=== PATIENT | male | born 1950 | race Two or more races ===

== ENCOUNTER → 2024-03-10 | Outpatient (CLI) | payer MEDICAID ==
[2024-03-10 06:40] LABS: INR 3.09 (0.9-1.15); Prothrombin Time 30.1 sec (9.3-11.8)
== END | disposition home or self-care (01) ==
LOC: LAB 06:24
PROVIDERS: ATTEND Specialist
DX: R79.1 Abnormal coagulation profile (principal)
CPT/HCPCS: 36415; 85610

== ENCOUNTER → 2024-03-18 | Outpatient (CLI) | payer MEDICAID ==
[2024-03-18 09:33] LABS: Urine Bacteria None Seen /hpf (None Seen)
[2024-03-18 09:59] LABS: Urine Blood TRACE /uL (Negative); Urine Clarity Clear (Clear); Urine Color Yellow (Yellow); Urine Protein, UAD TRACE (Negative); Urine Specific Gravity 1.025 (1.001-1.035); Urine Urobilinogen 4 mg/dL (Negative); Urine WBC 6 /hpf (0 - 3); Urine pH 6.5 (5.0-9.0)
[2024-03-18 10:19] LABS: Alanine Aminotransferase 29 U/L (7-40); Albumin 3.9 g/dL (3.2-4.8); Alkaline Phosphatase 124 U/L (46-116); Anion Gap 2 (5-15); Aspartate Aminotransferase 29 U/L (13-40); BUN/Creatinine Ratio 21.3 (10.0-20.0); Blood Urea Nitrogen 17 mg/dL (9-23); Carbon Dioxide 33 mmol/L (20-30); Chloride 105 mmol/L (98-107); Cholesterol 132 mg/dL (< 200); Glucose 92 mg/dL (74-106); HDL Cholesterol 66 mg/dL (40-59); LDL Cholesterol 50 mg/dL (< 100); Potassium 4.3 mmol/L (3.5-5.1); Sodium 140 mmol/L (136-145); Triglycerides 72 mg/dL (< 150)
[2024-03-18 10:20] LABS: Basophils # (auto) 0 10 ^3/uL (0-0.2); Basophils % (auto) 0.9 % (0.0-2.0); Bilirubin, Total 0.6 mg/dL (0.2-1.0); Eosinophils # (auto) 0.1 10 ^3/uL (0-0.8); Eosinophils % (auto) 3.3 % (0.0-7.0); Hematocrit 41.2 % (41.0-53.0); Hemoglobin 13.5 g/dL (13.5-17.5); Lymphocytes # (auto) 0.5 10 ^3/uL (0.4-5.4); Lymphocytes % (auto) 13.9 % (10.0-50.0); Mean Corpuscular Hemoglobin 32.2 pg (28.0-32.0); Mean Corpuscular Hgb Conc. 32.9 g/dL (32.0-36.0); Mean Corpuscular Volume 97.9 fL (80.0-100.0); Monocytes # (auto) 0.3 10 ^3/uL (0-1.3); Monocytes % (auto) 8.9 % (0.0-12.0); Neutrophils # (auto) 2.7 10 ^3/uL (1.6-8.6); Nucleated Red Blood Cells % 0.1 %; Red Blood Cells 4.21 10^6/uL (4.5-5.90); Red Cell Distribution Width 14.8 % (11.8-14.3); Total Protein 6.2 g/dL (5.7-8.2); White Blood Cell 3.7 10^3/uL (4.4-10.8)
[2024-03-18 11:20] LABS: Folate (Folic Acid) 29.09 ng/mL (>5.38)
[2024-03-18 21:24] LABS: Uric Acid 4.3 mg/dL (3.7-9.2)
== END | disposition home or self-care (01) ==
LOC: LAB 09:17
PROVIDERS: ATTEND Internal Medicine
DX: E79.0 Hyperuricemia without signs of inflammatory arthritis and tophaceous disease (principal); R78.89 Finding of other specified substances, not normally found in blood; E78.9 Disorder of lipoprotein metabolism, unspecified; R68.89 Other general symptoms and signs; R73.09 Other abnormal glucose; E61.2 Magnesium deficiency; E85.9 Amyloidosis, unspecified; R82.90 Unspecified abnormal findings in urine; D51.9 Vitamin B12 deficiency anemia, unspecified; R76.8 Other specified abnormal immunological findings in serum; E55.9 Vitamin D deficiency, unspecified
CPT/HCPCS: 36415; 80053; 80061; 81001; 82306; 82607; 82746; 83036; 84443; 84550; 85025; 86038; 87086

== ENCOUNTER → 2024-04-03 | Outpatient (CLI) | payer MEDICAID ==
[~2024-04-03] MED LIST: ALEN35TA18 PO; BUPR200T7 PO; CHOL20007 PO; FURO1TAB31 PO; HYDR-4902 PO; LEVO150T10 PO; PRAV20TA3 PO; TAMS0.4C36 PO; WARF-111 PO; WARF4TAB69 PO; [UNRECOGNIZED DRUG - CODE] PO
[2024-04-03 14:18] LABS: Prothrombin Time 38.6 sec (9.3-11.8)
[2024-04-03 14:29] LABS: INR 4.04 (0.9-1.15)
== END | disposition home or self-care (01) ==
LOC: LAB 13:31
PROVIDERS: ATTEND Specialist
DX: R79.1 Abnormal coagulation profile (principal)
CPT/HCPCS: 36415; 85610

== ENCOUNTER 2024-04-21 07:44 | Day surgery (SDC) | payer MEDICAID ==
[2024-04-18 12:33] LABS: Basophils # (auto) 0 10 ^3/uL (0-0.2); Basophils % (auto) 1.1 % (0.0-2.0); Eosinophils # (auto) 0.1 10 ^3/uL (0-0.8); Eosinophils % (auto) 2.2 % (0.0-7.0); Hemoglobin 13.4 g/dL (13.5-17.5); Lymphocytes # (auto) 0.7 10 ^3/uL (0.4-5.4); Lymphocytes % (auto) 17.2 % (10.0-50.0); Mean Corpuscular Hemoglobin 32.4 pg (28.0-32.0); Mean Corpuscular Hgb Conc. 33.5 g/dL (32.0-36.0); Mean Corpuscular Volume 96.7 fL (80.0-100.0); Monocytes # (auto) 0.4 10 ^3/uL (0-1.3); Monocytes % (auto) 10.1 % (0.0-12.0); Neutrophils # (auto) 2.9 10 ^3/uL (1.6-8.6); Neutrophils % (auto) 69.4 % (37.0-80.0); Nucleated Red Blood Cells % 0.1 %; Red Blood Cells 4.14 10^6/uL (4.5-5.90); Red Cell Distribution Width 14.1 % (11.8-14.3); White Blood Cell 4.2 10^3/uL (4.4-10.8)
[2024-04-18 12:48] LABS: Urine Bacteria FEW /hpf (None Seen); Urine Blood TRACE /uL (Negative); Urine Clarity Clear (Clear); Urine Color Light-Yellow (Yellow); Urine Protein, UAD Negative (Negative); Urine Specific Gravity 1.009 (1.001-1.035); Urine Urobilinogen Normal (Negative); Urine WBC 6 /hpf (0 - 3); Urine pH 7.5 (5.0-9.0)
[2024-04-18 12:49] LABS: INR 1.22 (0.9-1.15); Partial Thromboplastin Time 31.8 SEC (24.5-34.5); Prothrombin Time 12.7 sec (9.3-11.8)
[2024-04-18 13:00] LABS: Chloride 109 mmol/L (98-107); Potassium 4.5 mmol/L (3.5-5.1); Sodium 140 mmol/L (136-145)
[2024-04-18 13:01] LABS: Calcium 10.1 mg/dL (8.5-10.1); Carbon Dioxide 34 mmol/L (20-30)
[2024-04-18 13:06] LABS: BUN/Creatinine Ratio 20.8 (10.0-20.0); Blood Urea Nitrogen 16 mg/dL (9-23); Glucose 84 mg/dL (74-106)
[2024-04-18 13:11] LABS: Anion Gap -3 (5-15)
[~2024-04-21] VITALS: Ht 172.7 cm; Wt 100.2 kg
[2024-04-21] MEDS ORDERED: fentaNYL CITRATE 100 MCG/2 ML VL ONE (08:54)
[2024-04-21] MEDS ORDERED: MIDAZOLAM HCL 2MG/2ML 2ml VIAL (1mg/ml) ONE ×2 (08:55→10:32)
[2024-04-21] MEDS ORDERED: LIDOCAINE VISCOUS 2% 15ML UD PO ONE (09:00)
[2024-04-21] MEDS ORDERED: ENOXAPARIN SOD 100 MG/1 ML SYRINGE SC ONE (09:00)
[2024-04-21] MEDS ORDERED: LIDOCAINE 2%HCL (LOCAL ANESTH.) INJ 20ML MDV ONE (09:15)
[2024-04-21] MEDS ORDERED: ceFAZolin 1GM/50ML 100 ML IV ONE (09:31)
[2024-04-21] MEDS ORDERED: diphenhdrAMINE HCL 50 MG/1 ML VL ONE (10:35)
[2024-04-21] MEDS: HYDROcodone-ACET 5/325MG TAB PO ONE (12:10)
== END 2024-04-21 16:05 | disposition home or self-care (01) ==
LOC: CATH 07:44
PROVIDERS: ATTEND Specialist
DX: I48.92 Unspecified atrial flutter (principal); I08.3 Combined rheumatic disorders of mitral, aortic and tricuspid valves; I48.91 Unspecified atrial fibrillation; I70.0 Atherosclerosis of aorta
CPT/HCPCS: 36415; 80048; 81001; 85025; 85610; 85730; 93312; 93325; C1730; C1731; C1893; C1894; J0690; J1200; J1644; J1650; J2250; J3010; J7030; 99152; 99153

== ENCOUNTER → 2024-05-05 | Outpatient (CLI) | payer MEDICAID ==
[2024-05-05 12:31] LABS: INR 2.02 (0.9-1.15); Prothrombin Time 20.3 sec (9.3-11.8)
== END | disposition home or self-care (01) ==
LOC: LAB 12:04
PROVIDERS: ATTEND Specialist
DX: R79.1 Abnormal coagulation profile (principal)
CPT/HCPCS: 36415; 85610

== ENCOUNTER → 2024-05-19 | Outpatient (CLI) | payer MEDICAID ==
[2024-05-19 15:06] LABS: INR 1.48 (0.9-1.15); Prothrombin Time 15.2 sec (9.3-11.8)
== END | disposition home or self-care (01) ==
LOC: LAB 14:37
PROVIDERS: ATTEND Specialist
DX: R79.1 Abnormal coagulation profile (principal)
CPT/HCPCS: 36415; 85610

== ENCOUNTER → 2024-07-08 | Outpatient (CLI) | payer MEDICAID ==
[~2024-07-08] MED LIST changes: -TAMS0.4C36 PO; +TAMS0.4C39 PO
[2024-07-08 13:28] LABS: INR 2.59 (0.9-1.15); Prothrombin Time 25.6 sec (9.3-11.8)
== END | disposition home or self-care (01) ==
LOC: LAB 12:57
PROVIDERS: ATTEND Specialist
DX: R79.1 Abnormal coagulation profile (principal)
CPT/HCPCS: 36415; 85610

== ENCOUNTER → 2024-10-20 | Outpatient (CLI) | payer MEDICAID ==
[2024-10-20 08:36] LABS: Prothrombin Time 49.5 sec (9.3-11.8)
[2024-10-20 10:37] LABS: INR 5.28 (0.9-1.15)
== END | disposition home or self-care (01) ==
LOC: LAB 07:37
PROVIDERS: ATTEND Specialist
DX: R79.1 Abnormal coagulation profile (principal)
CPT/HCPCS: 36415; 85610

== ENCOUNTER → 2024-12-02 | Outpatient (CLI) | payer MEDICAID ==
[2024-12-02 11:25] LABS: INR 1.84 (0.9-1.15); Prothrombin Time 18.4 sec (9.3-11.8)
[2024-12-02 11:35] LABS: Urine Bacteria FEW /hpf (None Seen); Urine Blood Negative /uL (Negative); Urine Clarity Ex.Turbid (Clear); Urine Color Yellow (Yellow); Urine Protein, UAD TRACE (Negative); Urine Specific Gravity 1.019 (1.001-1.035); Urine Squamous Epithelial Cell FEW /hpf (<5); Urine Urobilinogen 3 mg/dL (Negative); Urine WBC 14 /HPF (0-3)
[2024-12-02 11:43] LABS: Basophils # (auto) 0 10 ^3/uL (0-0.2); Basophils % (auto) 0.8 % (0.0-2.0); Eosinophils # (auto) 0 10 ^3/uL (0-0.8); Eosinophils % (auto) 0.8 % (0.0-7.0); Hematocrit 37.5 % (41.0-53.0); Lymphocytes # (auto) 0.4 10 ^3/uL (0.4-5.4); Lymphocytes % (auto) 7.7 % (10.0-50.0); Mean Corpuscular Hemoglobin 27.8 pg (28.0-32.0); Mean Corpuscular Hgb Conc. 32.1 g/dL (32.0-36.0); Mean Corpuscular Volume 86.6 fL (80.0-100.0); Monocytes # (auto) 0.4 10 ^3/uL (0-1.3); Monocytes % (auto) 8.4 % (0.0-12.0); Neutrophils # (auto) 4.4 10 ^3/uL (1.6-8.6); Neutrophils % (auto) 82.3 % (37.0-80.0); Nucleated Red Blood Cells % 0.1 %; Platelet Count (auto) 232 10^3/uL (140-450); Red Blood Cells 4.33 10^6/uL (4.5-5.90); White Blood Cell 5.3 10^3/uL (4.4-10.8)
[2024-12-02 11:53] LABS: Alanine Aminotransferase 21 U/L (7-40); Albumin 4.1 g/dL (3.2-4.8); Anion Gap 4 (5-15); Aspartate Aminotransferase 33 U/L (13-40); BUN/Creatinine Ratio 23.3 (10.0-20.0); Blood Urea Nitrogen 17 mg/dL (9-23); Chloride 103 mmol/L (98-107); Glucose 89 mg/dL (74-106); LDL Cholesterol 50 mg/dL (< 100); Potassium 4.2 mmol/L (3.5-5.1); Sodium 138 mmol/L (136-145); Triglycerides 63 mg/dL (< 150)
[2024-12-02 11:54] LABS: Bilirubin, Total 0.5 mg/dL (0.2-1.0); Cholesterol 138 mg/dL (< 200); Total Protein 6.7 g/dL (5.7-8.2)
[2024-12-02 11:56] LABS: Folate (Folic Acid) 18.8 ng/mL (>5.38)
[2024-12-02 12:01] LABS: Alkaline Phosphatase 187 U/L (46-116); Calcium 10.6 mg/dL (8.7-10.4); Carbon Dioxide 31 mmol/L (20-31); HDL Cholesterol 67 mg/dL (40-59)
[2024-12-02 12:24] LABS: Uric Acid 2.8 mg/dL (3.7-9.2)
== END | disposition home or self-care (01) ==
LOC: LAB 09:15
PROVIDERS: ATTEND Specialist
DX: E55.9 Vitamin D deficiency, unspecified (principal); E79.0 Hyperuricemia without signs of inflammatory arthritis and tophaceous disease; E61.2 Magnesium deficiency; E78.49 Other hyperlipidemia; D51.9 Vitamin B12 deficiency anemia, unspecified; R73.09 Other abnormal glucose; R94.4 Abnormal results of kidney function studies; R82.90 Unspecified abnormal findings in urine; R68.89 Other general symptoms and signs; R82.998 Other abnormal findings in urine
CPT/HCPCS: 36415; 80053; 80061; 81001; 82306; 82607; 82746; 83036; 84443; 84550; 85025; 85610; 87086

== ENCOUNTER → 2024-12-18 | Outpatient (CLI) | payer MEDICAID ==
[2024-12-18 13:47] LABS: Prothrombin Time 59.1 sec (9.3-11.8)
[2024-12-18 13:59] LABS: INR 6.74 (0.9-1.15)
[2024-12-18 14:23] LABS: Urine Bacteria FEW /hpf (None Seen); Urine Blood TRACE /uL (Negative); Urine Clarity Clear (Clear); Urine Color Yellow (Yellow); Urine Protein, UAD Negative (Negative); Urine Specific Gravity 1.018 (1.001-1.035); Urine Squamous Epithelial Cell FEW /hpf (<5); Urine Urobilinogen Normal (Negative); Urine WBC 15 /HPF (0-3); Urine pH 5.5 (5.0-9.0)
== END | disposition home or self-care (01) ==
LOC: LAB 13:14
PROVIDERS: ATTEND Internal Medicine
DX: R79.1 Abnormal coagulation profile (principal); R82.998 Other abnormal findings in urine
CPT/HCPCS: 36415; 81001; 85610; 87086

== ENCOUNTER 2024-12-23 00:28 | Inpatient (IN) | payer MEDICAID ==
[~2024-12-23] VITALS: Ht 172.7 cm; Wt 91.1 kg
[2024-12-23] VITALS (23 sets, daily range): BP systolic 90–119; BP diastolic 42–57; PULSE 62–98; RESP 12–18; TEMP 97.6–99.5; O2SAT 91–100
[2024-12-23] MEDS ORDERED: MORPHINE SULFATE INJ 2 MG/ml SYRG IV PRN (04:15)
[2024-12-23] MEDS ORDERED: NITROGLYCERIN 0.4 MG SL TAB SL PRN (04:15)
[2024-12-23] MEDS ORDERED: ONDANSETRON HCL 4 MG/2 ML VIAL IV PRN (04:15)
[2024-12-23 04:56] LABS: Basophils # (auto) 0 10 ^3/uL (0-0.2); Basophils % (auto) 0.4 % (0.0-2.0); Eosinophils # (auto) 0 10 ^3/uL (0-0.8); Eosinophils % (auto) 0.2 % (0.0-7.0); Hematocrit 14.4 % (41.0-53.0); Lymphocytes # (auto) 0.7 10 ^3/uL (0.4-5.4); Lymphocytes % (auto) 9.3 % (10.0-50.0); Mean Corpuscular Hgb Conc. 33.7 g/dL (32.0-36.0); Mean Corpuscular Volume 82.9 fL (80.0-100.0); Monocytes # (auto) 0.8 10 ^3/uL (0-1.3); Monocytes % (auto) 10.4 % (0.0-12.0); Neutrophils # (auto) 6.2 10 ^3/uL (1.6-8.6); Neutrophils % (auto) 79.7 % (37.0-80.0); Nucleated Red Blood Cells % 0.1 %; Platelet Count (auto) 221 10^3/uL (140-450); Red Blood Cells 1.74 10^6/uL (4.5-5.90); Red Cell Distribution Width 17.2 % (11.8-14.3); White Blood Cell 7.8 10^3/uL (4.4-10.8)
--- NOTE | 2024-12-23 04:57 | DVHHP2 ---
History of Present Illness Reason for Visit: Syncope History of Present Illness 74-year-old male transferred from outside facility for continuity of care and disposition. Patient presented to outside facility with complaints of syncope. Patient reports a three day history of dizziness and had a syncopal episode at home. When EMS picked him up he had another witnessed syncope episode. Patient was noted to have a hemoglobin of four point five in outside facility and was transfused with 3 units of packed red cells. Patient's INR was also elevated and was given one bag of FFP. On arrival patient had large bowel movement with dark colored stool. Denies head trauma. No chest pain or palpitations. No shortness a breath. Past Medical History Hypertension, CHF, lung cancer and atrial fibrillation Past Surgical History Pacemaker Family History Noncontributory Smoke: No ALCOHOL: none Drugs: None Lives: with Family Review of Systems Review of Systems Review of systems are currently negative otherwise addressed in HPI. Allergies: Coded Allergies: NO KNOWN ALLERGIES (Unverified , 04/18/24) Medications Current Medications Medications Dose Ordered Sig/Yasir Route Start Time Stop Time Status Last Admin Dose Admin Ondansetron HCl 4 mg Q4HP PRN IV 12/23/24 04:15 Acetaminophen 650 mg Q6HP PRN PO 12/23/24 04:15 Nitroglycerin 0.4 mg Q5MINP PRN SL 12/23/24 04:15 Morphine Sulfate 2 mg Q30M PRN IV 12/23/24 04:15 Furosemide 40 mg DAILY PO 12/23/24 10:00 Warfarin Sodium RX PROTOCOL PER PHARMACY PO 12/23/24 04:15 UNV Levothyroxine Sodium 75 mcg QAM@0600 PO 12/23/24 06:00 Tamsulosin HCl 0.4 mg QPM PO 12/23/24 18:00 Bupropion HCl 150 mg BID@07,19 PO 12/23/24 07:00 Amiodarone HCl 200 mg DAILY PO 12/23/24 10:00 Atorvastatin Calcium 20 mg HS PO 12/23/24 22:00 Exam Vital Signs Vital Signs Date Time Temp Pulse Resp B/P (MAP) Pulse Ox O2 Delivery O2 Flow Rate FiO2 12/23/24 03:16 98.5 63 16 92/54 (67) 95 98.5 Exam Gen: 74-year-old male in mild distress Skin: Warm, dry, normal color and texture, no rash. HEENT: Normocephalic atraumatic, mucous membranes moist and pink. Neck: Cervical and supraclavicular nodes normal without enlargement, trachea is midline, thyroid gland is normal without masses. Pulmonary: Clear to auscultation and percussion bilaterally. Cardiac: Regular rate and rhythm. No murmur Abdomen: Soft, nontender, nondistended, bowel sounds present all 4 quadrants, no guarding, no rigidity, no organomegaly. Extremities: No cyanosis, clubbing, no edema Neuro: Cranial nerves II through XII grossly intact, normal affect and speech, no focal motor deficits. Labs/Xrays Head CT and x-ray from outside facility are negative for acute pathology. Labs Test 12/23/24 04:42 Range/Units Assessment/Plan Assessment/Plan Assessment Symptomatic anemia Syncope, secondary to the above Supratherapeutic INR Status post pacemaker History of lung cancer status post radiation therapy Plan Admit the patient to telemetry to the hospitalist GI consultation Transfuse 3 units of PRBCs Transfuse 2 units of FFP Start Protonix/octreotide drip Transfuse to maintain hemoglobin level above 7.0 NPO Maintenance IV fluids Continue treatment per orders. Plan discussed with: Patient My Orders Orders - CALLIE NAVARRO AGACNRosa Procedure Category Date Status Time Complete Blood Count LAB 12/23/24 In Process 04:10 Comprehensive LAB 12/23/24 In Process Metabolic Panel 04:10 Troponin-I Hs LAB 12/23/24 In Process 04:10 B-Type Natriuretic LAB 12/23/24 In Process Peptide 04:10 * Cardiology Consult CONS 12/23/24 Transmitted 04:10 Chest Xray 1 View XY 12/23/24 Logged 04:10 Thyroid Stimulating LAB 12/23/24 In Process Hormone 04:10 Admit ADMIT 12/23/24 Transmitted 04:10 Ondansetron Hcl PHA 12/23/24 In Process (Zofran) 04:15 Cardiac DIET 12/23/24 Transmitted Diet-2gna,Lofat,Lochol Breakfast Echo 2d Mode Cardiac US 12/23/24 Logged DOP 04:10 Carotid Duplx W Color US 12/23/24 Logged DOP 04:10 Condition: Fair ALEC 12/23/24 In Process 04:10 Acetaminophen Tablet PHA 12/23/24 In Process (Tylenol Tablet) 04:15 Bedrest With Bathroom ALEC 12/23/24 In Process Privileg 04:10 Nitroglycerin PHA 12/23/24 In Process Sublingual (Ntrostat 04:15 Morphine Sulfate PHA 12/23/24 In Process Injection 04:15 Stat Ekg For Chest [facility] 12/23/24 In Process Pain 04:10 Notify Md Of Changes [facility] 12/23/24 In Process From Base 04:10 Web Portal Developer For [facility] 12/23/24 In Process 24 Hours 04:10 Emergency Dysrhythmia [facility] 12/23/24 In Process Protocol 04:10 Rhythm Strips Once [facility] 12/23/24 In Process Every Shift 04:10 Oxygen By Nasal RT 12/23/24 Transmitted Cannula 04:10 Furosemide Tablet PHA 12/23/24 In Process (Lasix Tablet) 10:00 Warfarin Per Rx PHA 12/23/24 Pending Protocol (Coumadin 04:15 Levothyroxine Tablet PHA 12/23/24 In Process (Synthroid Tablet) 06:00 PTPTT LAB 12/23/24 In Process 04:10 Tamsulosin PHA 12/23/24 In Process Hydrochloride (Flomax) 18:00 Bupropion Tablet PHA 12/23/24 In Process (Wellbutrin Tablet) 07:00 Amiodarone Tablet PHA 12/23/24 In Process (Cordarone Tablet) 10:00 Atorvastatin (Lipitor) PHA 12/23/24 In Process 22:00 Docusate Sodium [facility] 12/23/24 Transmitted Capsule (Colace 10:00 Date of Service: Dec 23, 2024 Billing Provider: CALLIE NAVARRO Common Visit Codes: [id number] INP/OBS CARE (HIGH) CALLIE NAVARRO Dec 23, 2024 04:57
[2024-12-23 05:01] LABS: Hemoglobin 4.9 g/dL (13.5-17.5)
[2024-12-23 05:14] LABS: Alanine Aminotransferase 23 U/L (7-40); Anion Gap 7 (5-15); Aspartate Aminotransferase 39 U/L (13-40); BUN/Creatinine Ratio 52.6 (10.0-20.0); Calcium 9.2 mg/dL (8.7-10.4); Carbon Dioxide 26 mmol/L (20-31); Glucose 100 mg/dL (74-106); Potassium 3.7 mmol/L (3.5-5.1); Sodium 140 mmol/L (136-145)
[2024-12-23 05:16] LABS: Albumin 2.9 g/dL (3.2-4.8); Alkaline Phosphatase 167 U/L (46-116); Bilirubin, Total 0.2 mg/dL (0.2-1.0); Blood Urea Nitrogen 40 mg/dL (9-23); Chloride 107 mmol/L (98-107); Total Protein 4.7 g/dL (5.7-8.2)
[2024-12-23 05:18] LABS: Partial Thromboplastin Time 47.4 SEC (24.5-34.5); Prothrombin Time 38.4 sec (9.3-11.8)
[2024-12-23 05:22] LABS: INR 4.17 (0.9-1.15)
[2024-12-23] MEDS: LEVOTHYROXINE SODIUM 25 MCG TAB PO SCH (06:00)
[2024-12-23] MEDS: PANTOPRAZOLE 40mg/50ML NS AE 50 ML IV SCH (06:55)
[2024-12-23] MEDS: buPROPion HCL 75 MG TAB PO SCH (06:56)
[2024-12-23] MEDS: SODIUM CHLORIDE 0.9% 1,000 ML IV SCH (06:56)
--- NOTE | 2024-12-23 06:59 | DVH ---
CHEST RADIOGRAPH Indication: sob Technique: Single frontal view of the chest was obtained Comparison: None FINDINGS: Lines and Tubes: Dual-chamber pacemaker. Lungs: Pulmonary vascular congestion. Pleura: No effusion. No pneumothorax. Cardiomediastinal contours: Cardiomegaly. Bones: No acute osseous abnormality. Bilateral shoulder prostheses. IMPRESSION: 1. Pulmonary vascular congestion. 2. Cardiomegaly.
--- NOTE | 2024-12-23 08:38 | DVHINCON2 ---
Date of service: Dec 23, 2024 History of Present Illness HPI Patient is a 74-year-old gentleman who was transferred from [facility] Emergency room for further evaluation to our hospital. Originally, the patient presented to other Hospital for presyncopal episodes. He was somehow dizzy for few days. He mentions that is he had less stamina going back for few days. He also has been experiencing abdominal pain after eating and his appetite has decreased. Denies chest pain. Denies nausea and vomiting. Denies diarrhea. Cardiology was involved for cardiac aspects of care. Patient is known to our practice from outside than before. Does have a pacemaker which was interrogated last in July 2024. In [facility] emergency room, the patient was found to have significant anemia and reportedly did receive blood tr ansfusion. In [facility], CT of the head had revealed questionable meningioma and also RCA lesion in frontal bone. It also reported severe chronic muscle sinusitis. Home Meds Reported Medications Tamsulosin Hcl (Tamsulosin Hcl) 0.4 Mg Cap, 0.4 MG PO QPM 04/18/24 Alendronate Sodium (Alendronate Sodium) 35 Mg Tab, 2 TAB PO QWEEKLY 04/18/24 Warfarin Sodium (Warfarin Sodium) 3 Mg Tab, 3 MG PO MWF for mon,wed,fri,sun 04/18/24 Warfarin Sodium (Warfarin Sodium) 2 Mg Tab, 2 MG PO TUTHSA for afib 04/18/24 Hydrocodone-Acetaminophen (Hydrocodone Bitartrate/AC 5-325 mg) 1 Tab Tab, 1 TAB PO PRN 04/18/24 Levothyroxine Sodium (Levothyroxine Sodium) 150 Mcg Tab, 75 MCG PO QAM 04/18/24 Cholecalciferol (VITAMIN D3) 2,000 Unit Tab, 125 MCG PO DAILY 04/18/24 Pravastatin Sodium (PRAVACHOL TABLET) 20 Mg Tb, 1 TAB PO DAILY 04/18/24 Furosemide (Lasix) 40 Mg Tab, 40 MG PO BID 04/18/24 Bupropion HCl (Bupropion HCl ER) 200 Mg Tab, 300 MG PO DAILY, TAB 04/18/24 Discontinued Reported Medications Diphenhydramine-Acetaminophen (Acetaminophen Pm 500-25 mg) 1 Tab Tab, 1 TAB PO QHSP PRN for FOR INSOMNIA 04/18/24 Past Medical History Others Past medical history includes hypertension, hyperlipidemia, diastolic heart failure, valvular heart disease, history of mitral valve prolapse, pulmonary hypertension, atrial fibrillation/atrial flutter (on Coumadin as outpatient), status post atrial flutter ablation, status post pacemaker (Medtronic pacer, Derrick wires), DJD and hypothyroidism. As per patient, the patient was diagnosed with lung cancer less than a year ago for which has received radiation therapy. Patient Family History: Patient reports no known family medical history. Smoker: No Hx (Negative) Alocohol: None Drugs: None Lives with: Alone Review of Systems Constitutional: Weakness Ears, Nose, & Throat: No symptom reported Eyes: No symptom reported All Other Systems He mentions that he did have some blood in the stool few days back. Fourteen point review of system was performed. Relevant findings as per above and as per HPI. Otherwise negative. H&P Exam Vital Signs Vital Signs Date Time Temp Pulse Resp B/P (MAP) Pulse Ox O2 Delivery O2 Flow Rate FiO2 12/23/24 05:00 98.8 63 16 92/54 (67) 95 98.8 12/23/24 04:13 Room Air* 0 21 General Appeara: Cachetic Eye Exam: bilateral eye PERRL Mouth: Normal Inspection Pulmonary/Respiratory: Rhonci Cardiovascular/Chest: Regular rate, Systolic murmur Peripheral Pulses: 2+ carotid (R), 2+ carotid (L), 2+ femoral (R), 2+ femoral (L), 2+ dorsalis pedis (R), 2+ dorsalis pedis (L), 2+ Radial (R), 2+ Radial (L) Abdominal Exam: Normal bowel sounds, Soft Neuro/Mental St: Alert, Oriented Appearance: Appropriate appearance Eye contact/ Speech: Cooperative Labs/Xrays Labs Test 12/23/24 04:42 Range/Units White Blood Count 7.8 4.4-10.8 10^3/uL Red Blood Count 1.74 L 4.5-5.90 10^6/uL Hemoglobin 4.9 *L 13.5-17.5 g/dL Hematocrit 14.4 L 41.0-53.0 % Mean Corpuscular Volume 82.9 80.0-100.0 fL Mean Corpuscular Hemoglobin 28.0 28.0-32.0 pg Mean Corpuscular Hemoglobin Concent 33.7 32.0-36.0 g/dL Red Cell Distribution Width 17.2 H 11.8-14.3 % Platelet Count 221 140-450 10^3/uL Mean Platelet Volume 8.5 6.9-10.8 fL Neutrophils (%) (Auto) 79.7 37.0-80.0 % Lymphocytes (%) (Auto) 9.3 L 10.0-50.0 % Monocytes (%) (Auto) 10.4 0.0-12.0 % Eosinophils (%) (Auto) 0.2 0.0-7.0 % Basophils (%) (Auto) 0.4 0.0-2.0 % Neutrophils # (Auto) 6.2 1.6-8.6 10 ^3/uL Lymphocytes # (Auto) 0.7 0.4-5.4 10 ^3/uL Monocytes # (Auto) 0.8 0-1.3 10 ^3/uL Eosinophils # (Auto) 0 0-0.8 10 ^3/uL Basophils # (Auto) 0 0-0.2 10 ^3/uL Nucleated Red Blood Cells 0.1 % Prothrombin Time 38.4 H 9.3-11.8 sec Prothrombin Time INR 4.17 *H 0.9-1.15 Activated Partial Thromboplast Time 47.4 H 24.5-34.5 SEC Sodium Level 140 136-145 mmol/L Potassium Level 3.7 3.5-5.1 mmol/L Chloride Level 107 98-107 mmol/L Carbon Dioxide Level 26 20-31 mmol/L Anion Gap 7 5-15 Blood Urea Nitrogen 40 H 9-23 mg/dL Creatinine 0.76 0.700-1.30 mg/dL Glomerular Filtration Rate Calc 96 >90 mL/min BUN/Creatinine Ratio 52.6 H 10.0-20.0 Serum Glucose 100 74-106 mg/dL Calcium Level 9.2 8.7-10.4 mg/dL Total Bilirubin 0.2 0.2-1.0 mg/dL Aspartate Amino Transferase (AST) 39 13-40 U/L Alanine Aminotransferase (ALT) 23 7-40 U/L Alkaline Phosphatase 167 H 46-116 U/L Troponin I High Sensitivity 28 </=54 ng/L B-Type Natriuretic Peptide 118.69 0-100 pg/mL Total Protein 4.7 L 5.7-8.2 g/dL Albumin 2.9 L 3.2-4.8 g/dL Thyroid Stimulating Hormone (TSH) 16.64 H 0.55-4.78 uIU/mL Assessment/Plan Plan Patient is a 74-year-old gentleman who was transferred from [facility] Emergency room for further evaluation to our hospital. Originally, the patient presented to other Hospital for presyncopal episodes. He was somehow dizzy for few days. He mentions that is he had less stamina going back for few days. He also has been experiencing abdominal pain after eating and his appetite has decreased. Denies chest pain. Denies nausea and vomiting. Denies diarrhea. Cardiology was involved for cardiac aspects of care. Patient is known to our practice from outside than before. Does have a pacemaker which was interrogated last in July 2024. In [facility] emergency room, the patient was found to have significant anemia and reportedly did receive blood transfusion. In [facility], CT of the head had revealed questionable meningioma and also RCA lesion in frontal bone. It also reported severe chronic muscle sinusitis. Frail gentleman. Not in acute distress. Lying flat in bed. No JVD. Mucosa is wet. Not using accessory muscles of breathing. Lungs are clear to auscultation. Cardiac: Regular, no thrill. Systolic murmur 2/6 in the apex is heard. Abdomen is soft. Mild periumbilical tenderness is elicited. Bowel sounds positive. Extremities reveal 2+ edema bilaterally. Dorsalis pedis is 1+ bilateral Past medical history includes hypertension, hyperlipidemia, diastolic heart failure, valvular heart disease, history of mitral valve prolapse, pulmonary hypertension, atrial fibrillation/atrial flutter (on Coumadin as outpatient), status post atrial flutter ablation, status post pacemaker (Medtronic pacer, Derrick wires), DJD and hypothyroidism. As per patient, the patient was diagnosed with lung cancer less than a year ago for which has received radiation therapy. Nuclear stress test of November 2019 (performed in the office) revealed scar but no ischemia. Ejection fraction was 58% at that point. Hemoglobin: 4.9 INR: 4.17 Creatinine: 0.76 Potassium: 3.7 Troponin (high sensitive): 28 BNP: 118.68 TSH: 16.64 Tele reveals paced rhythm Patient is a 74-year-old gentleman presented with presyncopal episode. Did have some dizziness. Does complain of abdominal pain after eating. Does have history of pacemaker which was last interrogated in July 2024. Does have history of lung cancer for around a year (as per patient and with unknown detail ). He usually is on Coumadin for atrial fibrillation/flutter. He is found to have significant anemia with supratherapeutic INR. CT of the head in [facility] has a reported meningioma with osseous lesions and felt a bone Presyncope Anemia, severe Supratherapeutic INR Atrial fibrillation, atrial flutter history of Status post pacemaker implantation (Medtronic pacer with sodium wires) Valvular heart disease CHF, diastolic Hypertension Hyperlipidemia Hypothyroidism Lung cancer, history all Abdominal pain Poor appetite Cardiac suggestions for management: Manage on telemetry Follow up electrolytes and kidney function test and Correct abnormalities. Keep potassium above four and magnesium above two Requested echocardiogram Request for interrogation of pacemaker (Medtronic) Request for chest x-ray Request for EKG Transfuse PRBC Request for repeat TSH, request for T3/T4/free T3/free T4 GI consultation is advised Neurology evaluation is advised for the findings of CT of the head in [facility] Consider MRI of the brain. Ask Medtronic rep to adjust the pacemaker for possible MRI of the brain Further evaluation and management depends on the above and clinical course Thank you for consultation A total of 75 minutes was spent reviewing the patient record, examining the patient, making a diagnostic and therapeutic plan, discussing this plan with medical personnel, following up on diagnostic studies and following the patient for clinical stability excluding any and all procedures. At least 50% of this time was spent in direct, [id number] contact. Thank you for allowing me to participate in this patient's care. Further recommendations will depend on patient's clinical course. Please do not hesitate to contact me if you have any questions or concerns. This medical document was created using electronic medical record system with [employer] computerized dictation system. Although this document has been carefully reviewed, there may still be some phonetic and typographical errors. These areas are purely typographical due to the imperfection of the software programs, and do not reflect any compromise in the patient's medical care. Plan discussed with: Patient, Other (nurse) JADEN HERNÁNDEZ MD Dec 23, 2024 08:38
[2024-12-23] MEDS: DOCUSATE SOD 100 MG CAP PO SCH (09:39)
[2024-12-23] MEDS: FUROSEMIDE 40 MG TAB PO SCH (09:40)
[2024-12-23] MEDS: AMIODARONE HCL 200 MG TAB PO SCH (09:40)
--- NOTE | 2024-12-23 13:02 | DVHPN2 ---
Subjective 74-year-old male with a history of atrial fibrillation who takes Coumadin at home, history of lung cancer, hypertension, CHF, hypothyroidism came with chief complaint of syncope and fainting He has been having black stools for a while He takes Coumadin 2 and 3 mg every other day He went to [facility] and was found to be anemic so he was given packed RBCs and fresh frozen plasma and then was transferred here Hemoglobin this morning was 4.9 and INR 4.1 Changes from previous H/P or p: Changes Objective Vitals Vital Signs Date Time Temp Pulse Resp B/P (MAP) Pulse Ox O2 Delivery O2 Flow Rate FiO2 12/23/24 12:48 98.8 62 14 107/55 (72) 100 98.8 12/23/24 08:00 Room Air* 0 21 Intake/Output Intake and Output 12/23/24 07:00 Intake Total 0 ml Output Total 0 ml Balance 0 ml Intake Oral 0 ml Output Urine Total 0 ml General Appearance: Alert, Oriented X3 Lungs: Clear to auscultation, Normal air movement Cardiovascular: Regular rate, Normal S1, Normal S2 Abdomen: Normal bowel sounds, Soft, No tenderness Extremities: No edema Medications Current Medications Medications Dose Ordered Sig/Yasir Route Start Time Stop Time Status Last Admin Dose Admin Ondansetron HCl 4 mg Q4HP PRN IV 12/23/24 04:15 Acetaminophen 650 mg Q6HP PRN PO 12/23/24 04:15 Nitroglycerin 0.4 mg Q5MINP PRN SL 12/23/24 04:15 Morphine Sulfate 2 mg Q30M PRN IV 12/23/24 04:15 Furosemide 40 mg DAILY PO 12/23/24 10:00 Levothyroxine Sodium 75 mcg QAM@0600 PO 12/23/24 06:00 Tamsulosin HCl 0.4 mg QPM PO 12/23/24 18:00 Bupropion HCl 150 mg BID@07,19 PO 12/23/24 07:00 Amiodarone HCl 200 mg DAILY PO 12/23/24 10:00 Atorvastatin Calcium 20 mg HS PO 12/23/24 22:00 Docusate Sodium 100 mg BID PO 12/23/24 10:00 Pantoprazole Sodium 50 ml @ 10 mls/hr Q5H IV 12/23/24 05:30 12/23/24 11:51 10 MLS/HR Sodium Chloride 1,000 ml @ 75 mls/hr [id number] IV 12/23/24 05:30 12/23/24 06:56 75 MLS/HR Laboratory Results Laboratory Tests 12/23/24 04:42 Chemistry Test 12/23/24 04:42 Albumin 2.9 g/dL (3.2-4.8) L Calcium Level 9.2 mg/dL (8.7-10.4) Total Protein 4.7 g/dL (5.7-8.2) L Coagulation Test 12/23/24 04:42 Prothrombin Time 38.4 sec (9.3-11.8) H Prothrombin Time INR 4.17 (0.9-1.15) *H Activated Partial Thromboplast Time 47.4 SEC (24.5-34.5) H Cardiac Markers Test 12/23/24 04:42 B-Type Natriuretic Peptide 118.69 pg/mL (0-100) LFT Test 12/23/24 04:42 Alanine Aminotransferase (ALT) 23 U/L (7-40) Alkaline Phosphatase 167 U/L (46-116) H Aspartate Amino Transferase (AST) 39 U/L (13-40) Total Bilirubin 0.2 mg/dL (0.2-1.0) HgA1c, TSH Test 12/23/24 04:42 Thyroid Stimulating Hormone (TSH) 16.64 uIU/mL (0.55-4.78) H Assessment/Plan Assessment/Plan Acute anemia due to blood loss Coagulopathy due to warfarin Atrial fibrillation Presyncope due to severe anemia Severe anemia due to blood loss Most likely GI bleed History of pacemaker placement Diastolic heart failure Hypertension Dyslipidemia Hypothyroidism , uncontrolled History of lung cancer Moderate protein malnutrition Plan The patient received a total of 3 units of packed RBCs so far Check the hemoglobin and assess for further need for more blood transfusion He received 1 unit of FFP and therefore he will be given 1 more unit Give vitamin K 10 mg subcutaneously IV fluids GI consult Protonix IV drip NPO Cardiology consult Full code Monitor closely Advance directives discussed for 15 minutes Plan discussed with: Patient Date of Service: Dec 23, 2024 Billing Provider: CHARO PAULSON MD Common Visit Codes: [id number] INP/OBS CARE(HIGH) Secondary Visit Codes: [id number] CARE PLAN 30 MINUTES CHARO PAULSON MD Dec 23, 2024 13:02
[2024-12-23 14:00] LABS: Free T3 0.75 pg/mL (2.3-4.2); Free T4 (Free Thyroxine) 0.77 ng/dL (0.89-1.76); T3 Total 0.4 ng/mL (0.60-1.81)
--- NOTE | 2024-12-23 14:03 | DVH ---
EXAM: XY CHEST PORTABLE Indication: pacemaker Technique: Single frontal view of the chest was obtained Comparison: None FINDINGS: Lines and Tubes: Cardiac pacemaker projects over the left chest wall. Lungs: Stable right lower lobe opacity. Pleura: No effusion. No pneumothorax. Cardiomediastinal contours: Cardiomegaly. Bones: No acute osseous abnormality. Bilateral shoulder arthroplasty. IMPRESSION: Cardiomegaly with stable right lower lung opacity. Pulmonary vascular congestion.
[2024-12-23 16:12] LABS: Basophils # (auto) 0 10 ^3/uL (0-0.2); Basophils % (auto) 0.2 % (0.0-2.0); Eosinophils # (auto) 0 10 ^3/uL (0-0.8); Eosinophils % (auto) 0.3 % (0.0-7.0); Hematocrit 18.6 % (41.0-53.0); Lymphocytes # (auto) 0.6 10 ^3/uL (0.4-5.4); Monocytes # (auto) 0.8 10 ^3/uL (0-1.3); Monocytes % (auto) 10.1 % (0.0-12.0); Neutrophils # (auto) 6.4 10 ^3/uL (1.6-8.6); Nucleated Red Blood Cells % 0.1 %; White Blood Cell 7.8 10^3/uL (4.4-10.8)
[2024-12-23 16:13] LABS: Lymphocytes % (auto) 7.5 % (10.0-50.0); Mean Corpuscular Hemoglobin 26.9 pg (28.0-32.0); Mean Corpuscular Hgb Conc. 31.7 g/dL (32.0-36.0); Mean Corpuscular Volume 84.8 fL (80.0-100.0); Neutrophils % (auto) 81.9 % (37.0-80.0); Platelet Count (auto) 218 10^3/uL (140-450); Red Cell Distribution Width 16.2 % (11.8-14.3)
[2024-12-23 16:17] LABS: Hemoglobin 5.9 g/dL (13.5-17.5)
[2024-12-23 16:20] LABS: Alanine Aminotransferase 23 U/L (7-40); Anion Gap 4 (5-15); BUN/Creatinine Ratio 59.5 (10.0-20.0); Calcium 9.1 mg/dL (8.7-10.4); Carbon Dioxide 29 mmol/L (20-31); Sodium 142 mmol/L (136-145)
[2024-12-23 16:21] LABS: Alkaline Phosphatase 158 U/L (46-116); Aspartate Aminotransferase 42 U/L (13-40); Bilirubin, Total 0.4 mg/dL (0.2-1.0); Blood Urea Nitrogen 44 mg/dL (9-23); Chloride 109 mmol/L (98-107); Glucose 107 mg/dL (74-106); Potassium 3.4 mmol/L (3.5-5.1); Total Protein 4.7 g/dL (5.7-8.2)
[2024-12-23 16:33] LABS: Large Platelets FEW; Platelet Estimate Adequa; Stomatocytes Few
[2024-12-23] MEDS: PHYTONADIONE (VIT K)10 MG/ML 1ML VIAL SUBCUT ONE (16:36)
--- NOTE | 2024-12-23 17:59 | ECG ---
[facility] Test Date: 2024-12-23 Test Time: 17:58:03 Pat Name: NANCIE ROLDAN Department: Respiratoy Room: 0291T Gender: M Facilities Painter: : 1950 Requested By: JADEN HERNÁNDEZ Order Number: [id number] Reading MD: Pacheco Calvo Measurements Intervals [place] Rate: 64 P: 0 ND: 0 QRS: 37 QRSD: 136 T: -84 QT: 518 QTc: 535 Interpretive Statements Junctional rhythm Nonspecific intraventricular conduction delay Borderline repolarization abnormality Electronically Signed On 12-25-2024 9:34:31 PST by Pacheco Calvo Please click the below link to view image of tracing.
--- NOTE | 2024-12-23 18:12 | DVHSR ---
APPROVED REPORT EXAM: Two-dimensional and M-mode echocardiogram with Doppler and color Doppler. Blood Pressure: 107/55 mmHg INDICATION afib RISK FACTORS Height: 5'8, Weight: 194 DIMENSIONS LVDd5.2 (3.8-5.7cm)LA (2D)5.4 (1.9-4.0cm)Aortic Root4.4 (2.0-3.7cm) LVDs3.4 (2.5-4.0cm)LA (MM) (1.9-4.0cm)Aortic Cusp Exc2.3 (1.5-2.0cm) EF (%) 64.0 (55-70%)Rt. Atrium5.8 (1.9-4.0cm)Asc. Aorta4.3 cm IVSd1.5 (0.7-1.1cm)RV (D)4.9 (1.8-2.4cm) PWd1.3 (0.7-1.1cm) Mitral Valve MitralMitral Stenosis E wave1.03m/sMV Mean GR.3mmHg A wavem/sMV Peak GR.46mmHg E/A ratio0.02D MVAcm2 DECEL [id number] 1/2 Timems Aortic Valve Aortic ValveAortic Stenosis V10.95m/Joaquin Mean GR.6mmHg V21.48m/Joaquin Peak GR.9mmHg LVOT Diameter2.2 (1.8-2.4cm)Doppler AVA2.44cm2 Pulmonic Valve V20.96m/s Tricuspid Valve TR Velocity2.44m/s [id number] Conclusion Left ventricle: Moderate concentric left ventricular hypertrophy was seen LVEF was 65%. There was n o gross wall motion abnormality. Right ventricle was normal sized with normal systolic function. There was moderate biatrial enlargem ent. Pacing wire was seen in right-sided chambers. Aortic valve: Aortic valve was not well visualized. There was no aortic insufficiency/stenosis. Mild mitral valve prolapse was observed. There was mild mitral/ /tricuspid regurgitation. Pulmonary valv e was not well visualized. Right ventricular systolic pressure was assessed at 36 mm Hg. IVC was normal sized with normal respi ratory variation. 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 Ascending aorta was dilated at 4.3 cm. Moderat e pericardial effusion was seen. There was no echocardiographic evidence for cardiac tamponade.
--- NOTE | 2024-12-23 18:36 | DVHNC2 ---
Procedure - Medtronic pacemaker interrogation: Battery: Remaining Battery Longevity: 6.4 years DDIR: 60/130 Ventricle pacin.8% Atrial pacin.1% Lead impedance: Atrial 380/RV 608 Ohms Capture threshold: 1.125 volts at 0.4 milliseconds Programmed sensitivity: 0.3 atrial/0.9 RV mV Leads are Derrick Pacemaker itself is Medtronic Pacemaker itself is MRI SureScan Other devices (leads) are not MRI compatible Normal function pacemaker JADEN HERNÁNDEZ MD Dec 23, 2024 18:36
[2024-12-23] MEDS: TAMSULOSIN HYDROCHLORIDE 0.4 MG CAP PO SCH (18:55)
[2024-12-23] MEDS: ATORVASTATIN 20 MG TAB PO SCH (21:47)
[2024-12-23 22:01] LABS: Hematocrit 17.4 % (41.0-53.0)
--- NOTE | 2024-12-23 22:04 | DVHINCON2 ---
Date of service: Dec 23, [address] Colby Reason for Consultation Syncope History of Present Illness Mr. Tapia is a 74 years old right-handed gentleman with a history of hypertension, atrial fibrillation on Coumadin, congestive heart failure, lung cancer, lymphatic edema, the patient was transferred from [facility] for a chief company of syncope, at that time, he was alert, oriented x4, but is a very poor historian, On 12/22/2024, after he gets off bed, care home walking towards his living room, without any warning, he collapsed and was not able to get up, but he denies loss of consciousness, he denies associated dizziness, lightheadedness, vision changes, nausea, chest pain etc. ([facility] [place] mentioned the patient had dizziness and syncopal episode). 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 He does not remember how he was treated [facility] 12/22/24: He called the EMS due to experiencing dizziness at home, on arrival EMS the witnessed patient was have a syncopal episode. Patient was denies chest pain and SOB. No other symptoms or modifying factors at this time PT/INR/APTT, 12/22/2024: 147/13.33/58.5 CT head, 12/22/2024: No acute intracranial abnormality. A 1.5 cm benign appearing left frontal extra-axial mass most likely meningioma, this can be further evaluated with MR brain without and with IV contrast on a non emergency basis. A subcentimeter ground-glass osseous lesion with with endosteal scalloping in the right side of the frontal bone. Recommend additional brain MRI with and without IV contrast WBC/HB/PLT/MCV, 12/23/2024: 7.8/4.9/221/82.9, 12/23/2024: 7.8/5.9/218/84.8 BUN/CR, 12/23/2024: 40/0.76, 44/0.74 Liver function tests, 12/23/2024: Unremarkable TSH, 12/23/2024: 16.64 FT4, 12/23/2024: 0.77 Chest x-ray, 12/23/2024: Cardiomegaly with stable right lower lung opacity. Pulmonary vascular congestion Past Medical History Hypertension, atrial fibrillation, congestive heart failure, lung cancer, lymphatic edema Past Surgical History Left ankle fracture repair x2, bilateral knee replacement, bilateral shoulder surgery, right-handed trauma repair, Pacemaker insertion Family History: Patient reports no known family medical history. Family History Noncontributory Social History He was tobacco smoker, he was a drug and alcohol abuser Allergies: Coded Allergies: NO KNOWN ALLERGIES (Unverified , 04/18/24) Home Meds Reported Medications Tamsulosin Hcl (Tamsulosin Hcl) 0.4 Mg Cap, 0.4 MG PO QPM 04/18/24 Alendronate Sodium (Alendronate Sodium) 35 Mg Tab, 2 TAB PO QWEEKLY 04/18/24 Warfarin Sodium (Warfarin Sodium) 3 Mg Tab, 3 MG PO MWF for mon,wed,fri,sun 04/18/24 Warfarin Sodium (Warfarin Sodium) 2 Mg Tab, 2 MG PO TUTHSA for afib 04/18/24 Hydrocodone-Acetaminophen (Hydrocodone Bitartrate/AC 5-325 mg) 1 Tab Tab, 1 TAB PO PRN 04/18/24 Levothyroxine Sodium (Levothyroxine Sodium) 150 Mcg Tab, 75 MCG PO QAM 04/18/24 Cholecalciferol (VITAMIN D3) 2,000 Unit Tab, 125 MCG PO DAILY 04/18/24 Pravastatin Sodium (PRAVACHOL TABLET) 20 Mg Tb, 1 TAB PO DAILY 04/18/24 Furosemide (Lasix) 40 Mg Tab, 40 MG PO BID 04/18/24 Bupropion HCl (Bupropion HCl ER) 200 Mg Tab, 300 MG PO DAILY, TAB 04/18/24 Discontinued Reported Medications Diphenhydramine-Acetaminophen (Acetaminophen Pm 500-25 mg) 1 Tab Tab, 1 TAB PO QHSP PRN for FOR INSOMNIA 04/18/24 Current Medications Current Medications Medications (Trade) Dose Ordered Sig/Yasir Route PRN Reason Start Time Stop Time Status Last Admin Ondansetron HCl (Zofran) 4 mg Q4HP PRN IV NAUSEA / VOMITING 12/23/24 04:15 Acetaminophen (Tylenol Tablet) 650 mg Q6HP PRN PO PAIN SCALE 1-3 OR TEMP>100.4 12/23/24 04:15 Nitroglycerin (Ntrostat Sublingual) 0.4 mg Q5MINP PRN SL FOR CHEST PAIN 12/23/24 04:15 Morphine Sulfate 2 mg Q30M PRN IV FOR CHEST PAIN 12/23/24 04:15 Furosemide (Lasix Tablet) 40 mg DAILY PO 12/23/24 10:00 Warfarin Sodium (Coumadin Per Rx Protocol) RX PROTOCOL PER PHARMACY PO 12/23/24 04:15 12/23/24 05:54 DC Levothyroxine Sodium (Synthroid Tablet) 75 mcg QAM@0600 PO 12/23/24 06:00 Tamsulosin HCl (Flomax) 0.4 mg QPM PO 12/23/24 18:00 Bupropion HCl (Wellbutrin Tablet) 150 mg BID@07,19 PO 12/23/24 07:00 Amiodarone HCl (Cordarone Tablet) 200 mg DAILY PO 12/23/24 10:00 Atorvastatin Calcium (Lipitor) 20 mg HS PO 12/23/24 22:00 Docusate Sodium (Colace Capsule) 100 mg BID PO 12/23/24 10:00 12/23/24 12:59 DC Pantoprazole Sodium 50 ml @ 10 mls/hr Q5H IV 12/23/24 05:30 12/23/24 21:45 Sodium Chloride 1,000 ml @ 75 mls/hr [id number] IV 12/23/24 05:30 12/23/24 16:25 DC 12/23/24 06:56 Review of Systems As above, the other systems are negative Vital Signs Vital Signs Date Time Temp Pulse Resp B/P (MAP) Pulse Ox O2 Delivery O2 Flow Rate FiO2 12/23/24 21:00 98.1 64 17 106/55 (72) 93 98.1 12/23/24 08:00 Room Air* 0 21 Physical Exam GENERAL EXAM: General: the patient is well developed and nourished. No acute distress. HEENT: Normocephalic, neck is supple, no carotid bruits. No mass. RESPIRATORY: Normal respiratory effort with symmetrical lung expansion. Lungs clear to auscultation. CARDIOVASCULAR: Regular rate and rhythm with no murmurs. S1, S2. ABDOMEN: Soft, nontender, normal bowel sound MUSCULOSKELETAL EXAM: Edema and the depigmentation in both legs, with a left- sided more affected NEUROLOGICAL: MENTAL STATUS: Awake and alert. Oriented to person, place, time. Poor historian SPEECH, LANGUAGE, HIGHER CORTICAL FUNCTION: no aphasia or dysathria. CRANIAL NERVES: #2: Intact visual ralph to confrontation. The optic discs were sharp. #3,4,6: Pupils are equal, round and reactive. EOMs full and conjugate. Mild bilateral gaze evoked nystagmus. #5: Facial sensation intact in all three divisions bilaterally. Mandibular strength intact. #7: Facial muscles symmetrical and strength intact. #8: Hearing grossly normal to voice. #9,10: Uvula and soft palate rise in the midline. Swallow and voice are normal. #11: Trapezius and sternomastoid strength intact bilaterally. #12: Tongue midline. No fasciculations or atrophy. SENSATION: Sensation to touch and pinprick is normal. MOTOR: Normal tone in the upper and lower extremity. Normal muscle bulk. No fasciculations. No abnormal movements or posturing. Muscle strength of the major groups in the upper extremities is 5/5. Muscle strength of the major groups in the lower extremities is 4/5. REFLEXES: Deep tendon reflexes normal and symmetrical. No pathological reflexes. CEREBELLAR/COORDINATION: Finger to nose is normal bilaterally. GAIT/STATION: deferred. Labs/Diagnostic Data Labs Test 12/23/24 21:09 12/23/24 13:49 12/23/24 04:42 Range/Units White Blood Count 7.8 4.4-10.8 10^3/uL Red Blood Count 2.20 L 4.5-5.90 10^6/uL Mean Corpuscular Volume 84.8 80.0-100.0 fL Mean Corpuscular Hemoglobin 26.9 L 28.0-32.0 pg Mean Corpuscular Hemoglobin Concent 31.7 L 32.0-36.0 g/dL Red Cell Distribution Width 16.2 H 11.8-14.3 % Platelet Count 218 140-450 10^3/uL Mean Platelet Volume 8.8 6.9-10.8 fL Neutrophils (%) (Auto) 81.9 H 37.0-80.0 % Lymphocytes (%) (Auto) 7.5 L 10.0-50.0 % Monocytes (%) (Auto) 10.1 0.0-12.0 % Eosinophils (%) (Auto) 0.3 0.0-7.0 % Basophils (%) (Auto) 0.2 0.0-2.0 % Neutrophils # (Auto) 6.4 1.6-8.6 10 ^3/uL Lymphocytes # (Auto) 0.6 0.4-5.4 10 ^3/uL Monocytes # (Auto) 0.8 0-1.3 10 ^3/uL Eosinophils # (Auto) 0 0-0.8 10 ^3/uL Basophils # (Auto) 0 0-0.2 10 ^3/uL Nucleated Red Blood Cells 0.1 % Platelet Estimate Adequa Large Platelets Few Stomatocytes Few Sodium Level 142 136-145 mmol/L Potassium Level 3.4 L 3.5-5.1 mmol/L Chloride Level 109 H 98-107 mmol/L Carbon Dioxide Level 29 20-31 mmol/L Anion Gap 4 L 5-15 Blood Urea Nitrogen 44 H 9-23 mg/dL Creatinine 0.74 0.700-1.30 mg/dL Glomerular Filtration Rate Calc 96 >90 mL/min BUN/Creatinine Ratio 59.5 H 10.0-20.0 Serum Glucose 107 H 74-106 mg/dL Calcium Level 9.1 8.7-10.4 mg/dL Total Bilirubin 0.4 0.2-1.0 mg/dL Aspartate Amino Transferase (AST) 42 H 13-40 U/L Alanine Aminotransferase (ALT) 23 7-40 U/L Alkaline Phosphatase 158 H 46-116 U/L Total Protein 4.7 L 5.7-8.2 g/dL Albumin 3.0 L 3.2-4.8 g/dL Prothrombin Time 38.4 H 9.3-11.8 sec Prothrombin Time INR 4.17 *H 0.9-1.15 Activated Partial Thromboplast Time 47.4 H 24.5-34.5 SEC Troponin I High Sensitivity 28 </=54 ng/L B-Type Natriuretic Peptide 118.69 0-100 pg/mL Thyroid Stimulating Hormone (TSH) 16.64 H 0.55-4.78 uIU/mL Free Thyroxine (T4) Calculated 0.77 L 0.89-1.76 ng/dL Free Triiodothyronine (T3) pg/mL 0.75 L 2.3-4.2 pg/mL Total Triiodothyronine (TT3) 0.40 L 0.60-1.81 ng/mL Assessment Syncopal event x3, likely related to his acute severe anemia Acute severe anemia, likely secondary to coagulopathy Coagulopathy secondary to Coumadin treatment Rule out GI bleeding Hypothyroidism Abnormal brain CT scan Meningioma Skull osseous lesion Lymphatic edema Plan/Recommendation Monitoring Supportive treatment Telemetry Follow-up labs Stool occult blood EEG MR brain with and without if pacemaker is MR compatible Hold off anticoagulation treatment Blood transfusion Frozen fresh plasma transfusion Up to chair Physical therapy Cardiology on case GI on case More recommendation per clinical course This is a complicated, long and difficult consultation This medical document was created using an electronic medical record system with [employer] computerized dictation system. Although this document has been carefully reviewed, there may still be some phonetic and typographical errors. These areas are purely typographical due to imperfections of the software programs, and do not reflect any compromise in the patient's medical care. Plan discussed with: Patient, Other NEHEMIAS GUTHRIE MD Dec 23, 2024 22:04
[2024-12-23 22:11] LABS: Hemoglobin 5.7 g/dL (13.5-17.5)
[2024-12-23 23:16] LABS: Partial Thromboplastin Time 50.2 SEC (24.5-34.5)
[2024-12-23 23:17] LABS: INR 5.22 (0.9-1.15)
[2024-12-24] VITALS (25 sets, daily range): BP systolic 88–140; BP diastolic 37–77; PULSE 60–67; RESP 12–20; TEMP 97–98.7; O2SAT 87–97
[2024-12-24] MEDS: OCTREOTIDE ACETATE 500 MCG/ML VL ONE (01:06)
[2024-12-24] MEDS: OCTREOTIDE ACETATE 500 MCG in SODIUM CHL 0.9% 99 ML IV SCH (01:17)
[2024-12-24] MEDS: PHYTONADIONE (VIT K)10 MG/ML 1ML VIAL SUBCUT ONE ×2 (05:06→12:25)
--- NOTE | 2024-12-24 06:37 | DVHPN2 ---
Progress Note - Dictate Date Seen: Dec 24, 2024 Medical Necessity Reason Pt with a Central, PICC or Fol: No vital signs Vital Sign Date Time Temp Pulse Resp B/P (MAP) Pulse Ox O2 Delivery O2 Flow Rate FiO2 12/24/24 06:18 97.0 63 18 118/53 97.0 12/24/24 05:00 95 12/23/24 20:00 Room Air* 0 21 Total Intake and Output 12/23/24 12/23/24 12/24/24 15:00 23:00 07:00 Intake Total 750 ml 928 ml 800 ml Output Total 200 ml 1300 ml Balance 750 ml 728 ml -500 ml medications Current Medications Medications Dose Ordered Sig/Yasir Route Start Time Stop Time Status Last Admin Dose Admin Ondansetron HCl 4 mg Q4HP PRN IV 12/23/24 04:15 Acetaminophen 650 mg Q6HP PRN PO 12/23/24 04:15 Furosemide 40 mg DAILY PO 12/23/24 10:00 Levothyroxine Sodium 75 mcg QAM@0600 PO 12/23/24 06:00 Tamsulosin HCl 0.4 mg QPM PO 12/23/24 18:00 Bupropion HCl 150 mg BID@07,19 PO 12/23/24 07:00 Amiodarone HCl 200 mg DAILY PO 12/23/24 10:00 Atorvastatin Calcium 20 mg HS PO 12/23/24 22:00 Pantoprazole Sodium 50 ml @ 10 mls/hr Q5H IV 12/23/24 05:30 12/24/24 02:18 10 MLS/HR Octreotide Acetate 500 mcg/ Sodium Chloride 100 ml @ 10 mls/hr Q10H IV 12/24/24 00:30 12/24/24 01:17 10 MLS/HR laboratory and microbiology Test 12/24/24 05:47 Range/Units Serum Glucose Pending Assessment/Plan Patient is a 74-year-old gentleman who was [place] [facility] [place] evaluation to our hospital. Originally, the patient presented to other Hospital for presyncopal episodes. He was somehow dizzy for few days. He mentions that is he had less stamina going back for few days. He also has been experiencing abdominal pain after eating and his appetite has decreased. Denies chest pain. Denies nausea and vomiting. Denies diarrhea. Cardiology was involved for cardiac aspects of care. Patient is known to our practice from outside than before. Does have a pacemaker which was interrogated last in July 2024. In [facility] emergency room, the patient was found to have significant anemia and reportedly did receive blood transfusion. In [facility], CT of the head had revealed questionable meningioma and also RCA lesion in frontal bone. It also reported severe chronic muscle sinusitis. Frail gentleman. Not in acute distress. Lying flat in bed. No JVD. Mucosa is wet. Not using accessory muscles of breathing. Lungs are clear to auscultation. Cardiac: Regular, no thrill. Systolic murmur 2/6 in the apex is heard. Abdomen is soft. Mild periumbilical tenderness is elicited. Bowel sounds positive. Extremities reveal 2+ edema bilaterally. Dorsalis pedis is 1+ bilateral Past medical history includes hypertension, hyperlipidemia, diastolic heart failure, valvular heart disease, history of mitral valve prolapse, pulmonary hypertension, atrial fibrillation/atrial flutter (on Coumadin as outpatient), status post atrial flutter ablation, status post pacemaker (Medtronic pacer, Derrick wires), DJD and hypothyroidism. As per patient, the patient was diagnosed with lung cancer less than a year ago for which has received radiation therapy. Nuclear stress test of November 2019 (performed in the office) revealed scar but no ischemia. Ejection fraction was 58% at that point. Hemoglobin: 4.9 - 5.9 - 5.7 - 7.6 INR: 4.17 - 5.22 - 2.70 Creatinine: 0.76 - 0.74 - 0.73 Potassium: 3.7 - 3.4 - 3.6 Troponin (high sensitive): 28 BNP: 118.68 TSH: 16.64 Free T4: 0.77 Free T3: 0.75 Total T3: 0.40 Stool OB: positive Chest xry reported: IMPRESSION: 1. Pulmonary vascular congestion. 2. Cardiomegaly. Repeat chest xry reported: IMPRESSION: Cardiomegaly with stable right lower lung opacity. Pulmonary vascular congestion. EKG revealed paced ventricular rhythm Tele reveals paced rhythm Echocardiogram reported: Left ventricle: Moderate concentric left ventricular hypertrophy was seen LVEF was 65%. There was no gross wall motion abnormality. Right ventricle was normal sized with normal systolic function. There was moderate biatrial enlargement. Pacing wire was seen in right-sided chambers. Aortic valve: Aortic valve was not well visualized. There was no aortic insuf ficiency/stenosis. Mild mitral valve prolapse was observed. There was mild mitral/ /tricuspid regurgitation. Pulmonary valve was not well visualized. Right ventricular systolic pressure was assessed at 36 mm Hg. IVC was normal sized with normal respiratory variation. 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 Ascending aorta was dilated at 4.3 cm. Moderate pericardial effusion was seen. There was no echocardiographic evidence for cardiac tamponade Medtronic pacemaker interrogation: Battery: Remaining Battery Longevity: 6.4 years; DDIR: 60/130; Ventricle pacin.8%; Atrial pacin.1%; Lead impedance: Atrial 380/RV 608 Ohms; Capture threshold: 1.125 volts at 0.4 milliseconds; Programmed sensitivity: 0.3 atrial/0.9 RV mV; Leads are Derrick Pacemaker itself is Medtronic; Pacemaker itself is MRI SureScan; Other devices (leads) are not MRI compatible; Normal function pacemaker Patient is a 74-year-old gentleman presented with presyncopal episode. Did have some dizziness. Does complain of abdominal pain after eating. Does have history of pacemaker which was last interrogated in July 2024. Does have history of lung cancer for around a year (as per patient and with unknown detail). He usually is on Coumadin for atrial fibrillation/flutter. He is f ound to have significant anemia with supratherapeutic INR. CT of the head in [facility] has a reported meningioma with osseous lesions. Being followed by Neurology Presyncope Anemia, severe Supratherapeutic INR Atrial fibrillation, atrial flutter history of Status post pacemaker implantation (Medtronic pacer with sodium wires) Valvular heart disease CHF, diastolic Hypertension Hyperlipidemia Hypothyroidism Lung cancer, history all Abdominal pain Poor appetite Cardiac suggestions for management: Manage on telemetry Follow up electrolytes and kidney function test and Correct abnormalities. Keep potassium above four and magnesium above two Follow up H&H Treat hypothyroidism as per primary team GI consultation is advised Neurology follow up Further evaluation and management depends on the above and clinical course A total of 55 minutes was spent reviewing the patient record, examining the patient, making a diagnostic and therapeutic plan, discussing this plan with medical personnel, following up on diagnostic studies and following the patient for clinical stability excluding any and all procedures. At least 50% of this time was spent in direct, [id number] contact. Thank you for allowing me to participate in this patient's care. Further recommendations will depend on patient's clinical course. Please do not hesitate to contact me if you have any questions or concerns. This medical document was created using electronic medical record system with [employer] dictation system. Although this document has been carefully reviewed, there may still be some phonetic and typographical errors. These are as are purely typographical due to the imperfection of the software programs, and do not reflect any compromise in the patient's medical care. Dietary Evaluation Review Comments: As tolerated, provide ensure High Protein supplements or glucerna if Blood Glucose is not controlled. Expected Outcomes/Goals: gradual wt gain, improved serum alb and proteins, improed appetite and healed wounds. Plan discussed with: Patient, Other (nurse) JADEN HERNÁNDEZ MD Dec 24, 2024 06:37
[2024-12-24 06:40] LABS: Basophils # (auto) 0 10 ^3/uL (0-0.2); Eosinophils # (auto) 0.1 10 ^3/uL (0-0.8); Hemoglobin 7.6 g/dL (13.5-17.5); Neutrophils # (auto) 8.6 10 ^3/uL (1.6-8.6)
[2024-12-24 06:43] LABS: INR 2.7 (0.9-1.15); Partial Thromboplastin Time 45.6 SEC (24.5-34.5); Prothrombin Time 25.9 sec (9.3-11.8)
[2024-12-24 06:45] LABS: Basophils % (auto) 0.3 % (0.0-2.0); Eosinophils % (auto) 0.7 % (0.0-7.0); Hematocrit 23.4 % (41.0-53.0); Lymphocytes # (auto) 0.5 10 ^3/uL (0.4-5.4); Mean Corpuscular Hemoglobin 27.6 pg (28.0-32.0); Mean Corpuscular Hgb Conc. 32.4 g/dL (32.0-36.0); Mean Corpuscular Volume 85.3 fL (80.0-100.0); Monocytes % (auto) 9.6 % (0.0-12.0); Neutrophils % (auto) 84.4 % (37.0-80.0); Nucleated Red Blood Cells % 0.3 %; Platelet Count (auto) 217 10^3/uL (140-450); Red Blood Cells 2.75 10^6/uL (4.5-5.90); Red Cell Distribution Width 16.3 % (11.8-14.3); White Blood Cell 10.1 10^3/uL (4.4-10.8)
[2024-12-24 07:14] LABS: Alanine Aminotransferase 24 U/L (7-40); Anion Gap 7 (5-15); BUN/Creatinine Ratio 47.9 (10.0-20.0); Calcium 9.1 mg/dL (8.7-10.4); Carbon Dioxide 27 mmol/L (20-31); Magnesium 2.1 mg/dL (1.6-2.6); Potassium 3.6 mmol/L (3.5-5.1); Sodium 141 mmol/L (136-145)
[2024-12-24 07:15] LABS: Bilirubin, Total 0.7 mg/dL (0.2-1.0)
[2024-12-24 07:27] LABS: Alkaline Phosphatase 169 U/L (46-116); Aspartate Aminotransferase 46 U/L (13-40); Blood Urea Nitrogen 35 mg/dL (9-23); Chloride 107 mmol/L (98-107); Glucose 114 mg/dL (74-106); Total Protein 4.9 g/dL (5.7-8.2)
--- NOTE | 2024-12-24 12:06 | DVHINCON2 ---
GI Consult Consult Note GI consult note Date of Consultation: 12/24/2024 Chief Complaint: GI bleed Referring Physician: Bowen ORTEZ H&P: 74-year-old male transferred from outside facility, with complaints of syncope Patient had hemoglobin of 4.5 status post 3 units PRBCs, and 2 units of FFP Patient complaining of abdominal discomfort. Denies any abdominal pain. No nausea or vomiting. No hematemesis Patient last bowel movement two days ago with melena. Patient giving history of melenic stools five days for now Patient has history of AFib and treated with Coumadin SP colonoscopy two years ago, with five year follow-up colonoscopy recommended No EGD in past Past Medical History: Hypertension, CHF, lung cancer and atrial fibrillation Past Surgical History: Pacemaker Social History: NO smoking, drinking ETOH and use of illegal drugs. Family History: Noncontributory Review of Systems: Constitutional: no fever, chill, weight loss HEENT: no eye pain, no hearing loss, no oral lesion, no scleral icterus Heart: no chest pain, no chest pressure Lung: no cough, no dyspnea with exertion Abdomen: see HPI Physical exam: General: NAD, patient is awake and answering questions Chest: lung ralph clear to auscultation Heart: RRR, no murmur Abdomen: non-distended, no tenderness to palpation, +BS Labs: Labs Test 12/24/24 05:47 12/24/24 00:00 12/23/24 13:49 12/23/24 04:42 Range/Units White Blood Count 10.1 # 4.4-10.8 10^3/uL Red Blood Count 2.75 L 4.5-5.90 10^6/uL Hemoglobin 7.6 #L 13.5-17.5 g/dL Hematocrit 23.4 #L 41.0-53.0 % Mean Corpuscular Volume 85.3 80.0-100.0 fL Mean Corpuscular Hemoglobin 27.6 L 28.0-32.0 pg Mean Corpuscular Hemoglobin Concent 32.4 32.0-36.0 g/dL Red Cell Distribution Width 16.3 H 11.8-14.3 % Platelet Count 217 140-450 10^3/uL Mean Platelet Volume 8.4 6.9-10.8 fL Neutrophils (%) (Auto) 84.4 H 37.0-80.0 % Lymphocytes (%) (Auto) 5.0 L 10.0-50.0 % Monocytes (%) (Auto) 9.6 0.0-12.0 % Eosinophils (%) (Auto) 0.7 0.0-7.0 % Basophils (%) (Auto) 0.3 0.0-2.0 % Neutrophils # (Auto) 8.6 1.6-8.6 10 ^3/uL Lymphocytes # (Auto) 0.5 0.4-5.4 10 ^3/uL Monocytes # (Auto) 1.0 0-1.3 10 ^3/uL Eosinophils # (Auto) 0.1 0-0.8 10 ^3/uL Basophils # (Auto) 0 0-0.2 10 ^3/uL Nucleated Red Blood Cells 0.3 % Prothrombin Time 25.9 H 9.3-11.8 sec Prothrombin Time INR 2.70 H 0.9-1.15 Activated Partial Thromboplast Time 45.6 H 24.5-34.5 SEC Sodium Level 141 136-145 mmol/L Potassium Level 3.6 3.5-5.1 mmol/L Chloride Level 107 98-107 mmol/L Carbon Dioxide Level 27 20-31 mmol/L Anion Gap 7 5-15 Blood Urea Nitrogen 35 H 9-23 mg/dL Creatinine 0.73 0.700-1.30 mg/dL Glomerular Filtration Rate Calc 97 >90 mL/min BUN/Creatinine Ratio 47.9 H 10.0-20.0 Serum Glucose 114 H 74-106 mg/dL Calcium Level 9.1 8.7-10.4 mg/dL Magnesium Level 2.1 1.6-2.6 mg/dL Total Bilirubin 0.7 0.2-1.0 mg/dL Aspartate Amino Transferase (AST) 46 H 13-40 U/L Alanine Aminotransferase (ALT) 24 7-40 U/L Alkaline Phosphatase 169 H 46-116 U/L Total Protein 4.9 L 5.7-8.2 g/dL Albumin 3.0 L 3.2-4.8 g/dL Stool Occult Blood Positive Negative Stool Occult Blood Sample #3 Negative Platelet Estimate Adequa Large Platelets Few Stomatocytes Few Troponin I High Sensitivity 28 </=54 ng/L B-Type Natriuretic Peptide 118.69 0-100 pg/mL Thyroid Stimulating Hormone (TSH) 16.64 H 0.55-4.78 uIU/mL Free Thyroxine (T4) Calculated 0.77 L 0.89-1.76 ng/dL Free Triiodothyronine (T3) pg/mL 0.75 L 2.3-4.2 pg/mL Total Triiodothyronine (TT3) 0.40 L 0.60-1.81 ng/mL Imaging: Assessment: Acute severe anemia GI bleed Syncope Coagulopathy secondary to Coumadin treatment Plan: Discussed with Dr. Ca Monitor labs transfuse if hemoglobin less than seven Carafate and Protonix Clear liquid diet advance to full liquid if tolerating Request for cardiac clearance for possible plan for EGD in the next 24-48 hours when patient is stable Recommend correction of coagulopathy and monitor PT INR Plan discussed with patient, RN and Dr. Clay, hospitalist Thank you for the consult Date of Service: Dec 24, 2024 Billing Provider: LLUVIA ESPINAL Common Visit Codes: CONSULT ONLY Consultation Codes: [id number] CONSULT <60MIN LLUVIA ESPINAL Dec 24, 2024 12:06
[2024-12-24 12:38] LABS: Hematocrit 21.7 % (41.0-53.0)
--- NOTE | 2024-12-24 13:24 | ECG ---
[facility] Test Date: 2024-12-23 Test Time: 17:59:54 Pat Name: NANCIE ROLDAN Department: Respiratoy Room: 0291T Gender: M Fleet Assistant: : [id number] Requested By: JADEN HERNÁNDEZ Order Number: [id number] Reading MD: Pacheco Calvo Measurements Intervals Higden Rate: 64 P: 0 VT: 0 QRS: 40 QRSD: 145 T: -86 QT: 523 QTc: 540 Interpretive Statements Junctional rhythm Nonspecific intraventricular conduction delay Abnrm T, consider ischemia, anterolateral lds Electronically Signed On 12-25-2024 9:34:36 PST by Pacheco Calvo Please click the below link to view image of tracing.
--- NOTE | 2024-12-24 14:32 | DVHPN2 ---
Subjective More stable Vital signs are stable Hemoglobin is 7.0 INR 2.7 No bowel movements or bleeding today Changes from previous H/P or p: Changes Objective Vitals Vital Signs Date Time Temp Pulse Resp B/P (MAP) Pulse Ox O2 Delivery O2 Flow Rate FiO2 12/24/24 12:04 97.8 65 16 107/65 (79) 97 97.8 12/24/24 08:00 Room Air* 0 21 Intake/Output Intake and Output 12/24/24 07:00 Intake Total 2613 ml Output Total 1500 ml Balance 1113 ml Intake Oral 0 ml IV Total 135 ml Blood Product 1664 ml Other 814 ml Output Urine Total 1500 ml # Voids 1 # Bowel Movements 1 General Appearance: Alert, Oriented X3 Lungs: Clear to auscultation, Normal air movement Cardiovascular: Regular rate, Normal S1, Normal S2 Abdomen: Normal bowel sounds, Soft, No tenderness Extremities: No edema Medications Current Medications Medications Dose Ordered Sig/Yasir Route Start Time Stop Time Status Last Admin Dose Admin Ondansetron HCl 4 mg Q4HP PRN IV 12/23/24 04:15 Acetaminophen 650 mg Q6HP PRN PO 12/23/24 04:15 Furosemide 40 mg DAILY PO 12/23/24 10:00 Levothyroxine Sodium 75 mcg QAM@0600 PO 12/23/24 06:00 Tamsulosin HCl 0.4 mg QPM PO 12/23/24 18:00 Bupropion HCl 150 mg BID@07,19 PO 12/23/24 07:00 Amiodarone HCl 200 mg DAILY PO 12/23/24 10:00 Atorvastatin Calcium 20 mg HS PO 12/23/24 22:00 Pantoprazole Sodium 50 ml @ 10 mls/hr Q5H IV 12/23/24 05:30 12/24/24 08:37 10 MLS/HR Octreotide Acetate 500 mcg/ Sodium Chloride 100 ml @ 10 mls/hr Q10H IV 12/24/24 00:30 12/24/24 08:44 10 MLS/HR Sucralfate 1 gm TID@0600,1130,2200 PO 12/24/24 22:00 Laboratory Results Laboratory Tests 12/24/24 05:47 12/24/24 12:15 Chemistry Test 12/24/24 05:47 Albumin 3.0 g/dL (3.2-4.8) L Calcium Level 9.1 mg/dL (8.7-10.4) Magnesium Level 2.1 mg/dL (1.6-2.6) Total Protein 4.9 g/dL (5.7-8.2) L Coagulation Test 12/23/24 22:38 12/24/24 05:47 Prothrombin Time 47.0 sec (9.3-11.8) H 25.9 sec (9.3-11.8) H Prothrombin Time INR 5.22 (0.9-1.15) *H 2.70 (0.9-1.15) H Activated Partial Thromboplast Time 50.2 SEC (24.5-34.5) H 45.6 SEC (24.5-34.5) H LFT Test 12/24/24 05:47 Alanine Aminotransferase (ALT) 24 U/L (7-40) Alkaline Phosphatase 169 U/L (46-116) H Aspartate Amino Transferase (AST) 46 U/L (13-40) H Total Bilirubin 0.7 mg/dL (0.2-1.0) Assessment/Plan Assessment/Plan Acute anemia due to blood loss Coagulopathy due to warfarin Atrial fibrillation Presyncope due to severe anemia Severe anemia due to blood loss Most likely GI bleed History of pacemaker placement Diastolic heart failure Hypertension Dyslipidemia Hypothyroidism , uncontrolled History of lung cancer Moderate protein malnutrition Plan The patient received a total of 3 units of packed RBCs so far Check the hemoglobin and assess for further need for more blood transfusion He received 1 unit of FFP and therefore he will be given 1 more unit Give vitamin K 10 mg subcutaneously IV fluids GI consult Protonix IV drip NPO Cardiology consult Full code Monitor closely Advance directives discussed for 15 minutes 12/24/2024: Give vitamin K 10 mg subcutaneously Transfuse 1 more unit packed RBCs GI consult is on board planning endoscopy in 1-2 days Cardiology consult for clearance Continue IV Protonix drip and IV octreotide drip Monitor closely The rest of the management will depend on the hospital course Full code Plan discussed with: Patient My Orders Orders - CHARO PAULSON MD Procedure Category Date Status Time Hemoglobin & LAB 12/24/24 Logged Hematocrit 12:00 * Cardiology Consult CONS 12/24/24 Transmitted 11:24 Date of Service: Dec 24, 2024 Billing Provider: CHARO PAULSON MD Common Visit Codes: [id number] INP/OBS CARE(HIGH) CHARO PAULSON MD Dec 24, 2024 14:32
[2024-12-24 18:22] LABS: Hemoglobin 7.3 g/dL (13.5-17.5)
[2024-12-24 18:24] LABS: Hematocrit 21.9 % (41.0-53.0)
[2024-12-24] MEDS: SUCRALFATE 1 GM/10 ML ORAL SUSP PO SCH (22:04)
[2024-12-24] MEDS: ACETAMINOPHEN 325 MG TAB PO PRN (22:59)
[2024-12-25] VITALS (11 sets, daily range): BP systolic 95–142; BP diastolic 49–67; PULSE 59–84; RESP 16–18; TEMP 97.8–98.6; O2SAT 90–99
[2024-12-25 04:14] LABS: Basophils # (auto) 0 10 ^3/uL (0-0.2); Basophils % (auto) 0.5 % (0.0-2.0); Eosinophils # (auto) 0.2 10 ^3/uL (0-0.8); Eosinophils % (auto) 2.9 % (0.0-7.0); Hematocrit 21.7 % (41.0-53.0); Hemoglobin 7.1 g/dL (13.5-17.5); Lymphocytes # (auto) 0.5 10 ^3/uL (0.4-5.4); Lymphocytes % (auto) 7.9 % (10.0-50.0); Mean Corpuscular Hemoglobin 28.3 pg (28.0-32.0); Mean Corpuscular Hgb Conc. 32.9 g/dL (32.0-36.0); Monocytes # (auto) 0.8 10 ^3/uL (0-1.3); Monocytes % (auto) 11.3 % (0.0-12.0); Neutrophils # (auto) 5.2 10 ^3/uL (1.6-8.6); Neutrophils % (auto) 77.4 % (37.0-80.0); Nucleated Red Blood Cells % 0.3 %; Platelet Count (auto) 186 10^3/uL (140-450); Red Blood Cells 2.52 10^6/uL (4.5-5.90); Red Cell Distribution Width 16.3 % (11.8-14.3); White Blood Cell 6.7 10^3/uL (4.4-10.8)
[2024-12-25 04:21] LABS: Alanine Aminotransferase 21 U/L (7-40); Anion Gap 4 (5-15); Aspartate Aminotransferase 34 U/L (13-40); BUN/Creatinine Ratio 35.9 (10.0-20.0); Calcium 9.1 mg/dL (8.7-10.4); Carbon Dioxide 26 mmol/L (20-31); Chloride 107 mmol/L (98-107); Potassium 3.5 mmol/L (3.5-5.1); Sodium 137 mmol/L (136-145)
[2024-12-25 04:22] LABS: Albumin 2.8 g/dL (3.2-4.8); Alkaline Phosphatase 153 U/L (46-116); Bilirubin, Total 0.9 mg/dL (0.2-1.0); Blood Urea Nitrogen 23 mg/dL (9-23); Glucose 108 mg/dL (74-106); Total Protein 4.5 g/dL (5.7-8.2)
[2024-12-25 04:26] LABS: INR 1.34 (0.9-1.15); Partial Thromboplastin Time 34.1 SEC (24.5-34.5); Prothrombin Time 13.8 sec (9.3-11.8)
--- NOTE | 2024-12-25 08:03 | DVHPN2 ---
Progress Note - Dictate Date Seen: Dec 25, 2024 Medical Necessity Reason Pt with a Central, PICC or Fol: No vital signs Vital Sign Date Time Temp Pulse Resp B/P (MAP) Pulse Ox O2 Delivery O2 Flow Rate FiO2 12/25/24 05:00 97.8 61 18 116/65 (82) 97 97.8 12/24/24 20:00 Room Air* 0 21 Total Intake and Output 12/24/24 12/24/24 12/25/24 15:00 23:00 07:00 Intake Total 789 ml 350 ml 950 ml Output Total 2250 ml 600 ml Balance 789 ml -1900 ml 350 ml medications Current Medications Medications Dose Ordered Sig/Yasir Route Start Time Stop Time Status Last Admin Dose Admin Ondansetron HCl 4 mg Q4HP PRN IV 12/23/24 04:15 Acetaminophen 650 mg Q6HP PRN PO 12/23/24 04:15 12/24/24 22:59 650 MG Furosemide 40 mg DAILY PO 12/23/24 10:00 Levothyroxine Sodium 75 mcg QAM@0600 PO 12/23/24 06:00 12/25/24 06:19 75 MCG Tamsulosin HCl 0.4 mg QPM PO 12/23/24 18:00 12/24/24 18:07 0.4 MG Bupropion HCl 150 mg BID@07,19 PO 12/23/24 07:00 12/25/24 06:19 150 MG Amiodarone HCl 200 mg DAILY PO 12/23/24 10:00 Atorvastatin Calcium 20 mg HS PO 12/23/24 22:00 12/24/24 22:04 20 MG Pantoprazole Sodium 50 ml @ 10 mls/hr Q5H IV 12/23/24 05:30 12/25/24 02:38 10 MLS/HR Octreotide Acetate 500 mcg/ Sodium Chloride 100 ml @ 10 mls/hr Q10H IV 12/24/24 00:30 12/25/24 06:20 10 MLS/HR Sucralfate 1 gm TID@0600,1130,2200 PO 12/24/24 22:00 12/25/24 06:19 1 GM laboratory and microbiology Laboratory Tests 12/25/24 03:31 Test 12/25/24 03:31 Range/Units Serum Glucose 108 H 74-106 mg/dL Assessment/Plan Patient is a 74-year-old gentleman who was transferred from [facility] Emergency room for further evaluation to our hospital. Originally, the patient presented to other Hospital for presyncopal episodes. He was somehow dizzy for few days. He mentions that is he had less stamina going back for few days. He also has been experiencing abdominal pain after eating and his appetite has decreased. Denies chest pain. Denies nausea and vomiting. Denies diarrhea. Cardiology was involved for cardiac aspects of care. Patient is known to our practice from outside than before. Does have a pacemaker which was interrogated last in July 2024. In [facility] emergency room, the patient was found to have significant anemia and reportedly did receive blood transfusion. In [facility], CT of the head had revealed questionable meningioma and also RCA lesion in frontal bone. It also reported severe chronic muscle sinusitis. Frail gentleman. Not in acute distress. Lying flat in bed. No JVD. Mucosa is wet. Not using accessory muscles of breathing. Lungs are clear to auscultation. Cardiac: Regular, no thrill. Systolic murmur 2/6 in the apex is heard. Abdomen is soft. Mild periumbilical tenderness is elicited. Bowel sounds positive. Extremities reveal 2+ edema bilaterally. Dorsalis pedis is 1+ bilateral Past medical history includes hypertension, hyperlipidemia, diastolic heart failure, valvular heart disease, history of mitral valve prolapse, pulmonary hypertension, atrial fibrillation/atrial flutter (on Coumadin as outpatient), status post atrial flutter ablation, status post pacemaker (Medtronic pacer, Derrick wires), DJD and hypothyroidism. As per patient, the patient was diagnosed with lung cancer less than a year ago for which has received radiation therapy. Nuclear stress test of November 2019 (performed in the office) revealed scar but no ischemia. Ejection fraction was 58% at that point. Hemoglobin: 4.9 - 5.9 - 5.7 - 7.6 - 7.0 - 7.3 - 7.1 INR: 4.17 - 5.22 - 2.70 - 1.34 Creatinine: 0.76 - 0.74 - 0.73 - 0.64 Potassium: 3.7 - 3.4 - 3.6 - 3.5 Troponin (high sensitive): 28 BNP: 118.68 TSH: 16.64 Free T4: 0.77 Free T3: 0.75 Total T3: 0.40 Stool OB: positive Chest xry reported: IMPRESSION: 1. Pulmonary vascular congestion. 2. Cardiomegaly. Repeat chest xry reported: IMPRESSION: Cardiomegaly with stable right lower lung opacity. Pulmonary vascular congestion. EKG revealed paced ventricular rhythm Tele reveals paced rhythm Echocardiogram reported: Left ventricle: Moderate concentric left ventricular hypertrophy was seen LVEF was 65%. There was no gross wall motion abnormality. Right ventricle was normal sized with normal systolic function. There was moderate biatrial enlargement. Pacing wire was seen in right-sided chambers. Aortic valve: Aortic valve was not well visualized. There was no aortic insufficiency/stenosis. Mild mitral valve prolapse was observed. There was mild mitral/ /tricuspid regurgitation. Pulmonary valve was not well visualized. Right ventricular systolic pressure was assessed at 36 mm Hg. IVC was normal sized with normal respiratory variation. 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 Ascending aorta was dilated at 4.3 cm. Moderate pericardial effusion was seen. There was no echocardiographic evidence for cardiac tamponade Medtronic pacemaker interrogation: Battery: Remaining Battery Longevity: 6.4 years; DDIR: 60/130; Ventricle pacin.8%; Atrial pacin.1%; Lead impedance: Atrial 380/RV 608 Ohms; Capture threshold: 1.125 volts at 0.4 milliseconds; Programmed sensitivity: 0.3 atrial/0.9 RV mV; Leads are Derrick Pacemaker itself is Medtronic; Pacemaker itself is MRI SureScan; Other devices (leads) are not MRI compatible; Normal function pacemaker Patient is a 74-year-old gentleman presented with presyncopal episode. Did have some dizziness. Does complain of abdominal pain after eating. Does have history of pacemaker which was last interrogated in July 2024. Does have history of lung cancer for around a year (as per patient and with unknown detail). He usually is on Coumadin for atrial fibrillation/flutter. He is found to have significant anemia with supratherapeutic INR. CT of the head in [facility] has a reported meningioma with osseous lesions. Being followed by Neurology Presyncope Anemia, severe Supratherapeutic INR Atrial fibrillation, atrial flutter history of Status post pacemaker implantation (Medtronic pacer with Derrick wires) Valvular heart disease CHF, diastolic Hypertension Hyperlipidemia Hypothyroidism Lung cancer, history all Abdominal pain Poor appetite Cardiac suggestions for management: Manage on telemetry Follow up electrolytes and kidney function test and Correct abnormalities. Keep potassium above four and magnesium above two Follow up H&H Patient is cardiac lozano, moderate risk patient for low risk EGD/Colonoscopy procedure. Cardiac lozano, you can proceed with the procedures under appropriate intra and post operative hemodynamic monitoring. Avoid Hypotension. Treat hypothyroidism as per primary team GI follow up Neurology follow up Further evaluation and management depends on the above and clinical course A total of 55 minutes was spent reviewing the patient record, examining the patient, making a diagnostic and therapeutic plan, discussing this plan with medical personnel, following up on diagnostic studies and following the patient for clinical stability excluding any and all procedures. At least 50% of this time was spent in direct, [id number] contact. Thank you for allowing me to participate in this patient's care. Further recommendations will depend on patient's clinical course. Please do not hesitate to contact me if you have any questions or concerns. This medical document was created using electronic medical record system with [employer] computerized dictation system. Although this document has been carefully reviewed, there may still be some phonetic and typographical errors. These areas are purely typographical due to the imperfection of the software programs, and do not reflect any compromise in the patient's medical care. Dietary Evaluation Review Comments: As tolerated, provide ensure High Protein supplements or glucerna if Blood Glucose is not controlled. Expected Outcomes/Goals: gradual wt gain, improved serum alb and proteins, improed appetite and healed wounds. Plan discussed with: Patient, Other (nurse) JADEN HERNÁNDEZ MD Dec 25, 2024 08:03
--- NOTE | 2024-12-25 11:07 | DVHPN2 ---
Subjective No more obvious bleeding Hemoglobin is 7.1 INR is down to 1.2 Changes from previous H/P or p: Changes Objective Vitals Vital Signs Date Time Temp Pulse Resp B/P (MAP) Pulse Ox O2 Delivery O2 Flow Rate FiO2 12/25/24 09:31 100/55 12/25/24 09:00 98.4 60 18 99 98.4 12/25/24 08:00 Room Air* 0 21 Intake/Output Intake and Output 12/25/24 06:59 Intake Total 2089 ml Output Total 2850 ml Balance -761 ml Intake Oral 800 ml IV Total 350 ml Blood Product 428 ml Other 511 ml Output Urine Total 2850 ml # Bowel Movements 2 General Appearance: Alert, Oriented X3 Lungs: Clear to auscultation, Normal air movement Cardiovascular: Regular rate, Normal S1, Normal S2 Abdomen: Normal bowel sounds, Soft, No tenderness Extremities: No edema Medications Current Medications Medications Dose Ordered Sig/Yasir Route Start Time Stop Time Status Last Admin Dose Admin Ondansetron HCl 4 mg Q4HP PRN IV 12/23/24 04:15 Acetaminophen 650 mg Q6HP PRN PO 12/23/24 04:15 12/24/24 22:59 650 MG Furosemide 40 mg DAILY PO 12/23/24 10:00 Levothyroxine Sodium 75 mcg QAM@0600 PO 12/23/24 06:00 12/25/24 06:19 75 MCG Tamsulosin HCl 0.4 mg QPM PO 12/23/24 18:00 12/24/24 18:07 0.4 MG Bupropion HCl 150 mg BID@07,19 PO 12/23/24 07:00 12/25/24 06:19 150 MG Amiodarone HCl 200 mg DAILY PO 12/23/24 10:00 Atorvastatin Calcium 20 mg HS PO 12/23/24 22:00 12/24/24 22:04 20 MG Pantoprazole Sodium 50 ml @ 10 mls/hr Q5H IV 12/23/24 05:30 12/25/24 09:31 10 MLS/HR Octreotide Acetate 500 mcg/ Sodium Chloride 100 ml @ 10 mls/hr Q10H IV 12/24/24 00:30 12/25/24 06:20 10 MLS/HR Sucralfate 1 gm TID@0600,1130,2200 PO 12/24/24 22:00 12/25/24 06:19 1 GM Laboratory Results Laboratory Tests 12/25/24 03:31 Chemistry Test 12/25/24 03:31 Albumin 2.8 g/dL (3.2-4.8) L Calcium Level 9.1 mg/dL (8.7-10.4) Magnesium Level 2.0 mg/dL (1.6-2.6) Total Protein 4.5 g/dL (5.7-8.2) L Coagulation Test 12/25/24 03:31 Prothrombin Time 13.8 sec (9.3-11.8) H Prothrombin Time INR 1.34 (0.9-1.15) H Activated Partial Thromboplast Time 34.1 SEC (24.5-34.5) LFT Test 12/25/24 03:31 Alanine Aminotransferase (ALT) 21 U/L (7-40) Alkaline Phosphatase 153 U/L (46-116) H Aspartate Amino Transferase (AST) 34 U/L (13-40) Total Bilirubin 0.9 mg/dL (0.2-1.0) Microbiology Microbiology Date/Time Source Procedure Growth Status 12/23/24 07:00 Nose MRSA Screen - Final Complete Assessment/Plan Assessment/Plan Acute anemia due to blood loss Coagulopathy due to warfarin Atrial fibrillation Presyncope due to severe anemia Severe anemia due to blood loss Most likely GI bleed History of pacemaker placement Diastolic heart failure Hypertension Dyslipidemia Hypothyroidism , uncontrolled History of lung cancer Moderate protein malnutrition Plan The patient received a total of 3 units of packed RBCs so far Check the hemoglobin and assess for further need for more blood transfusion He received 1 unit of FFP and therefore he will be given 1 more unit Give vitamin K 10 mg subcutaneously IV fluids GI consult Protonix IV drip NPO Cardiology consult Full code Monitor closely Advance directives discussed for 15 minutes 12/24/2024: Give vitamin K 10 mg subcutaneously Transfuse 1 more unit packed RBCs GI consult is on board planning endoscopy in 1-2 days Cardiology consult for clearance Continue IV Protonix drip and IV octreotide drip Monitor closely The rest of the management will depend on the hospital course Full code 12/25/2024: Transfuse 1 unit packed RBCs today GI is planning to do an endoscopy tomorrow Continue octreotide and Protonix drips Continue p.o. amiodarone P.o. Lasix Monitor the hemoglobin and transfuse as needed The rest of the management will depend on the hospital course Plan discussed with: Patient My Orders Orders - CHARO PAULSON MD Procedure Category Date Status Time * Cardiology Consult CONS 12/24/24 Transmitted 11:24 Date of Service: Dec 25, 2024 Billing Provider: CHARO PAULSON MD Common Visit Codes: [id number] INP/OBS CARE(HIGH) CHARO PAULSON MD Dec 25, 2024 11:07
[2024-12-25 15:22] LABS: Hematocrit 24.8 % (41.0-53.0)
--- NOTE | 2024-12-25 19:07 | DVHPN2 ---
Progress Note Date Seen: Dec 25, 2024 Resident Creating Document: SMITA DASILVA RESIDENT Medical Necessity Reason Pt with a Central, PICC or Fol: No Subjective Review of Systems Patient seen and examined at bedside. Cardiology has cleared the patient. Received 1 unit of PRBCs. Plan for possible EGD tomorrow. Objective vital signs Vital Sign Date Time Temp Pulse Resp B/P (MAP) Pulse Ox O2 Delivery O2 Flow Rate FiO2 12/25/24 16:30 97.8 62 18 139/67 (91) 90 97.8 12/25/24 08:00 Room Air* 0 21 Total Intake and Output 12/24/24 12/24/24 12/25/24 15:00 23:00 07:00 Intake Total 789 ml 350 ml 950 ml Output Total 2250 ml 600 ml Balance 789 ml -1900 ml 350 ml medications Current Medications Medications Dose Ordered Sig/Yasir Route Start Time Stop Time Status Last Admin Dose Admin Ondansetron HCl 4 mg Q4HP PRN IV 12/23/24 04:15 Acetaminophen 650 mg Q6HP PRN PO 12/23/24 04:15 12/24/24 22:59 650 MG Furosemide 40 mg DAILY PO 12/23/24 10:00 Levothyroxine Sodium 75 mcg QAM@0600 PO 12/23/24 06:00 12/25/24 06:19 75 MCG Tamsulosin HCl 0.4 mg QPM PO 12/23/24 18:00 12/25/24 17:22 0.4 MG Bupropion HCl 150 mg BID@07,19 PO 12/23/24 07:00 12/25/24 17:26 150 MG Amiodarone HCl 200 mg DAILY PO 12/23/24 10:00 Atorvastatin Calcium 20 mg HS PO 12/23/24 22:00 12/24/24 22:04 20 MG Pantoprazole Sodium 50 ml @ 10 mls/hr Q5H IV 12/23/24 05:30 12/25/24 14:02 10 MLS/HR Octreotide Acetate 500 mcg/ Sodium Chloride 100 ml @ 10 mls/hr Q10H IV 12/24/24 00:30 12/25/24 17:22 10 MLS/HR Sucralfate 1 gm TID@0600,1130,2200 PO 12/24/24 22:00 12/25/24 14:01 1 GM Examination General Appearance: Cooperative. Well developed. Well nourished. NAD Head Exam: Normal inspection Neck Exam: Normal inspection. Non-tender. Normal alignment Pulmonary/Respiratory: Chest non-tender. Clear bilateral breath sounds Cardiovascular/Chest: Regular rate and rhythm. No murmurs. No JVD. Peripheral Pulses: 2+ Radial (R). 2+ Radial (L). 2+ Pedal (R). 2+ Pedal (L) Abdominal Exam: Normal bowel sounds. Soft. Nontender. No hepatospenomegaly. No masses Ankle Exam: Negative ankle edema Lower extremities: Negative lower extremity edema Neuro/Mental Status: A&O x4. Coherent Thoughts/Psych: Normal thought pattern. Appropriate mood and affect. Good judgement and insight Appearance: In no acute distress Skin Exam: Normal inspection. Normal color. Warm. Dry laboratory and microbiology Laboratory Tests 12/25/24 15:12 12/25/24 03:31 Test 12/25/24 03:31 Range/Units Serum Glucose 108 H 74-106 mg/dL Microbiology Date/Time Source Procedure Growth Status 12/23/24 07:00 Nose MRSA Screen - Final Complete Problem List/Assessment/Plan Problem List/Assessment/Plan GI bleed upper versus lower Acute severe anemia due to blood loss Secondary coagulopathy likely due to blood thinner warfarin Atrial fibrillation History of lung cancer Syncope ? Due to severe anemia Plan/recommendation Dr Ca -plan for EGD tomorrow a.m., cardiology clearance has been done. NPO after midnight. Obtain consent. -continue with IV drip Protonix and IV octreotide. -received 7 units PRBCs and 3 units of FFP till now. Continue to monitor H&H and coagulation panel. -given vitamin K 10 mg IV once. -we will continue to monitor patient closely. Plan discussed with: Patient, Other (RN) My Orders My Orders Orders - SMITA DASILVA Procedure Category Date Status Time Obtain Consent For: ORDERS 12/25/24 Transmitted 11:19 Npo (Nothing By DIET 12/25/24 Transmitted Mouth) Diet Lunch Obtain Consent For ALEC 12/25/24 In Process Anesthesia 11:19 Dietary Evaluation Review Comments: As tolerated, provide ensure High Protein supplements or glucerna if Blood Glucose is not controlled. Expected Outcomes/Goals: gradual wt gain, improved serum alb and proteins, improed appetite and healed wounds. SMITA DASILVA RESIDENT Dec 25, 2024 19:07
--- NOTE | 2024-12-25 23:29 | DVHPN2 ---
Progress Note - Dictate Date Seen: Dec 25, 2024 Medical Necessity Reason Pt with a Central, PICC or Fol: No Subjective Mr. Tapia is a 74 years old right-handed gentleman with a history of hypertension, atrial fibrillation on Coumadin, congestive heart failure, lung cancer, lymphatic edema, the patient was transferred from [facility] for a chief company of syncope I have seen and examined the patient, I have talked to his nurse, the patient was doing fine, alert and fully oriented, no new complaints INR is much better He is going to have EGD [facility] ER 12/22/24: He called the EMS due to experiencing dizziness at home, on arrival EMS the witnessed patient was have a syncopal episode. Patient was denies chest pain and SOB. No other symptoms or modifying factors at this time PT/INR/APTT, 12/22/2024: 147/13.33/58.5 CT head, 12/22/2024: No acute intracranial abnormality. A 1.5 cm benign appearing left frontal extra-axial mass most likely meningioma, this can be further evaluated with MR brain without and with IV contrast on a non emergency basis. A subcentimeter ground-glass osseous lesion with with endosteal scalloping in the right side of the frontal bone. Recommend additional brain MRI with and without IV contrast Stool occult blood 12/24/24: Positive WBC/HB/PLT/MCV, 12/23/2024: 7.8/4.9/221/82.9, 12/23/2024: 7.8/5.9/218/84.8 PT/INR/PTT, 12/23/2024: 30.4/4.17/47.4, 12/23/2024: 47/5.22/50.2, 12/25/2024: 13.5/1.34/34.1 BUN/CR, 12/23/2024: 40/0.76, 44/0.74 Liver function tests, 12/23/2024: Unremarkable TSH, 12/23/2024: 16.64 FT4, 12/23/2024: 0.77 Chest x-ray, 12/23/2024: Cardiomegaly with stable right lower lung opacity. Pulmonary vascular congestion vital signs Vital Sign Date Time Temp Pulse Resp B/P (MAP) Pulse Ox O2 Delivery O2 Flow Rate FiO2 12/25/24 21:00 98.6 61 18 95/49 (64) 95 98.6 12/25/24 20:00 Room Air* 0 21 Total Intake and Output 12/24/24 12/24/24 12/25/24 15:00 23:00 07:00 Intake Total 789 ml 350 ml 950 ml Output Total 2250 ml 600 ml Balance 789 ml -1900 ml 350 ml medications Current Medications Medications Dose Ordered Sig/Yasir Route Start Time Stop Time Status Last Admin Dose Admin Ondansetron HCl 4 mg Q4HP PRN IV 12/23/24 04:15 Acetaminophen 650 mg Q6HP PRN PO 12/23/24 04:15 12/24/24 22:59 650 MG Furosemide 40 mg DAILY PO 12/23/24 10:00 Levothyroxine Sodium 75 mcg QAM@0600 PO 12/23/24 06:00 12/25/24 06:19 75 MCG Tamsulosin HCl 0.4 mg QPM PO 12/23/24 18:00 12/25/24 17:22 0.4 MG Bupropion HCl 150 mg BID@07,19 PO 12/23/24 07:00 12/25/24 17:26 150 MG Amiodarone HCl 200 mg DAILY PO 12/23/24 10:00 Atorvastatin Calcium 20 mg HS PO 12/23/24 22:00 12/25/24 21:59 20 MG Pantoprazole Sodium 50 ml @ 10 mls/hr Q5H IV 12/23/24 05:30 12/25/24 20:07 10 MLS/HR Octreotide Acetate 500 mcg/ Sodium Chloride 100 ml @ 10 mls/hr Q10H IV 12/24/24 00:30 12/25/24 17:22 10 MLS/HR Sucralfate 1 gm TID@0600,1130,2200 PO 12/24/24 22:00 12/25/24 21:59 1 GM objective General: the patient is well developed and nourished. No acute distress. MUSCULOSKELETAL EXAM: Edema and the depigmentation in both legs, with a left- sided more affected MENTAL STATUS: Awake and alert. Oriented to person, place, time. Poor historian SPEECH, LANGUAGE, HIGHER CORTICAL FUNCTION: no aphasia or dysathria. CRANIAL NERVES: Pupils are equal, round and reactive. EOMs full and conjugate. Mild bilateral gaze evoked nystagmus. Facial sensation intact in all three divisions bilaterally. Mandibular strength intact. Facial muscles symmetrical and strength intact. SENSATION: Sensation to touch and pinprick is normal. MOTOR: Normal tone in the upper and lower extremity. Normal muscle bulk. No fasciculations. No abnormal movements or posturing. Muscle strength of the major groups in the extremities is 4/5. REFLEXES: Deep tendon reflexes normal and symmetrical. No pathological reflexes. CEREBELLAR/COORDINATION: Finger to nose is normal bilaterally. GAIT/STATION: deferred. laboratory and microbiology Laboratory Tests 12/25/24 15:12 12/25/24 03:31 Test 12/25/24 03:31 Range/Units Serum Glucose 108 H 74-106 mg/dL Problem List Syncopal event x3, likely related to his acute severe anemia Acute severe anemia, likely secondary to coagulopathy Coagulopathy secondary to Coumadin treatment Rule out GI bleeding Hypothyroidism Abnormal brain CT scan Meningioma Skull osseous lesion Lymphatic edema Assessment/Plan Monitoring Supportive treatment Telemetry Follow-up labs EEG MRI brain pacemaker is not MR compatible Hold off anticoagulation treatment Consider Watchman on him Blood transfusion Frozen fresh plasma transfusion Up to chair Physical therapy Cardiology on case GI on case More recommendation per clinical course This medical document was created using an electronic medical record system with [email or web address] dictation system. Although this document has been carefully reviewed, there may still be some phonetic and typographical errors. These areas are purely typographical due to imperfections of the software programs, and do not reflect any compromise in the patient's medical care. Prognosis poor Dietary Evaluation Review Comments: As tolerated, provide ensure High Protein supplements or glucerna if Blood Glucose is not controlled. Expected Outcomes/Goals: gradual wt gain, improved serum alb and proteins, improed appetite and healed wounds. Plan discussed with: Patient, Other Total Time (mins): 35 NEHEMIAS GUTHRIE MD Dec 25, 2024 23:29
[2024-12-26] VITALS (11 sets, daily range): BP systolic 93–117; BP diastolic 45–66; PULSE 51–80; RESP 11–20; TEMP 98–99.8; O2SAT 86–95
[2024-12-26 03:27] LABS: Urine Bacteria FEW /hpf (None Seen); Urine Blood Negative /uL (Negative); Urine Clarity Clear (Clear); Urine Color Light-Yellow (Yellow); Urine Mucus FEW (None Seen); Urine Protein, UAD Negative (Negative); Urine Specific Gravity 1.013 (1.001-1.035); Urine Squamous Epithelial Cell FEW /hpf (<5); Urine Urobilinogen 3 mg/dL (Negative); Urine WBC 15 /HPF (0-3)
[2024-12-26 07:03] LABS: INR 1.16 (0.9-1.15); Partial Thromboplastin Time 30.4 SEC (24.5-34.5); Prothrombin Time 12.1 sec (9.3-11.8)
[2024-12-26 07:08] LABS: Alanine Aminotransferase 20 U/L (7-40); Anion Gap 7 (5-15); Aspartate Aminotransferase 38 U/L (13-40); BUN/Creatinine Ratio 22.2 (10.0-20.0); Blood Urea Nitrogen 12 mg/dL (9-23); Calcium 8.8 mg/dL (8.7-10.4); Carbon Dioxide 24 mmol/L (20-31); Chloride 105 mmol/L (98-107); Magnesium 1.9 mg/dL (1.6-2.6); Sodium 136 mmol/L (136-145)
[2024-12-26 07:09] LABS: Bilirubin, Total 1.1 mg/dL (0.2-1.0)
[2024-12-26 07:13] LABS: Albumin 2.7 g/dL (3.2-4.8); Alkaline Phosphatase 177 U/L (46-116); Glucose 118 mg/dL (74-106); Potassium 3.4 mmol/L (3.5-5.1); Total Protein 4.5 g/dL (5.7-8.2)
--- NOTE | 2024-12-26 07:19 | DVHPN2 ---
Progress Note - Dictate Date Seen: Dec 26, 2024 Medical Necessity Reason Pt with a Central, PICC or Fol: No vital signs Vital Sign Date Time Temp Pulse Resp B/P (MAP) Pulse Ox O2 Delivery O2 Flow Rate FiO2 12/26/24 05:00 98.4 65 18 104/63 (77) 93 98.4 12/25/24 20:00 Room Air* 0 21 Total Intake and Output 12/25/24 12/25/24 12/26/24 15:00 23:00 07:00 Intake Total 600 ml 750 ml 200 ml Output Total 1000 ml 850 ml Balance 600 ml -250 ml -650 ml medications Current Medications Medications Dose Ordered Sig/Yasir Route Start Time Stop Time Status Last Admin Dose Admin Ondansetron HCl 4 mg Q4HP PRN IV 12/23/24 04:15 Acetaminophen 650 mg Q6HP PRN PO 12/23/24 04:15 12/24/24 22:59 650 MG Furosemide 40 mg DAILY PO 12/23/24 10:00 Levothyroxine Sodium 75 mcg QAM@0600 PO 12/23/24 06:00 12/25/24 06:19 75 MCG Tamsulosin HCl 0.4 mg QPM PO 12/23/24 18:00 12/25/24 17:22 0.4 MG Bupropion HCl 150 mg BID@07,19 PO 12/23/24 07:00 12/25/24 17:26 150 MG Amiodarone HCl 200 mg DAILY PO 12/23/24 10:00 Atorvastatin Calcium 20 mg HS PO 12/23/24 22:00 12/25/24 21:59 20 MG Pantoprazole Sodium 50 ml @ 10 mls/hr Q5H IV 12/23/24 05:30 12/26/24 05:57 10 MLS/HR Octreotide Acetate 500 mcg/ Sodium Chloride 100 ml @ 10 mls/hr Q10H IV 12/24/24 00:30 12/26/24 02:52 10 MLS/HR Sucralfate 1 gm TID@0600,1130,2200 PO 12/24/24 22:00 12/25/24 21:59 1 GM laboratory and microbiology Laboratory Tests 12/26/24 06:00 Test 12/26/24 06:00 Range/Units Serum Glucose 118 H 74-106 mg/dL Assessment/Plan Patient is a 74-year-old gentleman who was transferred from [facility] Emergency room for further evaluation to our hospital. Originally, the patient presented to other Hospital for presyncopal episodes. He was somehow dizzy for few days. He mentions that is he had less stamina going back for few days. He also has been experiencing abdominal pain after eating and his appetite has decreased. Denies chest pain. Denies nausea and vomiting. Denies diarrhea. Cardiology was involved for cardiac aspects of care. Patient is known to our practice from outside than before. Does have a pacemaker which was interrogated last in July 2024. In [facility] emergency room, the patient was found to have significant anemia and reportedly did receive blood transfusion. In [facility], CT of the head had revealed questionable meningioma and also RCA lesion in frontal bone. It also reported severe chronic muscle sinusitis. Frail gentleman. Not in acute distress. Lying flat in bed. No JVD. Mucosa is wet. Not using accessory muscles of breathing. Lungs are clear to auscultation. Cardiac: Regular, no thrill. Systolic murmur 2/6 in the apex is heard. Abdomen is soft. Mild periumbilical tenderness is elicited. Bowel sounds positive. Extremities reveal 2+ edema bilaterally. Dorsalis pedis is 1+ bilateral Past medical history includes hypertension, hyperlipidemia, diastolic heart failure, valvular heart disease, history of mitral valve prolapse, pulmonary hypertension, atrial fibrillation/atrial flutter (on Coumadin as outpatient), status post atrial flutter ablation, status post pacemaker (Medtronic pacer, Derrick wires), DJD and hypothyroidism. As per patient, the patient was diagnosed with lung cancer less than a year ago for which has received radiation therapy. Nuclear stress test of November 2019 (performed in the office) revealed scar but no ischemia. Ejection fraction was 58% at that point. Hemoglobin: 4.9 - 5.9 - 5.7 - 7.6 - 7.0 - 7.3 - 7.1 - 8.0 today's pending INR: 4.17 - 5.22 - 2.70 - 1.34 - 1.16 Creatinine: 0.76 - 0.74 - 0.73 - 0.64 - 0.54 Potassium: 3.7 - 3.4 - 3.6 - 3.5 - 3.4 Troponin (high sensitive): 28 BNP: 118.68 TSH: 16.64 Free T4: 0.77 Free T3: 0.75 Total T3: 0.40 Stool OB: positive Chest xry reported: IMPRESSION: 1. Pulmonary vascular congestion. 2. Cardiomegaly. Repeat chest xry reported: IMPRESSION: Cardiomegaly with stable right lower lung opacity. Pulmonary vascular congestion. EKG revealed paced ventricular rhythm Tele reveals paced rhythm Echocardiogram reported: Left ventricle: Moderate concentric left ventricular hypertrophy was seen LVEF was 65%. There was no gross wall motion abnormality. Right ventricle was normal sized with normal systolic function. There was moderate biatrial enlargement. Pacing wire was seen in right-sided chambers. Aortic valve: Aortic valve was not well visualized. There was no aortic insufficiency/stenosis. Mild mitral valve prolapse was observed. There was mild mitral/ /tricuspid regurgitation. Pulmonary valve was not well visualized. Right ventricular systolic pressure was assessed at 36 mm Hg. IVC was normal sized with normal respiratory variation. 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 Ascending aorta was dilated at 4.3 cm. Moderate pericardial effusion was seen. There was no echocardiographic evidence for cardiac tamponade Medtronic pacemaker interrogation: Battery: Remaining Battery Longevity: 6.4 years; DDIR: 60/130; Ventricle pacin.8%; Atrial pacin.1%; Lead impedance: Atrial 380/RV 608 Ohms; Capture threshold: 1.125 volts at 0.4 milliseconds; Programmed sensitivity: 0.3 atrial/0.9 RV mV; Leads are Derrick Pacemaker itself is Medtronic; Pacemaker itself is MRI SureScan; Other devices (leads) are not MRI compatible; Normal function pacemaker Patient is a 74-year-old gentleman presented with presyncopal episode. Did have some dizziness. Does complain of abdominal pain after eating. Does have history of pacemaker which was last interrogated in July 2024. Does have history of lung cancer for around a year (as per patient and with unknown detail). He usually is on Coumadin for atrial fibrillation/flutter. He is found to have significant anemia with supratherapeutic INR. CT of the head in [facility] has a reported meningioma with osseous lesions. Being followed by Neurology Presyncope Anemia, severe Supratherapeutic INR Atrial fibrillation, atrial flutter history of Status post pacemaker implantation (Medtronic pacer with Derrick wires) Valvular heart disease CHF, diastolic Hypertension Hyperlipidemia Hypothyroidism Lung cancer, history all Abdominal pain Poor appetite Cardiac suggestions for management: Manage on telemetry Follow up electrolytes and kidney function test and Correct abnormalities. Keep potassium above four and magnesium above two Follow up H&H Patient is cardiac lozano, moderate risk patient for low risk EGD/Colonoscopy procedure. Cardiac lozano, you can proceed with the procedures under appropriate intra and post operative hemodynamic monitoring. Avoid Hypotension. Treat hypothyroidism as per primary team GI follow up Neurology follow up Further evaluation and management depends on the above and clinical course A total of 55 minutes was spent reviewing the patient record, examining the patient, making a diagnostic and therapeutic plan, discussing this plan with medical personnel, following up on diagnostic studies and following the patient for clinical stability excluding any and all procedures. At least 50% of this time was spent in direct, [id number] contact. Thank you for allowing me to participate in this patient's care. Further recommendations will depend on patient's clinical course. Please do not hesitate to contact me if you have any questions or concerns. This medical document was created using electronic medical record system with [employer] computerized dictation system. Although this document has been carefully reviewed, there may still be some phonetic and typographical errors. These areas are purely typographical due to the imperfection of the software programs, and do not reflect any compromise in the patient's medical care. Dietary Evaluation Review Comments: As tolerated, provide ensure High Protein supplements or glucerna if Blood Glucose is not controlled. Expected Outcomes/Goals: gradual wt gain, improved serum alb and proteins, improed appetite and healed wounds. Plan discussed with: Other (nurse) JADEN HERNÁNDEZ MD Dec 26, 2024 07:19
[2024-12-26 07:41] LABS: Basophils # (auto) 0 10 ^3/uL (0-0.2); Basophils % (auto) 0.5 % (0.0-2.0); Eosinophils # (auto) 0.2 10 ^3/uL (0-0.8); Eosinophils % (auto) 2.3 % (0.0-7.0); Hematocrit 24.9 % (41.0-53.0); Hemoglobin 8.1 g/dL (13.5-17.5); Lymphocytes # (auto) 0.4 10 ^3/uL (0.4-5.4); Lymphocytes % (auto) 5.8 % (10.0-50.0); Mean Corpuscular Hemoglobin 28.3 pg (28.0-32.0); Mean Corpuscular Hgb Conc. 32.4 g/dL (32.0-36.0); Mean Corpuscular Volume 87.3 fL (80.0-100.0); Monocytes # (auto) 0.7 10 ^3/uL (0-1.3); Monocytes % (auto) 9.6 % (0.0-12.0); Neutrophils % (auto) 81.8 % (37.0-80.0); Nucleated Red Blood Cells % 0.2 %; Platelet Count (auto) 200 10^3/uL (140-450); Red Blood Cells 2.86 10^6/uL (4.5-5.90); Red Cell Distribution Width 16.6 % (11.8-14.3); White Blood Cell 7.3 10^3/uL (4.4-10.8)
[2024-12-26] MEDS ORDERED: SODIUM CHLORIDE LOCK 10 ML ONE (08:50)
[2024-12-26] MEDS: LIDOCAINE VISCOUS 2% 15ML UD ONE (08:52)
[2024-12-26] MEDS: MIDAZOLAM HCL 5 MG/ML-1ML VIAL ONE (08:53)
[2024-12-26] MEDS: diphenhdrAMINE HCL 50 MG/1 ML VL ONE (08:53)
[2024-12-26] MEDS: fentaNYL CITRATE 100 MCG/2 ML VL ONE (08:53)
--- NOTE | 2024-12-26 09:04 | DVHOP2 ---
Operative Report DATE OF OPERATION: 12/26/24 PROCEDURE: Upper Endoscopy with biopsy. PREOPERATIVE INDICATION: The patient is a 74 -year-old male undergoing endoscopy for severe symptomatic anemia and Hemoccult-positive stools POSTOPERATIVE DIAGNOSES: 1. Patient had a 2 cm anastomotic ulcer on the jejunal side of the gas trojejunostomy with no visible vessel or active bleeding and there was a small red dot at the edge of the ulcer 2. Mild gastritis of the small gastric remnant; mild grade a erosive esophagitis with no significant hiatal hernia 3. Otherwise normal examination up to the efferent and afferent loop of a gastric bypass surgery PROCEDURE PERFORMED BY: Jyoti Ca GI NURSE: Mary Kay SCOPE: Olympus videoendoscope. ASA CLASS: 3. PREOPERATIVE MEDICATIONS: Versed 1 mg, Fentanyl 25 mcg, Benadryl 50 mg I administered moderate sedation throughout this _7_ minutes procedure. An independent trained observer pushed medications at my direction, and monitored the patient's level of consciousness and physiological status throughout. PROCEDURE IN DETAIL: After obtaining an informed consent, the patient was placed on left lateral decubitus position. The patient was then sedated with the above medications. A bite block was placed between his teeth. The endoscope was then passed through the oropharynx, into the esophagus, and through the stomach remnant Into the efferent loop of the gastrojejunostomy. Patient has had a previous gastric bypass. There was a 2 cm anastomotic ulcer on the jejunal side of the gastrojejunostomy. There was no visible vessel or active bleeding There was a small red dot at the edge of the ulcer. The small gastric remnant had minimal gastritis. Efferent and afferent loop of the gastrojejunostomy were otherwise normal. Small bowel and gastric biopsies were obtained Patient had grade a erosive esophagitis at GE junction otherwise it was a normal examination and pylorus up to the second and third part of the duodenum. The endoscope was then withdrawn. The patient tolerated the procedure well without difficulty. COMPLICATIONS : None SPECIMENS: Small-bowel biopsies Gastric biopsies DISPOSITION: Transfer back to the floor Stable PLAN: 1. Await for biopsy result 2. Will place pt on Protonix 40 mg bid 3. Carafate 1 g p.o. 4 times a day 4. DC aspirin NSAIDs smoking alcohol 5. Outpatient follow up with me upon discharge to discuss elective colonoscopy 6. This patient will likely need to be maintained on iron and B12 because of his previous gastrojejunostomy JYOTI CA MD Dec 26, 2024 09:04
[2024-12-26] MEDS: PANTOPRAZOLE 40 MG/10 ML VIAL INJ IV SCH (09:52)
--- NOTE | 2024-12-26 12:17 | DVHPN2 ---
Subjective Doing well No bleeding Hemoglobin 8.1 INR 1.1 EGD showed gastric ulcer Changes from previous H/P or p: Changes Objective Vitals Vital Signs Date Time Temp Pulse Resp B/P (MAP) Pulse Ox O2 Delivery O2 Flow Rate FiO2 12/26/24 09:53 104/62 12/26/24 09:45 98.0 63 14 92 98.0 12/26/24 09:05 Mask 10.0 12/26/24 08:52 90 Intake/Output Intake and Output 12/26/24 07:00 Intake Total 1550 ml Output Total 1850 ml Balance -300 ml Intake Oral 600 ml IV Total 450 ml Blood Product 250 ml Other 250 ml Output Urine Total 1850 ml # Bowel Movements 1 General Appearance: Alert, Oriented X3 Lungs: Clear to auscultation, Normal air movement Cardiovascular: Regular rate, Normal S1, Normal S2 Abdomen: Normal bowel sounds, Soft, No tenderness Extremities: No edema Medications Current Medications Medications Dose Ordered Sig/Yasir Route Start Time Stop Time Status Last Admin Dose Admin Ondansetron HCl 4 mg Q4HP PRN IV 12/23/24 04:15 Acetaminophen 650 mg Q6HP PRN PO 12/23/24 04:15 12/24/24 22:59 650 MG Furosemide 40 mg DAILY PO 12/23/24 10:00 12/26/24 09:53 40 MG Levothyroxine Sodium 75 mcg QAM@0600 PO 12/23/24 06:00 12/25/24 06:19 75 MCG Tamsulosin HCl 0.4 mg QPM PO 12/23/24 18:00 12/25/24 17:22 0.4 MG Bupropion HCl 150 mg BID@07,19 PO 12/23/24 07:00 12/25/24 17:26 150 MG Amiodarone HCl 200 mg DAILY PO 12/23/24 10:00 12/26/24 09:53 200 MG Atorvastatin Calcium 20 mg HS PO 12/23/24 22:00 12/25/24 21:59 20 MG Sucralfate 1 gm TID@0600,1130,2200 PO 12/24/24 22:00 12/26/24 09:53 1 GM Pantoprazole Sodium 40 mg BID IV 12/26/24 10:00 12/26/24 09:52 40 MG Laboratory Results Laboratory Tests 12/26/24 06:00 Chemistry Test 12/26/24 06:00 Albumin 2.7 g/dL (3.2-4.8) L Calcium Level 8.8 mg/dL (8.7-10.4) Magnesium Level 1.9 mg/dL (1.6-2.6) Total Protein 4.5 g/dL (5.7-8.2) L Coagulation Test 12/26/24 06:00 Prothrombin Time 12.1 sec (9.3-11.8) H Prothrombin Time INR 1.16 (0.9-1.15) H Activated Partial Thromboplast Time 30.4 SEC (24.5-34.5) LFT Test 12/26/24 06:00 Alanine Aminotransferase (ALT) 20 U/L (7-40) Alkaline Phosphatase 177 U/L (46-116) H Aspartate Amino Transferase (AST) 38 U/L (13-40) Total Bilirubin 1.1 mg/dL (0.2-1.0) H Urinalysis Test 12/26/24 02:15 Urine Color Light-yellow (Yellow) Urine Clarity Clear (Clear) Urine pH 6.0 (5.0-9.0) Urine Specific [place] 1.013 (1.001-1.035) Urine Protein Negative (Negative) Urine Ketones Negative (Negative) Urine Blood Negative /uL (Negative) Urine Nitrite 1+ (Negative) H Urine Bilirubin Negative (Negative) Urine Urobilinogen 3 mg/dL (Negative) H Urine Leukocyte Esterase 1+ /uL (Negative) Urine RBC 1 /hpf (0 - 3) Urine Microscopic WBC 15 /HPF (0-3) H Urine Squamous Epithelial Cells Few /hpf (<5) Urine Bacteria Few /hpf (None Seen) H Urine Mucus Few (None Seen) Urine Glucose Normal mg/dL (Normal) Microbiology Microbiology Date/Time Source Procedure Growth Status 12/23/24 07:00 Nose MRSA Screen - Final Complete Assessment/Plan Assessment/Plan Acute anemia due to blood loss Coagulopathy due to warfarin Atrial fibrillation Presyncope due to severe anemia Severe anemia due to blood loss Most likely GI bleed History of pacemaker placement Diastolic heart failure Hypertension Dyslipidemia Hypothyroidism , uncontrolled History of lung cancer Moderate protein malnutrition Plan The patient received a total of 3 units of packed RBCs so far Check the hemoglobin and assess for further need for more blood transfusion He received 1 unit of FFP and therefore he will be given 1 more unit Give vitamin K 10 mg subcutaneously IV fluids GI consult Protonix IV drip NPO Cardiology consult Full code Monitor closely Advance directives discussed for 15 minutes 12/24/2024: Give vitamin K 10 mg subcutaneously Transfuse 1 more unit packed RBCs GI consult is on board planning endoscopy in 1-2 days Cardiology consult for clearance Continue IV Protonix drip and IV octreotide drip Monitor closely The rest of the management will depend on the hospital course Full code 12/25/2024: Transfuse 1 unit packed RBCs today GI is planning to do an endoscopy tomorrow Continue octreotide and Protonix drips Continue p.o. amiodarone P.o. Lasix Monitor the hemoglobin and transfuse as needed The rest of the management will depend on the hospital course 12/26/2024: Monitor closely Continue current management Monitor for anymore GI bleeding Continue IV Protonix Carafate Plan discussed with: Patient Date of Service: Dec 26, 2024 Billing Provider: CHARO PAULSON MD Common Visit Codes: [id number] INP/OBS CARE(HIGH) CHARO PAULSON MD Dec 26, 2024 12:17
--- NOTE | 2024-12-26 22:51 | DVHPN2 ---
Progress Note - Dictate Date Seen: Dec 26, 2024 Medical Necessity Reason Pt with a Central, PICC or Fol: No Subjective Mr. Tapia is a 74 years old right-handed gentleman with a history of hypertension, atrial fibrillation on Coumadin, congestive heart failure, lung cancer, lymphatic edema, the patient was transferred from [facility] for a chief company of syncope I have seen and examined the patient, I have talked to his nurse, the patient was doing fine, alert and fully oriented, no new complaints Again he reports he did not pass out at home INR keeps improving EEG showed ulcer [facility] ER 12/22/24: He called the EMS due to experiencing dizziness at home, on arrival EMS the witnessed patient was have a syncopal episode. Patient was denies chest pain and SOB. No other symptoms or modifying factors at this time PT/INR/APTT, 12/22/2024: 147/13.33/58.5, 12/26/2024: 12.1/1.16/30.4 CT head, 12/22/2024: No acute intracranial abnormality. A 1.5 cm benign appearing left frontal extra-axial mass most likely meningioma, this can be further evaluated with MR brain without and with IV contrast on a non emergency basis. A subcentimeter ground-glass osseous lesion with with endosteal scalloping in the right side of the frontal bone. Recommend additional brain MRI with and without IV contrast Stool occult blood 12/24/24: Positive WBC/HB/PLT/MCV, 12/23/2024: 7.8/4.9/221/82.9, 12/23/2024: 7.8/5.9/218/84.8 PT/INR/PTT, 12/23/2024: 30.4/4.17/47.4, 12/23/2024: 47/5.22/50.2, 12/25/2024: 13.5/1.34/34.1 BUN/CR, 12/23/2024: 40/0.76, 44/0.74 Liver function tests, 12/23/2024: Unremarkable TSH, 12/23/2024: 16.64 FT4, 12/23/2024: 0.77 Chest x-ray, 12/23/2024: Cardiomegaly with stable right lower lung opacity. Pulmonary vascular congestion vital signs Vital Sign Date Time Temp Pulse Resp B/P (MAP) Pulse Ox O2 Delivery O2 Flow Rate FiO2 12/26/24 17:00 99.8 65 18 117/57 (77) 90 99.8 12/26/24 09:05 Mask 10.0 12/26/24 08:52 90 Total Intake and Output 12/25/24 12/25/24 12/26/24 15:00 23:00 07:00 Intake Total 600 ml 750 ml 200 ml Output Total 1000 ml 850 ml Balance 600 ml -250 ml -650 ml medications Current Medications Medications Dose Ordered Sig/Yasir Route Start Time Stop Time Status Last Admin Dose Admin Ondansetron HCl 4 mg Q4HP PRN IV 12/23/24 04:15 Acetaminophen 650 mg Q6HP PRN PO 12/23/24 04:15 12/24/24 22:59 650 MG Furosemide 40 mg DAILY PO 12/23/24 10:00 12/26/24 09:53 40 MG Levothyroxine Sodium 75 mcg QAM@0600 PO 12/23/24 06:00 12/25/24 06:19 75 MCG Tamsulosin HCl 0.4 mg QPM PO 12/23/24 18:00 12/26/24 17:36 0.4 MG Bupropion HCl 150 mg BID@07,19 PO 12/23/24 07:00 12/26/24 17:36 150 MG Amiodarone HCl 200 mg DAILY PO 12/23/24 10:00 12/26/24 09:53 200 MG Atorvastatin Calcium 20 mg HS PO 12/23/24 22:00 12/26/24 21:28 20 MG Sucralfate 1 gm TID@0600,1130,2200 PO 12/24/24 22:00 12/26/24 21:28 1 GM Pantoprazole Sodium 40 mg BID IV 12/26/24 10:00 12/26/24 21:29 40 MG objective General: the patient is well developed and nourished. No acute distress. MUSCULOSKELETAL EXAM: Edema and the depigmentation in both legs, with a left- sided more affected MENTAL STATUS: Awake and alert. Oriented to person, place, time. Poor historian SPEECH, LANGUAGE, HIGHER CORTICAL FUNCTION: no aphasia or dysathria. CRANIAL NERVES: Pupils are equal, round and reactive. EOMs full and conjugate. Mild bilateral gaze evoked nystagmus. Facial sensation intact in all three divisions bilaterally. Mandibular strength intact. Facial muscles symmetrical and strength intact. SENSATION: Sensation to touch and pinprick is normal. MOTOR: Normal tone in the upper and lower extremity. Normal muscle bulk. No fasciculations. No abnormal movements or posturing. Muscle strength of the major groups in the extremities is 4/5. REFLEXES: Deep tendon reflexes normal and symmetrical. No pathological reflexes. CEREBELLAR/COORDINATION: Finger to nose is normal bilaterally. GAIT/STATION: deferred. laboratory and microbiology Laboratory Tests 12/26/24 06:00 Test 12/26/24 06:00 Range/Units Serum Glucose 118 H 74-106 mg/dL Problem List Syncopal event x3, likely related to his acute severe anemia Acute severe anemia, likely secondary to coagulopathy Coagulopathy secondary to Coumadin treatment Rule out GI bleeding Hypothyroidism Abnormal brain CT scan Meningioma Skull osseous lesion Lymphatic edema Assessment/Plan Monitoring Supportive treatment Telemetry Follow-up labs EEG MRI brain pacemaker is not MR compatible Hold off anticoagulation treatment Consider Watchman on him Blood transfusion Frozen fresh plasma transfusion Up to chair Physical therapy Cardiology on case GI on case More recommendation per clinical course This medical document was created using an electronic medical record system with [employer] computerized dictation system. Although this document has been carefully reviewed, there may still be some phonetic and typographical errors. These areas are purely typographical due to imperfections of the software programs, and do not reflect any compromise in the patient's medical care. Prognosis poor Dietary Evaluation Review Comments: As tolerated, provide ensure High Protein supplements or glucerna if Blood Glucose is not controlled. Expected Outcomes/Goals: gradual wt gain, improved serum alb and proteins, improed appetite and healed wounds. Plan discussed with: Patient, Other NEHEMIAS GUTHRIE MD Dec 26, 2024 22:51
--- NOTE | 2024-12-26 23:23 | DVHEEG2 ---
Neurology EEG Procedural Note Procedural Note EXAM DATE: 12/26/2023 REFERRING DOCTOR: Dr. Guthrie TECHNIQUE: Eighteen channels of EEG, 2 channels of EOG, and 1 channel of EKG were recorded using the International 10/20 system. CLINICAL DATA: The patient was referred for an EEG evaluation for the evidence of seizure disorder. MEDICATIONS: See chart BACKGROUND ACTIVITY: While the patient was awake, the background activity consisted of fairly regulated 6-7 Hz rhythmic waveforms, symmetrically distributed over both posterior quadrants and was reactive to external stimuli. ACTIVATION: Hyperventilation: Not done Photic Stimulation: No photic convulsive response Sleep: Noticed IMPRESSION: This is a mildly abnormal EEG, this EEG is seen in mild cerebral dysfunction due to metabolic/hypoxic encephalopathy or medication effect, please correlate clinically The EKG channel showed a regular heart rate of 60/[place] [address] NEHEMIAS GUTHRIE MD Dec 26, 2024 23:23
[2024-12-27] VITALS (8 sets, daily range): BP systolic 84–117; BP diastolic 40–61; PULSE 62–79; RESP 18–19; TEMP 97.7–99.6; O2SAT 90–97
[2024-12-27 07:27] LABS: INR 1.14 (0.9-1.15); Partial Thromboplastin Time 30.8 SEC (24.5-34.5); Prothrombin Time 11.9 sec (9.3-11.8)
[2024-12-27 07:30] LABS: Basophils # (auto) 0 10 ^3/uL (0-0.2); Basophils % (auto) 0.3 % (0.0-2.0); Eosinophils # (auto) 0.2 10 ^3/uL (0-0.8); Eosinophils % (auto) 2.1 % (0.0-7.0); Hematocrit 25.1 % (41.0-53.0); Hemoglobin 8.2 g/dL (13.5-17.5); Lymphocytes # (auto) 0.5 10 ^3/uL (0.4-5.4); Lymphocytes % (auto) 6.8 % (10.0-50.0); Mean Corpuscular Hemoglobin 28.3 pg (28.0-32.0); Mean Corpuscular Hgb Conc. 32.7 g/dL (32.0-36.0); Mean Corpuscular Volume 86.5 fL (80.0-100.0); Monocytes # (auto) 0.8 10 ^3/uL (0-1.3); Monocytes % (auto) 11.1 % (0.0-12.0); Neutrophils % (auto) 79.7 % (37.0-80.0); Nucleated Red Blood Cells % 0.1 %; Platelet Count (auto) 208 10^3/uL (140-450); Red Cell Distribution Width 16.4 % (11.8-14.3); White Blood Cell 7.5 10^3/uL (4.4-10.8)
[2024-12-27 07:37] LABS: Alanine Aminotransferase 17 U/L (7-40); Anion Gap 6 (5-15); Aspartate Aminotransferase 27 U/L (13-40); Blood Urea Nitrogen 15 mg/dL (9-23); Carbon Dioxide 28 mmol/L (20-31); Chloride 105 mmol/L (98-107); Magnesium 1.9 mg/dL (1.6-2.6); Sodium 139 mmol/L (136-145)
[2024-12-27 07:40] LABS: Bilirubin, Total 0.9 mg/dL (0.2-1.0)
[2024-12-27 07:45] LABS: Albumin 2.8 g/dL (3.2-4.8); Alkaline Phosphatase 171 U/L (46-116); Calcium 8.6 mg/dL (8.7-10.4); Glucose 107 mg/dL (74-106); Potassium 3.2 mmol/L (3.5-5.1); Total Protein 4.5 g/dL (5.7-8.2)
[2024-12-27] MEDS: POTASSIUM CHL 20 Meq TABLET PO ONE (09:49)
--- NOTE | 2024-12-27 11:26 | DVHPN2 ---
Subjective No new complaints Hemoglobin is stable at 8.2 Potassium is 3.2 Changes from previous H/P or p: Changes Objective Vitals Vital Signs Date Time Temp Pulse Resp B/P (MAP) Pulse Ox O2 Delivery O2 Flow Rate FiO2 12/27/24 09:49 101/60 12/27/24 09:00 98.1 64 18 92 98.1 12/27/24 08:00 Nasal Cannula* 2 28 Intake/Output Intake and Output 12/27/24 07:00 Intake Total 890 ml Output Total 2930 ml Balance -2040 ml Intake Oral 790 ml IV Total 100 ml Output Urine Total 2930 ml General Appearance: Alert, Oriented X3 Lungs: Clear to auscultation, Normal air movement Cardiovascular: Regular rate, Normal S1, Normal S2 Abdomen: Normal bowel sounds, Soft, No tenderness Extremities: No edema Medications Current Medications Medications Dose Ordered Sig/Yasir Route Start Time Stop Time Status Last Admin Dose Admin Ondansetron HCl 4 mg Q4HP PRN IV 12/23/24 04:15 Acetaminophen 650 mg Q6HP PRN PO 12/23/24 04:15 12/24/24 22:59 650 MG Furosemide 40 mg DAILY PO 12/23/24 10:00 12/27/24 09:49 40 MG Levothyroxine Sodium 75 mcg QAM@0600 PO 12/23/24 06:00 12/27/24 05:30 75 MCG Tamsulosin HCl 0.4 mg QPM PO 12/23/24 18:00 12/26/24 17:36 0.4 MG Bupropion HCl 150 mg BID@07,19 PO 12/23/24 07:00 12/27/24 05:31 150 MG Amiodarone HCl 200 mg DAILY PO 12/23/24 10:00 12/27/24 09:49 200 MG Atorvastatin Calcium 20 mg HS PO 12/23/24 22:00 12/26/24 21:28 20 MG Sucralfate 1 gm TID@0600,1130,2200 PO 12/24/24 22:00 12/27/24 09:50 1 GM Pantoprazole Sodium 40 mg BID IV 12/26/24 10:00 12/27/24 09:49 40 MG Laboratory Results Laboratory Tests 12/27/24 06:30 Chemistry Test 12/27/24 06:30 Albumin 2.8 g/dL (3.2-4.8) L Calcium Level 8.6 mg/dL (8.7-10.4) L Magnesium Level 1.9 mg/dL (1.6-2.6) Total Protein 4.5 g/dL (5.7-8.2) L Coagulation Test 12/27/24 06:30 Prothrombin Time 11.9 sec (9.3-11.8) H Prothrombin Time INR 1.14 (0.9-1.15) Activated Partial Thromboplast Time 30.8 SEC (24.5-34.5) LFT Test 12/27/24 06:30 Alanine Aminotransferase (ALT) 17 U/L (7-40) Alkaline Phosphatase 171 U/L (46-116) H Aspartate Amino Transferase (AST) 27 U/L (13-40) Total Bilirubin 0.9 mg/dL (0.2-1.0) Urinalysis Test 12/26/24 02:15 Urine Color Light-yellow (Yellow) Urine Clarity Clear (Clear) Urine pH 6.0 (5.0-9.0) Urine Specific Comstock 1.013 (1.001-1.035) Urine Protein Negative (Negative) Urine Ketones Negative (Negative) Urine Blood Negative /uL (Negative) Urine Nitrite 1+ (Negative) H Urine Bilirubin Negative (Negative) Urine Urobilinogen 3 mg/dL (Negative) H Urine Leukocyte Esterase 1+ /uL (Negative) Urine RBC 1 /hpf (0 - 3) Urine Microscopic WBC 15 /HPF (0-3) H Urine Squamous Epithelial Cells Few /hpf (<5) Urine Bacteria Few /hpf (None Seen) H Urine Mucus Few (None Seen) Urine Glucose Normal mg/dL (Normal) Microbiology Microbiology Date/Time Source Procedure Growth Status 12/23/24 07:00 Nose MRSA Screen - Final Complete Assessment/Plan Assessment/Plan Acute anemia due to blood loss Coagulopathy due to warfarin Atrial fibrillation Presyncope due to severe anemia Severe anemia due to blood loss Most likely GI bleed History of pacemaker placement Diastolic heart failure Hypertension Dyslipidemia Hypothyroidism , uncontrolled History of lung cancer Moderate protein malnutrition Plan The patient received a total of 3 units of packed RBCs so far Check the hemoglobin and assess for further need for more blood transfusion He received 1 unit of FFP and therefore he will be given 1 more unit Give vitamin K 10 mg subcutaneously IV fluids GI consult Protonix IV drip NPO Cardiology consult Full code Monitor closely Advance directives discussed for 15 minutes 12/24/2024: Give vitamin K 10 mg subcutaneously Transfuse 1 more unit packed RBCs GI consult is on board planning endoscopy in 1-2 days Cardiology consult for clearance Continue IV Protonix drip and IV octreotide drip Monitor closely The rest of the management will depend on the hospital course Full code 12/25/2024: Transfuse 1 unit packed RBCs today GI is planning to do an endoscopy tomorrow Continue octreotide and Protonix drips Continue p.o. amiodarone P.o. Lasix Monitor the hemoglobin and transfuse as needed The rest of the management will depend on the hospital course 12/26/2024: Monitor closely Continue current management Monitor for anymore GI bleeding Continue IV Protonix Carafate Plan discussed with: Patient Date of Service: Dec 27, 2024 Billing Provider: CHARO PAULSON MD Common Visit Codes: [id number] INP/OBS CARE(HIGH) CHARO PAULSON MD Dec 27, 2024 11:26
--- NOTE | 2024-12-27 11:48 | DVHPN2 ---
Progress Note - Dictate Date Seen: Dec 27, 2024 Medical Necessity Reason Pt with a Central, PICC or Fol: No vital signs Vital Sign Date Time Temp Pulse Resp B/P (MAP) Pulse Ox O2 Delivery O2 Flow Rate FiO2 12/27/24 09:49 101/60 12/27/24 09:00 98.1 64 18 92 98.1 12/27/24 08:00 Nasal Cannula* 2 28 Total Intake and Output 12/26/24 12/26/24 12/27/24 15:00 23:00 07:00 Intake Total 100 ml 640 ml 150 ml Output Total 1200 ml 1730 ml Balance 100 ml -560 ml -1580 ml medications Current Medications Medications Dose Ordered Sig/Yasir Route Start Time Stop Time Status Last Admin Dose Admin Ondansetron HCl 4 mg Q4HP PRN IV 12/23/24 04:15 Acetaminophen 650 mg Q6HP PRN PO 12/23/24 04:15 12/24/24 22:59 650 MG Furosemide 40 mg DAILY PO 12/23/24 10:00 12/27/24 09:49 40 MG Levothyroxine Sodium 75 mcg QAM@0600 PO 12/23/24 06:00 12/27/24 05:30 75 MCG Tamsulosin HCl 0.4 mg QPM PO 12/23/24 18:00 12/26/24 17:36 0.4 MG Bupropion HCl 150 mg BID@07,19 PO 12/23/24 07:00 12/27/24 05:31 150 MG Amiodarone HCl 200 mg DAILY PO 12/23/24 10:00 12/27/24 09:49 200 MG Atorvastatin Calcium 20 mg HS PO 12/23/24 22:00 12/26/24 21:28 20 MG Sucralfate 1 gm TID@0600,1130,2200 PO 12/24/24 22:00 12/27/24 09:50 1 GM Pantoprazole Sodium 40 mg BID IV 12/26/24 10:00 12/27/24 09:49 40 MG laboratory and microbiology Laboratory Tests 12/27/24 06:30 Test 12/27/24 06:30 Range/Units Serum Glucose 107 H 74-106 mg/dL Assessment/Plan Patient is a 74-year-old gentleman who was transferred from [facility] Emergency room for further evaluation to our hospital. Originally, the patient presented to other Hospital for presyncopal episodes. He was somehow dizzy for few days. He mentions that is he had less stamina going back for few days. He also has been experiencing abdominal pain after eating and his appetite has decreased. Denies chest pain. Denies nausea and vomiting. Denies diarrhea. Cardiology was involved for cardiac aspects of care. Patient is known to our practice from outside than before. Does have a pacemaker which was interrogated last in July 2024. In [facility] emergency room, the patient was found to have significant anemia and reportedly did receive blood transfusion. In [facility], CT of the head had revealed questionable meningioma and also RCA lesion in frontal bone. It also reported severe chronic muscle sinusitis. Frail gentleman. Not in acute distress. Lying flat in bed. No JVD. Mucosa is wet. Not using accessory muscles of breathing. Lungs are clear to auscultation. Cardiac: Regular, no thrill. Systolic murmur 2/6 in the apex is heard. Abdomen is soft. Mild periumbilical tenderness is elicited. Bowel sounds positive. Extremities reveal 2+ edema bilaterally. Dorsalis pedis is 1+ bilateral Past medical history includes hypertension, hyperlipidemia, diastolic heart failure, valvular heart disease, history of mitral valve prolapse, pulmonary hypertension, atrial fibrillation/atrial flutter (on Coumadin as outpatient), status post atrial flutter ablation, status post pacemaker (Medtronic pacer, Derrick wires), DJD, s/p gastric bypass and hypothyroidism. As per patient, the patient was diagnosed with lung cancer less than a year ago for which has received radiation therapy. Nuclear stress test of November 2019 (performed in the office) revealed scar but no ischemia. Ejection fraction was 58% at that point. Hemoglobin: 4.9 - 5.9 - 5.7 - 7.6 - 7.0 - 7.3 - 7.1 - 8.0 - 8.1 - 8.2 INR: 4.17 - 5.22 - 2.70 - 1.34 - 1.16 - 1.16 Creatinine: 0.76 - 0.74 - 0.73 - 0.64 - 0.54 - 0.60 Potassium: 3.7 - 3.4 - 3.6 - 3.5 - 3.4 - 3.2 Troponin (high sensitive): 28 BNP: 118.68 TSH: 16.64 Free T4: 0.77 Free T3: 0.75 Total T3: 0.40 Stool OB: positive Chest xry reported: IMPRESSION: 1. Pulmonary vascular congestion. 2. Cardiomegaly. Repeat chest xry reported: IMPRESSION: Cardiomegaly with stable right lower lung opacity. Pulmonary vascular congestion. EKG revealed paced ventricular rhythm Tele reveals paced rhythm Echocardiogram reported: Left ventricle: Moderate concentric left ventricular hypertrophy was seen LVEF was 65%. There was no gross wall motion abnormality. Right ventricle was normal sized with normal systolic function. There was moderate biatrial enlargement. Pacing wire was seen in right-sided chambers. Aortic valve: Aortic valve was not well visualized. There was no aortic insufficiency/stenosis. Mild mitral valve prolapse was observed. There was mild mitral/ /tricuspid regurgitation. Pulmonary valve was not well visualized. Right ventricular systolic pressure was assessed at 36 mm Hg. IVC was normal sized with normal respiratory variation. 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 Ascending aorta was dilated at 4.3 cm. Moderate pericardial effusion was seen. There was no echocardiographic evidence for cardiac tamponade Medtronic pacemaker interrogation: Battery: Remaining Battery Longevity: 6.4 years; DDIR: 60/130; Ventricle pacin.8%; Atrial pacin.1%; Lead impedance: Atrial 380/RV 608 Ohms; Capture threshold: 1.125 volts at 0.4 milliseconds; Programmed sensitivity: 0.3 atrial/0.9 RV mV; Leads are Derrick Pacemaker itself is Medtronic; Pacemaker itself is MRI SureScan; Other devices (leads) are not MRI compatible; Normal function pacemaker Patient is a 74-year-old gentleman presented with presyncopal episode. Did have some dizziness. Does complain of abdominal pain after eating. Does have history of pacemaker which was last interrogated in July 2024. Does have history of lung cancer for around a year (as per patient and with unknown detail). He usually is on Coumadin for atrial fibrillation/flutter. He is found to have significant anemia with supratherapeutic INR. CT of the head in [facility] has a reported meningioma with osseous lesions. Being followed by Neurology. Patient is cardiac lozano, moderate risk patient for low risk EGD/Colonoscopy procedure. Cardiac lozano, you can proceed with the procedures under appropriate intra and post operative hemodynamic monitoring. Avoid Hypotension. Presyncope Anemia, severe Supratherapeutic INR Atrial fibrillation, atrial flutter history of Status post pacemaker implantation (Medtronic pacer with Derrick wires) Valvular heart disease CHF, diastolic Hypertension Hyperlipidemia Hypothyroidism Lung cancer, history all Abdominal pain Poor appetite s/p Gastric bypass s/p EGD anastomotic ulcer on jejunal side of gastrojejunostomy Cardiac suggestions for management: Manage on telemetry Follow up electrolytes and kidney function test and Correct abnormalities. Keep potassium above four and magnesium above two Follow up H&H Hold off on anticoagulation for now Please communicate and ask GI, about when to restart full anticoagulation May benefit from referral for watchman device (to be arranged as outpatient) Treat hypothyroidism as per primary team GI follow up Neurology follow up Further evaluation and management depends on the above and clinical course A total of 55 minutes was spent reviewing the patient record, examining the patient, making a diagnostic and therapeutic plan, discussing this plan with medical personnel, following up on diagnostic studies and following the patient for clinical stability excluding any and all procedures. At least 50% of this time was spent in direct, [id number] contact. Thank you for allowing me to participate in this patient's care. Further recommendations will depend on patient's clinical course. Please do not hesitate to contact me if you have any questions or concerns. This medical document was created using electronic medical record system with [employer] computerized dictation system. Although this document has been carefully reviewed, there may still be some phonetic and typographical errors. These areas are purely typographical due to the imperfection of the software programs, and do not reflect any compromise in the patient's medical care. Dietary Evaluation Review Comments: As tolerated, provide ensure High Protein supplements or glucerna if Blood Glucose is not controlled. Expected Outcomes/Goals: gradual wt gain, improved serum alb and proteins, improed appetite and healed wounds. Plan discussed with: Patient, Other (nurse) JADEN HERNÁNDEZ MD Dec 27, 2024 11:48
--- NOTE | 2024-12-27 14:22 | DVHPN2 ---
Progress Note Date Seen: Dec 27, 2024 Resident Creating Document: SHANA BECK RESIDENT Medical Necessity Reason Pt with a Central, PICC or Fol: No Subjective Review of Systems Patient was seen and examined on the bedside. Is alert oriented x3. The patient underwent EGD yesterday and revealed Patient had a 2 cm anastomotic ulcer on the jejunal side of the gastrojejunostomy with no visible vessel or active bleeding and there was a small red dot at the edge of the ulcer, mild gastritis of the small gastric remnant; mild grade a erosive esophagitis with no significant hiatal hernia and otherwise normal examination up to the efferent and afferent loop of a gastric bypass surgery. Mentioned improvement of dizziness after blood transfusion and no other active complaint. Objective vital signs Vital Sign Date Time Temp Pulse Resp B/P (MAP) Pulse Ox O2 Delivery O2 Flow Rate FiO2 12/27/24 13:00 99.2 65 18 98/55 (69) 91 99.2 12/27/24 08:00 Nasal Cannula* 2 28 Total Intake and Output 12/26/24 12/26/24 12/27/24 15:00 23:00 07:00 Intake Total 100 ml 640 ml 150 ml Output Total 1200 ml 1730 ml Balance 100 ml -560 ml -1580 ml medications Current Medications Medications Dose Ordered Sig/Yasir Route Start Time Stop Time Status Last Admin Dose Admin Ondansetron HCl 4 mg Q4HP PRN IV 12/23/24 04:15 Acetaminophen 650 mg Q6HP PRN PO 12/23/24 04:15 12/24/24 22:59 650 MG Furosemide 40 mg DAILY PO 12/23/24 10:00 12/27/24 09:49 40 MG Levothyroxine Sodium 75 mcg QAM@0600 PO 12/23/24 06:00 12/27/24 05:30 75 MCG Tamsulosin HCl 0.4 mg QPM PO 12/23/24 18:00 12/26/24 17:36 0.4 MG Bupropion HCl 150 mg BID@07,19 PO 12/23/24 07:00 12/27/24 05:31 150 MG Amiodarone HCl 200 mg DAILY PO 12/23/24 10:00 12/27/24 09:49 200 MG Atorvastatin Calcium 20 mg HS PO 12/23/24 22:00 12/26/24 21:28 20 MG Sucralfate 1 gm TID@0600,1130,2200 PO 12/24/24 22:00 12/27/24 09:50 1 GM Pantoprazole Sodium 40 mg BID IV 12/26/24 10:00 12/27/24 09:49 40 MG Examination Physical examination: General Appearance: Alert, Oriented X3, Cooperative, No acute distress HEENT: Atraumatic, PERRLA, EOMI, Mucous membrane moist/pink Respiratory: Clear to auscultation, Normal air movement Cardiovascular: Regular rate, Normal S1, Normal S2, No murmurs, no chest wall tenderness Abdominal: Normal bowel sounds, Soft, No tenderness, No hepatospenomegaly, No masses Extremities: No clubbing, No cyanosis, No edema, Normal pulses, No tenderness/swelling Skin: No rashes, No breakdown, No significant lesion Neuro: Normal gait, Normal speech, Strength at 5/5 X4 ext, Normal tone, Sensation intact, Cranial nerves 3-12 NL, Reflexes 2+ Psych/Mental Status: Mental status NL, Mood NL laboratory and microbiology Laboratory Tests 12/27/24 06:30 Test 12/27/24 06:30 Range/Units Serum Glucose 107 H 74-106 mg/dL Microbiology Date/Time Source Procedure Growth Status 12/23/24 07:00 Nose MRSA Screen - Final Complete Labs and/or images reviewed: Labs reviewed by me, Image(s) reviewed by me Problem List/Assessment/Plan Problem List/Assessment/Plan Assessment: GI bleed upper versus lower Acute severe anemia due to blood loss likely due to warfarin Atrial fibrillation with secondary hypercoagulable state History of lung cancer Syncope ? Due to severe anemia EGD on 12/26/24 demonstrated Patient had a 2 cm anastomotic ulcer on the jejunal side of the gastrojejunostomy with no visible vessel or active bleeding and there was a small red dot at the edge of the ulcer, mild gastritis of the small gastric remnant; mild grade a erosive esophagitis with no significant hiatal hernia and otherwise normal examination up to the efferent and afferent loop of a gastric bypass surgery Plan/recommendation -continue with IV Protonix 40 mg b.id and carafate 1 gm po t.i.d - H&H is stable 8.2.1 -received 7 units PRBCs and 3 units of FFP till now. Continue to monitor H&H and coagulation panel. -given vitamin K 10 mg IV once. -we will continue to monitor patient closely. Plan discussed with Dr. Ca Plan discussed with: Patient, Other Dietary Evaluation Review Comments: As tolerated, provide ensure High Protein supplements or glucerna if Blood Glucose is not controlled. Expected Outcomes/Goals: gradual wt gain, improved serum alb and proteins, improed appetite and healed wounds. SHANA BECK RESIDENT Dec 27, 2024 14:22
[2024-12-27] MEDS: MIDODRINE HCL 10 MG TAB PO ONE (21:47)
--- NOTE | 2024-12-27 22:27 | DVHPN2 ---
Progress Note - Dictate Date Seen: Dec 27, 2024 Medical Necessity Reason Pt with a Central, PICC or Fol: No Subjective Mr. Tapia is a 74 years old right-handed gentleman with a history of hypertension, atrial fibrillation on Coumadin, congestive heart failure, lung cancer, lymphatic edema, the patient was transferred from [facility] for a chief company of syncope I have seen and examined the patient, I have talked to his nurse, heis doing fine, alert and fully oriented, no new complaints He walked with therapist today, without dizziness EGD showed ulcer [facility] ER 12/22/24: He called the EMS due to experiencing dizziness at home, on arrival EMS the witnessed patient was have a syncopal episode. Patient was denies chest pain and SOB. No other symptoms or modifying factors at this time PT/INR/APTT, 12/22/2024: 147/13.33/58.5, 12/26/2024: 12.1/1.16/30.4, 12/27/24: 11.9/1.14/30.8 CT head, 12/22/2024: No acute intracranial abnormality. A 1.5 cm benign appearing left frontal extra-axial mass most likely meningioma, this can be further evaluated with MR brain without and with IV contrast on a non emergency basis. A subcentimeter ground-glass osseous lesion with with endosteal scalloping in the right side of the frontal bone. Recommend additional brain MRI with and without IV contrast Stool occult blood 12/24/24: Positive WBC/HB/PLT/MCV, 12/23/2024: 7.8/4.9/221/82.9, 12/23/2024: 7.8/5.9/218/84.8 PT/INR/PTT, 12/23/2024: 30.4/4.17/47.4, 12/23/2024: 47/5.22/50.2, 12/25/2024: 13.5/1.34/34.1 BUN/CR, 12/23/2024: 40/0.76, 44/0.74 Liver function tests, 12/23/2024: Unremarkable TSH, 12/23/2024: 16.64 FT4, 12/23/2024: 0.77 EEG, 12/26/2024: Mildly abnormal Chest x-ray, 12/23/2024: Cardiomegaly with stable right lower lung opacity. Pulmonary vascular congestion vital signs Vital Sign Date Time Temp Pulse Resp B/P (MAP) Pulse Ox O2 Delivery O2 Flow Rate FiO2 12/27/24 17:00 99.6 63 18 93/50 (64) 91 99.6 12/27/24 08:00 Nasal Cannula* 2 28 Total Intake and Output 12/26/24 12/26/24 12/27/24 15:00 23:00 07:00 Intake Total 100 ml 640 ml 150 ml Output Total 1200 ml 1730 ml Balance 100 ml -560 ml -1580 ml medications Current Medications Medications Dose Ordered Sig/Yasir Route Start Time Stop Time Status Last Admin Dose Admin Ondansetron HCl 4 mg Q4HP PRN IV 12/23/24 04:15 Acetaminophen 650 mg Q6HP PRN PO 12/23/24 04:15 12/24/24 22:59 650 MG Furosemide 40 mg DAILY PO 12/23/24 10:00 12/27/24 09:49 40 MG Levothyroxine Sodium 75 mcg QAM@0600 PO 12/23/24 06:00 12/27/24 05:30 75 MCG Tamsulosin HCl 0.4 mg QPM PO 12/23/24 18:00 12/27/24 16:53 0.4 MG Bupropion HCl 150 mg BID@07,19 PO 12/23/24 07:00 12/27/24 16:54 150 MG Amiodarone HCl 200 mg DAILY PO 12/23/24 10:00 12/27/24 09:49 200 MG Atorvastatin Calcium 20 mg HS PO 12/23/24 22:00 12/27/24 21:47 20 MG Sucralfate 1 gm TID@0600,1130,2200 PO 12/24/24 22:00 12/27/24 21:46 1 GM Pantoprazole Sodium 40 mg BID IV 12/26/24 10:00 12/27/24 21:48 40 MG Midodrine 10 mg TID@0600,1200,1800 PO 12/28/24 06:00 objective General: the patient is well developed and nourished. No acute distress. MUSCULOSKELETAL EXAM: Edema and the depigmentation in both legs, with a left- sided more affected MENTAL STATUS: Awake and alert. Oriented to person, place, time. Poor historian SPEECH, LANGUAGE, HIGHER CORTICAL FUNCTION: no aphasia or dysathria. CRANIAL NERVES: Pupils are equal, round and reactive. EOMs full and conjugate. Mild bilateral gaze evoked nystagmus. Facial sensation intact in all three divisions bilaterally. Mandibular strength intact. Facial muscles symmetrical and strength intact. SENSATION: Sensation to touch and pinprick is normal. MOTOR: Normal tone in the upper and lower extremity. Normal muscle bulk. No fasciculations. No abnormal movements or posturing. Muscle strength of the major groups in the extremities is 4/5. REFLEXES: Deep tendon reflexes normal and symmetrical. No pathological reflexes. CEREBELLAR/COORDINATION: Finger to nose is normal bilaterally. GAIT/STATION: deferred. laboratory and microbiology Laboratory Tests 12/27/24 06:30 Test 12/27/24 06:30 Range/Units Serum Glucose 107 H 74-106 mg/dL Problem List Syncopal event x3, likely related to his acute severe anemia Acute severe anemia, likely secondary to coagulopathy Coagulopathy secondary to Coumadin treatment Rule out GI bleeding Hypothyroidism Abnormal brain CT scan Meningioma Skull osseous lesion Lymphatic edema Assessment/Plan Monitoring Supportive treatment Telemetry Follow-up labs EEG MRI brain pacemaker is not MR compatible Hold off anticoagulation treatment Consider Watchman on him Blood transfusion Frozen fresh plasma transfusion Up to chair Physical therapy Cardiology on case GI on case More recommendation per clinical course This medical document was created using an electronic medical record system with [employer] dictation system. Although this document has been carefully reviewed, there may still be some phonetic and typographical errors. These areas are purely typographical due to imperfections of the software programs, and do not reflect any compromise in the patient's medical care. Prognosis poor Dietary Evaluation Review Comments: As tolerated, provide ensure High Protein supplements or glucerna if Blood Glucose is not controlled. Expected Outcomes/Goals: gradual wt gain, improved serum alb and proteins, improed appetite and healed wounds. Plan discussed with: Patient, Other NEHEMIAS GUTHRIE MD Dec 27, 2024 22:27
[2024-12-28] VITALS (9 sets, daily range): BP systolic 90–102; BP diastolic 46–61; PULSE 63–64; RESP 17–20; TEMP 97.4–98.9; O2SAT 90–97
[2024-12-28] MEDS: MIDODRINE HCL 10 MG TAB PO SCH (06:26)
--- NOTE | 2024-12-28 07:54 | DVHPN2 ---
Progress Note - Dictate Date Seen: Dec 28, 2024 Medical Necessity Reason Pt with a Central, PICC or Fol: No vital signs Vital Sign Date Time Temp Pulse Resp B/P (MAP) Pulse Ox O2 Delivery O2 Flow Rate FiO2 12/28/24 05:00 97.5 63 18 102/53 (69) 90 97.5 12/27/24 20:00 Room Air* 0 21 Total Intake and Output 12/27/24 12/27/24 12/28/24 15:00 23:00 07:00 Intake Total 680 ml 150 ml Output Total 1640 ml 300 ml Balance -960 ml -150 ml medications Current Medications Medications Dose Ordered Sig/Yasir Route Start Time Stop Time Status Last Admin Dose Admin Ondansetron HCl 4 mg Q4HP PRN IV 12/23/24 04:15 Acetaminophen 650 mg Q6HP PRN PO 12/23/24 04:15 12/24/24 22:59 650 MG Furosemide 40 mg DAILY PO 12/23/24 10:00 12/27/24 09:49 40 MG Levothyroxine Sodium 75 mcg QAM@0600 PO 12/23/24 06:00 12/28/24 06:25 75 MCG Tamsulosin HCl 0.4 mg QPM PO 12/23/24 18:00 12/27/24 16:53 0.4 MG Bupropion HCl 150 mg BID@07,19 PO 12/23/24 07:00 12/28/24 06:26 150 MG Amiodarone HCl 200 mg DAILY PO 12/23/24 10:00 12/27/24 09:49 200 MG Atorvastatin Calcium 20 mg HS PO 12/23/24 22:00 12/27/24 21:47 20 MG Sucralfate 1 gm TID@0600,1130,2200 PO 12/24/24 22:00 12/28/24 06:25 1 GM Pantoprazole Sodium 40 mg BID IV 12/26/24 10:00 12/27/24 21:48 40 MG Midodrine 10 mg TID@0600,1200,1800 PO 12/28/24 06:00 12/28/24 06:26 10 MG laboratory and microbiology Laboratory Tests 12/27/24 06:30 Test 12/27/24 06:30 Range/Units Serum Glucose 107 H 74-106 mg/dL Assessment/Plan Patient is a 74-year-old gentleman who was transferred from [facility] Emergency room for further evaluation to our hospital. Originally, the patient presented to other Hospital for presyncopal episodes. He was somehow dizzy for few days. He mentions that is he had less stamina going back for few days. He also has been experiencing abdominal pain after eating and his appetite has decreased. Denies chest pain. Denies nausea and vomiting. Denies diarrhea. Cardiology was involved for cardiac aspects of care. Patient is known to our practice from outside than before. Does have a pacemaker which was interrogated last in July 2024. In [facility] emergency room, the patient was found to have significant anemia and reportedly did receive blood transfusion. In [facility], CT of the head had revealed questionable meningioma and also RCA lesion in frontal bone. It also reported severe chronic muscle sinusitis. Frail gentleman. Not in acute distress. Lying flat in bed. No JVD. Mucosa is wet. Not using accessory muscles of breathing. Lungs are clear to auscultation. Cardiac: Regular, no thrill. Systolic murmur 2/6 in the apex is heard. Abdomen is soft. Mild periumbilical tenderness is elicited. Bowel sounds positive. Extremities reveal 2+ edema bilaterally. Dorsalis pedis is 1+ bilateral Past medical history includes hypertension, hyperlipidemia, diastolic heart failure, valvular heart disease, history of mitral valve prolapse, pulmonary hypertension, atrial fibrillation/atrial flutter (on Coumadin as outpatient), status post atrial flutter ablation, status post pacemaker (Medtronic pacer, Derrick wires), DJD, s/p gastric bypass and hypothyroidism. As per patient, the patient was diagnosed with lung cancer less than a year ago for which has received radiation therapy. Nuclear stress test of November 2019 (performed in the office) revealed scar but no ischemia. Ejection fraction was 58% at that point. Hemoglobin: 4.9 - 5.9 - 5.7 - 7.6 - 7.0 - 7.3 - 7.1 - 8.0 - 8.1 - 8.2 INR: 4.17 - 5.22 - 2.70 - 1.34 - 1.16 - 1.14 Creatinine: 0.76 - 0.74 - 0.73 - 0.64 - 0.54 - 0.60 Potassium: 3.7 - 3.4 - 3.6 - 3.5 - 3.4 - 3.2 Troponin (high sensitive): 28 BNP: 118.68 TSH: 16.64 Free T4: 0.77 Free T3: 0.75 Total T3: 0.40 Stool OB: positive Chest xry reported: IMPRESSION: 1. Pulmonary vascular congestion. 2. Cardiomegaly. Repeat chest xry reported: IMPRESSION: Cardiomegaly with stable right lower lung opacity. Pulmonary vascular congestion. EKG revealed paced ventricular rhythm Tele reveals paced rhythm Echocardiogram reported: Left ventricle: Moderate concentric left ventricular hypertrophy was seen LVEF was 65%. There was no gross wall motion abnormality. Right ventricle was normal sized with normal systolic function. There was moderate biatrial enlargement. Pacing wire was seen in right-sided chambers. Aortic valve: Aortic valve was not well visualized. There was no aortic insufficiency/stenosis. Mild mitral valve prolapse was observed. There was mild mitral/ /tricuspid regurgitation. Pulmonary valve was not well visualized. Right ventricular systolic pressure was assessed at 36 mm Hg. IVC was normal sized with normal respiratory variation. 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 Ascending aorta was dilated at 4.3 cm. Moderate pericardial effusion was seen. There was no echocardiographic evidence for cardiac tamponade Medtronic pacemaker interrogation: Battery: Remaining Battery Longevity: 6.4 years; DDIR: 60/130; Ventricle pacin.8%; Atrial pacin.1%; Lead impedance: Atrial 380/RV 608 Ohms; Capture threshold: 1.125 volts at 0.4 milliseconds; Programmed sensitivity: 0.3 atrial/0.9 RV mV; Leads are Derrick Pacemaker itself is Medtronic; Pacemaker itself is MRI SureScan; Other devices (leads) are not MRI compatible; Normal function pacemaker Patient is a 74-year-old gentleman presented with presyncopal episode. Did have some dizziness. Does complain of abdominal pain after eating. Does have history of pacemaker which was last interrogated in July 2024. Does have history of lung cancer for around a year (as per patient and with unknown detail). He usually is on Coumadin for atrial fibrillation/flutter. He is found to have significant anemia with supratherapeutic INR. CT of the head in [facility] has a reported meningioma with osseous lesions. Being followed by Neurology. Patient is cardiac lozano, moderate risk patient for low risk EGD/Colonoscopy procedure. Cardiac lozano, you can proceed with the procedures under appropriate intra and post operative hemodynamic monitoring. Avoid Hypotension. Presyncope Anemia, severe GI bleeding Supratherapeutic INR Atrial fibrillation, atrial flutter history of Status post pacemaker implantation (Medtronic pacer with Derrick wires) Valvular heart disease CHF, diastolic Hypertension Hyperlipidemia Hypothyroidism Lung cancer, history all Abdominal pain Poor appetite s/p Gastric bypass s/p EGD anastomotic ulcer on jejunal side of gastrojejunostomy Cardiac suggestions for management: Manage on telemetry Follow up electrolytes and kidney function test and Correct abnormalities. Keep potassium above four and magnesium above two Follow up H&H Please communicate and ask GI, about when to restart full anticoagulation May benefit from referral for watchman device (to be arranged as outpatient) Treat hypothyroidism as per primary team GI follow up Neurology follow up Further evaluation and management depends on the above and clinical course A total of 55 minutes was spent reviewing the patient record, examining the patient, making a diagnostic and therapeutic plan, discussing this plan with medical personnel, following up on diagnostic studies and following the patient for clinical stability excluding any and all procedures. At least 50% of this time was spent in direct, [id number] contact. Thank you for allowing me to participate in this patient's care. Further recommendations will depend on patient's clinical course. Please do not hesitate to contact me if you have any questions or concerns. This medical document was created using electronic medical record system with [employer] computerized dictation system. Although this document has been carefully reviewed, there may still be some phonetic and typographical errors. These areas are purely typographical due to the imperfection of the software programs, and do not reflect any compromise in the patient's medical care. Dietary Evaluation Review Comments: As tolerated, provide ensure High Protein supplements or glucerna if Blood Glucose is not controlled. Expected Outcomes/Goals: gradual wt gain, improved serum alb and proteins, improed appetite and healed wounds. Plan discussed with: Patient, Other (nurse) JADEN HERNÁNDEZ MD Dec 28, 2024 07:54
[2024-12-28 09:39] LABS: Basophils # (auto) 0 10 ^3/uL (0-0.2); Basophils % (auto) 0.3 % (0.0-2.0); Eosinophils # (auto) 0.1 10 ^3/uL (0-0.8); Eosinophils % (auto) 1.7 % (0.0-7.0); Hematocrit 25.3 % (41.0-53.0); Hemoglobin 8.3 g/dL (13.5-17.5); Lymphocytes # (auto) 0.5 10 ^3/uL (0.4-5.4); Mean Corpuscular Hemoglobin 28.5 pg (28.0-32.0); Mean Corpuscular Hgb Conc. 32.7 g/dL (32.0-36.0); Mean Corpuscular Volume 87.2 fL (80.0-100.0); Monocytes # (auto) 0.4 10 ^3/uL (0-1.3); Monocytes % (auto) 5.2 % (0.0-12.0); Neutrophils % (auto) 86.8 % (37.0-80.0); Nucleated Red Blood Cells % 0.1 %; Platelet Count (auto) 216 10^3/uL (140-450); Red Cell Distribution Width 16.9 % (11.8-14.3)
[2024-12-28 09:42] LABS: Anion Gap 6 (5-15); Carbon Dioxide 29 mmol/L (20-31); Chloride 103 mmol/L (98-107); Sodium 138 mmol/L (136-145)
[2024-12-28 09:48] LABS: BUN/Creatinine Ratio 21.9 (10.0-20.0); Blood Urea Nitrogen 16 mg/dL (9-23)
[2024-12-28 09:50] LABS: Glucose 150 mg/dL (74-106); Potassium 3.1 mmol/L (3.5-5.1)
--- NOTE | 2024-12-28 12:20 | DVHPN2 ---
Subjective Doing well Potassium is still low at 3.1 Hemoglobin stable at 8.3 Changes from previous H/P or p: Changes Objective Vitals Vital Signs Date Time Temp Pulse Resp B/P (MAP) Pulse Ox O2 Delivery O2 Flow Rate FiO2 12/28/24 09:00 98.1 63 20 100/46 (64) 97 98.1 12/28/24 07:56 Nasal Cannula* 2 28 Intake/Output Intake and Output 12/28/24 07:00 Intake Total 830 ml Output Total 1940 ml Balance -1110 ml Intake Oral 830 ml Output Urine Total 1940 ml # Bowel Movements 1 General Appearance: Alert, Oriented X3 Lungs: Clear to auscultation, Normal air movement Cardiovascular: Regular rate, Normal S1, Normal S2 Abdomen: Normal bowel sounds, Soft, No tenderness Extremities: No edema Medications Current Medications Medications Dose Ordered Sig/Yasir Route Start Time Stop Time Status Last Admin Dose Admin Ondansetron HCl 4 mg Q4HP PRN IV 12/23/24 04:15 Acetaminophen 650 mg Q6HP PRN PO 12/23/24 04:15 12/24/24 22:59 650 MG Furosemide 40 mg DAILY PO 12/23/24 10:00 12/27/24 09:49 40 MG Levothyroxine Sodium 75 mcg QAM@0600 PO 12/23/24 06:00 12/28/24 06:25 75 MCG Tamsulosin HCl 0.4 mg QPM PO 12/23/24 18:00 12/27/24 16:53 0.4 MG Bupropion HCl 150 mg BID@07,19 PO 12/23/24 07:00 12/28/24 06:26 150 MG Amiodarone HCl 200 mg DAILY PO 12/23/24 10:00 12/28/24 09:24 200 MG Atorvastatin Calcium 20 mg HS PO 12/23/24 22:00 12/27/24 21:47 20 MG Sucralfate 1 gm TID@0600,1130,2200 PO 12/24/24 22:00 12/28/24 09:24 1 GM Pantoprazole Sodium 40 mg BID IV 12/26/24 10:00 12/28/24 09:24 40 MG Midodrine 10 mg TID@0600,1200,1800 PO 12/28/24 06:00 12/28/24 11:58 10 MG Laboratory Results Laboratory Tests 12/28/24 08:35 Chemistry Test 12/28/24 08:35 Calcium Level 9.0 mg/dL (8.7-10.4) Urinalysis Test 12/26/24 02:15 Urine Color Light-yellow (Yellow) Urine Clarity Clear (Clear) Urine pH 6.0 (5.0-9.0) Urine Specific [place] 1.013 (1.001-1.035) Urine Protein Negative (Negative) Urine Ketones Negative (Negative) Urine Blood Negative /uL (Negative) Urine Nitrite 1+ (Negative) H Urine Bilirubin Negative (Negative) Urine Urobilinogen 3 mg/dL (Negative) H Urine Leukocyte Esterase 1+ /uL (Negative) Urine RBC 1 /hpf (0 - 3) Urine Microscopic WBC 15 /HPF (0-3) H Urine Squamous Epithelial Cells Few /hpf (<5) Urine Bacteria Few /hpf (None Seen) H Urine Mucus Few (None Seen) Urine Glucose Normal mg/dL (Normal) Microbiology Microbiology Date/Time Source Procedure Growth Status 12/23/24 07:00 Nose MRSA Screen - Final Complete Assessment/Plan Assessment/Plan cardAcute anemia due to blood loss Coagulopathy due to warfarin Atrial fibrillation Presyncope due to severe anemia Severe anemia due to blood loss Most likely GI bleed History of pacemaker placement Diastolic heart failure Hypertension Dyslipidemia Hypothyroidism , uncontrolled History of lung cancer Moderate protein malnutrition Plan The patient received a total of 3 units of packed RBCs so far Check the hemoglobin and assess for further need for more blood transfusion He received 1 unit of FFP and therefore he will be given 1 more unit Give vitamin K 10 mg subcutaneously IV fluids GI consult Protonix IV drip NPO Cardiology consult Full code Monitor closely Advance directives discussed for 15 minutes 12/24/2024: Give vitamin K 10 mg subcutaneously Transfuse 1 more unit packed RBCs GI consult is on board planning endoscopy in 1-2 days Cardiology consult for clearance Continue IV Protonix drip and IV octreotide drip Monitor closely The rest of the management will depend on the hospital course Full code 12/25/2024: Transfuse 1 unit packed RBCs today GI is planning to do an endoscopy tomorrow Continue octreotide and Protonix drips Continue p.o. amiodarone P.o. Lasix Monitor the hemoglobin and transfuse as needed The rest of the management will depend on the hospital course 12/26/2024: Monitor closely Continue current management Monitor for anymore GI bleeding Continue IV Protonix Carafate 12/28/2024: Advance diet to cardiac diet Replace potassium Protonix and Carafate Midodrine Amiodarone p.o. Lasix 40 mg daily Physical therapy evaluation Plan discussed with: Patient Date of Service: Dec 28, 2024 Billing Provider: CHARO PAULSON MD Common Visit Codes: [id number] INP/OBS CARE(HIGH) CHARO PAULSON MD Dec 28, 2024 12:20
--- NOTE | 2024-12-28 15:46 | DVHPN2 ---
Progress Note Date Seen: Dec 28, 2024 Resident Creating Document: SMITA DASILVA RESIDENT Medical Necessity Reason Pt with a Central, PICC or Fol: No Subjective Review of Systems Patient seen and examined at bedside. No new complaints. Objective vital signs Vital Sign Date Time Temp Pulse Resp B/P (MAP) Pulse Ox O2 Delivery O2 Flow Rate FiO2 12/28/24 13:00 98.4 63 20 91/49 (63) 97 98.4 12/28/24 07:56 Nasal Cannula* 2 28 Total Intake and Output 12/27/24 12/27/24 12/28/24 14:59 22:59 06:59 Intake Total 680 ml 150 ml Output Total 1640 ml 300 ml Balance -960 ml -150 ml medications Current Medications Medications Dose Ordered Sig/Yasir Route Start Time Stop Time Status Last Admin Dose Admin Ondansetron HCl 4 mg Q4HP PRN IV 12/23/24 04:15 Acetaminophen 650 mg Q6HP PRN PO 12/23/24 04:15 12/24/24 22:59 650 MG Furosemide 40 mg DAILY PO 12/23/24 10:00 12/27/24 09:49 40 MG Levothyroxine Sodium 75 mcg QAM@0600 PO 12/23/24 06:00 12/28/24 06:25 75 MCG Tamsulosin HCl 0.4 mg QPM PO 12/23/24 18:00 12/27/24 16:53 0.4 MG Bupropion HCl 150 mg BID@07,19 PO 12/23/24 07:00 12/28/24 06:26 150 MG Amiodarone HCl 200 mg DAILY PO 12/23/24 10:00 12/28/24 09:24 200 MG Atorvastatin Calcium 20 mg HS PO 12/23/24 22:00 12/27/24 21:47 20 MG Sucralfate 1 gm TID@0600,1130,2200 PO 12/24/24 22:00 12/28/24 09:24 1 GM Pantoprazole Sodium 40 mg BID IV 12/26/24 10:00 12/28/24 09:24 40 MG Midodrine 10 mg TID@0600,1200,1800 PO 12/28/24 06:00 12/28/24 11:58 10 MG Examination General Appearance: Cooperative. Well developed. Well nourished. NAD Head Exam: Normal inspection Neck Exam: Normal inspection. Non-tender. Normal alignment Pulmonary/Respiratory: Chest non-tender. Clear bilateral breath sounds Cardiovascular/Chest: Regular rate and rhythm. No murmurs. No JVD. Peripheral Pulses: 2+ Radial (R). 2+ Radial (L). 2+ Pedal (R). 2+ Pedal (L) Abdominal Exam: Normal bowel sounds. Soft. Nontender. No hepatospenomegaly. No masses Ankle Exam: Negative ankle edema Lower extremities: Negative lower extremity edema Neuro/Mental Status: A&O x4. Coherent Thoughts/Psych: Normal thought pattern. Appropriate mood and affect. Good judgement and insight Appearance: In no acute distress Skin Exam: Normal inspection. Normal color. Warm. Dry laboratory and microbiology Laboratory Tests 12/28/24 08:35 Test 12/28/24 08:35 Range/Units Serum Glucose 150 H 74-106 mg/dL Microbiology Date/Time Source Procedure Growth Status 12/23/24 07:00 Nose MRSA Screen - Final Complete Problem List/Assessment/Plan Problem List/Assessment/Plan Anastomotic ulcer on jejunal side of gastrojejunostomy Mild gastritis Erosive esophagitis Acute severe anemia due to blood loss likely due to warfarin Atrial fibrillation with secondary hypercoagulable state History of lung cancer Syncope ? Due to severe anemia EGD on 12/26/24 demonstrated Patient had a 2 cm anastomotic ulcer on the jejunal side of the gastrojejunostomy with no visible vessel or active bleeding and there was a small red dot at the edge of the ulcer, mild gastritis of the small gastric remnant; mild grade a erosive esophagitis with no significant hiatal hernia and otherwise normal examination up to the efferent and afferent loop of a gastric bypass surgery Plan/recommendation Dr Ca -continue with IV Protonix 40 mg b.id and carafate 1 gm po t.i.d -hemoglobin is stable, continue to monitor H and H q.12. -received 7 units PRBCs and 3 units of FFP till now. Continue to monitor H&H and coagulation panel. -given vitamin K 10 mg IV once. -we will continue to monitor patient closely. Plan discussed with: Patient, Other (RN) Dietary Evaluation Review Comments: As tolerated, provide ensure High Protein supplements or glucerna if Blood Glucose is not controlled. Expected Outcomes/Goals: gradual wt gain, improved serum alb and proteins, improed appetite and healed wounds. KOSHIYA,SMITA RESIDENT Dec 28, 2024 15:46
[2024-12-28] MEDS: POTASSIUM CHL 20 Meq TABLET PO ONE (16:29)
[2024-12-29] VITALS (8 sets, daily range): BP systolic 87–135; BP diastolic 45–71; PULSE 61–102; RESP 17–20; TEMP 97.2–99.4; O2SAT 93–96
[2024-12-29 08:02] LABS: Anion Gap 6 (5-15); Calcium 9.2 mg/dL (8.7-10.4); Carbon Dioxide 29 mmol/L (20-31); Chloride 104 mmol/L (98-107); Potassium 3.6 mmol/L (3.5-5.1); Sodium 139 mmol/L (136-145)
[2024-12-29 08:08] LABS: BUN/Creatinine Ratio 27.3 (10.0-20.0); Blood Urea Nitrogen 18 mg/dL (9-23); Glucose 92 mg/dL (74-106)
[2024-12-29 10:40] LABS: Basophils # (auto) 0 10 ^3/uL (0-0.2); Basophils % (auto) 0.4 % (0.0-2.0); Eosinophils # (auto) 0.1 10 ^3/uL (0-0.8); Eosinophils % (auto) 2.1 % (0.0-7.0); Hematocrit 23.9 % (41.0-53.0); Hemoglobin 7.6 g/dL (13.5-17.5); Lymphocytes # (auto) 0.4 10 ^3/uL (0.4-5.4); Lymphocytes % (auto) 6.2 % (10.0-50.0); Mean Corpuscular Hemoglobin 27.8 pg (28.0-32.0); Mean Corpuscular Hgb Conc. 31.9 g/dL (32.0-36.0); Mean Corpuscular Volume 87.2 fL (80.0-100.0); Monocytes # (auto) 0.6 10 ^3/uL (0-1.3); Neutrophils % (auto) 81.3 % (37.0-80.0); Nucleated Red Blood Cells % 0.1 %; Platelet Count (auto) 213 10^3/uL (140-450); Red Blood Cells 2.74 10^6/uL (4.5-5.90); Red Cell Distribution Width 16.7 % (11.8-14.3); White Blood Cell 6.2 10^3/uL (4.4-10.8)
--- NOTE | 2024-12-29 11:03 | DVHPN2 ---
Progress Note - Dictate Date Seen: Dec 29, 2024 Medical Necessity Reason Pt with a Central, PICC or Fol: No vital signs Vital Sign Date Time Temp Pulse Resp B/P (MAP) Pulse Ox O2 Delivery O2 Flow Rate FiO2 12/29/24 10:00 94/59 12/29/24 09:00 98.3 61 18 95 98.3 12/29/24 08:00 Room Air* 0 21 Total Intake and Output 12/28/24 12/28/24 12/29/24 15:00 23:00 07:00 Intake Total 480 ml 0 ml Output Total 275 ml 0 ml Balance 205 ml 0 ml medications Current Medications Medications Dose Ordered Sig/Yasir Route Start Time Stop Time Status Last Admin Dose Admin Ondansetron HCl 4 mg Q4HP PRN IV 12/23/24 04:15 Acetaminophen 650 mg Q6HP PRN PO 12/23/24 04:15 12/29/24 04:01 650 MG Furosemide 40 mg DAILY PO 12/23/24 10:00 12/27/24 09:49 40 MG Levothyroxine Sodium 75 mcg QAM@0600 PO 12/23/24 06:00 12/29/24 06:26 75 MCG Tamsulosin HCl 0.4 mg QPM PO 12/23/24 18:00 12/28/24 17:04 0.4 MG Bupropion HCl 150 mg BID@07,19 PO 12/23/24 07:00 12/29/24 06:27 150 MG Amiodarone HCl 200 mg DAILY PO 12/23/24 10:00 12/29/24 10:00 200 MG Atorvastatin Calcium 20 mg HS PO 12/23/24 22:00 12/28/24 21:42 20 MG Sucralfate 1 gm TID@0600,1130,2200 PO 12/24/24 22:00 12/29/24 06:27 1 GM Pantoprazole Sodium 40 mg BID IV 12/26/24 10:00 12/29/24 10:00 40 MG Midodrine 10 mg TID@0600,1200,1800 PO 12/28/24 06:00 12/29/24 06:26 10 MG laboratory and microbiology Laboratory Tests 12/29/24 06:23 Test 12/29/24 06:23 Range/Units Serum Glucose 92 74-106 mg/dL Assessment/Plan Patient is a 74-year-old gentleman who was transferred from [facility] Emergency room for further evaluation to our hospital. Originally, the patient presented to other Hospital for presyncopal episodes. He was somehow dizzy for few days. He mentions that is he had less stamina going back for few days. He also has been experiencing abdominal pain after eating and his appetite has decreased. Denies chest pain. Denies nausea and vomiting. Denies diarrhea. Cardiology was involved for cardiac aspects of care. Patient is known to our practice from outside than before. Does have a pacemaker which was interrogated last in July 2024. In [facility] emergency room, the patient was found to have significant anemia and reportedly did receive blood transfusion. In [facility], CT of the head had revealed questionable meningioma and also RCA lesion in frontal bone. It also reported severe chronic muscle sinusitis. Frail gentleman. Not in acute distress. Lying flat in bed. No JVD. Mucosa is wet. Not using accessory muscles of breathing. Lungs are clear to auscultation. Cardiac: Regular, no thrill. Systolic murmur 2/6 in the apex is heard. Abdomen is soft. Mild periumbilical tenderness is elicited. Bowel sounds positive. Extremities reveal 2+ edema bilaterally. Dorsalis pedis is 1+ bilateral Past medical history includes hypertension, hyperlipidemia, diastolic heart failure, valvular heart disease, history of mitral valve prolapse, pulmonary hypertension, atrial fibrillation/atrial flutter (on Coumadin as outpatient), status post atrial flutter ablation, status post pacemaker (Medtronic pacer, Derrick wires), DJD, s/p gastric bypass and hypothyroidism. As per patient, the patient was diagnosed with lung cancer less than a year ago for which has received radiation therapy. Nuclear stress test of November 2019 (performed in the office) revealed scar but no ischemia. Ejection fraction was 58% at that point. Hemoglobin: 4.9 - 5.9 - 5.7 - 7.6 - 7.0 - 7.3 - 7.1 - 8.0 - 8.1 - 8.2 - 8.3 - 7.6 INR: 4.17 - 5.22 - 2.70 - 1.34 - 1.16 - 1.14 Creatinine: 0.76 - 0.74 - 0.73 - 0.64 - 0.54 - 0.60 - 0.73 - 0.66 Potassium: 3.7 - 3.4 - 3.6 - 3.5 - 3.4 - 3.2 - 3.1 - 3.6 Troponin (high sensitive): 28 BNP: 118.68 TSH: 16.64 Free T4: 0.77 Free T3: 0.75 Total T3: 0.40 Stool OB: positive Chest xry reported: IMPRESSION: 1. Pulmonary vascular congestion. 2. Cardiomegaly. Repeat chest xry reported: IMPRESSION: Cardiomegaly with stable right lower lung opacity. Pulmonary vascular congestion. EKG revealed paced ventricular rhythm Tele reveals paced rhythm Echocardiogram reported: Left ventricle: Moderate concentric left ventricular hypertrophy was seen LVEF was 65%. There was no gross wall motion abnormality. Right ventricle was normal sized with normal systolic function. There was moderate biatrial enlargement. Pacing wire was seen in right-sided chambers. Aortic valve: Aortic valve was not well visualized. There was no aortic insufficiency/stenosis. Mild mitral valve prolapse was observed. There was mild mitral/ /tricuspid regurgitation. Pulmonary valve was not well visualized. Right ventricular systolic pressure was assessed at 36 mm Hg. IVC was normal sized with normal respiratory variation. 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 Ascending aorta was dilated at 4.3 cm. Moderate pericardial effusion was seen. There was no echocardiographic evidence for cardiac tamponade Medtronic pacemaker interrogation: Battery: Remaining Battery Longevity: 6.4 years; DDIR: 60/130; Ventricle pacin.8%; Atrial pacin.1%; Lead impedance: Atrial 380/RV 608 Ohms; Capture threshold: 1.125 volts at 0.4 milliseconds; Programmed sensitivity: 0.3 atrial/0.9 RV mV; Leads are Derrick Pacemaker itself is Medtronic; Pacemaker itself is MRI SureScan; Other devices (leads) are not MRI compatible; Normal function pacemaker Patient is a 74-year-old gentleman presented with presyncopal episode. Did have some dizziness. Does complain of abdominal pain after eating. Does have history of pacemaker which was last interrogated in July 2024. Does have history of lung cancer for around a year (as per patient and with unknown detail). He usually is on Coumadin for atrial fibrillation/flutter. He is found to have significant anemia with supratherapeutic INR. CT of the head in [facility] has a reported meningioma with osseous lesions. Being followed by Neurology. Patient is cardiac lozano, moderate risk patient for low risk EGD/Colonoscopy procedure. Cardiac lozano, you can proceed with the procedures under appropriate intra and post operative hemodynamic monitoring. Avoid Hypotension. Presyncope Anemia, severe GI bleeding Supratherapeutic INR Atrial fibrillation, atrial flutter history of Status post pacemaker implantation (Medtronic pacer with Derrick wires) Valvular heart disease CHF, diastolic Hypertension Hyperlipidemia Hypothyroidism Lung cancer, history all Abdominal pain Poor appetite s/p Gastric bypass s/p EGD anastomotic ulcer on jejunal side of gastrojejunostomy Cardiac suggestions for management: Manage on telemetry Follow up electrolytes and kidney function test and Correct abnormalities. Keep potassium above four and magnesium above two Follow up H&H Please communicate and ask GI, about when to restart full anticoagulation May benefit from referral for watchman device (to be arranged as outpatient) Treat hypothyroidism as per primary team GI follow up Neurology follow up Further evaluation and management depends on the above and clinical course A total of 55 minutes was spent reviewing the patient record, examining the patient, making a diagnostic and therapeutic plan, discussing this plan with medical personnel, following up on diagnostic studies and following the patient for clinical stability excluding any and all procedures. At least 50% of this time was spent in direct, [id number] contact. Thank you for allowing me to participate in this patient's care. Further recommendations will depend on patient's clinical course. Please do not hesitate to contact me if you have any questions or concerns. This medical document was created using electronic medical record system with [employer] computerized dictation system. Although this document has been carefully reviewed, there may still be some phonetic and typographical errors. These areas are purely typographical due to the imperfection of the software programs, and do not reflect any compromise in the patient's medical care. Dietary Evaluation Review Comments: As tolerated, provide ensure High Protein supplements or glucerna if Blood Glucose is not controlled. Expected Outcomes/Goals: gradual wt gain, improved serum alb and proteins, improed appetite and healed wounds. Plan discussed with: Patient, Other (nurse) JADEN HERNÁNDEZ MD Dec 29, 2024 11:03
--- NOTE | 2024-12-29 11:08 | DVHPN2 ---
Progress Note - Dictate Date Seen: Dec 29, 2024 Medical Necessity Reason Pt with a Central, PICC or Fol: No Subjective Mr. Tapia is a 74 years old right-handed gentleman with a history of hypertension, atrial fibrillation on Coumadin, congestive heart failure, lung cancer, lymphatic edema, the patient was transferred from [facility] for a chief company of syncope I have seen and examined the patient, I have talked to his nurse, he had dizziness/lightheadedness when he was sitting in the chair this morning, meanwhile he had problem to spell his street name/address. The problem get better after he returned to the bed Her blood pressure was low this morning [facility] 12/22/24: He called the EMS due to experiencing dizziness at home, on arrival EMS the witnessed patient was have a syncopal episode. Patient was denies chest pain and SOB. No other symptoms or modifying factors at this time PT/INR/APTT, 12/22/2024: 147/13.33/58.5, 12/26/2024: 12.1/1.16/30.4, 12/27/24: 11.9/1.14/30.8 CT head, 12/22/2024: No acute intracranial abnormality. A 1.5 cm benign appearing left frontal extra-axial mass most likely meningioma, this can be further evaluated with MR brain without and with IV contrast on a non emergency basis. A subcentimeter ground-glass osseous lesion with with endosteal scalloping in the right side of the frontal bone. Recommend additional brain MRI with and without IV contrast Stool occult blood 12/24/24: Positive WBC/HB/PLT/MCV, 12/23/2024: 7.8/4.9/221/82.9, 12/23/2024: 7.8/5.9/218/84.8 PT/INR/PTT, 12/23/2024: 30.4/4.17/47.4, 12/23/2024: 47/5.22/50.2, 12/25/2024: 13.5/1.34/34.1 BUN/CR, 12/23/2024: 40/0.76, 44/0.74 Liver function tests, 12/23/2024: Unremarkable TSH, 12/23/2024: 16.64 FT4, 12/23/2024: 0.77 EEG, 12/26/2024: Mildly abnormal Chest x-ray, 12/23/2024: Cardiomegaly with stable right lower lung opacity. Pulmonary vascular congestion vital signs Vital Sign Date Time Temp Pulse Resp B/P (MAP) Pulse Ox O2 Delivery O2 Flow Rate FiO2 12/29/24 10:00 94/59 12/29/24 09:00 98.3 61 18 95 98.3 12/29/24 08:00 Room Air* 0 21 Total Intake and Output 12/28/24 12/28/24 12/29/24 15:00 23:00 07:00 Intake Total 480 ml 0 ml Output Total 275 ml 0 ml Balance 205 ml 0 ml medications Current Medications Medications Dose Ordered Sig/Yasir Route Start Time Stop Time Status Last Admin Dose Admin Ondansetron HCl 4 mg Q4HP PRN IV 12/23/24 04:15 Acetaminophen 650 mg Q6HP PRN PO 12/23/24 04:15 12/29/24 04:01 650 MG Furosemide 40 mg DAILY PO 12/23/24 10:00 12/27/24 09:49 40 MG Levothyroxine Sodium 75 mcg QAM@0600 PO 12/23/24 06:00 12/29/24 06:26 75 MCG Tamsulosin HCl 0.4 mg QPM PO 12/23/24 18:00 12/28/24 17:04 0.4 MG Bupropion HCl 150 mg BID@07,19 PO 12/23/24 07:00 12/29/24 06:27 150 MG Amiodarone HCl 200 mg DAILY PO 12/23/24 10:00 12/29/24 10:00 200 MG Atorvastatin Calcium 20 mg HS PO 12/23/24 22:00 12/28/24 21:42 20 MG Sucralfate 1 gm TID@0600,1130,2200 PO 12/24/24 22:00 12/29/24 06:27 1 GM Pantoprazole Sodium 40 mg BID IV 12/26/24 10:00 12/29/24 10:00 40 MG Midodrine 10 mg TID@0600,1200,1800 PO 12/28/24 06:00 12/29/24 06:26 10 MG objective General: the patient is well developed and nourished. No acute distress. MUSCULOSKELETAL EXAM: Edema and the depigmentation in both legs, with a left- sided more affected MENTAL STATUS: Awake and alert. Oriented to person, place, time. Poor historian SPEECH, LANGUAGE, HIGHER CORTICAL FUNCTION: no aphasia or dysathria. CRANIAL NERVES: Pupils are equal, round and reactive. EOMs full and conjugate. Mild bilateral gaze evoked nystagmus. Facial sensation intact in all three divisions bilaterally. Mandibular strength intact. Facial muscles symmetrical and strength intact. SENSATION: Sensation to touch and pinprick is normal. MOTOR: Normal tone in the upper and lower extremity. Normal muscle bulk. No fasciculations. No abnormal movements or posturing. Muscle strength of the major groups in the extremities is 4/5. REFLEXES: Deep tendon reflexes normal and symmetrical. No pathological reflexes. CEREBELLAR/COORDINATION: Finger to nose is normal bilaterally. GAIT/STATION: deferred. laboratory and microbiology Laboratory Tests 12/29/24 06:23 Test 12/29/24 06:23 Range/Units Serum Glucose 92 74-106 mg/dL Problem List Syncopal event x3, likely related to his acute severe anemia Acute severe anemia, likely secondary to coagulopathy Coagulopathy secondary to Coumadin treatment Rule out GI bleeding Hypothyroidism Abnormal brain CT scan Meningioma Skull osseous lesion Lymphatic edema Assessment/Plan Monitoring Supportive treatment Telemetry Follow-up labs Follow up EEG MRI brain pacemaker is not MR compatible Hold off anticoagulation treatment Consider Watchman on him Blood transfusion Frozen fresh plasma transfusion Up to chair Physical therapy Cardiology on case GI on case More recommendation per clinical course This medical document was created using an electronic medical record system with [employer] dictation system. Although this document has been carefully reviewed, there may still be some phonetic and typographical errors. These areas are purely typographical due to imperfections of the software programs, and do not reflect any compromise in the patient's medical care. Prognosis poor Dietary Evaluation Review Comments: As tolerated, provide ensure High Protein supplements or glucerna if Blood Glucose is not controlled. Expected Outcomes/Goals: gradual wt gain, improved serum alb and proteins, improed appetite and healed wounds. Plan discussed with: Patient, Other Total Time (mins): 40 NEHEMIAS GUTHRIE MD Dec 29, 2024 11:08
[2024-12-29 11:10] LABS: Folate (Folic Acid) 12.07 ng/mL (>5.38)
--- NOTE | 2024-12-29 11:35 | DVHPN2 ---
Subjective Doing well No bleeding Hb 7.6 Changes from previous H/P or p: Changes Objective Vitals Vital Signs Date Time Temp Pulse Resp B/P (MAP) Pulse Ox O2 Delivery O2 Flow Rate FiO2 12/29/24 10:00 94/59 12/29/24 09:00 98.3 61 18 95 98.3 12/29/24 08:00 Room Air* 0 21 Intake/Output Intake and Output 12/29/24 07:00 Intake Total 480 ml Output Total 275 ml Balance 205 ml Intake Oral 480 ml Output Urine Total 275 ml # Bowel Movements 2 General Appearance: Alert, Oriented X3 Lungs: Clear to auscultation, Normal air movement Cardiovascular: Regular rate, Normal S1, Normal S2 Abdomen: Normal bowel sounds, Soft, No tenderness Extremities: No edema Medications Current Medications Medications Dose Ordered Sig/Yasir Route Start Time Stop Time Status Last Admin Dose Admin Ondansetron HCl 4 mg Q4HP PRN IV 12/23/24 04:15 Acetaminophen 650 mg Q6HP PRN PO 12/23/24 04:15 12/29/24 04:01 650 MG Furosemide 40 mg DAILY PO 12/23/24 10:00 12/27/24 09:49 40 MG Levothyroxine Sodium 75 mcg QAM@0600 PO 12/23/24 06:00 12/29/24 06:26 75 MCG Tamsulosin HCl 0.4 mg QPM PO 12/23/24 18:00 12/28/24 17:04 0.4 MG Bupropion HCl 150 mg BID@07,19 PO 12/23/24 07:00 12/29/24 06:27 150 MG Amiodarone HCl 200 mg DAILY PO 12/23/24 10:00 12/29/24 10:00 200 MG Atorvastatin Calcium 20 mg HS PO 12/23/24 22:00 12/28/24 21:42 20 MG Sucralfate 1 gm TID@0600,1130,2200 PO 12/24/24 22:00 12/29/24 06:27 1 GM Pantoprazole Sodium 40 mg BID IV 12/26/24 10:00 12/29/24 10:00 40 MG Midodrine 10 mg TID@0600,1200,1800 PO 12/28/24 06:00 12/29/24 06:26 10 MG Laboratory Results Laboratory Tests 12/29/24 06:23 Chemistry Test 12/29/24 06:23 Calcium Level 9.2 mg/dL (8.7-10.4) Urinalysis Test 12/26/24 02:15 Urine Color Light-yellow (Yellow) Urine Clarity Clear (Clear) Urine pH 6.0 (5.0-9.0) Urine Specific Branch 1.013 (1.001-1.035) Urine Protein Negative (Negative) Urine Ketones Negative (Negative) Urine Blood Negative /uL (Negative) Urine Nitrite 1+ (Negative) H Urine Bilirubin Negative (Negative) Urine Urobilinogen 3 mg/dL (Negative) H Urine Leukocyte Esterase 1+ /uL (Negative) Urine RBC 1 /hpf (0 - 3) Urine Microscopic WBC 15 /HPF (0-3) H Urine Squamous Epithelial Cells Few /hpf (<5) Urine Bacteria Few /hpf (None Seen) H Urine Mucus Few (None Seen) Urine Glucose Normal mg/dL (Normal) Microbiology Microbiology Date/Time Source Procedure Growth Status 12/23/24 07:00 Nose MRSA Screen - Final Complete Assessment/Plan Assessment/Plan cardAcute anemia due to blood loss Coagulopathy due to warfarin Atrial fibrillation Presyncope due to severe anemia Severe anemia due to blood loss Most likely GI bleed History of pacemaker placement Diastolic heart failure Hypertension Dyslipidemia Hypothyroidism , uncontrolled History of lung cancer Moderate protein malnutrition Plan The patient received a total of 3 units of packed RBCs so far Check the hemoglobin and assess for further need for more blood transfusion He received 1 unit of FFP and therefore he will be given 1 more unit Give vitamin K 10 mg subcutaneously IV fluids GI consult Protonix IV drip NPO Cardiology consult Full code Monitor closely Advance directives discussed for 15 minutes 12/24/2024: Give vitamin K 10 mg subcutaneously Transfuse 1 more unit packed RBCs GI consult is on board planning endoscopy in 1-2 days Cardiology consult for clearance Continue IV Protonix drip and IV octreotide drip Monitor closely The rest of the management will depend on the hospital course Full code 12/25/2024: Transfuse 1 unit packed RBCs today GI is planning to do an endoscopy tomorrow Continue octreotide and Protonix drips Continue p.o. amiodarone P.o. Lasix Monitor the hemoglobin and transfuse as needed The rest of the management will depend on the hospital course 12/26/2024: Monitor closely Continue current management Monitor for anymore GI bleeding Continue IV Protonix Carafate 12/28/2024: Advance diet to cardiac diet Replace potassium Protonix and Carafate Midodrine Amiodarone p.o. Lasix 40 mg daily Physical therapy evaluation 12/29/24: Continue to monitor Hb Physical therapy Monitor inpatient x one more day Plan discussed with: Patient My Orders Orders - CHARO PAULSON MD Procedure Category Date Status Time Cardiac DIET 12/28/24 Transmitted Diet-2gna,Lofat,Lochol Lunch Date of Service: Dec 29, 2024 Billing Provider: CHARO PAULSON MD Common Visit Codes: 40993-[id number] INP/OBS CARE(HIGH) CHARO PAULSON MD Dec 29, 2024 11:35
--- NOTE | 2024-12-29 16:10 | DVHPN2 ---
Progress Note Date Seen: Dec 29, 2024 Resident Creating Document: SMITA DASILVA RESIDENT Medical Necessity Reason Pt with a Central, PICC or Fol: No Subjective Review of Systems Patient seen and examined at bedside. No new complaints. Objective vital signs Vital Sign Date Time Temp Pulse Resp B/P (MAP) Pulse Ox O2 Delivery O2 Flow Rate FiO2 12/29/24 13:00 97.7 62 18 91/55 (67) 96 97.7 12/29/24 08:00 Room Air* 0 21 Total Intake and Output 12/28/24 12/28/24 12/29/24 15:00 23:00 07:00 Intake Total 480 ml 0 ml Output Total 275 ml 0 ml Balance 205 ml 0 ml medications Current Medications Medications Dose Ordered Sig/Yasir Route Start Time Stop Time Status Last Admin Dose Admin Ondansetron HCl 4 mg Q4HP PRN IV 12/23/24 04:15 Acetaminophen 650 mg Q6HP PRN PO 12/23/24 04:15 12/29/24 04:01 650 MG Furosemide 40 mg DAILY PO 12/23/24 10:00 12/27/24 09:49 40 MG Levothyroxine Sodium 75 mcg QAM@0600 PO 12/23/24 06:00 12/29/24 06:26 75 MCG Tamsulosin HCl 0.4 mg QPM PO 12/23/24 18:00 12/28/24 17:04 0.4 MG Bupropion HCl 150 mg BID@07,19 PO 12/23/24 07:00 12/29/24 06:27 150 MG Amiodarone HCl 200 mg DAILY PO 12/23/24 10:00 12/29/24 10:00 200 MG Atorvastatin Calcium 20 mg HS PO 12/23/24 22:00 12/28/24 21:42 20 MG Sucralfate 1 gm TID@0600,1130,2200 PO 12/24/24 22:00 12/29/24 12:47 1 GM Pantoprazole Sodium 40 mg BID IV 12/26/24 10:00 12/29/24 10:00 40 MG Midodrine 10 mg TID@0600,1200,1800 PO 12/28/24 06:00 12/29/24 12:47 10 MG Examination General Appearance: Cooperative. Well developed. Well nourished. NAD Head Exam: Normal inspection Neck Exam: Normal inspection. Non-tender. Normal alignment Pulmonary/Respiratory: Chest non-tender. Clear bilateral breath sounds Cardiovascular/Chest: Regular rate and rhythm. No murmurs. No JVD. Peripheral Pulses: 2+ Radial (R). 2+ Radial (L). 2+ Pedal (R). 2+ Pedal (L) Abdominal Exam: Normal bowel sounds. Soft. Nontender. No hepatospenomegaly. No masses Ankle Exam: Negative ankle edema Lower extremities: Negative lower extremity edema Neuro/Mental Status: A&O x4. Coherent Thoughts/Psych: Normal thought pattern. Appropriate mood and affect. Good judgement and insight Appearance: In no acute distress Skin Exam: Normal inspection. Normal color. Warm. Dry laboratory and microbiology Laboratory Tests 12/29/24 06:23 Test 12/29/24 06:23 Range/Units Serum Glucose 92 74-106 mg/dL Microbiology Date/Time Source Procedure Growth Status 12/23/24 07:00 Nose MRSA Screen - Final Complete Problem List/Assessment/Plan Problem List/Assessment/Plan Anastomotic ulcer on jejunal side of gastrojejunostomy Mild gastritis Erosive esophagitis Acute severe anemia due to blood loss likely due to warfarin Atrial fibrillation with secondary hypercoagulable state History of lung cancer Syncope ? Due to severe anemia EGD on 12/26/24 demonstrated Patient had a 2 cm anastomotic ulcer on the jejunal side of the gastrojejunostomy with no visible vessel or active bleeding and there was a small red dot at the edge of the ulcer, mild gastritis of the small gastric remnant; mild grade a erosive esophagitis with no significant hiatal hernia and otherwise normal examination up to the efferent and afferent loop of a gastric bypass surgery Plan/recommendation Dr Ca -continue with IV Protonix 40 mg b.id and carafate 1 gm po t.i.d -hemoglobin is stable, continue to monitor H and H q.12. -received 7 units PRBCs and 3 units of FFP till now. Continue to monitor H&H and coagulation panel. -given vitamin K 10 mg IV once. -we will continue to monitor patient closely. Plan discussed with: Patient, Other ([id number]) Dietary Evaluation Review Comments: As tolerated, provide ensure High Protein supplements or glucerna if Blood Glucose is not controlled. Expected Outcomes/Goals: gradual wt gain, improved serum alb and proteins, improed appetite and healed wounds. SMITA DASILVA RESIDENT Dec 29, 2024 16:10
[2024-12-30] VITALS (11 sets, daily range): BP systolic 90–107; BP diastolic 48–57; PULSE 60–67; RESP 16–18; TEMP 98–99.2; O2SAT 91–97
[2024-12-30 06:46] LABS: Basophils # (auto) 0 10 ^3/uL (0-0.2); Hematocrit 22.8 % (41.0-53.0); Hemoglobin 7.3 g/dL (13.5-17.5); Mean Corpuscular Hemoglobin 27.7 pg (28.0-32.0); Mean Corpuscular Hgb Conc. 32.1 g/dL (32.0-36.0); Mean Corpuscular Volume 86.2 fL (80.0-100.0); Monocytes # (auto) 0.6 10 ^3/uL (0-1.3); Neutrophils # (auto) 4.8 10 ^3/uL (1.6-8.6); Red Blood Cells 2.64 10^6/uL (4.5-5.90)
[2024-12-30 06:49] LABS: Basophils % (auto) 0.6 % (0.0-2.0); Eosinophils # (auto) 0.1 10 ^3/uL (0-0.8); Eosinophils % (auto) 2.4 % (0.0-7.0); INR 1.06 (0.9-1.15); Lymphocytes # (auto) 0.5 10 ^3/uL (0.4-5.4); Lymphocytes % (auto) 7.5 % (10.0-50.0); Monocytes % (auto) 9.6 % (0.0-12.0); Neutrophils % (auto) 79.9 % (37.0-80.0); Partial Thromboplastin Time 30.3 SEC (24.5-34.5); Platelet Count (auto) 220 10^3/uL (140-450); Prothrombin Time 11.2 sec (9.3-11.8); Red Cell Distribution Width 16.7 % (11.8-14.3); White Blood Cell 6.1 10^3/uL (4.4-10.8)
--- NOTE | 2024-12-30 07:21 | DVHPN2 ---
Progress Note - Dictate Date Seen: Dec 30, 2024 Medical Necessity Reason Pt with a Central, PICC or Fol: No vital signs Vital Sign Date Time Temp Pulse Resp B/P (MAP) Pulse Ox O2 Delivery O2 Flow Rate FiO2 12/30/24 05:00 99.0 61 18 94/55 (68) 94 99.0 12/29/24 20:00 Room Air* 0 21 Total Intake and Output 12/29/24 12/29/24 12/30/24 15:00 23:00 07:00 Intake Total 720 ml 475 ml Output Total 225 ml 950 ml Balance 495 ml -475 ml medications Current Medications Medications Dose Ordered Sig/Yasir Route Start Time Stop Time Status Last Admin Dose Admin Ondansetron HCl 4 mg Q4HP PRN IV 12/23/24 04:15 Acetaminophen 650 mg Q6HP PRN PO 12/23/24 04:15 12/29/24 04:01 650 MG Furosemide 40 mg DAILY PO 12/23/24 10:00 12/27/24 09:49 40 MG Levothyroxine Sodium 75 mcg QAM@0600 PO 12/23/24 06:00 12/30/24 05:16 75 MCG Tamsulosin HCl 0.4 mg QPM PO 12/23/24 18:00 12/29/24 18:00 0.4 MG Bupropion HCl 150 mg BID@07,19 PO 12/23/24 07:00 12/30/24 06:05 150 MG Amiodarone HCl 200 mg DAILY PO 12/23/24 10:00 12/29/24 10:00 200 MG Atorvastatin Calcium 20 mg HS PO 12/23/24 22:00 12/29/24 21:12 20 MG Sucralfate 1 gm TID@0600,1130,2200 PO 12/24/24 22:00 12/30/24 05:15 1 GM Pantoprazole Sodium 40 mg BID IV 12/26/24 10:00 12/29/24 21:08 40 MG Midodrine 10 mg TID@0600,1200,1800 PO 12/28/24 06:00 12/30/24 05:16 10 MG Warfarin Sodium RX PROTOCOL ... PER PHARMACY PO 12/29/24 17:30 laboratory and microbiology Laboratory Tests 12/30/24 06:12 12/29/24 06:23 Test 12/29/24 06:23 Range/Units Serum Glucose 92 74-106 mg/dL Assessment/Plan Patient is a 74-year-old gentleman who was transferred from [facility] Emergency room for further evaluation to our hospital. Originally, the patient presented to other Hospital for presyncopal episodes. He was somehow dizzy for few days. He mentions that is he had less stamina going back for few days. He also has been experiencing abdominal pain after eating and his appetite has decreased. Denies chest pain. Denies nausea and vomiting. Denies diarrhea. Cardiology was involved for cardiac aspects of care. Patient is known to our practice from outside than before. Does have a pacemaker which was interrogated last in July 2024. In [facility] emergency room, the patient was found to have significant anemia and reportedly did receive blood transfusion. In [facility], CT of the head had revealed questionable meningioma and also RCA lesion in frontal bone. It also reported severe chronic muscle sinusitis. Frail gentleman. Not in acute distress. Lying flat in bed. No JVD. Mucosa is wet. Not using accessory muscles of breathing. Lungs are clear to auscultation. Cardiac: Regular, no thrill. Systolic murmur 2/6 in the apex is heard. Abdomen is soft. Mild periumbilical tenderness is elicited. Bowel sounds positive. Extremities reveal 2+ edema bilaterally. Dorsalis pedis is 1+ bilateral Past medical history includes hypertension, hyperlipidemia, diastolic heart failure, valvular heart disease, history of mitral valve prolapse, pulmonary hypertension, atrial fibrillation/atrial flutter (on Coumadin as outpatient), status post atrial flutter ablation, status post pacemaker (Medtronic pacer, Derrick wires), DJD, s/p gastric bypass and hypothyroidism. As per patient, the patient was diagnosed with lung cancer less than a year ago for which has received radiation therapy. Nuclear stress test of November 2019 (performed in the office) revealed scar but no ischemia. Ejection fraction was 58% at that point. Hemoglobin: 4.9 - 5.9 - 5.7 - 7.6 - 7.0 - 7.3 - 7.1 - 8.0 - 8.1 - 8.2 - 8.3 - 7.6 - 7.3 INR: 4.17 - 5.22 - 2.70 - 1.34 - 1.16 - 1.14 - 1.06 Creatinine: 0.76 - 0.74 - 0.73 - 0.64 - 0.54 - 0.60 - 0.73 - 0.66 - 0.61 Potassium: 3.7 - 3.4 - 3.6 - 3.5 - 3.4 - 3.2 - 3.1 - 3.6 Troponin (high sensitive): 28 BNP: 118.68 TSH: 16.64 Free T4: 0.77 Free T3: 0.75 Total T3: 0.40 Stool OB: positive Chest xry reported: IMPRESSION: 1. Pulmonary vascular congestion. 2. Cardiomegaly. Repeat chest xry reported: IMPRESSION: Cardiomegaly with stable right lower lung opacity. Pulmonary vascular congestion. EKG revealed paced ventricular rhythm Tele reveals paced rhythm Echocardiogram reported: Left ventricle: Moderate concentric left ventricular hypertrophy was seen LVEF was 65%. There was no gross wall motion abnormality. Right ventricle was normal sized with normal systolic function. There was moderate biatrial enlargement. Pacing wire was seen in right-sided chambers. Aortic valve: Aortic valve was not well visualized. There was no aortic insufficiency/stenosis. Mild mitral valve prolapse was observed. There was mild mitral/ /tricuspid regurgitation. Pulmonary valve was not well visualized. Right ventricular systolic pressure was assessed at 36 mm Hg. IVC was normal sized with normal respiratory variation. 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 Ascending aorta was dilated at 4.3 cm. Moderate pericardial effusion was seen. There was no echocardiographic evidence for cardiac tamponade Medtronic pacemaker interrogation: Battery: Remaining Battery Longevity: 6.4 years; DDIR: 60/130; Ventricle pacin.8%; Atrial pacin.1%; Lead impedance: Atrial 380/RV 608 Ohms; Capture threshold: 1.125 volts at 0.4 milliseconds; Programmed sensitivity: 0.3 atrial/0.9 RV mV; Leads are Derrick Pacemaker itself is Medtronic; Pacemaker itself is MRI SureScan; Other devices (leads) are not MRI compatible; Normal function pacemaker Patient is a 74-year-old gentleman presented with presyncopal episode. Did have some dizziness. Does complain of abdominal pain after eating. Does have history of pacemaker which was last interrogated in July 2024. Does have history of lung cancer for around a year (as per patient and with unknown detail). He usually is on Coumadin for atrial fibrillation/flutter. He is found to have significant anemia with supratherapeutic INR. CT of the head in [facility] has a reported meningioma with osseous lesions. Being followed by Neurology. Patient is cardiac lozano, moderate risk patient for low risk EGD/Colonoscopy procedure. Cardiac lozano, you can proceed with the procedures under appropriate intra and post operative hemodynamic monitoring. Avoid Hypotension. Presyncope Anemia, severe GI bleeding Supratherapeutic INR Atrial fibrillation, atrial flutter history of Status post pacemaker implantation (Medtronic pacer with Derrick wires) Valvular heart disease CHF, diastolic Hypertension Hyperlipidemia Hypothyroidism Lung cancer, history all Abdominal pain Poor appetite s/p Gastric bypass s/p EGD anastomotic ulcer on jejunal side of gastrojejunostomy Cardiac suggestions for management: Manage on telemetry Follow up electrolytes and kidney function test and Correct abnormalities. Keep potassium above four and magnesium above two Follow up H&H Reportedly, as per GI, patient can be restarted on A/C for now Warfarin as per pharmacy protocol (Goal of INR: 2.5) May benefit from referral for watchman device (to be arranged as outpatient) Treat hypothyroidism as per primary team GI follow up Neurology follow up Further evaluation and management depends on the above and clinical course A total of 55 minutes was spent reviewing the patient record, examining the patient, making a diagnostic and therapeutic plan, discussing this plan with medical personnel, following up on diagnostic studies and following the patient for clinical stability excluding any and all procedures. At least 50% of this time was spent in direct, [id number] contact. Thank you for allowing me to participate in this patient's care. Further recommendations will depend on patient's clinical course. Please do not hesitate to contact me if you have any questions or concerns. This medical document was created using electronic medical record system with [employer] dictation system. Although this document has been carefully reviewed, there may still be some phonetic and typographical errors. These areas are purely typographical due to the imperfection of the software programs, and do not reflect any compromise in the patient's medical care. Dietary Evaluation Review Comments: As tolerated, provide ensure High Protein supplements or glucerna if Blood Glucose is not controlled. Expected Outcomes/Goals: gradual wt gain, improved serum alb and proteins, improed appetite and healed wounds. Plan discussed with: Patient, Other (nurse) JADEN HERNÁNDEZ MD Dec 30, 2024 07:21
[2024-12-30] MEDS: POLYETHYLENE GLYCOL 17 GM PWDR PO ONE (10:29)
--- NOTE | 2024-12-30 11:20 | DVHPN2 ---
Subjective Doing well No bleeding He complains of constipation Hemoglobin 7.3 Changes from previous H/P or p: Changes Objective Vitals Vital Signs Date Time Temp Pulse Resp B/P (MAP) Pulse Ox O2 Delivery O2 Flow Rate FiO2 12/30/24 10:30 96/56 12/30/24 09:00 98.0 60 18 91 98.0 12/30/24 07:50 Room Air* 0 21 Intake/Output Intake and Output 12/30/24 07:00 Intake Total 1195 ml Output Total 1175 ml Balance 20 ml Intake Oral 1195 ml Output Urine Total 1150 ml Drainage Total 25 ml # Voids 2 # Bowel Movements 1 General Appearance: Alert, Oriented X3 Lungs: Clear to auscultation, Normal air movement Cardiovascular: Regular rate, Normal S1, Normal S2 Abdomen: Normal bowel sounds, Soft, No tenderness Extremities: No edema Medications Current Medications Medications Dose Ordered Sig/Yasir Route Start Time Stop Time Status Last Admin Dose Admin Ondansetron HCl 4 mg Q4HP PRN IV 12/23/24 04:15 Acetaminophen 650 mg Q6HP PRN PO 12/23/24 04:15 12/29/24 04:01 650 MG Furosemide 40 mg DAILY PO 12/23/24 10:00 12/30/24 10:30 40 MG Levothyroxine Sodium 75 mcg QAM@0600 PO 12/23/24 06:00 12/30/24 05:16 75 MCG Tamsulosin HCl 0.4 mg QPM PO 12/23/24 18:00 12/29/24 18:00 0.4 MG Bupropion HCl 150 mg BID@07,19 PO 12/23/24 07:00 12/30/24 06:05 150 MG Amiodarone HCl 200 mg DAILY PO 12/23/24 10:00 12/30/24 10:29 200 MG Atorvastatin Calcium 20 mg HS PO 12/23/24 22:00 12/29/24 21:12 20 MG Sucralfate 1 gm TID@0600,1130,2200 PO 12/24/24 22:00 12/30/24 10:30 1 GM Pantoprazole Sodium 40 mg BID IV 12/26/24 10:00 12/30/24 10:29 40 MG Midodrine 10 mg TID@0600,1200,1800 PO 12/28/24 06:00 12/30/24 10:30 10 MG Warfarin Sodium RX PROTOCOL ... PER PHARMACY PO 12/29/24 17:30 Laboratory Results Laboratory Tests 12/29/24 06:23 12/30/24 06:12 Coagulation Test 12/30/24 06:12 Prothrombin Time 11.2 sec (9.3-11.8) Prothrombin Time INR 1.06 (0.9-1.15) Activated Partial Thromboplast Time 30.3 SEC (24.5-34.5) Urinalysis Test 12/26/24 02:15 Urine Color Light-yellow (Yellow) Urine Clarity Clear (Clear) Urine pH 6.0 (5.0-9.0) Urine Specific Strang 1.013 (1.001-1.035) Urine Protein Negative (Negative) Urine Ketones Negative (Negative) Urine Blood Negative /uL (Negative) Urine Nitrite 1+ (Negative) H Urine Bilirubin Negative (Negative) Urine Urobilinogen 3 mg/dL (Negative) H Urine Leukocyte Esterase 1+ /uL (Negative) Urine RBC 1 /hpf (0 - 3) Urine Microscopic WBC 15 /HPF (0-3) H Urine Squamous Epithelial Cells Few /hpf (<5) Urine Bacteria Few /hpf (None Seen) H Urine Mucus Few (None Seen) Urine Glucose Normal mg/dL (Normal) Microbiology Microbiology Date/Time Source Procedure Growth Status 12/23/24 07:00 Nose MRSA Screen - Final Complete Assessment/Plan Assessment/Plan cardAcute anemia due to blood loss Coagulopathy due to warfarin Atrial fibrillation Presyncope due to severe anemia Severe anemia due to blood loss Most likely GI bleed History of pacemaker placement Diastolic heart failure Hypertension Dyslipidemia Hypothyroidism , uncontrolled History of lung cancer Moderate protein malnutrition Plan The patient received a total of 3 units of packed RBCs so far Check the hemoglobin and assess for further need for more blood transfusion He received 1 unit of FFP and therefore he will be given 1 more unit Give vitamin K 10 mg subcutaneously IV fluids GI consult Protonix IV drip NPO Cardiology consult Full code Monitor closely Advance directives discussed for 15 minutes 12/24/2024: Give vitamin K 10 mg subcutaneously Transfuse 1 more unit packed RBCs GI consult is on board planning endoscopy in 1-2 days Cardiology consult for clearance Continue IV Protonix drip and IV octreotide drip Monitor closely The rest of the management will depend on the hospital course Full code 12/25/2024: Transfuse 1 unit packed RBCs today GI is planning to do an endoscopy tomorrow Continue octreotide and Protonix drips Continue p.o. amiodarone P.o. Lasix Monitor the hemoglobin and transfuse as needed The rest of the management will depend on the hospital course 12/26/2024: Monitor closely Continue current management Monitor for anymore GI bleeding Continue IV Protonix Carafate 12/28/2024: Advance diet to cardiac diet Replace potassium Protonix and Carafate Midodrine Amiodarone p.o. Lasix 40 mg daily Physical therapy evaluation 12/29/24: Continue to monitor Hb Physical therapy Monitor inpatient x one more day 12/30/2024: Constipation: Give milk of magnesia and Colace Weakness: Order home health physical therapy shake out worker consult for help at home regarding IHSS Monitor the hemoglobin Transfuse 1 unit of packed RBCs due to hemoglobin 7.3 and hypotension and generalized weakness Discharge planning Plan discussed with: Patient Date of Service: Dec 30, 2024 Billing Provider: CHARO PAULSON MD Common Visit Codes: [id number] INP/OBS CARE(HIGH) CHARO PAULSON MD Dec 30, 2024 11:20
[2024-12-30] MEDS: MILK OF MAGNESIA 30ML SUSP PO ONE (12:09)
[2024-12-30] MEDS: DOCUSATE SOD 100 MG CAP PO ONE (12:09)
--- NOTE | 2024-12-30 15:43 | DVHPN2 ---
Progress Note Date Seen: Dec 30, 2024 Resident Creating Document: SMITA DASILVA RESIDENT Medical Necessity Reason Pt with a Central, PICC or Fol: No Subjective Review of Systems Patient seen and examined at bedside. No new complaints. Objective vital signs Vital Sign Date Time Temp Pulse Resp B/P (MAP) Pulse Ox O2 Delivery O2 Flow Rate FiO2 12/30/24 13:00 98.0 67 18 107/57 (74) 91 98.0 12/30/24 07:50 Room Air* 0 21 Total Intake and Output 12/29/24 12/29/24 12/30/24 15:00 23:00 07:00 Intake Total 720 ml 475 ml Output Total 225 ml 950 ml Balance 495 ml -475 ml medications Current Medications Medications Dose Ordered Sig/Yasir Route Start Time Stop Time Status Last Admin Dose Admin Ondansetron HCl 4 mg Q4HP PRN IV 12/23/24 04:15 Acetaminophen 650 mg Q6HP PRN PO 12/23/24 04:15 12/29/24 04:01 650 MG Furosemide 40 mg DAILY PO 12/23/24 10:00 12/30/24 10:30 40 MG Levothyroxine Sodium 75 mcg QAM@0600 PO 12/23/24 06:00 12/30/24 05:16 75 MCG Tamsulosin HCl 0.4 mg QPM PO 12/23/24 18:00 12/29/24 18:00 0.4 MG Bupropion HCl 150 mg BID@07,19 PO 12/23/24 07:00 12/30/24 06:05 150 MG Amiodarone HCl 200 mg DAILY PO 12/23/24 10:00 12/30/24 10:29 200 MG Atorvastatin Calcium 20 mg HS PO 12/23/24 22:00 12/29/24 21:12 20 MG Sucralfate 1 gm TID@0600,1130,2200 PO 12/24/24 22:00 12/30/24 10:30 1 GM Pantoprazole Sodium 40 mg BID IV 12/26/24 10:00 12/30/24 10:29 40 MG Midodrine 10 mg TID@0600,1200,1800 PO 12/28/24 06:00 12/30/24 10:30 10 MG Warfarin Sodium RX PROTOCOL ... PER PHARMACY PO 12/29/24 17:30 Docusate Sodium 100 mg BID PO 12/30/24 22:00 Examination General Appearance: Cooperative. Well developed. Well nourished. NAD Head Exam: Normal inspection Neck Exam: Normal inspection. Non-tender. Normal alignment Pulmonary/Respiratory: Chest non-tender. Clear bilateral breath sounds Cardiovascular/Chest: Regular rate and rhythm. No murmurs. No JVD. Peripheral Pulses: 2+ Radial (R). 2+ Radial (L). 2+ Pedal (R). 2+ Pedal (L) Abdominal Exam: Normal bowel sounds. Soft. Nontender. No hepatospenomegaly. No masses Ankle Exam: Negative ankle edema Lower extremities: Negative lower extremity edema Neuro/Mental Status: A&O x4. Coherent Thoughts/Psych: Normal thought pattern. Appropriate mood and affect. Good judgement and insight Appearance: In no acute distress Skin Exam: Normal inspection. Normal color. Warm. Dry laboratory and microbiology Laboratory Tests 12/30/24 06:12 12/29/24 06:23 Test 12/29/24 06:23 Range/Units Serum Glucose 92 74-106 mg/dL Microbiology Date/Time Source Procedure Growth Status 12/23/24 07:00 Nose MRSA Screen - Final Complete Problem List/Assessment/Plan Problem List/Assessment/Plan Anastomotic ulcer on jejunal side of gastrojejunostomy Mild gastritis Erosive esophagitis Acute severe anemia due to blood loss likely due to warfarin Atrial fibrillation with secondary hypercoagulable state History of lung cancer Syncope ? Due to severe anemia EGD on 12/26/24 demonstrated Patient had a 2 cm anastomotic ulcer on the jejunal side of the gastrojejunostomy with no visible vessel or active bleeding and there was a small red dot at the edge of the ulcer, mild gastritis of the small gastric remnant; mild grade a erosive esophagitis with no significant hiatal hernia and otherwise normal examination up to the efferent and afferent loop of a gastric bypass surgery Plan/recommendation Dr Ca PLAN: 1. Await for biopsy result 2. Will place pt on Protonix 40 mg bid 3. Carafate 1 g p.o. 4 times a day 4. DC aspirin NSAIDs smoking alcohol 5. Outpatient follow up with me upon discharge to discuss elective colonoscopy 6. This patient will likely need to be maintained on iron and B12 because of his previous gastrojejunostomy -continue with Protonix 40 mg b.id and carafate 1 gm po t.i.d -hemoglobin is stable, continue to monitor H and H q.12. -received 7 units PRBCs and 3 units of FFP till now. Continue to monitor H&H and coagulation panel. -given vitamin K 10 mg IV once. -we will continue to monitor patient closely. Plan discussed with: Patient, Other (RN) Dietary Evaluation Review Comments: As tolerated, provide ensure High Protein supplements or glucerna if Blood Glucose is not controlled. Expected Outcomes/Goals: gradual wt gain, improved serum alb and proteins, improed appetite and healed wounds. SMITA DASILVA RESIDENT Dec 30, 2024 15:43
[2024-12-30] MEDS: DOCUSATE SOD 100 MG CAP PO SCH (21:31)
[2024-12-30 22:24] LABS: Hematocrit 25.3 % (41.0-53.0); Hemoglobin 8.2 g/dL (13.5-17.5)
[2024-12-31] VITALS (9 sets, daily range): BP systolic 92–104; BP diastolic 52–64; PULSE 60–63; RESP 17–19; TEMP 97.8–99.7; O2SAT 92–97
[2024-12-31 04:04] LABS: Basophils # (auto) 0 10 ^3/uL (0-0.2); Basophils % (auto) 0.5 % (0.0-2.0); Eosinophils # (auto) 0.1 10 ^3/uL (0-0.8); Eosinophils % (auto) 1.8 % (0.0-7.0); Hematocrit 24.3 % (41.0-53.0); Hemoglobin 7.9 g/dL (13.5-17.5); Lymphocytes # (auto) 0.4 10 ^3/uL (0.4-5.4); Lymphocytes % (auto) 6.9 % (10.0-50.0); Mean Corpuscular Hemoglobin 27.8 pg (28.0-32.0); Mean Corpuscular Hgb Conc. 32.3 g/dL (32.0-36.0); Mean Corpuscular Volume 86.2 fL (80.0-100.0); Monocytes # (auto) 0.7 10 ^3/uL (0-1.3); Monocytes % (auto) 10.7 % (0.0-12.0); Neutrophils # (auto) 5.1 10 ^3/uL (1.6-8.6); Neutrophils % (auto) 80.1 % (37.0-80.0); Platelet Count (auto) 216 10^3/uL (140-450); Red Blood Cells 2.82 10^6/uL (4.5-5.90); Red Cell Distribution Width 16.4 % (11.8-14.3); White Blood Cell 6.3 10^3/uL (4.4-10.8)
[2024-12-31 04:17] LABS: Alanine Aminotransferase 14 U/L (7-40); Anion Gap 3 (5-15); Aspartate Aminotransferase 23 U/L (13-40); BUN/Creatinine Ratio 26.6 (10.0-20.0); Blood Urea Nitrogen 17 mg/dL (9-23); Calcium 8.9 mg/dL (8.7-10.4); Carbon Dioxide 30 mmol/L (20-31); Chloride 105 mmol/L (98-107); Glucose 83 mg/dL (74-106); Sodium 138 mmol/L (136-145)
[2024-12-31 04:18] LABS: Magnesium 1.9 mg/dL (1.6-2.6)
[2024-12-31 04:38] LABS: Albumin 2.7 g/dL (3.2-4.8); Alkaline Phosphatase 169 U/L (46-116); Bilirubin, Total 1.2 mg/dL (0.2-1.0); Potassium 3.5 mmol/L (3.5-5.1); Total Protein 4.4 g/dL (5.7-8.2)
--- NOTE | 2024-12-31 05:54 | DVHPN2 ---
Progress Note - Dictate Date Seen: Dec 31, 2024 Medical Necessity Reason Pt with a Central, PICC or Fol: No vital signs Vital Sign Date Time Temp Pulse Resp B/P (MAP) Pulse Ox O2 Delivery O2 Flow Rate FiO2 12/31/24 01:00 97.8 60 17 97/57 (70) 97 97.8 12/30/24 20:00 Room Air* 0 21 Total Intake and Output 12/30/24 12/30/24 12/31/24 15:00 23:00 07:00 Intake Total 300 ml Output Total 800 ml Balance -500 ml medications Current Medications Medications Dose Ordered Sig/Yasir Route Start Time Stop Time Status Last Admin Dose Admin Ondansetron HCl 4 mg Q4HP PRN IV 12/23/24 04:15 Acetaminophen 650 mg Q6HP PRN PO 12/23/24 04:15 12/30/24 18:17 650 MG Furosemide 40 mg DAILY PO 12/23/24 10:00 12/30/24 10:30 40 MG Levothyroxine Sodium 75 mcg QAM@0600 PO 12/23/24 06:00 12/31/24 05:12 75 MCG Tamsulosin HCl 0.4 mg QPM PO 12/23/24 18:00 12/30/24 18:16 0.4 MG Bupropion HCl 150 mg BID@07,19 PO 12/23/24 07:00 12/30/24 06:05 150 MG Amiodarone HCl 200 mg DAILY PO 12/23/24 10:00 12/30/24 10:29 200 MG Atorvastatin Calcium 20 mg HS PO 12/23/24 22:00 12/30/24 21:31 20 MG Sucralfate 1 gm TID@0600,1130,2200 PO 12/24/24 22:00 12/31/24 05:11 1 GM Pantoprazole Sodium 40 mg BID IV 12/26/24 10:00 12/30/24 21:31 40 MG Midodrine 10 mg TID@0600,1200,1800 PO 12/28/24 06:00 12/31/24 05:12 10 MG Warfarin Sodium RX PROTOCOL ... PER PHARMACY PO 12/29/24 17:30 Docusate Sodium 100 mg BID PO 12/30/24 22:00 12/30/24 21:31 100 MG laboratory and microbiology Laboratory Tests 12/31/24 03:37 Test 12/31/24 03:37 Range/Units Serum Glucose 83 74-106 mg/dL Assessment/Plan Patient is a 74-year-old gentleman who was transferred from [facility] Emergency room for further evaluation to our hospital. Originally, the patient presented to other Hospital for presyncopal episodes. He was somehow dizzy for few days. He mentions that is he had less stamina going back for few days. He also has been experiencing abdominal pain after eating and his appetite has decreased. Denies chest pain. Denies nausea and vomiting. Denies diarrhea. Cardiology was involved for cardiac aspects of care. Patient is known to our practice from outside than before. Does have a pacemaker which was interrogated last in July 2024. In [facility] emergency room, the patient was found to have significant anemia and reportedly did receive blood transfusion. In [facility], CT of the head had revealed questionable meningioma and also RCA lesion in frontal bone. It also reported severe chronic muscle sinusitis. Frail gentleman. Not in acute distress. Lying flat in bed. No JVD. Mucosa is wet. Not using accessory muscles of breathing. Lungs are clear to auscultation. Cardiac: Regular, no thrill. Systolic murmur 2/6 in the apex is heard. Abdomen is soft. Mild periumbilical tenderness is elicited. Bowel sounds positive. Extremities reveal 2+ edema bilaterally. Dorsalis pedis is 1+ bilateral Past medical history includes hypertension, hyperlipidemia, diastolic heart failure, valvular heart disease, history of mitral valve prolapse, pulmonary hypertension, atrial fibrillation/atrial flutter (on Coumadin as outpatient), status post atrial flutter ablation, status post pacemaker (Medtronic pacer, Derrick wires), DJD, s/p gastric bypass and hypothyroidism. As per patient, the patient was diagnosed with lung cancer less than a year ago for which has received radiation therapy. Nuclear stress test of November 2019 (performed in the office) revealed scar but no ischemia. Ejection fraction was 58% at that point. Hemoglobin: 4.9 - 5.9 - 5.7 - 7.6 - 7.0 - 7.3 - 7.1 - 8.0 - 8.1 - 8.2 - 8.3 - 7.6 - 7.3 - 8.2 - 7.9 INR: 4.17 - 5.22 - 2.70 - 1.34 - 1.16 - 1.14 - 1.06 Creatinine: 0.76 - 0.74 - 0.73 - 0.64 - 0.54 - 0.60 - 0.73 - 0.66 - 0.61 - 0.64 Potassium: 3.7 - 3.4 - 3.6 - 3.5 - 3.4 - 3.2 - 3.1 - 3.6 - 3.5 Troponin (high sensitive): 28 BNP: 118.68 TSH: 16.64 Free T4: 0.77 Free T3: 0.75 Total T3: 0.40 Stool OB: positive Chest xry reported: IMPRESSION: 1. Pulmonary vascular congestion. 2. Cardiomegaly. Repeat chest xry reported: IMPRESSION: Cardiomegaly with stable right lower lung opacity. Pulmonary vascular congestion. EKG revealed paced ventricular rhythm Tele reveals paced rhythm Echocardiogram reported: Left ventricle: Moderate concentric left ventricular hypertrophy was seen LVEF was 65%. There was no gross wall motion abnormality. Right ventricle was normal sized with normal systolic function. There was moderate biatrial enlargement. Pacing wire was seen in right-sided chambers. Aortic valve: Aortic valve was not well visualized. There was no aortic insufficiency/stenosis. Mild mitral valve prolapse was observed. There was mild mitral/ /tricuspid regurgitation. Pulmonary valve was not well visualized. Right ventricular systolic pressure was assessed at 36 mm Hg. IVC was normal sized with normal respiratory variation. 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 Ascending aorta was dilated at 4.3 cm. Moderate pericardial effusion was seen. There was no echocardiographic evidence for cardiac tamponade Medtronic pacemaker interrogation: Battery: Remaining Battery Longevity: 6.4 years; DDIR: 60/130; Ventricle pacin.8%; Atrial pacin.1%; Lead impedance: Atrial 380/RV 608 Ohms; Capture threshold: 1.125 volts at 0.4 milliseconds; Programmed sensitivity: 0.3 atrial/0.9 RV mV; Leads are Derrick Pacemaker itself is Medtronic; Pacemaker itself is MRI SureScan; Other devices (leads) are not MRI compatible; Normal function pacemaker Patient is a 74-year-old gentleman presented with presyncopal episode. Did have some dizziness. Does complain of abdominal pain after eating. Does have history of pacemaker which was last interrogated in July 2024. Does have history of lung cancer for around a year (as per patient and with unknown detail). He usually is on Coumadin for atrial fibrillation/flutter. He is found to have significant anemia with supratherapeutic INR. CT of the head in [facility] has a reported meningioma with osseous lesions. Being followed by Neurology. Patient is cardiac lozano, moderate risk patient for low risk EGD/Colonoscopy procedure. Cardiac lozano, you can proceed with the procedures under appropriate intra and post operative hemodynamic monitoring. Avoid Hypotension. Presyncope Anemia, severe GI bleeding Supratherapeutic INR Atrial fibrillation, atrial flutter history of Status post pacemaker implantation (Medtronic pacer with Derrick wires) Valvular heart disease CHF, diastolic Hypertension Hyperlipidemia Hypothyroidism Lung cancer, history all Abdominal pain Poor appetite s/p Gastric bypass s/p EGD anastomotic ulcer on jejunal side of gastrojejunostomy Cardiac suggestions for management: Manage on telemetry Follow up electrolytes and kidney function test and Correct abnormalities. Keep potassium above four and magnesium above two Follow up H&H Reportedly, as per GI, patient can be restarted on A/C for now Warfarin as per pharmacy protocol (Goal of INR: 2.5) May benefit from referral for watchman device (to be arranged as outpatient) Treat hypothyroidism as per primary team GI follow up Neurology follow up Further evaluation and management depends on the above and clinical course A total of 55 minutes was spent reviewing the patient record, examining the patient, making a diagnostic and therapeutic plan, discussing this plan with medical personnel, following up on diagnostic studies and following the patient for clinical stability excluding any and all procedures. At least 50% of this time was spent in direct, [id number] contact. Thank you for allowing me to participate in this patient's care. Further recommendations will depend on patient's clinical course. Please do not hesitate to contact me if you have any questions or concerns. This medical document was created using electronic medical record system with [employer] computerized dictation system. Although this document has been carefully reviewed, there may still be some phonetic and typographical errors. These areas are purely typographical due to the imperfection of the software programs, and do not reflect any compromise in the patient's medical care. Dietary Evaluation Review Comments: As tolerated, provide ensure High Protein supplements or glucerna if Blood Glucose is not controlled. Expected Outcomes/Goals: gradual wt gain, improved serum alb and proteins, improed appetite and healed wounds. Plan discussed with: Patient, Other (nurse) JADEN HERNÁNDEZ MD Dec 31, 2024 05:54
[2024-12-31] MEDS ORDERED: PANT40TA2 PO (11:15)
[2024-12-31] MEDS ORDERED: SUCR1TAB31 OR (11:15)
[2024-12-31] MEDS ORDERED: AMIO200T13 PO (11:15)
--- NOTE | 2024-12-31 11:21 | DVHDS2 ---
Discharge Summary Date of Admission Dec 23, 2024 at 03:38 Date of Discharge: Dec 31, 2024 Labs/Diagnostic Data: Laboratory Results Test 12/31/24 03:37 12/30/24 06:12 12/27/24 06:30 12/26/24 02:15 White Blood Count 6.3 10^3/uL (4.4-10.8) Red Blood Count 2.82 10^6/uL (4.5-5.90) Hemoglobin 7.9 g/dL (13.5-17.5) Hematocrit 24.3 % (41.0-53.0) Mean Corpuscular Volume 86.2 fL (80.0-100.0) Mean Corpuscular Hemoglobin 27.8 pg (28.0-32.0) Mean Corpuscular Hemoglobin Concent 32.3 g/dL (32.0-36.0) Red Cell Distribution Width 16.4 % (11.8-14.3) Platelet Count 216 10^3/uL (140-450) Mean Platelet Volume 7.9 fL (6.9-10.8) Neutrophils (%) (Auto) 80.1 % (37.0-80.0) Lymphocytes (%) (Auto) 6.9 % (10.0-50.0) Monocytes (%) (Auto) 10.7 % (0.0-12.0) Eosinophils (%) (Auto) 1.8 % (0.0-7.0) Basophils (%) (Auto) 0.5 % (0.0-2.0) Neutrophils # (Auto) 5.1 10 ^3/uL (1.6-8.6) Lymphocytes # (Auto) 0.4 10 ^3/uL (0.4-5.4) Monocytes # (Auto) 0.7 10 ^3/uL (0-1.3) Eosinophils # (Auto) 0.1 10 ^3/uL (0-0.8) Basophils # (Auto) 0 10 ^3/uL (0-0.2) Nucleated Red Blood Cells 0.0 % Sodium Level 138 mmol/L (136-145) Potassium Level 3.5 mmol/L (3.5-5.1) Chloride Level 105 mmol/L (98-107) Carbon Dioxide Level 30 mmol/L (20-31) Anion Gap 3 (5-15) Blood Urea Nitrogen 17 mg/dL (9-23) Creatinine 0.64 mg/dL (0.700-1.30) Glomerular Filtration Rate Calc 101 mL/min (>90) BUN/Creatinine Ratio 26.6 (10.0-20.0) Serum Glucose 83 mg/dL (74-106) Calcium Level 8.9 mg/dL (8.7-10.4) Magnesium Level 1.9 mg/dL (1.6-2.6) Total Bilirubin 1.2 mg/dL (0.2-1.0) Aspartate Amino Transferase (AST) 23 U/L (13-40) Alanine Aminotransferase (ALT) 14 U/L (7-40) Alkaline Phosphatase 169 U/L (46-116) Total Protein 4.4 g/dL (5.7-8.2) Albumin 2.7 g/dL (3.2-4.8) Prothrombin Time 11.2 sec (9.3-11.8) Prothrombin Time INR 1.06 (0.9-1.15) Activated Partial Thromboplast Time 30.3 SEC (24.5-34.5) Vitamin B12 Level 1315 pg/mL (211-911) Folic Acid 12.07 ng/mL (>5.38) Urine Color Light-yellow (Yellow) Urine Clarity Clear (Clear) Urine pH 6.0 (5.0-9.0) Urine Specific [place] 1.013 (1.001-1.035) Urine Protein Negative (Negative) Urine Ketones Negative (Negative) Urine Blood Negative /uL (Negative) Urine Nitrite 1+ (Negative) Urine Bilirubin Negative (Negative) Urine Urobilinogen 3 mg/dL (Negative) Urine Leukocyte Esterase 1+ /uL (Negative) Urine RBC 1 /hpf (0 - 3) Urine Microscopic WBC 15 /HPF (0-3) Urine Squamous Epithelial Cells Few /hpf (<5) Urine Bacteria Few /hpf (None Seen) Urine Mucus Few (None Seen) Urine Glucose Normal mg/dL (Normal) Test 12/24/24 00:00 12/23/24 13:49 12/23/24 04:42 Stool Occult Blood Positive (Negative) Stool Occult Blood Sample #3 (Negative) Platelet Estimate [place] Large Platelets Few Stomatocytes Few Troponin I High Sensitivity 28 ng/L (</=54) B-Type Natriuretic Peptide 118.69 pg/mL (0-100) Thyroid Stimulating Hormone (TSH) 16.64 uIU/mL (0.55-4.78) Free Thyroxine (T4) Calculated 0.77 ng/dL (0.89-1.76) Free Triiodothyronine (T3) pg/mL 0.75 pg/mL (2.3-4.2) Total Triiodothyronine (TT3) 0.40 ng/mL (0.60-1.81) Other Laboratory Tests 12/31/24 03:37 Brief Hx & Hospital Course: Final diagnoses: Acute anemia due to blood loss Coagulopathy due to warfarin Atrial fibrillation Presyncope due to severe anemia Severe anemia due to blood loss Most likely GI bleed History of pacemaker placement Diastolic heart failure Hypertension Dyslipidemia Hypothyroidism , uncontrolled History of lung cancer Moderate protein malnutrition He was admitted for GI bleed and had to be given fresh frozen plasma and frequent RBCs transfusions due to his anemia and elevated INR. He was also given vitamin K GI recommended endoscopy which showed a 2 cm anastomotic ulcer on the jejunal side of the gastro jejunostomy and mild gastritis He was given IV Protonix and octreotide He was given p.o. Lasix GI recommended Protonix and Carafate Coumadin was held Cardiology clearance the patient also Overall he did okay but he was weak and therefore physical therapy saw the patient and he did well with physical therapy We ordered home health for him to go home with since he lives alone The patient is stable for discharge today on Protonix 40 mg daily and Carafate 4 times a day in addition to his regular home medications and amiodarone 200 mg daily Regulate Coumadin dose as an outpatient to a goal of 2.5 Follow up with his primary care physician as soon as possible and with the Cardiology as an outpatient Condition at Discharge: Stable Final Diagnosis/Problems List Acute anemia due to blood loss Coagulopathy due to warfarin Atrial fibrillation Presyncope due to severe anemia Severe anemia due to blood loss Most likely GI bleed History of pacemaker placement Diastolic heart failure Hypertension Dyslipidemia Hypothyroidism , uncontrolled History of lung cancer Moderate protein malnutrition Discharge Disposition: Home with Health Services SNF Discharge Will this Physician continue t: No Discharge Statement: "Patient was advised to return to the ER or call 911 if any headaches, dizziness, shortness of breath, chest pain, abdominal pain, bleeding, fevers, or worsening of medical condition. Patient was counseled about treatment plan, medications, possible side effects, patientverbalized understanding. All questions were answered to the best of my ability. This discharge took greater then 30 minutes in planning, reviewing documentation, counseling the patient, and discussing with other team members." ASSESSMENT ASSESSMENT Assessment Date of Service: Dec 31, 2024 Billing Provider: CHARO PAULSON MD Common Visit Codes: 60995-OAA/OBS DISCH DAY >30min CHARO PAULSON MD Dec 31, 2024 11:21
[2024-12-31] MEDS: MILK OF MAGNESIA 30ML SUSP PO ONE (12:29)
[2024-12-31] MEDS: POLYETHYLENE GLYCOL 17 GM PWDR PO ONE (12:30)
--- NOTE | 2024-12-31 15:26 | DVHPN2 ---
Progress Note Date Seen: Dec 31, 2024 Resident Creating Document: SMITA DASILVA RESIDENT Medical Necessity Reason Pt with a Central, PICC or Fol: No Subjective Review of Systems Patient seen and examined at bedside. No new complaints. Objective vital signs Vital Sign Date Time Temp Pulse Resp B/P (MAP) Pulse Ox O2 Delivery O2 Flow Rate FiO2 12/31/24 12:30 98.4 63 18 101/60 (74) 96 98.4 12/31/24 08:00 Room Air* 0 21 Total Intake and Output 12/30/24 12/30/24 12/31/24 15:00 23:00 07:00 Intake Total 300 ml 800 ml Output Total 800 ml Balance -500 ml 800 ml medications Current Medications Medications Dose Ordered Sig/Yasir Route Start Time Stop Time Status Last Admin Dose Admin Ondansetron HCl 4 mg Q4HP PRN IV 12/23/24 04:15 Acetaminophen 650 mg Q6HP PRN PO 12/23/24 04:15 12/30/24 18:17 650 MG Furosemide 40 mg DAILY PO 12/23/24 10:00 12/31/24 12:29 40 MG Levothyroxine Sodium 75 mcg QAM@0600 PO 12/23/24 06:00 12/31/24 05:12 75 MCG Tamsulosin HCl 0.4 mg QPM PO 12/23/24 18:00 12/30/24 18:16 0.4 MG Bupropion HCl 150 mg BID@07,19 PO 12/23/24 07:00 12/31/24 06:17 150 MG Amiodarone HCl 200 mg DAILY PO 12/23/24 10:00 12/31/24 09:08 200 MG Atorvastatin Calcium 20 mg HS PO 12/23/24 22:00 12/30/24 21:31 20 MG Sucralfate 1 gm TID@0600,1130,2200 PO 12/24/24 22:00 12/31/24 11:02 1 GM Pantoprazole Sodium 40 mg BID IV 12/26/24 10:00 12/31/24 09:08 40 MG Midodrine 10 mg TID@0600,1200,1800 PO 12/28/24 06:00 12/31/24 12:29 10 MG Warfarin Sodium RX PROTOCOL ... PER PHARMACY PO 12/29/24 17:30 Docusate Sodium 100 mg BID PO 12/30/24 22:00 12/31/24 09:08 100 MG Examination General Appearance: Cooperative. Well developed. Well nourished. NAD Head Exam: Normal inspection Neck Exam: Normal inspection. Non-tender. Normal alignment Pulmonary/Respiratory: Chest non-tender. Clear bilateral breath sounds Cardiovascular/Chest: Regular rate and rhythm. No murmurs. No JVD. Peripheral Pulses: 2+ Radial (R). 2+ Radial (L). 2+ Pedal (R). 2+ Pedal (L) Abdominal Exam: Normal bowel sounds. Soft. Nontender. No hepatospenomegaly. No masses Ankle Exam: Negative ankle edema Lower extremities: Negative lower extremity edema Neuro/Mental Status: A&O x4. Coherent Thoughts/Psych: Normal thought pattern. Appropriate mood and affect. Good judgement and insight Appearance: In no acute distress Skin Exam: Normal inspection. Normal color. Warm. Dry laboratory and microbiology Laboratory Tests 12/31/24 03:37 Test 12/31/24 03:37 Range/Units Serum Glucose 83 74-106 mg/dL Microbiology Date/Time Source Procedure Growth Status 12/23/24 07:00 Nose MRSA Screen - Final Complete Problem List/Assessment/Plan Problem List/Assessment/Plan Anastomotic ulcer on jejunal side of gastrojejunostomy Mild gastritis Erosive esophagitis Acute severe anemia due to blood loss likely due to warfarin Atrial fibrillation with secondary hypercoagulable state History of lung cancer Syncope ? Due to severe anemia EGD on 12/26/24 demonstrated Patient had a 2 cm anastomotic ulcer on the jejunal side of the gastrojejunostomy with no visible vessel or active bleeding and there was a small red dot at the edge of the ulcer, mild gastritis of the small gastric remnant; mild grade a erosive esophagitis with no significant hiatal hernia and otherwise normal examination up to the efferent and afferent loop of a gastric bypass surgery Plan/recommendation Dr Ca PLAN: 1. Await for biopsy result 2. Will place pt on Protonix 40 mg bid 3. Carafate 1 g p.o. 4 times a day 4. DC aspirin NSAIDs smoking alcohol 5. Outpatient follow up with me upon discharge to discuss elective colonoscopy 6. This patient will likely need to be maintained on iron and B12 because of his previous gastrojejunostomy -continue with Protonix 40 mg b.id and carafate 1 gm po t.i.d for atleast 6 month -hemoglobin is stable, continue to monitor H and H q.12. -received 7 units PRBCs and 3 units of FFP till now. Continue to monitor H&H and coagulation panel. -given vitamin K 10 mg IV once. -we will continue to monitor patient closely. Plan discussed with: Patient, Other (RN) Dietary Evaluation Review Comments: As tolerated, provide ensure High Protein supplements or glucerna if Blood Glucose is not controlled. Expected Outcomes/Goals: gradual wt gain, improved serum alb and proteins, improed appetite and healed wounds. SMITA DASILVA RESIDENT Dec 31, 2024 15:26
--- NOTE | 2024-12-31 23:05 | DVHPN2 ---
Progress Note - Dictate Date Seen: Dec 31, 2024 Medical Necessity Reason Pt with a Central, PICC or Fol: No Subjective Mr. Tapia is a 74 years old right-handed gentleman with a history of hypertension, atrial fibrillation on Coumadin, congestive heart failure, lung cancer, lymphatic edema, the patient was transferred from [facility] for a chief company of syncope I have seen and examined the patient, I have talked to his nurse, he was doing fine, no new complaints Blood pressure on the low side [facility] 12/22/24: He called the EMS due to experiencing dizziness at home, on arrival EMS the witnessed patient was have a syncopal episode. Patient was denies chest pain and SOB. No other symptoms or modifying factors at this time PT/INR/APTT, 12/22/2024: 147/13.33/58.5, 12/26/2024: 12.1/1.16/30.4, 12/27/24: 11.9/1.14/30.8 CT head, 12/22/2024: No acute intracranial abnormality. A 1.5 cm benign appearing left frontal extra-axial mass most likely meningioma, this can be further evaluated with MR brain without and with IV contrast on a non emergency basis. A subcentimeter ground-glass osseous lesion with with endosteal scalloping in the right side of the frontal bone. Recommend additional brain MRI with and without IV contrast Stool occult blood 12/24/24: Positive WBC/HB/PLT/MCV, 12/23/2024: 7.8/4.9/221/82.9, 12/23/2024: 7.8/5.9/218/84.8 PT/INR/PTT, 12/23/2024: 30.4/4.17/47.4, 12/23/2024: 47/5.22/50.2, 12/25/2024: 13.5/1.34/34.1 BUN/CR, 12/23/2024: 40/0.76, 44/0.74 Liver function tests, 12/23/2024: Unremarkable TSH, 12/23/2024: 16.64 FT4, 12/23/2024: 0.77 EEG, 12/26/2024: Mildly abnormal Chest x-ray, 12/23/2024: Cardiomegaly with stable right lower lung opacity. Pulmonary vascular congestion vital signs Vital Sign Date Time Temp Pulse Resp B/P (MAP) Pulse Ox O2 Delivery O2 Flow Rate FiO2 12/31/24 21:00 99.7 61 17 92/52 (65) 94 99.7 12/31/24 20:00 Room Air* 0 21 Total Intake and Output 12/30/24 12/30/24 12/31/24 15:00 23:00 07:00 Intake Total 300 ml 800 ml Output Total 800 ml Balance -500 ml 800 ml medications Current Medications Medications Dose Ordered Sig/Yasir Route Start Time Stop Time Status Last Admin Dose Admin Ondansetron HCl 4 mg Q4HP PRN IV 12/23/24 04:15 Acetaminophen 650 mg Q6HP PRN PO 12/23/24 04:15 12/30/24 18:17 650 MG Furosemide 40 mg DAILY PO 12/23/24 10:00 12/31/24 12:29 40 MG Levothyroxine Sodium 75 mcg QAM@0600 PO 12/23/24 06:00 12/31/24 05:12 75 MCG Tamsulosin HCl 0.4 mg QPM PO 12/23/24 18:00 12/31/24 17:35 0.4 MG Bupropion HCl 150 mg BID@07,19 PO 12/23/24 07:00 12/31/24 18:26 150 MG Amiodarone HCl 200 mg DAILY PO 12/23/24 10:00 12/31/24 09:08 200 MG Atorvastatin Calcium 20 mg HS PO 12/23/24 22:00 12/31/24 21:08 20 MG Sucralfate 1 gm TID@0600,1130,2200 PO 12/24/24 22:00 12/31/24 21:08 1 GM Pantoprazole Sodium 40 mg BID IV 12/26/24 10:00 12/31/24 21:08 40 MG Midodrine 10 mg TID@0600,1200,1800 PO 12/28/24 06:00 12/31/24 17:35 10 MG Warfarin Sodium RX PROTOCOL ... PER PHARMACY PO 12/29/24 17:30 Docusate Sodium 100 mg BID PO 12/30/24 22:00 12/31/24 21:08 100 MG objective General: the patient is well developed and nourished. No acute distress. MUSCULOSKELETAL EXAM: Edema and the depigmentation in both legs, with a left- sided more affected MENTAL STATUS: Awake and alert. Oriented to person, place, time. Poor historian SPEECH, LANGUAGE, HIGHER CORTICAL FUNCTION: no aphasia or dysathria. CRANIAL NERVES: Pupils are equal, round and reactive. EOMs full and conjugate. Mild bilateral gaze evoked nystagmus. Facial sensation intact in all three divisions bilaterally. Mandibular strength intact. Facial muscles symmetrical and strength intact. SENSATION: Sensation to touch and pinprick is normal. MOTOR: Normal tone in the upper and lower extremity. Normal muscle bulk. No fasciculations. No abnormal movements or posturing. Muscle strength of the major groups in the extremities is 4/5. REFLEXES: Deep tendon reflexes normal and symmetrical. No pathological reflexes. CEREBELLAR/COORDINATION: Finger to nose is normal bilaterally. GAIT/STATION: deferred. laboratory and microbiology Laboratory Tests 12/31/24 03:37 Test 12/31/24 03:37 Range/Units Serum Glucose 83 74-106 mg/dL Problem List Syncopal event x3, likely related to his acute severe anemia Acute severe anemia, likely secondary to coagulopathy Coagulopathy secondary to Coumadin treatment Rule out GI bleeding Hypothyroidism Abnormal brain CT scan Meningioma Skull osseous lesion Lymphatic edema Assessment/Plan Monitoring Supportive treatment Telemetry Follow-up labs Follow up EEG MRI brain pacemaker is not MR compatible Hold off anticoagulation treatment Consider Watchman on him Blood transfusion Frozen fresh plasma transfusion Up to chair Physical therapy Cardiology on case GI on case More recommendation per clinical course This medical document was created using an electronic medical record system with [employer] dictation system. Although this document has been carefully reviewed, there may still be some phonetic and typographical errors. These areas are purely typographical due to imperfections of the software programs, and do not reflect any compromise in the patient's medical care. Prognosis poor Dietary Evaluation Review Comments: As tolerated, provide ensure High Protein supplements or glucerna if Blood Glucose is not controlled. Expected Outcomes/Goals: gradual wt gain, improved serum alb and proteins, improed appetite and healed wounds. Plan discussed with: Other NEHEMIAS GUTHRIE MD Dec 31, 2024 23:05
[2025-01-01 01:00] VITALS: BP 94/56; PULSE 62; RESP 17; TEMP 99.1; O2SAT 96
[2025-01-01 05:00] VITALS: BP 101/60; PULSE 61; RESP 18; TEMP 98.7; O2SAT 94
--- NOTE | 2025-01-01 07:03 | DVHPN2 ---
Progress Note - Dictate Date Seen: Jan 01, 2025 Medical Necessity Reason Pt with a Central, PICC or Fol: No vital signs Vital Sign Date Time Temp Pulse Resp B/P (MAP) Pulse Ox O2 Delivery O2 Flow Rate FiO2 01/01/25 05:00 98.7 61 18 101/60 (74) 94 98.7 12/31/24 20:00 Room Air* 0 21 Total Intake and Output 12/31/24 12/31/24 01/01/25 15:00 23:00 07:00 Intake Total 536 ml 750 ml Output Total 800 ml Balance 536 ml -50 ml medications Current Medications Medications Dose Ordered Sig/Yasir Route Start Time Stop Time Status Last Admin Dose Admin Ondansetron HCl 4 mg Q4HP PRN IV 12/23/24 04:15 Acetaminophen 650 mg Q6HP PRN PO 12/23/24 04:15 12/30/24 18:17 650 MG Furosemide 40 mg DAILY PO 12/23/24 10:00 12/31/24 12:29 40 MG Levothyroxine Sodium 75 mcg QAM@0600 PO 12/23/24 06:00 01/01/25 06:02 75 MCG Tamsulosin HCl 0.4 mg QPM PO 12/23/24 18:00 12/31/24 17:35 0.4 MG Bupropion HCl 150 mg BID@,19 PO 12/23/24 07:00 01/01/25 06:02 150 MG Amiodarone HCl 200 mg DAILY PO 12/23/24 10:00 12/31/24 09:08 200 MG Atorvastatin Calcium 20 mg HS PO 12/23/24 22:00 12/31/24 21:08 20 MG Sucralfate 1 gm TID@0600,1130,2200 PO 12/24/24 22:00 01/01/25 06:02 1 GM Pantoprazole Sodium 40 mg BID IV 12/26/24 10:00 12/31/24 21:08 40 MG Midodrine 10 mg TID@0600,1200,1800 PO 12/28/24 06:00 01/01/25 06:02 10 MG Warfarin Sodium RX PROTOCOL ... PER PHARMACY PO 12/29/24 17:30 Docusate Sodium 100 mg BID PO 12/30/24 22:00 12/31/24 21:08 100 MG laboratory and microbiology Laboratory Tests 12/31/24 03:37 Test 12/31/24 03:37 Range/Units Serum Glucose 83 74-106 mg/dL Assessment/Plan Patient is a 74-year-old gentleman who was transferred from [facility] Emergency room for further evaluation to our hospital. Originally, the patient presented to other Hospital for presyncopal episodes. He was somehow dizzy for few days. He mentions that is he had less stamina going back for few days. He also has been experiencing abdominal pain after eating and his appetite has decreased. Denies chest pain. Denies nausea and vomiting. Denies diarrhea. Cardiology was involved for cardiac aspects of care. Patient is known to our practice from outside than before. Does have a pacemaker which was interrogated last in July 2024. In [facility] emergency room, the patient was found to have significant anemia and reportedly did receive blood transfusion. In [facility], CT of the head had revealed questionable meningioma and also RCA lesion in frontal bone. It also reported severe chronic muscle sinusitis. Frail gentleman. Not in acute distress. Lying flat in bed. No JVD. Mucosa is wet. Not using accessory muscles of breathing. Lungs are clear to auscultation. Cardiac: Regular, no thrill. Systolic murmur 2/6 in the apex is heard. Abdomen is soft. Mild periumbilical tenderness is elicited. Bowel sounds positive. Extremities reveal 2+ edema bilaterally. Dorsalis pedis is 1+ bilateral Past medical history includes hypertension, hyperlipidemia, diastolic heart failure, valvular heart disease, history of mitral valve prolapse, pulmonary hypertension, atrial fibrillation/atrial flutter (on Coumadin as outpatient), status post atrial flutter ablation, status post pacemaker (Medtronic pacer, Derrick wires), DJD, s/p gastric bypass and hypothyroidism. As per patient, the patient was diagnosed with lung cancer less than a year ago for which has received radiation therapy. Nuclear stress test of November 2019 (performed in the office) revealed scar but no ischemia. Ejection fraction was 58% at that point. Hemoglobin: 4.9 - 5.9 - 5.7 - 7.6 - 7.0 - 7.3 - 7.1 - 8.0 - 8.1 - 8.2 - 8.3 - 7.6 - 7.3 - 8.2 - 7.9 INR: 4.17 - 5.22 - 2.70 - 1.34 - 1.16 - 1.14 - 1.06 Creatinine: 0.76 - 0.74 - 0.73 - 0.64 - 0.54 - 0.60 - 0.73 - 0.66 - 0.61 - 0.64 Potassium: 3.7 - 3.4 - 3.6 - 3.5 - 3.4 - 3.2 - 3.1 - 3.6 - 3.5 Troponin (high sensitive): 28 BNP: 118.68 TSH: 16.64 Free T4: 0.77 Free T3: 0.75 Total T3: 0.40 Stool OB: positive Chest xry reported: IMPRESSION: 1. Pulmonary vascular congestion. 2. Cardiomegaly. Repeat chest xry reported: IMPRESSION: Cardiomegaly with stable right lower lung opacity. Pulmonary vascular congestion. EKG revealed paced ventricular rhythm Tele reveals paced rhythm Echocardiogram reported: Left ventricle: Moderate concentric left ventricular hypertrophy was seen LVEF was 65%. There was no gross wall motion abnormality. Right ventricle was normal sized with normal systolic function. There was moderate biatrial enlargement. Pacing wire was seen in right-sided chambers. Aortic valve: Aortic valve was not well visualized. There was no aortic insufficiency/stenosis. Mild mitral valve prolapse was observed. There was mild mitral/ /tricuspid regurgitation. Pulmonary valve was not well visualized. Right ventricular systolic pressure was assessed at 36 mm Hg. IVC was normal sized with normal respiratory variation. 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 Ascending aorta was dilated at 4.3 cm. Moderate pericardial effusion was seen. There was no echocardiographic evidence for cardiac tamponade Medtronic pacemaker interrogation: Battery: Remaining Battery Longevity: 6.4 years; DDIR: 60/130; Ventricle pacin.8%; Atrial pacin.1%; Lead impedance: Atrial 380/RV 608 Ohms; Capture threshold: 1.125 volts at 0.4 milliseconds; Programmed sensitivity: 0.3 atrial/0.9 RV mV; Leads are Derrick Pacemaker itself is Medtronic; Pacemaker itself is MRI SureScan; Other devices (leads) are not MRI compatible; Normal function pacemaker Patient is a 74-year-old gentleman presented with presyncopal episode. Did have some dizziness. Does complain of abdominal pain after eating. Does have history of pacemaker which was last interrogated in July 2024. Does have history of lung cancer for around a year (as per patient and with unknown detail). He usually is on Coumadin for atrial fibrillation/flutter. He is found to have significant anemia with supratherapeutic INR. CT of the head in [facility] has a reported meningioma with osseous lesions. Being followed by Neurology. Patient is cardiac lozano, moderate risk patient for low risk EGD/Colonoscopy procedure. Cardiac lozano, you can proceed with the procedures under appropriate intra and post operative hemodynamic monitoring. Avoid Hypotension. Presyncope Anemia, severe GI bleeding Supratherapeutic INR Atrial fibrillation, atrial flutter history of Status post pacemaker implantation (Medtronic pacer with Derrick wires) Valvular heart disease CHF, diastolic Hypertension Hyperlipidemia Hypothyroidism Lung cancer, history all Abdominal pain Poor appetite s/p Gastric bypass s/p EGD anastomotic ulcer on jejunal side of gastrojejunostomy Cardiac suggestions for management: Manage on telemetry Follow up electrolytes and kidney function test and Correct abnormalities. Keep potassium above four and magnesium above two Follow up H&H Reportedly, as per GI, patient can be restarted on A/C for now Warfarin as per pharmacy protocol (Goal of INR: 2.5) May benefit from referral for watchman device (to be arranged as outpatient) Treat hypothyroidism as per primary team Cardiac lozano, stable Further evaluation and management depends on the above and clinical course A total of 55 minutes was spent reviewing the patient record, examining the patient, making a diagnostic and therapeutic plan, discussing this plan with medical personnel, following up on diagnostic studies and following the patient for clinical stability excluding any and all procedures. At least 50% of this time was spent in direct, [id number] contact. Thank you for allowing me to participate in this patient's care. Further recommendations will depend on patient's clinical course. Please do not hesitate to contact me if you have any questions or concerns. This medical document was created using electronic medical record system with [employer] computerized dictation system. Although this document has been carefully reviewed, there may still be some phonetic and typographical errors. These areas are purely typographical due to the imperfection of the software programs, and do not reflect any compromise in the patient's medical care. Dietary Evaluation Review Comments: As tolerated, provide ensure High Protein supplements or glucerna if Blood Glucose is not controlled. Expected Outcomes/Goals: gradual wt gain, improved serum alb and proteins, improed appetite and healed wounds. Plan discussed with: Patient, Other (nurse) JADEN HERNÁNDEZ MD Jan 01, 2025 07:03
[2025-01-01 08:00] VITALS: RESP 19
[2025-01-01 08:43] VITALS: BP 105/62; TEMP 37.1
[2025-01-01 09:00] VITALS: BP 107/69; PULSE 62; RESP 16; TEMP 98.6; O2SAT 97
== END 2025-01-01 10:45 | disposition home health service (06) | DRG 811 ==
LOC: TELE-WESTW 03:38 → OVERFLOW 15:47 → WEST WING 16:01 → OVERFLOW 12-24 13:25 → TELE-WESTW 12-24 13:43
PROVIDERS: ADMIT Internal Medicine Geriatric Medicine; ATTEND Internal Medicine Geriatric Medicine
PROC: 30233K1 Transfusion of Nonautologous Frozen Plasma into Peripheral Vein, Percutaneous Approach (ICD-10-PCS; 2024-12-23)
PROC: 30233N1 Transfusion of Nonautologous Red Blood Cells into Peripheral Vein, Percutaneous Approach (ICD-10-PCS; 2024-12-23)
PROC: 4B02XSZ Measurement of Cardiac Pacemaker, External Approach (ICD-10-PCS; 2024-12-23)
PROC: 0DB88ZX Excision of Small Intestine, Via Natural or Artificial Opening Endoscopic, Diagnostic (ICD-10-PCS; 2024-12-26)
PROC: 0DB68ZX Excision of Stomach, Via Natural or Artificial Opening Endoscopic, Diagnostic (ICD-10-PCS; principal; 2024-12-26 08:50)
DX: D62 Acute posthemorrhagic anemia (principal); K22.11 Ulcer of esophagus with bleeding; K29.71 Gastritis, unspecified, with bleeding; E44.0 Moderate protein-calorie malnutrition; I50.32 Chronic diastolic (congestive) heart failure; D68.69 Other thrombophilia; I48.92 Unspecified atrial flutter; D32.9 Benign neoplasm of meninges, unspecified; I11.0 Hypertensive heart disease with heart failure; I48.91 Unspecified atrial fibrillation; T45.515A Adverse effect of anticoagulants, initial encounter; K59.00 Constipation, unspecified; E03.9 Hypothyroidism, unspecified; E78.5 Hyperlipidemia, unspecified; M89.9 Disorder of bone, unspecified; I08.1 Rheumatic disorders of both mitral and tricuspid valves; Z68.30 Body mass index [BMI] 30.0-30.9, adult; Z96.653 Presence of artificial knee joint, bilateral; Z86.73 Personal history of transient ischemic attack (TIA), and cerebral infarction without residual deficits; Z79.899 Other long term (current) drug therapy; Z79.01 Long term (current) use of anticoagulants; Z95.0 Presence of cardiac pacemaker; Z85.118 Personal history of other malignant neoplasm of bronchus and lung; Z92.3 Personal history of irradiation; Z98.84 Bariatric surgery status; Y92.89 Other specified places as the place of occurrence of the external cause
CPT/HCPCS: 36415; 71045; 80048; 80053; 81001; 82270; 82565; 82607; 82746; 83735; 83880; 84436; 84439; 84443; 84480; 84481; 84484; 85014; 85018; 85025; 85610; 85730; 86850; 86900; 86901; 86920; 87081; 93005; 93306; 95819; 97110; 97116; 97163; G0378; J2250; J2470; J3430

== ENCOUNTER → 2025-01-07 | Outpatient (CLI) | payer MEDICAID ==
[~2025-01-07] MED LIST changes: +AMIO200T13 PO; +PANT40TA2 PO; +SUCR1TAB31 OR; -[UNRECOGNIZED DRUG - CODE] PO
[2025-01-07 16:06] LABS: INR 1.06 (0.9-1.15); Prothrombin Time 11.2 sec (9.3-11.8)
== END | disposition home or self-care (01) ==
LOC: LAB 15:15
PROVIDERS: ATTEND Specialist
DX: R79.1 Abnormal coagulation profile (principal)
CPT/HCPCS: 36415; 85610

== ENCOUNTER → 2025-01-12 | Outpatient (CLI) | payer MEDICAID ==
[2025-01-12 15:48] LABS: INR 1.38 (0.9-1.15); Prothrombin Time 14.2 sec (9.3-11.8)
== END | disposition home or self-care (01) ==
LOC: LAB 15:20
PROVIDERS: ATTEND Specialist
DX: R79.1 Abnormal coagulation profile (principal)
CPT/HCPCS: 36415; 85610

== ENCOUNTER → 2025-01-21 | Outpatient (CLI) | payer MEDICAID ==
[2025-01-21 15:00] LABS: Prothrombin Time 39.4 sec (9.3-11.8)
[2025-01-21 16:21] LABS: INR 4.29 (0.9-1.15)
== END | disposition home or self-care (01) ==
LOC: LAB 14:22
PROVIDERS: ATTEND Specialist
DX: R79.1 Abnormal coagulation profile (principal)
CPT/HCPCS: 36415; 85610

== ENCOUNTER → 2025-01-23 | Outpatient (CLI) | payer MEDICAID ==
[2025-01-23 09:55] LABS: Urine Amorphous Crystal FEW /hpf (None Seen); Urine Bacteria FEW /hpf (None Seen); Urine Blood Negative /uL (Negative); Urine Clarity Ex.Turbid (Clear); Urine Color Dark-Yellow (Yellow); Urine Mucus FEW (None Seen); Urine Protein, UAD TRACE (Negative); Urine Specific Gravity 1.023 (1.001-1.035); Urine Squamous Epithelial Cell FEW /hpf (<5); Urine Urobilinogen 4 mg/dL (Negative); Urine WBC 9 /HPF (0-3)
== END | disposition home or self-care (01) ==
LOC: LAB 06:28
PROVIDERS: ATTEND Urology
DX: R32 Unspecified urinary incontinence (principal)
CPT/HCPCS: 81001; 87086; 87088; 87186

== ENCOUNTER → 2025-02-05 | Outpatient (CLI) | payer MEDICAID ==
[2025-02-05 13:27] LABS: Basophils # (auto) 0 10 ^3/uL (0-0.2); Basophils % (auto) 0.3 % (0.0-2.0); Eosinophils # (auto) 0 10 ^3/uL (0-0.8); Eosinophils % (auto) 0.5 % (0.0-7.0); Hemoglobin 10.4 g/dL (13.5-17.5); Neutrophils # (auto) 5.9 10 ^3/uL (1.6-8.6)
[2025-02-05 13:28] LABS: Hematocrit 33.1 % (41.0-53.0); Lymphocytes # (auto) 0.4 10 ^3/uL (0.4-5.4); Mean Corpuscular Hgb Conc. 31.4 g/dL (32.0-36.0); Mean Corpuscular Volume 79.5 fL (80.0-100.0); Monocytes # (auto) 0.5 10 ^3/uL (0-1.3); Monocytes % (auto) 7.3 % (0.0-12.0); Neutrophils % (auto) 85.9 % (37.0-80.0); Platelet Count (auto) 319 10^3/uL (140-450); Red Blood Cells 4.16 10^6/uL (4.5-5.90); Red Cell Distribution Width 17.4 % (11.8-14.3); White Blood Cell 6.9 10^3/uL (4.4-10.8)
[2025-02-05 13:46] LABS: INR 2.24 (0.9-1.15); Prothrombin Time 21.9 sec (9.3-11.8)
[2025-02-05 14:42] LABS: Alanine Aminotransferase 23 U/L (7-40); Albumin 3.9 g/dL (3.2-4.8); Anion Gap 7 (5-15); BUN/Creatinine Ratio 20.8 (10.0-20.0); Bilirubin, Direct 0.3 mg/dL (<0.3); Blood Urea Nitrogen 16 mg/dL (9-23); Cholesterol 144 mg/dL (< 200); Glucose 106 mg/dL (74-106); LDL Cholesterol 49 mg/dL (< 100); Potassium 3.5 mmol/L (3.5-5.1); Sodium 138 mmol/L (136-145); Total Protein 6.8 g/dL (5.7-8.2); Triglycerides 73 mg/dL (< 150)
[2025-02-05 14:43] LABS: Bilirubin, Total 0.6 mg/dL (0.2-1.0)
[2025-02-05 14:45] LABS: Alkaline Phosphatase 290 U/L (46-116); Aspartate Aminotransferase 42 U/L (13-40); Calcium 11.4 mg/dL (8.7-10.4); Carbon Dioxide 34 mmol/L (20-31); Chloride 97 mmol/L (98-107); HDL Cholesterol 70 mg/dL (40-59)
== END | disposition home or self-care (01) ==
LOC: LAB 12:53
PROVIDERS: ATTEND Specialist
DX: I10 Essential (primary) hypertension (principal); E11.9 Type 2 diabetes mellitus without complications; E03.9 Hypothyroidism, unspecified; E78.5 Hyperlipidemia, unspecified; D64.9 Anemia, unspecified; R68.89 Other general symptoms and signs
CPT/HCPCS: 36415; 80053; 80061; 82248; 84443; 85025; 85610

== ENCOUNTER 2025-02-18 17:03 | Inpatient (IN) | payer MEDICAID ==
[~2025-02-18] VITALS: Ht 172.7 cm; Wt 108.0 kg
--- NOTE | 2025-02-18 17:21 | ED.PDOC ---
History of Present Illness HPI Comments 74 year old male GEOVANY presents to the ED with chief complaint of generalized weakness. Patient reports that he was discharged from [facility] in 01/02/25, however, since then he has been experiencing increased generalized weakness, poor appetite, and constipation. Patient relays that he hardly eats, now only making salads and drinking protein shakes. Patient notes he lives all alone. Patient denies any chest pain, SOB, fever, chills, dizziness, headache, or N/V/D. 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, Medications, Allergies Allergies: Coded Allergies: NO KNOWN ALLERGIES (Unverified , 04/18/24) Home Meds Active Scripts Sucralfate (CARAFATE) 1 Gm Tab, 1 GM OR QIDACHS for 30 Days, #120 TAB 3 Refills Prov:CHARO PAULSON MD 12/31/24 Pantoprazole Sodium Sesquihydr (Protonix) 40 Mg Tab, 40 MG PO DAILY for 30 Days, #30 TAB 3 Refills Prov:CHARO PAULSON MD 12/31/24 Amiodarone HCl (Amiodarone HCl) 200 Mg Tab, 200 MG PO DAILY for 30 Days, #30 TAB 4 Refills Prov:CHARO PAULSON MD 12/31/24 Reported Medications Tamsulosin Hcl (Tamsulosin Hcl) 0.4 Mg Cap, 0.4 MG PO QPM 04/18/24 Alendronate Sodium (Alendronate Sodium) 35 Mg Tab, 2 TAB PO QWEEKLY 04/18/24 Warfarin Sodium (Warfarin Sodium) 3 Mg Tab, 3 MG PO MWF for mon,wed,fri,sun 04/18/24 Warfarin Sodium (Warfarin Sodium) 2 Mg Tab, 2 MG PO TUTHSA for afib 04/18/24 Hydrocodone-Acetaminophen (Hydrocodone Bitartrate/AC 5-325 mg) 1 Tab Tab, 1 TAB PO PRN 04/18/24 Levothyroxine Sodium (Levothyroxine Sodium) 150 Mcg Tab, 75 MCG PO QAM 04/18/24 Cholecalciferol (VITAMIN D3) 2,000 Unit Tab, 125 MCG PO DAILY 04/18/24 Pravastatin Sodium (PRAVACHOL TABLET) 20 Mg Tb, 1 TAB PO DAILY 04/18/24 Furosemide (Lasix) 40 Mg Tab, 40 MG PO BID 04/18/24 Bupropion HCl (Bupropion HCl ER) 200 Mg Tab, 300 MG PO DAILY, TAB 04/18/24 Information Source: Patient, Emergency Med Personnel Mode of Arrival: EMS Severity: Moderate Timing: Weeks Duration: Since onset Prehospital treatment: None Past Medical History PAST MEDICAL HISTORY: AFIB, Cancer, High Lipids, [place] Past Medical History (Other): Emphysema Surgical History: Hernia Repair, Pacemaker Surgical History (Other): Cataracts, Bilateral knee surgery Family History Family History: Reviewed,noncontributory to illness Social History Alcohol: Rarely Drugs: Denies Drug Use Lives In: Home Constitutional: reports: weakness; denies: chills, diaphoresis, fatigue, fever, malaise, sweats, others EENTM: denies: blurred vision, double vision, ear bleeding, ear discharge, ear drainage, ear pain, ear ringing, eye pain, eye redness, hearing loss, mouth pain, mouth swelling, nasal discharge, nose bleeding, nose congestion, nose pain, photophobia, tearing, throat pain, throat swelling, voice changes, others Respiratory: denies: cough, hemoptysis, orthopnea, SOB at rest, shortness of breath, SOB with excertion, stridor, wheezing, others Cardiovascular: denies: chest pain, dizzy spells, diaphoresis, Dyspnea on exertion, edema, irregular heart beat, left arm pain, lightheadedness, palpitations, PND, syncope, others Gastrointestinal: reports: constipated, poor appetite; denies: abdomen distended, abdominal pain, blood streaked bowels, diarrhea, dysphagia, difficulty swallowing, hematemesis, melena, nausea, poor fluid intake, rectal bleeding, rectal pain, vomiting, others Genitourinary: denies: burning, dysuria, flank pain, frequency, hematuria, i ncontinence, penile discharge, penile sore, pain, testicle pain, testicle swelling, urgency, others Neurological: denies: dizziness, fainting, headache, left sided numbness, left sided weakness, numbness, paresthesia, pre-existing deficit, right sided numbness, right sided weakness, seizure, speech problems, tingling, tremors, weakness, others Musculoskeletal: denies: back pain, gout, joint pain, joint swelling, muscle pain, muscle stiffness, neck pain, others Integumetry: denies: bruises, change in color, change in hair/nails, dryness, laceration, lesions, lumps, rash, wounds, others Allergic/Immunocompromised: denies: Difficulty Healing, Frequent Infections, Hives, Itching, others Hematologic/Lymphatic: denies: anemia, blood clots, easy bleeding, easy bruising, swollen glands, others Endocrine: denies: excessive hunger, excessive sweating, excessive thirst, excessive urination, flushing, intolerance to cold, intolerance to heat, unexplained weight gain, unexplained weight loss, others Psychiatric: denies: anxiety, bipolar disorder, depression, hopeless, panic disorder, schizophrenia, sleepless, suicidal, others All Other Systems: Reviewed and Negative Physical Exam General Appearance: Moderate Distress, Other (Somewhat bordering on cachectic) HEENT: Normal ENT Inspection, Pharynx Normal, TMs Normal Neck: Full Range of Motion, Non-Tender, Normal, Normal Inspection Respiratory: Chest Non-Tender, Lungs Clear, No Accessory Muscle Use, No Respiratory Distress, Normal Breath Sounds Cardiovascular: No Edema, No JVD, No Murmur, No Gallop, Normal Peripheral Pulses, Regular Rate/Rhythm Breast Exam: Deferred Gastrointestinal: No Organomegaly, Non Tender, No Pulsatile Mass, Normal Bowel Sounds, Soft Genitalia: Deferred Pelvic: Deferred Rectal: Deferred Extremities: No calf tenderness, Normal capillary refill, No pedal edema Musculoskeletal : Apperance: Normal Neurologic: Alert, material handler loader II-XII nml as Tested, Motor Weakness, Normal Affect, Normal Mood, No Sensory Deficits Cerebellar Function: Normal Reflexes: Normal Skin: Dry, Pallor, Warm Lymphatic: No Adenopathy Was a procedure done? Was a procedure done?: No EKG EKG : Pulse Rate (adult): 87 [place]: Normal Cardiac Rhythm: Paced Block: None Hypertrophy: None ST: Normal Differential Dx Considerations may include: Electrolyte imbalance, metabolic encephalopathy, failure to thrive X-Ray, Labs, Meds, VS Vital Signs Date Time Temp Pulse Resp B/P (MAP) Pulse Ox O2 Delivery O2 Flow Rate FiO2 02/18/25 20:16 64 02/18/25 19:33 98.4 64 11 107/68 (81) 96 98.4 02/18/25 19:33 64 11 96 Room Air* 0 21 02/18/25 19:00 61 11 101/60 (74) 96 02/18/25 18:30 61 12 101/60 (74) 94 02/18/25 18:00 61 11 100/55 (70) 95 02/18/25 17:40 61 16 101/59 (73) 95 02/18/25 17:25 98.2 71 10 102/64 (77) 95 98.2 02/18/25 17:25 71 10 95 Room Air* 0 21 02/18/25 17:21 87 02/18/25 17:15 98.5 104 18 116/81 (93) 98 98.5 02/18/25 17:06 87 Lab Test 02/18/25 19:55 02/18/25 18:00 02/18/25 17:33 Range/Units POC Glucose 82 70-106 mg/dl Urine Color Yellow Yellow Urine Clarity Turbid H Clear Urine pH 6.0 5.0-9.0 Urine Specific [place] 1.011 1.001-1.035 Urine Protein Trace H Negative Urine Ketones Negative Negative Urine Blood Negative Negative /uL Urine Nitrite Negative Negative Urine Bilirubin Negative Negative Urine Urobilinogen 6 Negative mg/dL Urine Leukocyte Esterase Trace Negative /uL Urine RBC 1 0 - 3 /hpf Urine Microscopic WBC 12 H 0-3 /HPF Urine Squamous Epithelial Cells Few <5 /hpf Urine Calcium Oxalate Crystals Few None Seen Urine Amorphous Crystals Few None Seen /hpf Urine Bacteria Few H None Seen /hpf Urine Glucose Normal Normal mg/dL White Blood Count 6.5 4.4-10.8 10^3/uL Red Blood Count 4.09 L 4.5-5.90 10^6/uL Hemoglobin 9.9 L 13.5-17.5 g/dL Hematocrit 32.3 L 41.0-53.0 % Mean Corpuscular Volume 78.8 L 80.0-100.0 fL Mean Corpuscular Hemoglobin 24.3 L 28.0-32.0 pg Mean Corpuscular Hemoglobin Concent 30.8 L 32.0-36.0 g/dL Red Cell Distribution Width 17.6 H 11.8-14.3 % Platelet Count 280 140-450 10^3/uL Mean Platelet Volume 8.0 6.9-10.8 fL Neutrophils (%) (Auto) 84.7 H 37.0-80.0 % Lymphocytes (%) (Auto) 5.3 L 10.0-50.0 % Monocytes (%) (Auto) 9.4 0.0-12.0 % Eosinophils (%) (Auto) 0.4 0.0-7.0 % Basophils (%) (Auto) 0.2 0.0-2.0 % Neutrophils # (Auto) 5.5 1.6-8.6 10 ^3/uL Lymphocytes # (Auto) 0.3 L 0.4-5.4 10 ^3/uL Monocytes # (Auto) 0.6 0-1.3 10 ^3/uL Eosinophils # (Auto) 0 0-0.8 10 ^3/uL Basophils # (Auto) 0 0-0.2 10 ^3/uL Nucleated Red Blood Cells 0.0 % Sodium Level 135 L 136-145 mmol/L Potassium Level 3.0 L 3.5-5.1 mmol/L Chloride Level 95 L 98-107 mmol/L Carbon Dioxide Level 33 H 20-31 mmol/L Anion Gap 7 5-15 Blood Urea Nitrogen 17 9-23 mg/dL Creatinine 0.64 L 0.700-1.30 mg/dL Glomerular Filtration Rate Calc 101 >90 mL/min BUN/Creatinine Ratio 26.6 H 10.0-20.0 Serum Glucose 134 H 74-106 mg/dL Calcium Level 11.8 H 8.7-10.4 mg/dL Total Bilirubin 1.1 H 0.2-1.0 mg/dL Aspartate Amino Transferase (AST) 55 H 13-40 U/L Alanine Aminotransferase (ALT) 17 7-40 U/L Alkaline Phosphatase 234 H 46-116 U/L Total Protein 5.5 L 5.7-8.2 g/dL Albumin 3.1 L 3.2-4.8 g/dL Current Medications Medications (Trade) Dose Ordered Sig/Yasir Route Start Time Stop Time Status Last Admin Sodium Chloride 500 ml @ 500 mls/hr Q1H ONCE IV 02/18/25 17:15 02/18/25 18:14 DC 02/18/25 17:38 The patient's CBC shows anemia with a hemoglobin of 9.9 and hematocrit of 32.3 The chemistry panel shows a sodium level of 135 The patient's potassium is only 3.0 The patient was being given potassium here in the emergency department's The liver enzymes are significantly elevated The patient was being admitted The CAT scan of the abdomen, chest and pelvis was done with IV contrast IMPRESSION: 1. Extensive hepatic metastatic disease with innumerable lesions including left hepatic lobe lesion measuring up to 9.8 cm. Correlate with patient's onc ological history. 2. Dilated common bile duct, intrahepatic ducts. Recommend GI consultation MRCP to further evaluate. 3. CholelithiasisRight middle lobe 4. Masslike lesion/ infrahilar lesion measuring 4.1 x 4.0 cm, possibly representing primary lung malignancy. 5. Left lower lobe nodular lesion measuring 2.6 cm 6. Bilateral pulmonary airspace consolidation/ atelectasis as described. 7. Cardiomegaly, small pericardial effusion 8. Large volume stool throughout the colon. 9. Soft tissue edema/ anasarca. Mesenteric edema. Small amount of ascites fluid. The patient was being admitted at this time. We are concerned that the patient does have metastatic disease with a primary lung lesion Images Reviewed?: Images reviewed and evaluated by me Time of 1ST Reevaluation: 21:48 Reevaluation 1ST: Unchanged Patient Education/Counseling: Diagnosis, Treatment, Prognosis Family Education/Counseling: No Family Present Additional Information -Reviewed patient's previous visit(s): 12/23/24 for syncope - The following tests were ordered, and results were reviewed by me: UA, CBC, CMP, EKG, CT Chest/Abd/Pel w/ Con - Additional information was gathered from interviewing the following independent Historian: EMS - I reviewed and agreed with the following test results read by other provider: CT Abd/Pel - I discussed treatments and results with medical personnel and: patient Comprehensive systems review obtained and negative except for what is stated in the HPI. Departure 1 Departure Time of Disposition: 21:50 Impression: Primary Impression: Failure to thrive Qualified Codes: R62.7 - Adult failure to thrive Additional Impressions: Metastatic primary lung cancer Qualified Codes: C34.90 - Malignant neoplasm of unspecified part of uns pecified bronchus or lung Generalized weakness Hypokalemia Disposition: ADMITTED INPATIENT Admit to: [facility] Condition: Fair Critical Care Note Critical Care Time?: No Stability Stability form required: Yes Unstable for transfer: Telemetry monitoring (Telemetry monitoring required), ED Physician Assesment (Clinical assesment) Heart Score Heart Score: Heart Score Response (Comments) Value History N/A 0 EKG N/A 0 Age N/A 0 Risk Factors N/A 0 Troponin N/A 0 Total 0 I personally scribed for EMBER PAREDES MD ([email or web address]) on 02/18/25 at 17:21. Electronically submitted by Nirmal Murray ([email or web address]). I personally scribed for EMBER PAREDES MD ([email or web address]) on 02/18/25 at 17:21. Electronically submitted by Nirmal Murray ([email or web address]). I personally scribed for EMBER PAREDES MD ([email or web address]) on 02/18/25 at 17:22. Electronically submitted by Nirmal Murray ([email or web address]). EMBER PAREDES MD Feb 18, 2025 17:21
[2025-02-18 17:25] VITALS: PULSE 71; RESP 10; O2SAT 95
[2025-02-18] MEDS: SODIUM CHLORIDE 0.9% 500 ML IV ONE (17:38)
[2025-02-18 18:00] LABS: Basophils # (auto) 0 10 ^3/uL (0-0.2); Basophils % (auto) 0.2 % (0.0-2.0); Eosinophils # (auto) 0 10 ^3/uL (0-0.8); Eosinophils % (auto) 0.4 % (0.0-7.0); Hematocrit 32.3 % (41.0-53.0); Hemoglobin 9.9 g/dL (13.5-17.5); Lymphocytes # (auto) 0.3 10 ^3/uL (0.4-5.4); Lymphocytes % (auto) 5.3 % (10.0-50.0); Mean Corpuscular Hemoglobin 24.3 pg (28.0-32.0); Mean Corpuscular Hgb Conc. 30.8 g/dL (32.0-36.0); Mean Corpuscular Volume 78.8 fL (80.0-100.0); Monocytes # (auto) 0.6 10 ^3/uL (0-1.3); Monocytes % (auto) 9.4 % (0.0-12.0); Neutrophils # (auto) 5.5 10 ^3/uL (1.6-8.6); Neutrophils % (auto) 84.7 % (37.0-80.0); Platelet Count (auto) 280 10^3/uL (140-450); Red Blood Cells 4.09 10^6/uL (4.5-5.90); Red Cell Distribution Width 17.6 % (11.8-14.3); White Blood Cell 6.5 10^3/uL (4.4-10.8)
[2025-02-18 18:11] LABS: Anion Gap 7 (5-15); BUN/Creatinine Ratio 26.6 (10.0-20.0); Blood Urea Nitrogen 17 mg/dL (9-23)
[2025-02-18 18:12] LABS: Bilirubin, Total 1.1 mg/dL (0.2-1.0)
[2025-02-18 19:01] LABS: Alkaline Phosphatase 234 U/L (46-116); Aspartate Aminotransferase 55 U/L (13-40); Carbon Dioxide 33 mmol/L (20-31); Chloride 95 mmol/L (98-107); Glucose 134 mg/dL (74-106); Sodium 135 mmol/L (136-145)
[2025-02-18 19:02] LABS: Albumin 3.1 g/dL (3.2-4.8); Calcium 11.8 mg/dL (8.7-10.4); Total Protein 5.5 g/dL (5.7-8.2)
[2025-02-18 19:15] LABS: Urine Amorphous Crystal FEW /hpf (None Seen); Urine Bacteria FEW /hpf (None Seen); Urine Blood Negative /uL (Negative); Urine Clarity Turbid (Clear); Urine Color Yellow (Yellow); Urine Protein, UAD TRACE (Negative); Urine Specific Gravity 1.011 (1.001-1.035); Urine Squamous Epithelial Cell FEW /hpf (<5); Urine Urobilinogen 6 mg/dL (Negative); Urine WBC 12 /HPF (0-3)
--- NOTE | 2025-02-18 19:17 | ECG ---
[facility] Test Date: 2025-02-18 Test Time: 17:06:15 Pat Name: NANCIE ROLDAN Department: ED Room: 0297T Gender: M Health Plan Advisor: TISHA : 1950 Requested By: EMBER PAREDES Order Number: [id number] Reading MD: Pacheco Calvo Measurements Intervals [place] Rate: 87 P: 0 [place]: 214 QRS: -75 QRSD: 236 T: 114 QT: 530 QTc: 638 Interpretive Statements A-V dual-paced complexes w/ some inhibition No further analysis attempted due to paced rhythm Electronically Signed On 02-19-2025 20:56:13 PDT by Pacheco Calvo Please click the below link to view image of tracing.
[2025-02-18 19:33] VITALS: PULSE 64; RESP 11; O2SAT 96
[2025-02-18 19:57] LABS: Alanine Aminotransferase 17 U/L (7-40)
[2025-02-18] MEDS: IOHEXOL 300 MG/ML 100ML BOTTLE IJ ONE (20:51)
--- NOTE | 2025-02-18 21:31 | DVH ---
Indication: pain Technique: CT axial images of the chest, abdomen and pelvis are obtained with intravenous contrast. Coronal and sagittal reformats were obtained. Radiation Dose Information: CTDI volume is 14 mGy. Dose-length product is 986 mGy*cm Comparison: 10/17/2024 FINDINGS: Trachea patent. No pneumothorax. Right middle lobe masslike lesion measuring 4.1 by 4.0 cm. Right low er lobe consolidation/atelectasis. Small right pleural effusion. Left upper lobe lingular segment atelectasis. Left lower lobe consolidation/atelectasis. Left lower lobe nodular lesion measuring 2.6 cm. Heart is enlarged. There is a small pericardial effusion. No supraclavicular /axillary lymphadenopathy. Adrenal glands poorly characterize. Splenic hypodense lesions up to 12 mm.. There are numerous hepat ic lesions consistent with metastatic disease. These include a left hepatic lobe lesion measuring 9. 8 cm, multiple right hepatic lobe lesions including lesions measuring 1.8 cm, 1.6 cm, 1.9 cm, 1.7 cm, 1.9 cm, 1.7 cm. Other left hepatic lobe lesions including lesions measuring 9 cm, 2.9 cm. Cholelithiasis. Dilated left intrahepatic duct measuring 10 mm. Dilated CBD measuring 19 mm. Bilateral kidneys demonstrate no hydronephrosis. Postsurgical changes stomach. Small bowel loops normal in caliber. Postsurgical changes of the bowel within the lower anterior abdomen. Large volume stool throughout th e colon. Small amount of ascites fluid. Mesenteric edema. Abdominal aortic tortuosity and atherosclerotic disease. Bladder distended. Free pelvic fluid. Bilateral shoulder arthroplasty hardware. Severe thoracolumbar degenerative disc disease. Thoracolumb ar s shaped curvature. Old posterior left 10th, 9th rib fractures. IMPRESSION: 1. Extensive hepatic metastatic disease with innumerable lesions including left hepatic lobe lesion m easuring up to 9.8 cm. Correlate with patient's oncological history. 2. Dilated common bile duct, intrahepatic ducts. Recommend GI consultation MRCP to further evaluate. 3. CholelithiasisRight middle lobe 4. Masslike lesion/ infrahilar lesion measuring 4.1 x 4.0 cm, possibly representing primary lung daphney gnancy. 5. Left lower lobe nodular lesion measuring 2.6 cm 6. Bilateral pulmonary airspace consolidation/ atelectasis as described. 7. Cardiomegaly, small pericardial effusion 8. Large volume stool throughout the colon. 9. Soft tissue edema/ anasarca. Mesenteric edema. Small amount of ascites fluid. 10. Other findings as described.
[2025-02-18] MEDS: SODIUM CHL 0.9% 50 ML IV SCH (23:17)
[2025-02-18] MEDS: POTASSIUM CHL 20MEQ/50ML 50 ML IV ONE (23:17)
[2025-02-19] VITALS (8 sets, daily range): BP systolic 101–113; BP diastolic 57–69; PULSE 60–69; RESP 17–18; TEMP 98–98.3; O2SAT 91–94
--- NOTE | 2025-02-19 01:25 | DVHHPRES ---
History of Present Illness Resident Creating Document: CINTIA MOORE RESIDENT History of Present Illness Mr. Vela is 74-year-old male patient with past medical history of lung carcinoma diagnosed in 2023 status post radiation for 35 days, followed Dr. Grant then lost to follow up, history of peptic ulcer disease and GI bleeding 01/06, questionable meningioma, diastolic congestive heart failure, paroxysmal atrial fibrillation on Coumadin, status post pacemaker-last assessed July 2024, osteoporosis bilateral hip, right knee replacement, who presented to the ER with a chief complaint of generalized weakness, decreased appetite and unintentional weight loss. Patient was diagnosed with lung carcinoma , underwent radiation, reports that lung cancer was in remission and then patient did not follow up with Dr. Grant for the past 6 months. Consequently he felt increasing weakness and weight loss of about 35-40 lb in the past 3-4 months. Patient has low appetite and his dysphagia reports his throat is closing whenever he swallows. Patient is a poor historian. On arrival to the ER, patient was vitally stable, H&H was 9.9/32, MCV 78. LFTs elevated. CT abdomen was completed which showed extensive metastatic disease with innumerable lesions in the liver and hypodense lesion in the spleen. Dilated common bile duct and cholelithiasis. MRCP recommended. 2.6 cm left lower lobe nodule and 4 by 4 infrahilar mass with small pericardial effusion. UA was suggestive of UTI. Past medical/surgical history: See above Social history: Lives alone, has a apartment. Family is in [place]. Smoked 1-2 packs a day for the past 40 years, quit 4 months back. Denies drinking or illicit drug use Patient seen and examined at the bedside. No Ewing sign on examination. Left abdominal tenderness. Has bilateral lower extremity 3+ pitting edema. Started Lovenox 1 milligram/kg b.i.d.. PT/PTT pending. Review of Systems Allergies: Coded Allergies: NO KNOWN ALLERGIES (Unverified , 04/18/24) Exam Vital Signs Vital Signs Date Time Temp Pulse Resp B/P (MAP) Pulse Ox O2 Delivery O2 Flow Rate FiO2 02/18/25 20:16 64 02/18/25 19:33 98.4 11 107/68 (81) 96 98.4 02/18/25 19:33 Room Air* 0 21 Exam Patient lying in bed, in no acute distress General: Cachectic, afebrile, palor, mucosae are moist Cardiovascular: Regular S1 and S2. No murmurs, gallops or rubs. No JVD elevation. 3+ bilateral pitting edema Respiratory: Bilateral basilar crackles and decreased breath sounds heard on auscultation. Saturating 93 on room air. Abdomen: Soft, left quadrant tenderness, nondistended, normoactive bowel sounds, no rebound tenderness, no organomegaly, no masses. Negative Ewing sign on examination. Genitourinary: Deferred MSK/skin: Mobilizes 4 limbs. Skin is dry and warm. Bilateral lower extremities chronic dermatitis changes Neurological: No motor, no sensitive deficits, normal speech. Pupils are isocoric and reactive. Psych/Mental Status: A/Ox4 Labs/Xrays Labs Test 02/18/25 19:55 02/18/25 18:00 02/18/25 17:33 Range/Units POC Glucose 82 70-106 mg/dl Urine Color Yellow Yellow Urine Clarity Turbid H Clear Urine pH 6.0 5.0-9.0 Urine Specific [place] 1.011 1.001-1.035 Urine Protein Trace H Negative Urine Ketones Negative Negative Urine Blood Negative Negative /uL Urine Nitrite Negative Negative Urine Bilirubin Negative Negative Urine Urobilinogen 6 Negative mg/dL Urine Leukocyte Esterase Trace Negative /uL Urine RBC 1 0 - 3 /hpf Urine Microscopic WBC 12 H 0-3 /HPF Urine Squamous Epithelial Cells Few <5 /hpf Urine Calcium Oxalate Crystals Few None Seen Urine Amorphous Crystals Few None Seen /hpf Urine Bacteria Few H None Seen /hpf Urine Glucose Normal Normal mg/dL White Blood Count 6.5 4.4-10.8 10^3/uL Red Blood Count 4.09 L 4.5-5.90 10^6/uL Hemoglobin 9.9 L 13.5-17.5 g/dL Hematocrit 32.3 L 41.0-53.0 % Mean Corpuscular Volume 78.8 L 80.0-100.0 fL Mean Corpuscular Hemoglobin 24.3 L 28.0-32.0 pg Mean Corpuscular Hemoglobin Concent 30.8 L 32.0-36.0 g/dL Red Cell Distribution Width 17.6 H 11.8-14.3 % Platelet Count 280 140-450 10^3/uL Mean Platelet Volume 8.0 6.9-10.8 fL Neutrophils (%) (Auto) 84.7 H 37.0-80.0 % Lymphocytes (%) (Auto) 5.3 L 10.0-50.0 % Monocytes (%) (Auto) 9.4 0.0-12.0 % Eosinophils (%) (Auto) 0.4 0.0-7.0 % Basophils (%) (Auto) 0.2 0.0-2.0 % Neutrophils # (Auto) 5.5 1.6-8.6 10 ^3/uL Lymphocytes # (Auto) 0.3 L 0.4-5.4 10 ^3/uL Monocytes # (Auto) 0.6 0-1.3 10 ^3/uL Eosinophils # (Auto) 0 0-0.8 10 ^3/uL Basophils # (Auto) 0 0-0.2 10 ^3/uL Nucleated Red Blood Cells 0.0 % Sodium Level 135 L 136-145 mmol/L Potassium Level 3.0 L 3.5-5.1 mmol/L Chloride Level 95 L 98-107 mmol/L Carbon Dioxide Level 33 H 20-31 mmol/L Anion Gap 7 5-15 Blood Urea Nitrogen 17 9-23 mg/dL Creatinine 0.64 L 0.700-1.30 mg/dL Glomerular Filtration Rate Calc 101 >90 mL/min BUN/Creatinine Ratio 26.6 H 10.0-20.0 Serum Glucose 134 H 74-106 mg/dL Calcium Level 11.8 H 8.7-10.4 mg/dL Total Bilirubin 1.1 H 0.2-1.0 mg/dL Aspartate Amino Transferase (AST) 55 H 13-40 U/L Alanine Aminotransferase (ALT) 17 7-40 U/L Alkaline Phosphatase 234 H 46-116 U/L Total Protein 5.5 L 5.7-8.2 g/dL Albumin 3.1 L 3.2-4.8 g/dL Assessment/Plan Assessment/Plan Failure to thrive secondary to Metastatic lung carcinoma status post radiation Metastatic disease to the liver and spleen Questionable meningioma her previous records Patient follows Dr. Grant ? Heme oncology consultation Ensure q.i.d. Follow up with vitamin B12/folate/iron panel/TSH Transaminitis Cholelithiasis, negative Ewing's ? Choledocholithiasis CT abdomen showed dilated common bile duct. MRCP pending. Trend LFTs. Acute cystitis IV ceftriaxone ordered Urine bacterial culture ordered. Paroxysmal atrial fibrillation on Coumadin Status post [employer] PCM-last device interrogation July [place] Lovenox 1 milligram/kg b.i.d. PT/PTT pending History of peptic ulcer disease 01/06 History of GI bleeding Status post gastric bypass surgery EGD 01/06 showed Patient had a 2 cm anastomotic ulcer on the jejunal side of the gastrojejunostomy with no visible vessel or active bleeding and there was a small red dot at the edge of the ulcer Continue pantoprazole and Carafate Continue B12 and iron supplementation Plan discussed with patient in which all questions have been answered Goals of care discussed with the patient for more than 20 minutes, full code status Case discussed with Dr. Santamaria Plan discussed with: Patient My Orders Orders - CNITIA MOORE Procedure Category Date Status Time Admit ADMIT 02/19/25 Verified 01:22 Complete Blood Count LAB 02/19/25 Verified 04:00 Comprehensive LAB 02/19/25 Verified Metabolic Panel 04:00 Drug Screen LAB 02/19/25 Verified 04:00 Hepatic Panel LAB 02/19/25 Verified 04:00 Magnesium LAB 02/19/25 Verified 04:00 Urinalysis LAB 02/19/25 Verified 04:00 Thyroid Stimulating LAB 02/19/25 Verified Hormone 04:00 Date of Service: Feb 19, 2025 Billing Provider: LUCHO SANTAMARIA MD Common Visit Codes: [id number] INP/OBS CARE (HIGH) Secondary Visit Codes: [id number] CARE PLAN 30 MINUTES CINTIA MOORE Feb 19, 2025 01:25 LUCHO SANTAMARIA MD Feb 19, 2025 09:58
[2025-02-19] MEDS ORDERED: MORPHINE SULFATE INJ 2 MG/ml SYRG IV PRN (01:30)
[2025-02-19] MEDS: Ensure HIGH Protein Vanilla 8oz Bottle PO SCH (01:30)
[2025-02-19] MEDS ORDERED: HYDROcodone-ACET 5/325MG TAB PO PRN (01:30)
[2025-02-19] MEDS: PANTOPRAZOLE 40 MG/10 ML VIAL INJ IV ONE (02:22)
[2025-02-19] MEDS: cefTRIAXone 1GM/50ML D5W 50 ML IV ONE (02:22)
[2025-02-19] MEDS: ENOXAPARIN SOD 100 MG/1 ML SYRINGE SC SCH (04:32)
[2025-02-19] MEDS: SUCRALFATE 1 GM/10 ML ORAL SUSP PO SCH (06:00)
[2025-02-19 06:29] LABS: Basophils # (auto) 0 10 ^3/uL (0-0.2); Basophils % (auto) 0.4 % (0.0-2.0); Eosinophils # (auto) 0 10 ^3/uL (0-0.8); Eosinophils % (auto) 0.6 % (0.0-7.0); Lymphocytes # (auto) 0.3 10 ^3/uL (0.4-5.4); Lymphocytes % (auto) 4.9 % (10.0-50.0); Mean Corpuscular Hgb Conc. 32.2 g/dL (32.0-36.0); Mean Corpuscular Volume 77.8 fL (80.0-100.0); Monocytes # (auto) 0.5 10 ^3/uL (0-1.3); Monocytes % (auto) 8.4 % (0.0-12.0); Neutrophils # (auto) 5.1 10 ^3/uL (1.6-8.6); Neutrophils % (auto) 85.7 % (37.0-80.0); Platelet Count (auto) 254 10^3/uL (140-450); Red Cell Distribution Width 17.5 % (11.8-14.3)
[2025-02-19 06:45] LABS: Alanine Aminotransferase 14 U/L (7-40); Anion Gap 5 (5-15); BUN/Creatinine Ratio 22.6 (10.0-20.0); Blood Urea Nitrogen 14 mg/dL (9-23); Glucose 80 mg/dL (74-106)
[2025-02-19 06:50] LABS: Prothrombin Time 56.6 sec (9.3-11.8); Sodium 135 mmol/L (136-145)
[2025-02-19 06:51] LABS: Alkaline Phosphatase 203 U/L (46-116); Aspartate Aminotransferase 46 U/L (13-40); Calcium 11.6 mg/dL (8.7-10.4); Carbon Dioxide 34 mmol/L (20-31); Chloride 96 mmol/L (98-107); Potassium 2.9 mmol/L (3.5-5.1); Total Protein 5.5 g/dL (5.7-8.2)
[2025-02-19 07:13] LABS: INR 6.42 (0.9-1.15)
[2025-02-19] MEDS: CYANOCOBALAMIN (B-12) 1000 MCG/1 ML VIAL IM ONE (11:26)
[2025-02-19] MEDS: PANTOPRAZOLE 40 MG TAB PO SCH (11:26)
[2025-02-19] MEDS: POTASSIUM CHLORIDE 60 MEQ, LIDOCAINE 1% (LOCAL ANESTH.) 6 ML in SODIUM CHL 0.9% 500 ML IV ONE (11:37)
[2025-02-19] MEDS: ACETAMINOPHEN 500 MG TAB or CAP PO PRN (11:40)
[2025-02-19] MEDS: phytonadione 10 MG in SODIUM CHL 0.9% 50 ML IV ONE (12:08)
[2025-02-19 15:54] LABS: Amphetamine Screen, Urine Neg (NEGATIVE)
[2025-02-19 15:57] LABS: Barbiturate Scree,Urine Neg (NEGATIVE); Benzodiazephine Screen, Urine Neg (NEGATIVE); Cannabinoid Screen, Urine Neg (NEGATIVE); Cocaine Screen, Urine Neg (NEGATIVE); Opiate Scree,Urine Neg (NEGATIVE); Phencyclidine Screen, Urine Neg (NEGATIVE)
[2025-02-19 16:52] LABS: Bilirubin, Direct 0.5 mg/dL (<0.3)
[2025-02-19] MEDS: SENNA 8.6 MG TAB PO ONE (17:00)
--- NOTE | 2025-02-19 17:32 | DVHPNRES ---
Progress Note Date Seen: Feb 19, 2025 Resident Creating Document: PRASHANT MARQUEZ RESIDENT Has the PT tested + for MRSA If YES, has PT been informed?: No Medical Necessity Reason Pt with a Central, PICC or Fol: No Medical Necessity Reason History and physical examination Mr. Vela is 74-year-old male patient with past medical history of lung carcinoma diagnosed in 2023 status post radiation for 35 days, followed Dr. Grant then lost to follow up, history of peptic ulcer disease and GI bleeding 01/06, questionable meningioma, diastolic congestive heart failure, paroxysmal atrial fibrillation on Coumadin, status post pacemaker-last assessed July 2024, osteoporosis bilateral hip, right knee replacement, who presented to the ER with a chief complaint of generalized weakness, decreased appetite and unintentional weight loss. Patient was diagnosed with lung carcinoma , underwent radiation, reports that lung cancer was in remission and then patient did not follow up with Dr. Grant for the past 6 months. Consequently he felt increasing weakness and weight loss of about 35-40 lb in the past 3-4 months. Patient has low appetite and patient denies dysphagia Patient is a poor historian. On arrival to the ER, patient was vitally stable, H&H was 9.9/32, MCV 78. LFTs elevated. CT abdomen was completed which showed extensive metastatic disease with innumerable lesions in the liver and hypodense lesion in the spleen. Dilated common bile duct and cholelithiasis. MRCP recommended. 2.6 cm left lower lobe nodule and 4 by 4 infrahilar mass with small pericardial effusion. UA was suggestive of UTI. Past medical/surgical history: See above Social history: Lives alone, has a apartment. Family is in [place]. Smoked 1-2 packs a day for the past 40 years, quit 4 months back. Denies drinking or illicit drug use PN:02/19/2025 Patient is a 74 year old male with a know history lung carcinoma diagnosed in 2023 underwent radiation, reports that lung cancer was in remission and then patient did not follow up with Dr. Grant for the past 6 months. Consequently he felt increasing weakness and weight loss of about 35-40 lb in the past 3-4 months. Patient presented to the ED with the chief complaint of constipation, generalized weakness and unintentional weight lost, low appetite and his dysphagia reports his throat is closing whenever he swallows. Patient is poor historian and seems to have scarcity of words. Patient mentioned that he has lost a total of 270Ibs in over 5 years. Chest x-ray revealed extensive hepatic metastatic disease with innumerable lesions including left hepatic lobe lesion measuring up to 9.8 cm. Correlate with patient's oncological history.Dilated common bile duct, intrahepatic ducts. Recommend GI consultation MRCP to further evaluate.Cholelithiasis,Right middle lobe,Masslike lesion/ infrahilar lesion measuring 4.1 x 4.0 cm, possibly representing primary lung malignancy. Left lower lobe nodular lesion measuring 2.6 cm,Bilateral pulmonary airspace consolidation/ atelectasis as described.Cardiomegaly, small pericardial effusion.Large volume stool throughout the colon. Soft tissue edema/ anasarca. Mesenteric edema. Small amount of ascites fluid. Past Medical History: lung carcinoma diagnosed in 2023 status post radiation for 35 days, history of peptic ulcer disease and GI bleeding 01/06, questionable meningioma, diastolic congestive heart failure, paroxysmal atrial fibrillation on Coumadin,osteoporosis Surgical history: status post pacemaker-last assessed July 2024, bilateral hip, bilateral knee replacement. Social history: Patient lives by himself in an apartment. The rest of his family this candidate. Patient mentioned that he has smoked 2-3 past for 40 years making a total of about 120 any need and on drinking any illicit drugs Medication: On Warfarin, Tamsulosin, Protonix Subjective Review of Systems Constitutional: Denies fever no chills but feels weak, loss of appetite HEENT: Denies headache, ear pain, ear discharges, conjunctivitis, nasal discharge throat pain Cardiovascular: Denies chest pain, palpitation, orthopnea, PND, or pedal edema Respiratory: Denies shortness of breath, cough cough, sputum production, hemoptysis, GI: loss of appetite, Constipation,diarrhea, hematemesis, hematochezia, : Denies frequency, urgency, hematuria, Endocrine: unintentional weight loss ( 270lbs lost), Denies feeling of hot flashes, Dionisio: Denies easy bruising, bleeding disorders, epistaxis Musculoskeletal: Muscle weakness; Denies joint pains, muscle aches Psych: No evidence of depression, jaclyn, suicidal ideation Objective vital signs Vital Sign Date Time Temp Pulse Resp B/P (MAP) Pulse Ox O2 Delivery O2 Flow Rate FiO2 02/19/25 17:00 98.0 60 18 103/62 (76) 94 98.0 02/19/25 06:46 Room Air* 0 21 Total Intake and Output 02/18/25 02/18/25 02/19/25 15:00 23:00 07:00 Intake Total 500 ml 150 ml Output Total 450 ml Balance 50 ml 150 ml medications Current Medications Medications Dose Ordered Sig/Yasir Route Start Time Stop Time Status Last Admin Dose Admin Acetaminophen 500 mg Q4HPRN PRN PO 02/19/25 01:30 02/19/25 11:40 500 MG Morphine Sulfate 1 mg Q4HPRN PRN IV 02/19/25 01:30 Acetaminophen/ Hydrocodone Bitart 1 tab Q4HPRN PRN PO 02/19/25 01:30 Enteral Nutritional Formula 240 ml QID PO 02/19/25 01:30 02/19/25 12:07 240 ML Sucralfate 1 gm QID@0600,1130,1700,2200 PO 02/19/25 06:00 02/19/25 16:57 1 GM Pantoprazole Sodium 40 mg DAILY@0600 PO 02/19/25 06:00 02/19/25 11:26 40 MG Ceftriaxone Sodium 50 ml @ 100 mls/hr DAILY@09 IV 02/20/25 09:00 Lactulose 30 ml BID PO 02/19/25 22:00 UNV Sennosides 8.6 mg HS PO 02/19/25 22:00 UNV Examination General Appearance: Alert, Oriented X3, Cooperative, Cachectic, afebrile, HEENT: Atraumatic, Pupils are isocoric and reactive, EOMI, Pale mucous membrane moist Respiratory: Bilateral basilar crackles and decreased breath sounds heard on auscultation. Cardiovascular: Regular rate, Normal S1, Normal S2, No murmurs, no chest wall tenderness Abdominal: Soft, left quadrant tenderness, nondistended, normoactive bowel sounds, no rebound tenderness; organomegaly, central masses palpated. Negative Ewing sign on examination Extremities: No clubbing, No cyanosis, No edema, Normal pulses, resolving Edema, 3+ bilateral pitting edema, Bilateral lower extremities chronic dermatitis changes Skin: No rashes, No breakdown, No significant lesion Neuro: difficulty in elevating the right lower extremity, Strength at 5/5 X4 ext, Normal tone, Sensation intact, Cranial nerves 3-12 NL, Reflexes 2+ Psych/Mental Status: Mental status NL, Mood NL laboratory and microbiology Laboratory Tests 02/19/25 04:08 Test 02/19/25 04:08 Range/Units Serum Glucose 80 74-106 mg/dL Problem List/Assessment/Plan Problem List/Assessment/Plan Assessment Failure to thrive secondary to Metastatic lung carcinoma status post radiation Severe Protein calorie malnutrition --> Unintentional weight lost --> Ensure q.i.d. --> Diet consult Coagulopathy secondary to anticoagulant medication for AFIB --> On warfarin for AFIB --> INR: 6.4 --> No signs for bleeding at this time, thus will give Vitamin K 10mg and repeat PT/INR IN 6hrs, Pending; if no improve, repeat Vitamin K 10MG --> AVOID LOVENOX, or ASPIRIN, VERY HIGH INR Constipation --> CT abdomen: Large volume stool throughout the colon --> lactulose 30mg bid --> Senna glycoside --> if the method does not work, will try fleet enema ? Choledocholithiasis -->Transaminitis, Trend LFTs. --> Cholelithiasis, negative Ewing's --> CT abdomen showed dilated common bile duct. --> MRCP pending. Likely Pneumonia -->Examination findings --> CT abdomen: Bilateral pulmonary airspace consolidation/ atelectasis as described --> Ceftriaxone Acute cystitis IV ceftriaxone ordered Urine bacterial culture ordered. 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 her previous records --> Follows up with --> Heme oncology consultation Paroxysmal atrial fibrillation Status post Medtronic PCM-last device interrogation July --> Warfarin stopped due to AFIB --> Cardiology consult for anticoagulant switch Paroxysmal atrial fibrillation Status post Medtronic PCM-last device interrogation July History of peptic ulcer disease 01/06 History of GI bleeding Status post gastric bypass surgery EGD 01/06 showed Patient had a 2 cm anastomotic ulcer on the jejunal side of the gastrojejunostomy with no visible vessel or active bleeding and there was a small red dot at the edge of the ulcer Continue pantoprazole and Carafate Continue B12 and iron supplementation Goal of care discussed for 30 minutes: Full code Case and plan discussed + Dr. Hurst Plan discussed with: Patient My Orders My Orders Orders - PRASHANT MARQUEZ RESIDENT Procedure Category Date Status Time Npo (Nothing By DIET 02/19/25 Transmitted Mouth) Diet Breakfast * Cardiology Consult CONS 02/19/25 Transmitted 12:35 Prothrombin Time W/ LAB 02/19/25 Logged INR 16:51 Order Routine Aptt ALEC 02/19/25 In Process 16:51 Basic Metabolic Panel LAB 02/19/25 Logged 16:53 Fleet Enema If In ORDERS 02/19/25 Transmitted Early Labor 16:53 Lactulose Oral PHA 02/19/25 Logged 22:00 Senna Pod Tablet PHA 02/19/25 Logged (Senokot Tablet) 22:00 Senna Pod Tablet PHA 02/19/25 Logged (Senokot Tablet) 17:00 Type And Screen BBK 02/19/25 Verified 17:04 Dietary Evaluation Review Recommendations by RD: Increase Calorie Intake, Protein Supplementation Comments: 1) Advance to regular diet as medically feasible 2) Ensure Enlive 240ml QID 3) Megace 800mg/20ml daily 4) Continue current POC Expected Outcomes/Goals: Pt will meet >75% estimated needs FU 2-3 days Food and Nutrition Intake (Sev: <50% est energy req 5days Interpretation of weight loss: >7.5% in 3 months Muscle Mass (Severe): Mod to Severe Depletion Protein Calorie Malnutrition: Severe Is there a minimum of two crit: Yes Date of Service: Feb 19, 2025 Billing Provider: ASHLY HURST MD Common Visit Codes: 67016-[id number] INP/OBS CARE(HIGH) PRASHANT MARQUEZ RESIDENT Feb 19, 2025 17:32 ASHLY HURST MD Feb 25, 2025 21:48
[2025-02-19 19:53] LABS: Chloride 98 mmol/L (98-107)
[2025-02-19 19:54] LABS: Anion Gap 5 (5-15)
[2025-02-19 19:59] LABS: Glucose 104 mg/dL (74-106); INR 1.6 (0.9-1.15); Prothrombin Time 16.2 sec (9.3-11.8)
[2025-02-19 20:00] LABS: BUN/Creatinine Ratio 20.6 (10.0-20.0); Blood Urea Nitrogen 13 mg/dL (9-23)
[2025-02-19 20:01] LABS: Carbon Dioxide 33 mmol/L (20-31); Potassium 3.4 mmol/L (3.5-5.1); Sodium 136 mmol/L (136-145)
--- NOTE | 2025-02-19 20:02 | DVHINCON2 ---
Date of service: Feb 19, 2025 History of Present Illness HPI Patient is a 74-year-old gentleman who presented to the hospital with generalized weakness/poor appetite and weight loss. There is report of dysphagia also. He has lost around 35-40 lb in the past few months. Since arrival, he is found to have metastatic disease in liver. Does have baseline history of atrial fibrillation and has had pacemaker before. Is on Coumadin. Cardiology is involved for cardiac aspects of care. Patient was actually seen in the office by my colleague just 2 days ago. There is no report of chest pain/palpitation/loss of consciousness/shortness of breath. He looks depressed. Home Meds Active Scripts Sucralfate (CARAFATE) 1 Gm Tab, 1 GM OR QIDACHS for 30 Days, #120 TAB 3 Refills Prov:CHARO PAULSON MD 12/31/24 Pantoprazole Sodium Sesquihydr (Protonix) 40 Mg Tab, 40 MG PO DAILY for 30 Days, #30 TAB 3 Refills Prov:CHARO PAULSON MD 12/31/24 Amiodarone HCl (Amiodarone HCl) 200 Mg Tab, 200 MG PO DAILY for 30 Days, #30 TAB 4 Refills Prov:CHARO PAULSON MD 12/31/24 Reported Medications Tamsulosin Hcl (Tamsulosin Hcl) 0.4 Mg Cap, 0.4 MG PO QPM 04/18/24 Alendronate Sodium (Alendronate Sodium) 35 Mg Tab, 2 TAB PO QWEEKLY 04/18/24 Warfarin Sodium (Warfarin Sodium) 3 Mg Tab, 3 MG PO MWF for mon,sun,sun,sun 04/18/24 Warfarin Sodium (Warfarin Sodium) 2 Mg Tab, 2 MG PO TUTHSA for afib 04/18/24 Levothyroxine Sodium (Levothyroxine Sodium) 150 Mcg Tab, 75 MCG PO QAM 04/18/24 Cholecalciferol (VITAMIN D3) 2,000 Unit Tab, 125 MCG PO DAILY 04/18/24 Furosemide (Lasix) 40 Mg Tab, 40 MG PO BID 04/18/24 Bupropion HCl (Bupropion HCl ER) 200 Mg Tab, 300 MG PO DAILY, TAB 04/18/24 Past Medical History Others Past medical history includes hypertension, hyperlipidemia, diastolic heart failure, valvular heart disease, history of mitral valve prolapse, pulmonary hypertension, atrial fibrillation/atrial flutter (on Coumadin as outpatient), status post atrial flutter ablation, status post pacemaker (Medtronic pacer, Derrick wires: The wires are not MRI compatible), DJD, s/p gastric bypass, anemia, GI bleeding, history of bilateral cataract surgery, questionable previous history of meningioma and hypothyroidism. As per patient, the patient was diagnosed with lung cancer less than a year ago for which has received radiation therapy. He was following with Dr. Grant for Oncology previously. Patient Family History: Patient reports no known family medical history. Alocohol: None Drugs: None Lives with: Alone Review of Systems Constitutional: Weakness Ears, Nose, & Throat: No symptom reported Eyes: No symptom reported Gastrointestinal: Constipation All Other Systems Ten point review of system was performed. Relevant findings as per above and as per HPI. Otherwise negative. H&P Exam Vital Signs Vital Signs Date Time Temp Pulse Resp B/P (MAP) Pulse Ox O2 Delivery O2 Flow Rate FiO2 02/19/25 17:00 98.0 60 18 103/62 (76) 94 98.0 02/19/25 08:00 Room Air* 0 21 General Appeara: Well developed Head Exam: Normal inspection Eye Exam: bilateral eye PERRL Nasal Exam: Normal inspection Mouth: Normal Inspection Pulmonary/Respiratory: Rhonci Cardiovascular/Chest: Regular rate, Systolic murmur Peripheral Pulses: 2+ carotid (R), 2+ carotid (L), 2+ femoral (R), 2+ femoral (L), 2+ dorsalis pedis (R), 2+ dorsalis pedis (L), 2+ Radial (R), 2+ Radial (L) Abdominal Exam: Normal bowel sounds Neuro/Mental St: Alert, Oriented Appearance: Appropriate appearance Eye contact/ Speech: Cooperative Labs/Xrays Labs Test 02/19/25 19:12 02/19/25 08:28 02/19/25 04:08 02/18/25 19:55 Range/Units Magnesium Level 2.0 1.6-2.6 mg/dL White Blood Count 6.0 4.4-10.8 10^3/uL Red Blood Count 3.60 L 4.5-5.90 10^6/uL Hemoglobin 9.0 L 13.5-17.5 g/dL Hematocrit 28.0 #L 41.0-53.0 % Mean Corpuscular Volume 77.8 L 80.0-100.0 fL Mean Corpuscular Hemoglobin 25.0 L 28.0-32.0 pg Mean Corpuscular Hemoglobin Concent 32.2 32.0-36.0 g/dL Red Cell Distribution Width 17.5 H 11.8-14.3 % Platelet Count 254 140-450 10^3/uL Mean Platelet Volume 7.9 6.9-10.8 fL Neutrophils (%) (Auto) 85.7 H 37.0-80.0 % Lymphocytes (%) (Auto) 4.9 L 10.0-50.0 % Monocytes (%) (Auto) 8.4 0.0-12.0 % Eosinophils (%) (Auto) 0.6 0.0-7.0 % Basophils (%) (Auto) 0.4 0.0-2.0 % Neutrophils # (Auto) 5.1 1.6-8.6 10 ^3/uL Lymphocytes # (Auto) 0.3 L 0.4-5.4 10 ^3/uL Monocytes # (Auto) 0.5 0-1.3 10 ^3/uL Eosinophils # (Auto) 0 0-0.8 10 ^3/uL Basophils # (Auto) 0 0-0.2 10 ^3/uL Nucleated Red Blood Cells 0.0 % Activated Partial Thromboplast Time 71.0 *H 24.5-34.5 SEC Iron Level 16 L 65-175 ug/dL Total Iron Binding Capacity 229 L 250-425 ug/dL Percent Iron Saturation 7.0 L 20-55 % Total Bilirubin 1.0 0.2-1.0 mg/dL Direct Bilirubin 0.5 H <0.3 mg/dL Aspartate Amino Transferase (AST) 46 H 13-40 U/L Alanine Aminotransferase (ALT) 14 7-40 U/L Alkaline Phosphatase 203 H 46-116 U/L Total Protein 5.5 L 5.7-8.2 g/dL Albumin 3.0 L 3.2-4.8 g/dL Vitamin B12 Level 1217 H 211-911 pg/mL Vitamin D 25-Hydroxy 52.8 30.0-100 ng/mL Thyroid Stimulating Hormone (TSH) 2.77 0.55-4.78 uIU/mL POC Glucose 82 70-106 mg/dl Test 02/18/25 18:00 Range/Units Urine Color Yellow Yellow Urine Clarity Turbid H Clear Urine pH 6.0 5.0-9.0 Urine Specific Bowie 1.011 1.001-1.035 Urine Protein Trace H Negative Urine Ketones Negative Negative Urine Blood Negative Negative /uL Urine Nitrite Negative Negative Urine Bilirubin Negative Negative Urine Urobilinogen 6 Negative mg/dL Urine Leukocyte Esterase Trace Negative /uL Urine RBC 1 0 - 3 /hpf Urine Microscopic WBC 12 H 0-3 /HPF Urine Squamous Epithelial Cells Few <5 /hpf Urine Calcium Oxalate Crystals Few None Seen Urine Amorphous Crystals Few None Seen /hpf Urine Bacteria Few H None Seen /hpf Urine Glucose Normal Normal mg/dL Urine Opiates Screen Neg NEGATIVE Urine Fentanyl Screen Neg NEGATIVE Urine Barbiturates Screen Neg NEGATIVE Urine Phencyclidine Screen Neg NEGATIVE Urine Amphetamines Screen Neg NEGATIVE Urine Benzodiazepines Screen Neg NEGATIVE Urine Cocaine Screen Neg NEGATIVE Urine Cannabinoids Screen Neg NEGATIVE Assessment/Plan Plan Patient is a 74-year-old gentleman who presented to the hospital with generalized weakness/poor appetite and weight loss. There is report of dysphagia also. He has lost around 35-40 lb in the past few months. Since arrival, he is found to have metastatic disease in liver. Does have baseline history of atrial fibrillation and has had pacemaker before. Is on Coumadin. Cardiology is involved for cardiac aspects of care. Patient was actually seen in the office by my colleague just 2 days ago. Does have a pacemaker which was interrogated less than a week ago in the office. There is no report of chest pain/palpitation/loss of consciousness/shortness of breath. He looks depressed. Frail gentleman. Not in acute distress. Lying flat in bed. No JVD. Mucosa is wet. Not using accessory muscles of breathing. Lungs are clear to auscultation. Cardiac: Regular, no thrill. Systolic murmur 2/6 in the apex is heard. Abdomen is soft. Mild periumbilical tenderness is elicited. Bowel sounds positive. Extremities reveal 2+ edema bilaterally. Dorsalis pedis is 1+ bilateral Past medical history includes hypertension, hyperlipidemia, diastolic heart failure, valvular heart disease, history of mitral valve prolapse, pulmonary hypertension, atrial fibrillation/atrial flutter (on Coumadin as outpatient), status post atrial flutter ablation, status post pacemaker (Medtronic pacer, Derrick wires: The wires are not MRI compatible), DJD, s/p gastric bypass, anemia, GI bleeding, history of bilateral cataract surgery, questionable previous history of meningioma and hypothyroidism. As per patient, the patient was diagnosed with lung cancer less than a year ago for which has received radiation therapy. He was following with Dr. Grant for Oncology previously. Nuclear stress test of November 2019 (performed in the office) revealed scar but no ischemia. Ejection fraction was 58% at that point. Echocardiogram of December 23, 2024 revealed ejection fraction of 65%, moderate concentric left ventricular hypertrophy, moderate biatrial enlargement, mild mitral valve prolapse/MR/TR, aortic root of 4.4 cm. Ascending aorta of 4.3 cm. Moderate pericardial effusion. No evidence for cardiac tamponade. Hemoglobin: 9.9-9.0 Potassium: 3.0-2.9 Creatinine: 0.64-0.62 Magnesium: 2.0 TSH: 2.77 INR: 6.42 CT of the chest/abdomen/pelvis reported: FINDINGS: Trachea patent. No pneumothorax. Right middle lobe masslike lesion measuring 4.1 by 4.0 cm. Right lower lobe consolidation/atelectasis. Small right pleural effusion. Left upper lobe lingular segment atelectasis. Left lower lobe consolidation/atelectasis. Left lower lobe nodular lesion measuring 2.6 cm. Heart is enlarged. There is a small pericardial effusion. No supraclavicular /axillary lymphadenopathy. Adrenal glands poorly characterize. Splenic hypodense lesions up to 12 mm.. There are numerous hepatic lesions consistent with metastatic disease. These include a left hepatic lobe lesion measuring 9.8 cm, multiple right hepatic lobe lesions including lesions measuring 1.8 cm, 1.6 cm, 1.9 cm, 1.7 cm, 1.9 cm, 1.7 cm. Other left hepatic lobe lesions including lesions measuring 9 cm, 2.9 cm. Cholelithiasis. Dilated left intrahepatic duct measuring 10 mm. Dilated CBD measuring 19 mm. Bilateral kidneys demonstrate no hydronephrosis. Postsurgical changes stomach. Small bowel loops normal in caliber. Postsurgical changes of the bowel within the lower anterior abdomen. Large volume stool throughout the colon. Small amount of ascites fluid. Mesenteric edema. Abdominal aortic tortuosity and atherosclerotic disease. Bladder distended. Free pelvic fluid. Bilateral shoulder arthroplasty hardware. Severe thoracolumbar degenerative disc disease. Thoracolumbar s shaped curvature. Old posterior left 10th, 9th rib fractures. IMPRESSION: 1. Extensive hepatic metastatic disease with innumerable lesions including left hepatic lobe lesion measuring up to 9.8 cm. Correlate with patient's oncological history. 2. Dilated common bile duct, intrahepatic ducts. Recommend GI consultation MRCP to further evaluate. 3. CholelithiasisRight middle lobe 4. Masslike lesion/ infrahilar lesion measuring 4.1 x 4.0 cm, possibly representing primary lung malignancy. 5. Left lower lobe nodular lesion measuring 2.6 cm 6. Bilateral pulmonary airspace consolidation/ atelectasis as described. 7. Cardiomegaly, small pericardial effusion 8. Large volume stool throughout the colon. 9. Soft tissue edema/ anasarca. Mesenteric edema. Small amount of ascites fluid. 10. Other findings as described. EKG revealed paced ventricular rhythm Tele reveals paced rhythm Patient is a 74-year-old gentleman who presented with generalized weakness/weight loss/poor oral intake. He is found to have metastatic disease in liver. There was question about primary lung cancer. There is also question about dilated biliary duct/gallstones. Metastatic disease could have contri buted to the clinical picture. Does have history of lung cancer for which received some treatment last year. It is of note that the patient does have history of pacemaker implantation and the pacemaker wires are not MRI compatible. Pacemaker itself has been interrogated recently and functions well. Presentation is not considered cardiac catheterization this point. Does take Coumadin for history of AFib. Is found to have supratherapeutic INR. Extensive Mets to liver Dilated bile ducts Metastatic disease Gallstone Lung mass rule out cancer Supratherapeutic INR Anemia Previous history of GI bleeding Atrial fibrillation, history of Status post pacemaker (Medtronic pacer with sore and wires) Diastolic heart failure Hypertension Hyperlipidemia Hypothyroidism Lung cancer, history of Poor appetite s/p Gastric bypass, history of History of anastomotic ulcer on jejunal side of gastrojejunostomy Cardiac suggestions for management: Manage on telemetry Follow up electrolytes and kidney function test and Correct abnormalities. Keep potassium above four and magnesium above two Follow up H&H Request for BNP Management of supratherapeutic INR as per primary team Evaluation and management of metastatic disease as per primary team Consider obtaining tissue sample Request for GI/oncology evaluation It is of note that the patient's pacemaker has leads which are not MRI compatible. Thank you for consultation Further evaluation and management depends on the above and clinical course A total of 75 minutes was spent reviewing the patient record, examining the patient, making a diagnostic and therapeutic plan, discussing this plan with medical personnel, following up on diagnostic studies and following the patient for clinical stability excluding any and all procedures. At least 50% of this time was spent in direct, [id number] contact. Thank you for allowing me to participate in this patient's care. Further recommendations will depend on patient's clinical course. Please do not hesitate to contact me if you have any questions or concerns. This medical document was created using electronic medical record system with [employer] computerized dictation system. Although this document has been carefully reviewed, there may still be some phonetic and typographical errors. These areas are purely typographical due to the imperfection of the software programs, and do not reflect any compromise in the patient's medical care. Plan discussed with: Patient, Other (nurse) JADEN HERNÁNDEZ MD Feb 19, 2025 20:02
[2025-02-19] MEDS: LACTULOSE 20Gm/30ML SOLN PO SCH (22:00)
[2025-02-19] MEDS: POTASSIUM EFFERVESENT TAB 25 MEQ PO ONE (22:00)
[2025-02-19] MEDS: SENNA 8.6 MG TAB PO SCH (22:00)
[2025-02-20] VITALS (8 sets, daily range): BP systolic 100–125; BP diastolic 60–74; PULSE 65–68; RESP 17–67; TEMP 97.8–99.4; O2SAT 90–95
[2025-02-20 05:33] LABS: Basophils # (auto) 0 10 ^3/uL (0-0.2); Basophils % (auto) 0.2 % (0.0-2.0); Eosinophils # (auto) 0 10 ^3/uL (0-0.8); Neutrophils # (auto) 5.5 10 ^3/uL (1.6-8.6)
[2025-02-20 05:34] LABS: Eosinophils % (auto) 0.7 % (0.0-7.0); Hematocrit 32.1 % (41.0-53.0); Hemoglobin 9.9 g/dL (13.5-17.5); Lymphocytes # (auto) 0.3 10 ^3/uL (0.4-5.4); Lymphocytes % (auto) 4.8 % (10.0-50.0); Mean Corpuscular Hemoglobin 24.1 pg (28.0-32.0); Monocytes # (auto) 0.7 10 ^3/uL (0-1.3); Monocytes % (auto) 10.1 % (0.0-12.0); Neutrophils % (auto) 84.2 % (37.0-80.0); Platelet Count (auto) 273 10^3/uL (140-450); Red Blood Cells 4.11 10^6/uL (4.5-5.90); Red Cell Distribution Width 17.5 % (11.8-14.3); White Blood Cell 6.5 10^3/uL (4.4-10.8)
[2025-02-20 05:47] LABS: Chloride 99 mmol/L (98-107); Potassium 3.9 mmol/L (3.5-5.1); Sodium 136 mmol/L (136-145)
[2025-02-20 05:48] LABS: Anion Gap 4 (5-15)
[2025-02-20 05:53] LABS: BUN/Creatinine Ratio 20.7 (10.0-20.0); Blood Urea Nitrogen 12 mg/dL (9-23); Glucose 76 mg/dL (74-106)
[2025-02-20 05:54] LABS: Magnesium 2.1 mg/dL (1.6-2.6)
[2025-02-20 06:04] LABS: Carbon Dioxide 33 mmol/L (20-31)
[2025-02-20 06:22] LABS: INR 1.28 (0.9-1.15); Partial Thromboplastin Time 35.7 SEC (24.5-34.5); Prothrombin Time 13.2 sec (9.3-11.8)
--- NOTE | 2025-02-20 07:00 | DVHPN2 ---
Progress Note - Dictate Date Seen: Feb 20, 2025 Has the PT tested + for MRSA If YES, has PT been informed?: No Medical Necessity Reason Pt with a Central, PICC or Fol: No vital signs Vital Sign Date Time Temp Pulse Resp B/P (MAP) Pulse Ox O2 Delivery O2 Flow Rate FiO2 02/20/25 05:00 97.9 68 18 125/65 (85) 92 97.9 02/19/25 20:00 Room Air* 0 21 Total Intake and Output 02/19/25 02/19/25 02/20/25 15:00 23:00 07:00 Intake Total 860 ml 350 ml Output Total 900 ml 700 ml Balance -40 ml -350 ml medications Current Medications Medications Dose Ordered Sig/Yasir Route Start Time Stop Time Status Last Admin Dose Admin Acetaminophen 500 mg Q4HPRN PRN PO 02/19/25 01:30 02/19/25 11:40 500 MG Morphine Sulfate 1 mg Q4HPRN PRN IV 02/19/25 01:30 Acetaminophen/ Hydrocodone Bitart 1 tab Q4HPRN PRN PO 02/19/25 01:30 Sucralfate 1 gm QID@0600,1130,1700,2200 PO 02/19/25 06:00 02/20/25 05:40 1 GM Pantoprazole Sodium 40 mg DAILY@0600 PO 02/19/25 06:00 02/20/25 05:40 40 MG Ceftriaxone Sodium 50 ml @ 100 mls/hr DAILY@09 IV 02/20/25 09:00 Lactulose 30 ml BID PO 02/19/25 22:00 02/19/25 22:00 30 ML Sennosides 8.6 mg HS PO 02/19/25 22:00 02/19/25 22:00 8.6 MG laboratory and microbiology Laboratory Tests 02/20/25 04:40 Test 02/20/25 04:40 Range/Units Serum Glucose 76 74-106 mg/dL Assessment/Plan Patient is a 74-year-old gentleman who presented to the hospital with generalized weakness/poor appetite and weight loss. There is report of dysphagia also. He has lost around 35-40 lb in the past few months. Since arrival, he is found to have metastatic disease in liver. Does have baseline history of atrial fibrillation and has had pacemaker before. Is on Coumadin. Cardiology is involved for cardiac aspects of care. Patient was actually seen in the office by my colleague just 2 days ago. Does have a pacemaker which was interrogated less than a week ago in the office. There is no report of chest pain/palpitation/loss of consciousness/shortness of breath. He looks depressed. Frail gentleman. Not in acute distress. Lying flat in bed. No JVD. Mucosa is wet. Not using accessory muscles of breathing. Lungs are clear to auscultation. Cardiac: Regular, no thrill. Systolic murmur 2/6 in the apex is heard. Abdomen is soft. Mild periumbilical tenderness is elicited. Bowel sounds positive. Extremities reveal 2+ edema bilaterally. Dorsalis pedis is 1+ bilateral Past medical history includes hypertension, hyperlipidemia, diastolic heart failure, valvular heart disease, history of mitral valve prolapse, pulmonary hypertension, atrial fibrillation/atrial flutter (on Coumadin as outpatient), status post atrial flutter ablation, status post pacemaker (Medtronic pacer, Derrick wires: The wires are not MRI compatible), DJD, s/p gastric bypass, anemia, GI bleeding, history of bilateral cataract surgery, questionable previous history of meningioma and hypothyroidism. As per patient, the patient was diagnosed with lung cancer less than a year ago for which has received radiation therapy. He was following with Dr. Grant for Oncology previously. Nuclear stress test of November 2019 (performed in the office) revealed scar but no ischemia. Ejection fraction was 58% at that point. Echocardiogram of December 23, 2024 revealed ejection fraction of 65%, moderate concentric left ventricular hypertrophy, moderate biatrial enlargement, mild mitral valve prolapse/MR/TR, aortic root of 4.4 cm. Ascending aorta of 4.3 cm. Moderate pericardial effusion. No evidence for cardiac tamponade. Hemoglobin: 9.9 - 9.0 - 9.9 Potassium: 3.0 - 2.9 - 3.4 - 3.9 Creatinine: 0.64 - 0.62 - 0.63 - 0.58 Magnesium: 2.0 - 2.0 - 2.1 TSH: 2.77 INR: 6.42 - 1.6 - 1.28 CT of the chest/abdomen/pelvis reported: FINDINGS: Trachea patent. No pneumothorax. Right middle lobe masslike lesion measuring 4.1 by 4.0 cm. Right lower lobe consolidation/atelectasis. Small right pleural effusion. Left upper lobe lingular segment atelectasis. Left lower lobe consolidation/atelectasis. Left lower lobe nodular lesion measuring 2.6 cm. Heart is enlarged. There is a small pericardial effusion. No supraclavicular /axillary lymphadenopathy. Adrenal glands poorly characterize. Splenic hypodense lesions up to 12 mm.. There are numerous hepatic lesions consistent with metastatic disease. These include a left hepatic lobe lesion measuring 9.8 cm, multiple right hepatic lobe lesions including lesions measuring 1.8 cm, 1.6 cm, 1.9 cm, 1.7 cm, 1.9 cm, 1.7 cm. Other left hepatic lobe lesions including lesions measuring 9 cm, 2.9 cm. Cholelithiasis. Dilated left intrahepatic duct measuring 10 mm. Dilated CBD measuring 19 mm. Bilateral kidneys demonstrate no hydronephrosis. Postsurgical changes stomach. Small bowel loops normal in caliber. Postsurgical changes of the bowel within the lower anterior abdomen. Large volume stool throughout the colon. Small amount of ascites fluid. Mesenteric edema. Abdominal aortic tortuosity and atherosclerotic disease. Bladder distended. Free pelvic fluid. Bilateral shoulder arthroplasty hardware. Severe thoracolumbar degenerative disc disease. Thoracolumbar s shaped curvature. Old posterior left 10th, 9th rib fractures. IMPRESSION: 1. Extensive hepatic metastatic disease with innumerable lesions including left hepatic lobe lesion measuring up to 9.8 cm. Correlate with patient's oncological history. 2. Dilated common bile duct, intrahepatic ducts. Recommend GI consultation MRCP to further evaluate. 3. CholelithiasisRight middle lobe 4. Masslike lesion/ infrahilar lesion measuring 4.1 x 4.0 cm, possibly representing primary lung malignancy. 5. Left lower lobe nodular lesion measuring 2.6 cm 6. Bilateral pulmonary airspace consolidation/ atelectasis as described. 7. Cardiomegaly, small pericardial effusion 8. Large volume stool throughout the colon. 9. Soft tissue edema/ anasarca. Mesenteric edema. Small amount of ascites fluid. 10. Other findings as described. EKG revealed paced ventricular rhythm Tele reveals paced rhythm Patient is a 74-year-old gentleman who presented with generalized weakness/weight loss/poor oral intake. He is found to have metastatic disease in liver. There was question about primary lung cancer. There is also question about dilated biliary duct/gallstones. Metastatic disease could have contributed to the clinical picture. Does have history of lung cancer for which received some treatment last year. It is of note that the patient does have history of pacemaker implantation and the pacemaker wires are not MRI compatible. Pacemaker itself has been interrogated recently and functions well. Presentation is not considered cardiac catheterization this point. Does take Coumadin for history of AFib. Is found to have supratherapeutic INR. Extensive Mets to liver Dilated bile ducts Metastatic disease Gallstone Lung mass rule out cancer Supratherapeutic INR Anemia Previous history of GI bleeding Atrial fibrillation, history of Status post pacemaker (Medtronic pacer with sore and wires) Diastolic heart failure Hypertension Hyperlipidemia Hypothyroidism Lung cancer, history of Poor appetite s/p Gastric bypass, history of History of anastomotic ulcer on jejunal side of gastrojejunostomy Cardiac suggestions for management: Manage on telemetry Follow up electrolytes and kidney function test and Correct abnormalities. Keep potassium above four and magnesium above two Request for BNP Management of supratherapeutic INR as per primary team Evaluation and management of metastatic disease as per primary team Consider obtaining tissue sample Request for GI/oncology evaluation It is of note that the patient's pacemaker has leads which are not MRI compatible. Further evaluation and management depends on the above and clinical course A total of 55 minutes was spent reviewing the patient record, examining the patient, making a diagnostic and therapeutic plan, discussing this plan with medical personnel, following up on diagnostic studies and following the patient for clinical stability excluding any and all procedures. At least 50% of this time was spent in direct, [id number] contact. Thank you for allowing me to participate in this patient's care. Further recommendations will depend on patient's clinical course. Please do not hesitate to contact me if you have any questions or concerns. This medical document was created using electronic medical record system with [employer] computerized dictation system. Although this document has been carefully reviewed, there may still be some phonetic and typographical errors. These areas are purely typographical due to the imperfection of the software programs, and do not reflect any compromise in the patient's medical care. Dietary Evaluation Review Recommendations by RD: Increase Calorie Intake, Protein Supplementation Comments: 1) Advance to regular diet as medically feasible 2) Ensure Enlive 240ml QID 3) Megace 800mg/20ml daily 4) Continue current POC Expected Outcomes/Goals: Pt will meet >75% estimated needs FU 2-3 days Food and Nutrition Intake (Sev: <50% est energy req 5days Interpretation of weight loss: >7.5% in 3 months Muscle Mass (Severe): Mod to Severe Depletion Protein Calorie Malnutrition: Severe Is there a minimum of two crit: Yes Plan discussed with: Patient, Other (nurse) JADEN HERNÁNDEZ MD Feb 20, 2025 07:00
[2025-02-20] MEDS: cefTRIAXone 1GM/50ML D5W 50 ML IV SCH (09:13)
[2025-02-20] MEDS: APIXABAN 5 MG TAB PO SCH (09:20)
[2025-02-20] MEDS ORDERED: ENOXAPARIN SOD 100 MG/1 ML SYRINGE SC SCH (10:00)
[2025-02-20] MEDS: SODIUM CHLORIDE 0.9% 1,000 ML IV SCH (16:02)
--- NOTE | 2025-02-20 19:22 | DVHPNRES ---
Progress Note Date Seen: Feb 20, 2025 Resident Creating Document: PRASHANT MARQUEZ RESIDENT Has the PT tested + for MRSA If YES, has PT been informed?: No Medical Necessity Reason Pt with a Central, PICC or Fol: No Medical Necessity Reason Mr. Vela is 74-year-old male patient with past medical history of lung carcinoma diagnosed in 2023 status post radiation for 35 days, followed Dr. Grant then lost to follow up, history of peptic ulcer disease and GI bleeding 01/06, questionable meningioma, diastolic congestive heart failure, paroxysmal atrial fibrillation on Coumadin, status post pacemaker-last assessed July 2024, osteoporosis bilateral hip, right knee replacement, who presented to the ER with a chief complaint of generalized weakness, decreased appetite and unintentional weight loss. Patient was diagnosed with lung carcinoma , underwent radiation, reports that lung cancer was in remission and then patient did not follow up with Dr. Grant for the past 6 months. Consequently he felt increasing weakness and weight loss of about 35-40 lb in the past 3-4 months. Patient has no appetite. Patient is a poor historian. On arrival to the ER, patient was vitally stable, H&H was 9.9/32, MCV 78. LFTs elevated. CT abdomen was completed which showed extensive metastatic disease with innumerable lesions in the liver and hypodense lesion in the spleen. Dilated common bile duct and cholelithiasis. MRCP recommended. 2.6 cm left lower lobe nodule and 4 by 4 infrahilar mass with small pericardial effusion. UA was suggestive of UTI. Past Medical History: lung carcinoma diagnosed in 2023 status post radiation for 35 days, history of peptic ulcer disease and GI bleeding 01/06, questionable meningioma, diastolic congestive heart failure, paroxysmal atrial fibrillation on Coumadin,osteoporosis Surgical history: status post pacemaker-last assessed July 2024, bilateral hip, bilateral knee replacement. Social history: Patient lives by himself in an apartment. The rest of his family this candidate. Patient mentioned that he has smoked 2-3 past for 40 years making a total of about 120 any need and on drinking any illicit drugs Medication: On Warfarin, Tamsuloin, Protonix, Sul, PN:02/19/2025 Patient is a 74 year old male with a know history lung carcinoma diagnosed in 2023 underwent radiation, reports that lung cancer was in remission and then patient did not follow up with Dr. Grant for the past 6 months. Consequently he felt increasing weakness and weight loss of about 35-40 lb in the past 3-4 months. Patient presented to the ED with the chief complaint of constipation, generalized weakness and unintentional weight lost, low appetite and his dysphagia reports his throat is closing whenever he swallows. Patient is poor historian and seems to have scarcity of words. Patient mentioned that he has lost a total of 270Ibs in over 5 years. Chest x-ray revealed extensive hepatic metastatic disease with innumerable lesions including left hepatic lobe lesion measuring up to 9.8 cm. Correlate with patient's oncological history.Dilated common bile duct, intrahepatic ducts. Recommend GI consultation MRCP to further evaluate.Cholelithiasis,Right middle lobe,Masslike lesion/ infrahilar lesion measuring 4.1 x 4.0 cm, possibly representing primary lung malignancy. Left lower lobe nodular lesion measuring 2.6 cm,Bilateral pulmonary airspace consolidation/ atelectasis as described.Cardiomegaly, small pericardial effusion.Large volume stool throughout the colon. Soft tissue edema/ anasarca. Mesenteric edema. Small amount of ascites fluid. PN 02/20/2025: Patient doing better. His INR is now subtherapeutic after Vitamin K. He had a bowel movement as well. Otherwise he has no complaints. Will start him on Lovenox therapeutic dose. Pending consultation from the oncologist and repeat blood for tomorrow Subjective Review of Systems Constitutional: Denies fever no chills, but feeling of malaise, loss of appetite HEENT: Denies headache, ear pain, ear discharges, conjunctivitis, nasal discharge throat pain Cardiovascular: Denies chest pain, palpitation, orthopnea, PND, or pedal edema Respiratory: Denies shortness of breath, cough cough, sputum production, hemoptysis, GI: Denies abdominal pain, nausea, vomiting, diarrhea, hematemesis, hematochezia; Constipation : Denies frequency, urgency, hematuria, Endocrine: unintentional weight loss (270 lbs); NO feeling of hot flashes, Dionisio: Denies easy bruising, bleeding disorders, epistaxis Musculoskeletal: Muscle weakness; Denies joint pains, muscle aches Psych: No evidence of depression, jaclyn, suicidal ideation Objective vital signs Vital Sign Date Time Temp Pulse Resp B/P (MAP) Pulse Ox O2 Delivery O2 Flow Rate FiO2 02/20/25 16:58 97.8 67 67 100/64 (76) 93 97.8 02/20/25 08:00 Room Air* 0 21 Total Intake and Output 02/19/25 02/19/25 02/20/25 15:00 23:00 07:00 Intake Total 860 ml 350 ml Output Total 900 ml 700 ml Balance -40 ml -350 ml medications Current Medications Medications Dose Ordered Sig/Yasir Route Start Time Stop Time Status Last Admin Dose Admin Acetaminophen 500 mg Q4HPRN PRN PO 02/19/25 01:30 02/20/25 09:42 500 MG Morphine Sulfate 1 mg Q4HPRN PRN IV 02/19/25 01:30 Acetaminophen/ Hydrocodone Bitart 1 tab Q4HPRN PRN PO 02/19/25 01:30 Sucralfate 1 gm QID@0600,1130,1700,2200 PO 02/19/25 06:00 02/20/25 17:29 1 GM Pantoprazole Sodium 40 mg DAILY@0600 PO 02/19/25 06:00 02/20/25 05:40 40 MG Ceftriaxone Sodium 50 ml @ 100 mls/hr DAILY@09 IV 02/20/25 09:00 02/20/25 09:13 100 MLS/HR Lactulose 30 ml BID PO 02/19/25 22:00 02/20/25 09:20 30 ML Sennosides 8.6 mg HS PO 02/19/25 22:00 02/19/25 22:00 8.6 MG Enoxaparin Sodium 70 mg Q12HR SC 02/20/25 22:00 Sodium Chloride 1,000 ml @ 125 mls/hr Q8H IV 02/20/25 15:15 02/20/25 16:02 125 MLS/HR Examination General Appearance: Alert, Oriented X3, Cooperative, Cachectic, afebrile, HEENT: Atraumatic, Pupils are isocoric and reactive, EOMI, Pale mucous membrane moist Respiratory: Bilateral basilar crackles and decreased breath sounds heard on auscultation. Cardiovascular: Regular rate, Normal S1, Normal S2, No murmurs, no chest wall tenderness Abdominal: Soft, left quadrant tenderness, nondistended, normoactive bowel sounds, no rebound tenderness; organomegaly, central masses palpated. Negative Ewing sign on examination Extremities: No clubbing, No cyanosis, No edema, Normal pulses, resolving Edema, 3+ bilateral pitting edema, Bilateral lower extremities chronic dermatitis changes Skin: No rashes, No breakdown, Skin discoloration likely stasis dermatitis ( bilateral lower extremities) Neuro: difficulty in elevating the right lower extremity, walks with a walker, Normal tone, Sensation intact, reduced Reflexes 2+ Psych/Mental Status: Mental status NL, Mood NL laboratory and microbiology Laboratory Tests 02/20/25 04:40 Test 02/20/25 04:40 Range/Units Serum Glucose 76 74-106 mg/dL Microbiology Date/Time Source Procedure Growth Status 02/18/25 18:00 Voided Urine Urine Culture - Preliminary Resulted Problem List/Assessment/Plan Problem List/Assessment/Plan Assessment Failure to thrive secondary to Metastatic lung carcinoma status post radiation Severe Protein calorie malnutrition --> Unintentional weight lost --> Ensure q.i.d. --> Diet consult Coagulopathy secondary to anticoagulant medication for AFIB --> On warfarin for AFIB --> INR: 6.4---> 1.28 after Vitamin K --> No signs for bleeding at this time, thus will give Vitamin K 10mg and repeat PT/INR IN 6hrs, Pending; if no improve, repeat Vitamin K 10MG --> Now on IV LOVENOX therapeutic dose Constipation --> CT abdomen: Large volume stool throughout the colon --> lactulose 30mg bid --> Senna glycoside --> if the method does not work, will try fleet enema ? Choledocholithiasis -->Transaminitis, Trend LFTs. --> Cholelithiasis, negative Ewing's --> CT abdomen showed dilated common bile duct. --> MRCP pending. Likely Pneumonia -->Examination findings --> CT abdomen: Bilateral pulmonary airspace consolidation/ atelectasis as described --> Ceftriaxone Acute cystitis IV ceftriaxone ordered Urine bacterial culture ordered. 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 Hurst Plan discussed with: Patient My Orders My Orders Orders - PRASHANT MARQUEZ Procedure Category Date Status Time Enoxaparin Sodium PHA 02/20/25 In Process (Lovenox) 22:00 Sodium Chloride 0.9% PHA 02/20/25 In Process 15:15 Dietary Evaluation Review Recommendations by RD: Increase Calorie Intake, Protein Supplementation Comments: 1) Advance to regular diet as medically feasible 2) Ensure Enlive 240ml QID 3) Megace 800mg/20ml daily 4) Continue current POC Expected Outcomes/Goals: Pt will meet >75% estimated needs FU 2-3 days Food and Nutrition Intake (Sev: <50% est energy req 5days Interpretation of weight loss: >7.5% in 3 months Muscle Mass (Severe): Mod to Severe Depletion Protein Calorie Malnutrition: Severe Is there a minimum of two crit: Yes Date of Service: Feb 20, 2025 Billing Provider: ASHLY HURST MD Common Visit Codes: [id number] INP/OBS CARE(HIGH) PRASHANT MARQUEZ Feb 20, 2025 19:22 ASHLY HURST MD Feb 25, 2025 22:04
[2025-02-20] MEDS: ENOXAPARIN SOD 80 MG/0.8ML SYRINGE SC SCH (22:29)
[2025-02-21] VITALS (9 sets, daily range): BP systolic 100–122; BP diastolic 59–73; PULSE 54–70; RESP 16–20; TEMP 97.8–98.4; O2SAT 92–94
[2025-02-21 07:36] LABS: Basophils # (auto) 0 10 ^3/uL (0-0.2); Basophils % (auto) 0.2 % (0.0-2.0); Eosinophils # (auto) 0 10 ^3/uL (0-0.8); Eosinophils % (auto) 0.4 % (0.0-7.0); Hematocrit 30.8 % (41.0-53.0); Hemoglobin 9.8 g/dL (13.5-17.5); Lymphocytes # (auto) 0.3 10 ^3/uL (0.4-5.4); Lymphocytes % (auto) 5.4 % (10.0-50.0); Mean Corpuscular Hemoglobin 24.8 pg (28.0-32.0); Mean Corpuscular Hgb Conc. 31.6 g/dL (32.0-36.0); Mean Corpuscular Volume 78.5 fL (80.0-100.0); Monocytes # (auto) 0.6 10 ^3/uL (0-1.3); Monocytes % (auto) 9.5 % (0.0-12.0); Neutrophils # (auto) 5.3 10 ^3/uL (1.6-8.6); Neutrophils % (auto) 84.5 % (37.0-80.0); Platelet Count (auto) 240 10^3/uL (140-450); Red Blood Cells 3.93 10^6/uL (4.5-5.90); White Blood Cell 6.3 10^3/uL (4.4-10.8)
--- NOTE | 2025-02-21 08:48 | DVHPN2 ---
Progress Note - Dictate Date Seen: Feb 21, 2025 Has the PT tested + for MRSA If YES, has PT been informed?: No Medical Necessity Reason Pt with a Central, PICC or Fol: No vital signs Vital Sign Date Time Temp Pulse Resp B/P (MAP) Pulse Ox O2 Delivery O2 Flow Rate FiO2 02/21/25 05:00 97.9 68 18 118/73 (88) 93 97.9 02/20/25 20:00 Room Air* 0 21 Total Intake and Output 02/20/25 02/20/25 02/21/25 15:00 23:00 07:00 Intake Total 50 ml 850 ml 1700 ml Output Total 600 ml 800 ml Balance 50 ml 250 ml 900 ml medications Current Medications Medications Dose Ordered Sig/Yasir Route Start Time Stop Time Status Last Admin Dose Admin Acetaminophen 500 mg Q4HPRN PRN PO 02/19/25 01:30 02/20/25 09:42 500 MG Morphine Sulfate 1 mg Q4HPRN PRN IV 02/19/25 01:30 Acetaminophen/ Hydrocodone Bitart 1 tab Q4HPRN PRN PO 02/19/25 01:30 Sucralfate 1 gm QID@0600,1130,1700,2200 PO 02/19/25 06:00 02/21/25 06:28 1 GM Pantoprazole Sodium 40 mg DAILY@0600 PO 02/19/25 06:00 02/21/25 06:28 40 MG Ceftriaxone Sodium 50 ml @ 100 mls/hr DAILY@09 IV 02/20/25 09:00 02/20/25 09:13 100 MLS/HR Lactulose 30 ml BID PO 02/19/25 22:00 02/20/25 22:28 30 ML Sennosides 8.6 mg HS PO 02/19/25 22:00 02/20/25 22:28 8.6 MG Enoxaparin Sodium 70 mg Q12HR SC 02/20/25 22:00 02/20/25 22:29 70 MG Sodium Chloride 1,000 ml @ 125 mls/hr Q8H IV 02/20/25 15:15 02/21/25 02:54 125 MLS/HR laboratory and microbiology Laboratory Tests 02/21/25 06:40 Test 02/21/25 06:40 Range/Units Serum Glucose Pending Assessment/Plan Patient is a 74-year-old gentleman who presented to the hospital with generalized weakness/poor appetite and weight loss. There is report of dysphagia also. He has lost around 35-40 lb in the past few months. Since arrival, he is found to have metastatic disease in liver. Does have baseline history of atrial fibrillation and has had pacemaker before. Is on Coumadin. Cardiology is involved for cardiac aspects of care. Patient was actually seen in the office by my colleague just 2 days ago. Does have a pacemaker which was interrogated less than a week ago in the office. There is no report of chest pain/palpitation/loss of consciousness/shortness of breath. He looks depressed. Frail gentleman. Not in acute distress. Lying flat in bed. No JVD. Mucosa is wet. Not using accessory muscles of breathing. Lungs are clear to auscultation. Cardiac: Regular, no thrill. Systolic murmur 2/6 in the apex is heard. Abdomen is soft. Mild periumbilical tenderness is elicited. Bowel sounds positive. Extremities reveal 2+ edema bilaterally. Dorsalis pedis is 1+ bilateral Past medical history includes hypertension, hyperlipidemia, diastolic heart failure, valvular heart disease, history of mitral valve prolapse, pulmonary hypertension, atrial fibrillation/atrial flutter (on Coumadin as outpatient), status post atrial flutter ablation, status post pacemaker (Medtronic pacer, Derrick wires: The wires are not MRI compatible), DJD, s/p gastric bypass, anemia, GI bleeding, history of bilateral cataract surgery, questionable previous history of meningioma and hypothyroidism. As per patient, the patient was diagnosed with lung cancer less than a year ago for which has received radiation therapy. He was following with Dr. Grant for Oncology previously. Nuclear stress test of November 2019 (performed in the office) revealed scar but no ischemia. Ejection fraction was 58% at that point. Echocardiogram of December 23, 2024 revealed ejection fraction of 65%, moderate concentric left ventricular hypertrophy, moderate biatrial enlargement, mild mitral valve prolapse/MR/TR, aortic root of 4.4 cm. Ascending aorta of 4.3 cm. Moderate pericardial effusion. No evidence for cardiac tamponade. Hemoglobin: 9.9 - 9.0 - 9.9 - 9.8 Potassium: 3.0 - 2.9 - 3.4 - 3.9 - 3.5 Creatinine: 0.64 - 0.62 - 0.63 - 0.58 - 0.62 Magnesium: 2.0 - 2.0 - 2.1 TSH: 2.77 INR: 6.42 - 1.6 - 1.28 CT of the chest/abdomen/pelvis reported: FINDINGS: Trachea patent. No pneumothorax. Right middle lobe masslike lesion measuring 4.1 by 4.0 cm. Right lower lobe consolidation/atelectasis. Small right pleural effusion. Left upper lobe lingular segment atelectasis. Left lower lobe consolidation/atelectasis. Left lower lobe nodular lesion measuring 2.6 cm. Heart is enlarged. There is a small pericardial effusion. No supraclavicular /axillary lymphadenopathy. Adrenal glands poorly characterize. Splenic hypodense lesions up to 12 mm.. There are numerous hepatic lesions consistent with metastatic disease. These include a left hepatic lobe lesion measuring 9.8 cm, multiple right hepatic lobe lesions including lesions measuring 1.8 cm, 1.6 cm, 1.9 cm, 1.7 cm, 1.9 cm, 1.7 cm. Other left hepatic lobe lesions including lesions measuring 9 cm, 2.9 cm. Cholelithiasis. Dilated left intrahepatic duct measuring 10 mm. Dilated CBD measuring 19 mm. Bilateral kidneys demonstrate no hydronephrosis. Postsurgical changes stomach. Small bowel loops normal in caliber. Postsurgical changes of the bowel within the lower anterior abdomen. Large volume stool throughout the colon. Small amount of ascites fluid. Mesenteric edema. Abdominal aortic tortuosity and atherosclerotic disease. Bladder distended. Free pelvic fluid. Bilateral shoulder arthroplasty hardware. Severe thoracolumbar degenerative disc disease. Thoracolumbar s shaped curvature. Old posterior left 10th, 9th rib fractures. IMPRESSION: 1. Extensive hepatic metastatic disease with innumerable lesions including left hepatic lobe lesion measuring up to 9.8 cm. Correlate with patient's oncological history. 2. Dilated common bile duct, intrahepatic ducts. Recommend GI consultation MRCP to further evaluate. 3. CholelithiasisRight middle lobe 4. Masslike lesion/ infrahilar lesion measuring 4.1 x 4.0 cm, possibly representing primary lung malignancy. 5. Left lower lobe nodular lesion measuring 2.6 cm 6. Bilateral pulmonary airspace consolidation/ atelectasis as described. 7. Cardiomegaly, small pericardial effusion 8. Large volume stool throughout the colon. 9. Soft tissue edema/ anasarca. Mesenteric edema. Small amount of ascites fluid. 10. Other findings as described. EKG revealed paced ventricular rhythm Tele reveals paced rhythm Patient is a 74-year-old gentleman who presented with generalized weakness/weight loss/poor oral intake. He is found to have metastatic disease in liver. There was question about primary lung cancer. There is also question about dilated biliary duct/gallstones. Metastatic disease could have contributed to the clinical picture. Does have history of lung cancer for which received some treatment last year. It is of note that the patient does have history of pacemaker implantation and the pacemaker wires are not MRI compatible. Pacemaker itself has been interrogated recently and functions well. Presentation is not considered cardiac catheterization this point. Does take Coumadin for history of AFib. Is found to have supratherapeutic INR. Extensive Mets to liver Dilated bile ducts Metastatic disease Gallstone Lung mass rule out cancer Supratherapeutic INR Anemia Previous history of GI bleeding Atrial fibrillation, history of Status post pacemaker (Medtronic pacer with sore and wires) Diastolic heart failure Hypertension Hyperlipidemia Hypothyroidism Lung cancer, history of Poor appetite s/p Gastric bypass, history of History of anastomotic ulcer on jejunal side of gastrojejunostomy Cardiac suggestions for management: Manage on telemetry Follow up electrolytes and kidney function test and Correct abnormalities. Keep potassium above four and magnesium above two Request for BNP On Lovenox (therapeutic dose) for now: you can restart coumadin (in no need to repeat any biopsy / procedure) Evaluation and management of metastatic disease as per primary team Consider obtaining tissue sample Request for GI/oncology evaluation You may want to consider Palliative consult It is of note that the patient's pacemaker has leads which are not MRI compatible. Further evaluation and management depends on the above and clinical course A total of 55 minutes was spent reviewing the patient record, examining the patient, making a diagnostic and therapeutic plan, discussing this plan with medical personnel, following up on diagnostic studies and following the patient for clinical stability excluding any and all procedures. At least 50% of this time was spent in direct, [id number] contact. Thank you for allowing me to participate in this patient's care. Further recommendations will depend on patient's clinical course. Please do not hesitate to contact me if you have any questions or concerns. This medical document was created using electronic medical record system with [employer] dictation system. Although this document has been carefully reviewed, there may still be some phonetic and typographical errors. These areas are purely typographical due to the imperfection of the software programs, and do not reflect any compromise in the patient's medical care. Dietary Evaluation Review Recommendations by RD: Increase Calorie Intake, Protein Supplementation Comments: 1) Advance to regular diet as medically feasible 2) Ensure Enlive 240ml QID 3) Megace 800mg/20ml daily 4) Continue current POC Expected Outcomes/Goals: Pt will meet >75% estimated needs FU 2-3 days Food and Nutrition Intake (Sev: <50% est energy req 5days Interpretation of weight loss: >7.5% in 3 months Muscle Mass (Severe): Mod to Severe Depletion Protein Calorie Malnutrition: Severe Is there a minimum of two crit: Yes Plan discussed with: Patient, Other (nurse) JADEN HERNÁNDEZ MD Feb 21, 2025 08:47
[2025-02-21 09:06] LABS: Alanine Aminotransferase 12 U/L (7-40); Anion Gap 5 (5-15); BUN/Creatinine Ratio 14.5 (10.0-20.0); Blood Urea Nitrogen 9 mg/dL (9-23); Chloride 101 mmol/L (98-107); Glucose 76 mg/dL (74-106); Sodium 138 mmol/L (136-145)
[2025-02-21 09:07] LABS: Bilirubin, Total 0.7 mg/dL (0.2-1.0)
[2025-02-21 09:08] LABS: Alkaline Phosphatase 201 U/L (46-116); Aspartate Aminotransferase 46 U/L (13-40); Calcium 11.6 mg/dL (8.7-10.4); Carbon Dioxide 32 mmol/L (20-31); Potassium 3.5 mmol/L (3.5-5.1); Total Protein 5.5 g/dL (5.7-8.2)
[2025-02-21 13:44] LABS: INR 1.44 (0.9-1.15); Partial Thromboplastin Time 38.4 SEC (24.5-34.5); Prothrombin Time 14.7 sec (9.3-11.8)
--- NOTE | 2025-02-21 19:44 | DVHPNRES ---
Progress Note Date Seen: Feb 21, 2025 Resident Creating Document: PRASHANT MARQUEZ RESIDENT Has the PT tested + for MRSA If YES, has PT been informed?: No Medical Necessity Reason Pt with a Central, PICC or Fol: No Medical Necessity Reason Mr. Vela is 74-year-old male patient with past medical history of lung carcinoma diagnosed in 2023 status post radiation for 35 days, followed Dr. Grant then lost to follow up, history of peptic ulcer disease and GI bleeding 01/06, questionable meningioma, diastolic congestive heart failure, paroxysmal atrial fibrillation on Coumadin, status post pacemaker-last assessed July 2024, osteoporosis bilateral hip, right knee replacement, who presented to the ER with a chief complaint of generalized weakness, decreased appetite and unintentional weight loss. Patient was diagnosed with lung carcinoma , underwent radiation, reports that lung cancer was in remission and then patient did not follow up with Dr. Grant for the past 6 months. Consequently he felt increasing weakness and weight loss of about 35-40 lb in the past 3-4 months. Patient has loss of appetite but no dysphagia. Patient is a poor historian. On arrival to the ER, patient was vitally stable, H&H was 9.9/32, MCV 78. LFTs elevated. CT abdomen was completed which showed extensive metastatic disease with innumerable lesions in the liver and hypodense lesion in the spleen. Dilated common bile duct and cholelithiasis. MRCP recommended. 2.6 cm left lower lobe nodule and 4 by 4 infrahilar mass with small pericardial effusion. UA was suggestive of UTI. Past Medical History: lung carcinoma diagnosed in 2023 status post radiation for 35 days, history of peptic ulcer disease and GI bleeding 01/06, questionable meningioma, diastolic congestive heart failure, paroxysmal atrial fibrillation on Coumadin,osteoporosis Surgical history: status post pacemaker-last assessed July 2024, bilateral hip, bilateral knee replacement. Social history: Patient lives by himself in an apartment. The rest of his family this candidate. Patient mentioned that he has smoked 2-3 past for 40 years making a total of about 120 any need and on drinking any illicit drugs Medication: On Warfarin, Tamsuloin, Protonix, Sul, PN:02/19/2025 Patient is a 74 year old male with a know history lung carcinoma diagnosed in 2023 underwent radiation, reports that lung cancer was in remission and then patient did not follow up with Dr. Grant for the past 6 months. Consequently he felt increasing weakness and weight loss of about 35-40 lb in the past 3-4 months. Patient presented to the ED with the chief complaint of constipation, generalized weakness and unintentional weight lost, low appetite and his dysphagia reports his throat is closing whenever he swallows. Patient is poor historian and seems to have scarcity of words. Patient mentioned that he has lost a total of 270Ibs in over 5 years. Chest x-ray revealed extensive hepatic metastatic disease with innumerable lesions including left hepatic lobe lesion measuring up to 9.8 cm. Correlate with patient's oncological history.Dilated common bile duct, intrahepatic ducts. Recommend GI consultation MRCP to further evaluate.Cholelithiasis,Right middle lobe,Masslike lesion/ infrahilar lesion measuring 4.1 x 4.0 cm, possibly representing primary lung malignancy. Left lower lobe nodular lesion measuring 2.6 cm,Bilateral pulmonary airspace consolidation/ atelectasis as described.Cardiomegaly, small pericardial effusion.Large volume stool throughout the colon. Soft tissue edema/ anasarca. Mesenteric edema. Small amount of ascites fluid. PN 02/20/2025: Patient doing better. His INR is now subtherapeutic after Vitamin K. He had a bowel movement as well. Otherwise he has no complaints. Will start him on Lovenox therapeutic dose. Pending consultation from the oncologist and repeat blood for tomorrow PN: 02/21/2025 Patient seen and examined. He has not complaints. INR today is 1.48. He is currently on Lovenox therapeutic dose. We discussed plan of care with the patient going forward. He lives alone. The rest of his family lives in [place]. We discussed the option for comfort care vs pursing aggressive chemoradiation treatment with the patient. However, at the end of the day, he would need to make that decision. Patient said he has not though of comfort care and he needs time to process all the information presented to him. Subjective Review of Systems Constitutional: Denies fever no chills, but feeling of malaise, loss of appetite HEENT: Denies headache, ear pain, ear discharges, conjunctivitis, nasal discharge throat pain Cardiovascular: Denies chest pain, palpitation, orthopnea, PND, or pedal edema Respiratory: Denies shortness of breath, cough cough, sputum production, hemoptysis, GI: Denies abdominal pain, nausea, vomiting, diarrhea, hematemesis, hematochezia; Constipation : Denies frequency, urgency, hematuria, Endocrine:unintentional weight loss (270lb lost), feeling of hot flashes, Dionisio: Denies easy bruising, bleeding disorders, epistaxis Musculoskeletal: Muscle weakness; Denies joint pains, muscle aches Psych: No evidence of depression, jaclyn, suicidal ideation Objective vital signs Vital Sign Date Time Temp Pulse Resp B/P (MAP) Pulse Ox O2 Delivery O2 Flow Rate FiO2 02/21/25 16:46 98.4 54 18 109/65 (80) 93 98.4 02/21/25 08:00 Room Air* 0 21 Total Intake and Output 02/20/25 02/20/25 02/21/25 15:00 23:00 07:00 Intake Total 50 ml 850 ml 1700 ml Output Total 600 ml 800 ml Balance 50 ml 250 ml 900 ml medications Current Medications Medications Dose Ordered Sig/Yasir Route Start Time Stop Time Status Last Admin Dose Admin Acetaminophen 500 mg Q4HPRN PRN PO 02/19/25 01:30 02/20/25 09:42 500 MG Morphine Sulfate 1 mg Q4HPRN PRN IV 02/19/25 01:30 Acetaminophen/ Hydrocodone Bitart 1 tab Q4HPRN PRN PO 02/19/25 01:30 Sucralfate 1 gm QID@0600,1130,1700,2200 PO 02/19/25 06:00 02/21/25 18:16 1 GM Pantoprazole Sodium 40 mg DAILY@0600 PO 02/19/25 06:00 02/21/25 06:28 40 MG Ceftriaxone Sodium 50 ml @ 100 mls/hr DAILY@09 IV 02/20/25 09:00 02/21/25 10:06 100 MLS/HR Lactulose 30 ml BID PO 02/19/25 22:00 02/21/25 10:06 30 ML Sennosides 8.6 mg HS PO 02/19/25 22:00 02/20/25 22:28 8.6 MG Enoxaparin Sodium 70 mg Q12HR SC 02/20/25 22:00 02/21/25 10:18 70 MG Sodium Chloride 1,000 ml @ 125 mls/hr Q8H IV 02/20/25 15:15 02/21/25 15:15 125 MLS/HR Examination General Appearance: Alert, Oriented X3, Cooperative, Cachectic, afebrile, HEENT: Atraumatic, Pupils are isocoric and reactive, EOMI, Pale mucous membrane moist Respiratory: Bilateral basilar crackles and decreased breath sounds heard on auscultation. Cardiovascular: Regular rate, Normal S1, Normal S2, No murmurs, no chest wall tenderness Abdominal: Soft, left quadrant tenderness, nondistended, normoactive bowel sounds, no rebound tenderness; organomegaly, central masses palpated. Negative Ewing sign on examination Extremities: No clubbing, No cyanosis, No edema, Normal pulses, resolving Edema, 3+ bilateral pitting edema, Bilateral lower extremities chronic dermatitis changes Skin: No rashes, No breakdown, Skin discoloration likely stasis dermatitis ( bilateral lower extremities) Neuro: difficulty in elevating the right lower extremity, walks with a walker, Normal tone, Sensation intact, reduced Reflexes 2+ Psych/Mental Status: Mental status NL, Mood NL laboratory and microbiology Laboratory Tests 02/21/25 06:40 Test 02/21/25 06:40 Range/Units Serum Glucose 76 74-106 mg/dL Microbiology Date/Time Source Procedure Growth Status 02/18/25 18:00 Voided Urine Urine Culture - Final Complete Problem List/Assessment/Plan Problem List/Assessment/Plan Assessment Failure to thrive secondary to Metastatic lung carcinoma status post radiation Severe Protein calorie malnutrition --> Unintentional weight lost --> Ensure q.i.d. --> Diet consult Coagulopathy secondary to anticoagulant medication for AFIB --> On warfarin for AFIB --> INR: 1.48 on therapeutic Lovenox --> No signs for bleeding at this time, thus will give Vitamin K 10mg and repeat PT/INR IN 6hrs, Pending; if no improve, repeat Vitamin K 10MG --> Now on IV LOVENOX therapeutic dose Constipation --> CT abdomen: Large volume stool throughout the colon --> lactulose 30mg bid --> Senna glycoside --> if the method does not work, will try fleet enema ? Choledocholithiasis -->Transaminitis, Trend LFTs. --> Cholelithiasis, negative Ewing's --> CT abdomen showed dilated common bile duct. --> MRCP? he has a pace maker. Radiology will let me know in the morning. Likely Pneumonia -->Examination findings --> CT abdomen: Bilateral pulmonary airspace consolidation/ atelectasis as described --> Ceftriaxone Acute cystitis IV ceftriaxone ordered Urine bacterial culture ordered. 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 He lives a lone. no family member [place] Family lives in [place]. Patient said he will think about it. Goal of care discussed for 30 minutes: Full code Case and plan discussed + Dr. Hurst Plan discussed with: Patient My Orders My Orders Orders - PRASHANT MARQUEZ RESIDENT Procedure Category Date Status Time Fleet Enema If In ORDERS 02/21/25 Transmitted Early Labor 12:10 Mrcp Mri MRI 02/21/25 Verified 19:32 Dietary Evaluation Review Recommendations by RD: Increase Calorie Intake, Protein Supplementation Comments: 1) Advance to regular diet as medically feasible 2) Ensure Enlive 240ml QID 3) Megace 800mg/20ml daily 4) Continue current POC Expected Outcomes/Goals: Pt will meet >75% estimated needs FU 2-3 days Food and Nutrition Intake (Sev: <50% est energy req 5days Interpretation of weight loss: >7.5% in 3 months Muscle Mass (Severe): Mod to Severe Depletion Protein Calorie Malnutrition: Severe Is there a minimum of two crit: Yes Date of Service: Feb 21, 2025 Billing Provider: ASHLY HURST MD Common Visit Codes: [id number] INP/OBS CARE(HIGH) PRASHANT MARQUEZ RESIDENT Feb 21, 2025 19:44 ASHLY HURST MD Feb 25, 2025 22:07
[2025-02-22] VITALS (8 sets, daily range): BP systolic 100–113; BP diastolic 61–87; PULSE 59–67; RESP 16–17; TEMP 97.9–98.7; O2SAT 90–95
[2025-02-22 09:23] LABS: Basophils # (auto) 0 10 ^3/uL (0-0.2); Basophils % (auto) 0.2 % (0.0-2.0); Eosinophils # (auto) 0 10 ^3/uL (0-0.8); Eosinophils % (auto) 0.7 % (0.0-7.0); Hematocrit 30.7 % (41.0-53.0); Hemoglobin 9.3 g/dL (13.5-17.5); Lymphocytes # (auto) 0.5 10 ^3/uL (0.4-5.4); Lymphocytes % (auto) 6.5 % (10.0-50.0); Mean Corpuscular Hemoglobin 24.2 pg (28.0-32.0); Mean Corpuscular Hgb Conc. 30.2 g/dL (32.0-36.0); Mean Corpuscular Volume 80.2 fL (80.0-100.0); Monocytes # (auto) 0.7 10 ^3/uL (0-1.3); Neutrophils # (auto) 5.9 10 ^3/uL (1.6-8.6); Neutrophils % (auto) 82.6 % (37.0-80.0); Platelet Count (auto) 246 10^3/uL (140-450); Red Blood Cells 3.82 10^6/uL (4.5-5.90); Red Cell Distribution Width 18.2 % (11.8-14.3); White Blood Cell 7.2 10^3/uL (4.4-10.8)
[2025-02-22 09:44] LABS: Alanine Aminotransferase 16 U/L (7-40); Anion Gap 5 (5-15); BUN/Creatinine Ratio 19.7 (10.0-20.0); Blood Urea Nitrogen 13 mg/dL (9-23); Chloride 101 mmol/L (98-107); Glucose 78 mg/dL (74-106); Potassium 3.6 mmol/L (3.5-5.1); Sodium 138 mmol/L (136-145); Total Protein 5.7 g/dL (5.7-8.2)
[2025-02-22 09:45] LABS: Albumin 3.2 g/dL (3.2-4.8); Alkaline Phosphatase 204 U/L (46-116); Aspartate Aminotransferase 42 U/L (13-40); Bilirubin, Total 0.5 mg/dL (0.2-1.0); Calcium 12.2 mg/dL (8.7-10.4); Carbon Dioxide 32 mmol/L (20-31)
[2025-02-22 09:49] LABS: INR 1.58 (0.9-1.15); Partial Thromboplastin Time 35.9 SEC (24.5-34.5)
--- NOTE | 2025-02-22 17:04 | DVHPN2 ---
Assessment/Plan Assessment/Plan Progress note Mr. Vela is 74-year-old male patient with past medical history of lung carcinoma diagnosed in 2023 status post radiation for 35 days, followed Dr. Grant then lost to follow up, history of peptic ulcer disease and GI bleeding 01/06, questionable meningioma, diastolic congestive heart failure, paroxysmal atrial fibrillation on Coumadin, status post pacemaker-last assessed July 2024, osteoporosis bilateral hip, right knee replacement, who presented to the ER with a chief complaint of generalized weakness, decreased appetite and unintentional weight loss. Patient was diagnosed with lung carcinoma , underwent radiation, reports that lung cancer was in remission and then patient did not follow up with Dr. Grant for the past 6 months. Consequently he felt increasing weakness and weight loss of about 35-40 lb in the past 3-4 months. Patient has low appetite and his dysphagia reports his throat is closing whenever he swallows. Patient is a poor historian. On arrival to the ER, patient was vitally stable, H&H was 9.9/32, MCV 78. LFTs elevated. CT abdomen was completed which showed extensive metastatic disease with innumerable lesions in the liver and hypodense lesion in the spleen. Dilated common bile duct and cholelithiasis. MRCP recommended. 2.6 cm left lower lobe nodule and 4 by 4 infrahilar mass with small pericardial effusion. UA was suggestive of UTI. seen today, improved. discussed with patient re: GOC. hospice consult to SS. patient DNR DNI labs ekg imaging reviwed assessment and plan Failure to thrive secondary to Metastatic lung carcinoma status post radiation Severe Protein calorie malnutrition --> Unintentional weight lost --> Ensure q.i.d. --> Diet consult Coagulopathy secondary to anticoagulant medication for AFIB --> On warfarin for AFIB --> INR: 1.48 on therapeutic Lovenox --> No signs for bleeding at this time, thus will give Vitamin K 10mg and repeat PT/INR IN 6hrs, Pending; if no improve, repeat Vitamin K 10MG --> Now on IV LOVENOX therapeutic dose Constipation --> CT abdomen: Large volume stool throughout the colon --> lactulose 30mg bid --> Senna glycoside --> if the method does not work, will try fleet enema ? Choledocholithiasis -->Transaminitis, Trend LFTs. --> Cholelithiasis, negative Ewing's --> CT abdomen showed dilated common bile duct. --> MRCP? he has a pace maker. Radiology will let me know in the morning. Likely Pneumonia -->Examination findings --> CT abdomen: Bilateral pulmonary airspace consolidation/ atelectasis as described --> Ceftriaxone Acute cystitis IV ceftriaxone ordered Urine bacterial culture ordered. 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 -->Serum calcium corrected 12.8 ( moderate) --> Fluids Paroxysmal atrial fibrillation Status post Medtronic PCM-last device interrogation July History of peptic ulcer disease 01/06 History of GI bleeding Status post gastric bypass surgery EGD 01/06 showed Patient had a 2 cm anastomotic ulcer on the jejunal side of the gastrojejunostomy with no visible vessel or active bleeding and there was a small red dot at the edge of the ulcer Continue pantoprazole and Carafate Continue B12 and iron supplementation DNR/DNI Plan discussed with: Patient My Orders Orders - ASHLY NJ MD Procedure Category Date Status Time * [facility] CONS 02/22/25 Transmitted Consult Code Status CODE 02/22/25 Transmitted 17:02 Date of Service: Feb 22, 2025 Billing Provider: ASHLY NJ MD Common Visit Codes: [id number] INP/OBS CARE(HIGH) ASHLY NJ MD Feb 22, 2025 17:04
--- NOTE | 2025-02-22 19:25 | DVHPN2 ---
Progress Note - Dictate Date Seen: Feb 22, 2025 Has the PT tested + for MRSA If YES, has PT been informed?: No Medical Necessity Reason Pt with a Central, PICC or Fol: No vital signs Vital Sign Date Time Temp Pulse Resp B/P (MAP) Pulse Ox O2 Delivery O2 Flow Rate FiO2 02/22/25 17:00 98.2 60 16 101/62 (75) 92 98.2 02/22/25 08:15 Room Air* 0 21 Total Intake and Output 02/21/25 02/21/25 02/22/25 15:00 23:00 07:00 Intake Total 50 ml 2000 ml 1475 ml Output Total 600 ml 350 ml Balance 50 ml 1400 ml 1125 ml medications Current Medications Medications Dose Ordered Sig/Yasir Route Start Time Stop Time Status Last Admin Dose Admin Acetaminophen 500 mg Q4HPRN PRN PO 02/19/25 01:30 02/20/25 09:42 500 MG Morphine Sulfate 1 mg Q4HPRN PRN IV 02/19/25 01:30 Acetaminophen/ Hydrocodone Bitart 1 tab Q4HPRN PRN PO 02/19/25 01:30 Sucralfate 1 gm QID@0600,1130,1700,2200 PO 02/19/25 06:00 02/22/25 17:00 1 GM Pantoprazole Sodium 40 mg DAILY@0600 PO 02/19/25 06:00 02/22/25 05:29 40 MG Ceftriaxone Sodium 50 ml @ 100 mls/hr DAILY@09 IV 02/20/25 09:00 02/22/25 10:03 100 MLS/HR Lactulose 30 ml BID PO 02/19/25 22:00 02/22/25 10:05 30 ML Sennosides 8.6 mg HS PO 02/19/25 22:00 02/21/25 22:58 8.6 MG Enoxaparin Sodium 70 mg Q12HR SC 02/20/25 22:00 02/22/25 10:05 70 MG Sodium Chloride 1,000 ml @ 125 mls/hr Q8H IV 02/20/25 15:15 02/22/25 01:01 125 MLS/HR laboratory and microbiology Laboratory Tests 02/22/25 08:50 Test 02/22/25 08:50 Range/Units Serum Glucose 78 74-106 mg/dL Assessment/Plan Patient is a 74-year-old gentleman who presented to the hospital with generalized weakness/poor appetite and weight loss. There is report of dysphagia also. He has lost around 35-40 lb in the past few months. Since arrival, he is found to have metastatic disease in liver. Does have baseline history of atrial fibrillation and has had pacemaker before. Is on Coumadin. Cardiology is involved for cardiac aspects of care. Patient was actually seen in the office by my colleague just 2 days ago. Does have a pacemaker which was interrogated less than a week ago in the office. There is no report of chest pain/palpitation/loss of consciousness/shortness of breath. He looks depressed. Frail gentleman. Not in acute distress. Lying flat in bed. No JVD. Mucosa is wet. Not using accessory muscles of breathing. Lungs are clear to auscultation. Cardiac: Regular, no thrill. Systolic murmur 2/6 in the apex is heard. Abdomen is soft. Mild periumbilical tenderness is elicited. Bowel sounds positive. Extremities reveal 2+ edema bilaterally. Dorsalis pedis is 1+ bilateral Past medical history includes hypertension, hyperlipidemia, diastolic heart failure, valvular heart disease, history of mitral valve prolapse, pulmonary hypertension, atrial fibrillation/atrial flutter (on Coumadin as outpatient), status post atrial flutter ablation, status post pacemaker (Medtronic pacer, Derrick wires: The wires are not MRI compatible), DJD, s/p gastric bypass, anemia, GI bleeding, history of bilateral cataract surgery, questionable previous history of meningioma and hypothyroidism. As per patient, the patient was diagnosed with lung cancer less than a year ago for which has received radiation therapy. He was following with Dr. Grant for Oncology previously. Nuclear stress test of November 2019 (performed in the office) revealed scar but no ischemia. Ejection fraction was 58% at that point. Echocardiogram of December 23, 2024 revealed ejection fraction of 65%, moderate concentric left ventricular hypertrophy, moderate biatrial enlargement, mild mitral valve prolapse/MR/TR, aortic root of 4.4 cm. Ascending aorta of 4.3 cm. Moderate pericardial effusion. No evidence for cardiac tamponade. TSH: 2.77 INR: 6.42 - 1.6 - 1.28 BNP: 111.65 CT of the chest/abdomen/pelvis reported: FINDINGS: Trachea patent. No pneumothorax. Right middle lobe masslike lesion measuring 4.1 by 4.0 cm. Right lower lobe consolidation/atelectasis. Small right pleural effusion. Left upper lobe lingular segment atelectasis. Left lower lobe consolidation/atelectasis. Left lower lobe nodular lesion measuring 2.6 cm. Heart is enlarged. There is a small pericardial effusion. No supraclavicular /axillary lymphadenopathy. Adrenal glands poorly characterize. Splenic hypodense lesions up to 12 mm.. There are numerous hepatic lesions consistent with metastatic disease. These include a left hepatic lobe lesion measuring 9.8 cm, multiple right hepatic lobe lesions including lesions measuring 1.8 cm, 1.6 cm, 1.9 cm, 1.7 cm, 1.9 cm, 1.7 cm. Other left hepatic lobe lesions including lesions measuring 9 cm, 2.9 cm. Cholelithiasis. Dilated left intrahepatic duct measuring 10 mm. Dilated CBD measuring 19 mm. Bilateral kidneys demonstrate no hydronephrosis. Postsurgical changes stomach. Small bowel loops normal in caliber. Postsurgical changes of the bowel within the lower anterior abdomen. Large volume stool throughout the colon. Small amount of ascites fluid. Mesenteric edema. Abdominal aortic tortuosity and atherosclerotic disease. Bladder distended. Free pelvic fluid. Bilateral shoulder arthroplasty hardware. Severe thoracolumbar degenerative disc disease. Thoracolumbar s shaped curvature. Old posterior left 10th, 9th rib fractures. IMPRESSION: 1. Extensive hepatic metastatic disease with innumerable lesions including left hepatic lobe lesion measuring up to 9.8 cm. Correlate with patient's oncological history. 2. Dilated common bile duct, intrahepatic ducts. Recommend GI consultation MRCP to further evaluate. 3. CholelithiasisRight middle lobe 4. Masslike lesion/ infrahilar lesion measuring 4.1 x 4.0 cm, possibly representing primary lung malignancy. 5. Left lower lobe nodular lesion measuring 2.6 cm 6. Bilateral pulmonary airspace consolidation/ atelectasis as described. 7. Cardiomegaly, small pericardial effusion 8. Large volume stool throughout the colon. 9. Soft tissue edema/ anasarca. Mesenteric edema. Small amount of ascites fluid. 10. Other findings as described. EKG revealed paced ventricular rhythm Tele reveals paced rhythm Patient is a 74-year-old gentleman who presented with generalized weakness/weight loss/poor oral intake. He is found to have metastatic disease in liver. There was question about primary lung cancer. There is also question about dilated biliary duct/gallstones. Metastatic disease could have contributed to the clinical picture. Does have history of lung cancer for which received some treatment last year. It is of note that the patient does have history of pacemaker implantation and the pacemaker wires are not MRI compatible. Pacemaker itself has been interrogated recently and functions well. Presentation is not considered cardiac catheterization this point. Does take Coumadin for history of AFib. Is found to have supratherapeutic INR. Extensive Mets to liver Dilated bile ducts Metastatic disease Gallstone Lung mass rule out cancer Supratherapeutic INR Anemia Previous history of GI bleeding Atrial fibrillation, history of Status post pacemaker (Medtronic pacer with sore and wires) Diastolic heart failure Hypertension Hyperlipidemia Hypothyroidism Lung cancer, history of Poor appetite s/p Gastric bypass, history of History of anastomotic ulcer on jejunal side of gastrojejunostomy Cardiac suggestions for management: Manage on telemetry Follow up electrolytes and kidney function test and Correct abnormalities. Keep potassium above four and magnesium above two On Lovenox (therapeutic dose) for now: you can restart coumadin (if no need to repeat any biopsy / procedure) Evaluation and management of metastatic disease as per primary team Consider obtaining tissue sample Request for GI/oncology evaluation You may want to consider Palliative consult It is of note that the patient's pacemaker has leads which are not MRI compatible. Further evaluation and management depends on the above and clinical course A total of 55 minutes was spent reviewing the patient record, examining the patient, making a diagnostic and therapeutic plan, discussing this plan with medical personnel, following up on diagnostic studies and following the patient for clinical stability excluding any and all procedures. At least 50% of this time was spent in direct, [id number] contact. Thank you for allowing me to participate in this patient's care. Further recommendations will depend on patient's clinical course. Please do not hesitate to contact me if you have any questions or concerns. This medical document was created using electronic medical record system with [employer] dictation system. Although this document has been carefully reviewed, there may still be some phonetic and typographical errors. These areas are purely typographical due to the imperfection of the software programs, and do not reflect any compromise in the patient's medical care. Dietary Evaluation Review Recommendations by RD: Increase Calorie Intake, Protein Supplementation Comments: 1) Advance to regular diet as medically feasible 2) Ensure Enlive 240ml QID 3) Megace 800mg/20ml daily 4) Continue current POC Expected Outcomes/Goals: Pt will meet >75% estimated needs FU 2-3 days Food and Nutrition Intake (Sev: <50% est energy req 5days Interpretation of weight loss: >7.5% in 3 months Muscle Mass (Severe): Mod to Severe Depletion Protein Calorie Malnutrition: Severe Is there a minimum of two crit: Yes Plan discussed with: Patient, Other (nurse) JADEN HERNÁNDEZ MD Feb 22, 2025 19:25
[2025-02-23] VITALS (7 sets, daily range): BP systolic 97–119; BP diastolic 62–85; PULSE 60–69; RESP 15–19; TEMP 97.6–98.6; O2SAT 90–97
--- NOTE | 2025-02-23 08:21 | DVHPN2 ---
Progress Note - Dictate Date Seen: Feb 23, 2025 Has the PT tested + for MRSA If YES, has PT been informed?: No Medical Necessity Reason Pt with a Central, PICC or Fol: No vital signs Vital Sign Date Time Temp Pulse Resp B/P (MAP) Pulse Ox O2 Delivery O2 Flow Rate FiO2 02/23/25 05:00 97.8 62 16 102/69 (80) 95 97.8 02/22/25 20:00 Room Air* 0 21 Total Intake and Output 02/22/25 02/22/25 02/23/25 15:00 23:00 07:00 Intake Total 290 ml 675 ml 105 ml Output Total 600 ml 450 ml Balance 290 ml 75 ml -345 ml medications Current Medications Medications Dose Ordered Sig/Yasir Route Start Time Stop Time Status Last Admin Dose Admin Acetaminophen 500 mg Q4HPRN PRN PO 02/19/25 01:30 02/22/25 22:49 500 MG Morphine Sulfate 1 mg Q4HPRN PRN IV 02/19/25 01:30 Acetaminophen/ Hydrocodone Bitart 1 tab Q4HPRN PRN PO 02/19/25 01:30 Sucralfate 1 gm QID@0600,1130,1700,2200 PO 02/19/25 06:00 02/22/25 21:51 1 GM Pantoprazole Sodium 40 mg DAILY@0600 PO 02/19/25 06:00 02/22/25 05:29 40 MG Ceftriaxone Sodium 50 ml @ 100 mls/hr DAILY@09 IV 02/20/25 09:00 02/22/25 10:03 100 MLS/HR Lactulose 30 ml BID PO 02/19/25 22:00 02/22/25 21:51 30 ML Sennosides 8.6 mg HS PO 02/19/25 22:00 02/22/25 21:56 8.6 MG Enoxaparin Sodium 70 mg Q12HR SC 02/20/25 22:00 02/22/25 21:52 70 MG Sodium Chloride 1,000 ml @ 125 mls/hr Q8H IV 02/20/25 15:15 02/22/25 01:01 125 MLS/HR laboratory and microbiology Laboratory Tests 02/22/25 08:50 Test 02/22/25 08:50 Range/Units Serum Glucose 78 74-106 mg/dL Assessment/Plan Patient is a 74-year-old gentleman who presented to the hospital with generalized weakness/poor appetite and weight loss. There is report of dysphagia also. He has lost around 35-40 lb in the past few months. Since arrival, he is found to have metastatic disease in liver. Does have baseline history of atrial fibrillation and has had pacemaker before. Is on Coumadin. Cardiology is involved for cardiac aspects of care. Patient was actually seen in the office by my colleague just 2 days ago. Does have a pacemaker which was interrogated less than a week ago in the office. There is no report of chest pain/palpitation/loss of consciousness/shortness of breath. He looks depressed. Frail gentleman. Not in acute distress. Lying flat in bed. No JVD. Mucosa is wet. Not using accessory muscles of breathing. Lungs are clear to auscultation. Cardiac: Regular, no thrill. Systolic murmur 2/6 in the apex is heard. Abdomen is soft. Mild periumbilical tenderness is elicited. Bowel sounds positive. Extremities reveal 2+ edema bilaterally. Dorsalis pedis is 1+ bilateral Past medical history includes hypertension, hyperlipidemia, diastolic heart failure, valvular heart disease, history of mitral valve prolapse, pulmonary hypertension, atrial fibrillation/atrial flutter (on Coumadin as outpatient), status post atrial flutter ablation, status post pacemaker (Medtronic pacer, Derrick wires: The wires are not MRI compatible), DJD, s/p gastric bypass, anemia, GI bleeding, history of bilateral cataract surgery, questionable previous history of meningioma and hypothyroidism. As per patient, the patient was diagnosed with lung cancer less than a year ago for which has received radiation therapy. He was following with Dr. Grant for Oncology previously. Nuclear stress test of November 2019 (performed in the office) revealed scar but no ischemia. Ejection fraction was 58% at that point. Echocardiogram of December 23, 2024 revealed ejection fraction of 65%, moderate concentric left ventricular hypertrophy, moderate biatrial enlargement, mild mitral valve prolapse/MR/TR, aortic root of 4.4 cm. Ascending aorta of 4.3 cm. Moderate pericardial effusion. No evidence for cardiac tamponade. TSH: 2.77 INR: 6.42 - 1.6 - 1.28 BNP: 111.65 CT of the chest/abdomen/pelvis reported: FINDINGS: Trachea patent. No pneumothorax. Right middle lobe masslike lesion measuring 4.1 by 4.0 cm. Right lower lobe consolidation/atelectasis. Small right pleural effusion. Left upper lobe lingular segment atelectasis. Left lower lobe consolidation/atelectasis. Left lower lobe nodular lesion measuring 2.6 cm. Heart is enlarged. There is a small pericardial effusion. No supraclavicular /axillary lymphadenopathy. Adrenal glands poorly characterize. Splenic hypodense lesions up to 12 mm.. There are numerous hepatic lesions consistent with metastatic disease. These include a left hepatic lobe lesion measuring 9.8 cm, multiple right hepatic lobe lesions including lesions measuring 1.8 cm, 1.6 cm, 1.9 cm, 1.7 cm, 1.9 cm, 1.7 cm. Other left hepatic lobe lesions including lesions measuring 9 cm, 2.9 cm. Cholelithiasis. Dilated left intrahepatic duct measuring 10 mm. Dilated CBD measuring 19 mm. Bilateral kidneys demonstrate no hydronephrosis. Postsurgical changes stomach. Small bowel loops normal in caliber. Postsurgical changes of the bowel within the lower anterior abdomen. Large volume stool throughout the colon. Small amount of ascites fluid. Mesenteric edema. Abdominal aortic tortuosity and atherosclerotic disease. Bladder distended. Free pelvic fluid. Bilateral shoulder arthroplasty hardware. Severe thoracolumbar degenerative disc disease. Thoracolumbar s shaped curvature. Old posterior left 10th, 9th rib fractures. IMPRESSION: 1. Extensive hepatic metastatic disease with innumerable lesions including left hepatic lobe lesion measuring up to 9.8 cm. Correlate with patient's oncological history. 2. Dilated common bile duct, intrahepatic ducts. Recommend GI consultation MRCP to further evaluate. 3. CholelithiasisRight middle lobe 4. Masslike lesion/ infrahilar lesion measuring 4.1 x 4.0 cm, possibly representing primary lung malignancy. 5. Left lower lobe nodular lesion measuring 2.6 cm 6. Bilateral pulmonary airspace consolidation/ atelectasis as described. 7. Cardiomegaly, small pericardial effusion 8. Large volume stool throughout the colon. 9. Soft tissue edema/ anasarca. Mesenteric edema. Small amount of ascites fluid. 10. Other findings as described. EKG revealed paced ventricular rhythm Tele reveals paced rhythm Patient is a 74-year-old gentleman who presented with generalized weakness/weight loss/poor oral intake. He is found to have metastatic disease in liver. There was question about primary lung cancer. There is also question about dilated biliary duct/gallstones. Metastatic disease could have contributed to the clinical picture. Does have history of lung cancer for which received some treatment last year. It is of note that the patient does have history of pacemaker implantation and the pacemaker wires are not MRI compatible. Pacemaker itself has been interrogated recently and functions well. Presentation is not considered cardiac catheterization this point. Does take Coumadin for history of AFib. Is found to have supratherapeutic INR. Extensive Mets to liver Dilated bile ducts Metastatic disease Gallstone Lung mass rule out cancer Supratherapeutic INR Anemia Previous history of GI bleeding Atrial fibrillation, history of Status post pacemaker (Medtronic pacer with sore and wires) Diastolic heart failure Hypertension Hyperlipidemia Hypothyroidism Lung cancer, history of Poor appetite s/p Gastric bypass, history of History of anastomotic ulcer on jejunal side of gastrojejunostomy Cardiac suggestions for management: Manage on telemetry Follow up electrolytes and kidney function test and Correct abnormalities. Keep potassium above four and magnesium above two On Lovenox (therapeutic dose) for now: you can restart coumadin (if no need to repeat any biopsy / procedure) Evaluation and management of metastatic disease as per primary team Consider obtaining tissue sample Request for GI/oncology evaluation You may want to consider Palliative consult It is of note that the patient's pacemaker has leads which are not MRI compatible. Further evaluation and management depends on the above and clinical course A total of 55 minutes was spent reviewing the patient record, examining the patient, making a diagnostic and therapeutic plan, discussing this plan with medical personnel, following up on diagnostic studies and following the patient for clinical stability excluding any and all procedures. At least 50% of this time was spent in direct, [id number] contact. Thank you for allowing me to participate in this patient's care. Further recommendations will depend on patient's clinical course. Please do not hesitate to contact me if you have any questions or concerns. This medical document was created using electronic medical record system with [employer] dictation system. Although this document has been carefully reviewed, there may still be some phonetic and typographical errors. These areas are purely typographical due to the imperfection of the software programs, and do not reflect any compromise in the patient's medical care. Dietary Evaluation Review Recommendations by RD: Increase Calorie Intake, Protein Supplementation Comments: 1) Advance to regular diet as medically feasible 2) Ensure Enlive 240ml QID 3) Megace 800mg/20ml daily 4) Continue current POC Expected Outcomes/Goals: Pt will meet >75% estimated needs FU 2-3 days Food and Nutrition Intake (Sev: <50% est energy req 5days Interpretation of weight loss: >7.5% in 3 months Muscle Mass (Severe): Mod to Severe Depletion Protein Calorie Malnutrition: Severe Is there a minimum of two crit: Yes Plan discussed with: Other (nurse) JADEN HERNÁNDEZ MD Feb 23, 2025 08:21
[2025-02-23 10:48] LABS: Basophils # (auto) 0 10 ^3/uL (0-0.2); Basophils % (auto) 0.2 % (0.0-2.0); Eosinophils # (auto) 0.1 10 ^3/uL (0-0.8); Eosinophils % (auto) 0.8 % (0.0-7.0); Hematocrit 32.9 % (41.0-53.0); Hemoglobin 10.2 g/dL (13.5-17.5); Lymphocytes # (auto) 0.4 10 ^3/uL (0.4-5.4); Lymphocytes % (auto) 5.3 % (10.0-50.0); Mean Corpuscular Hemoglobin 24.5 pg (28.0-32.0); Mean Corpuscular Hgb Conc. 30.9 g/dL (32.0-36.0); Mean Corpuscular Volume 79.2 fL (80.0-100.0); Monocytes # (auto) 0.7 10 ^3/uL (0-1.3); Monocytes % (auto) 9.7 % (0.0-12.0); Neutrophils # (auto) 6.1 10 ^3/uL (1.6-8.6); Platelet Count (auto) 279 10^3/uL (140-450); Red Blood Cells 4.15 10^6/uL (4.5-5.90); Red Cell Distribution Width 17.7 % (11.8-14.3); White Blood Cell 7.3 10^3/uL (4.4-10.8)
[2025-02-23 10:56] LABS: Anion Gap 5 (5-15); Chloride 100 mmol/L (98-107); Sodium 139 mmol/L (136-145)
[2025-02-23 11:02] LABS: BUN/Creatinine Ratio 20.6 (10.0-20.0); Blood Urea Nitrogen 13 mg/dL (9-23); Glucose 85 mg/dL (74-106)
[2025-02-23 11:03] LABS: Calcium 12.3 mg/dL (8.7-10.4); Carbon Dioxide 34 mmol/L (20-31); INR 1.6 (0.9-1.15); Partial Thromboplastin Time 39.6 SEC (24.5-34.5); Potassium 3.5 mmol/L (3.5-5.1); Prothrombin Time 16.2 sec (9.3-11.8)
--- NOTE | 2025-02-23 19:04 | DVHPNRES ---
Progress Note Date Seen: Feb 23, 2025 Resident Creating Document: PRASHANT MARQUEZ RESIDENT Has the PT tested + for MRSA If YES, has PT been informed?: No Medical Necessity Reason Pt with a Central, PICC or Fol: No Medical Necessity Reason Medical Necessity Reason Mr. Vela is 74-year-old male patient with past medical history of lung carcinoma diagnosed in 2023 status post radiation for 35 days, followed Dr. Grant then lost to follow up, history of peptic ulcer disease and GI bleeding 01/06, questionable meningioma, diastolic congestive heart failure, paroxysmal atrial fibrillation on Coumadin, status post pacemaker-last assessed July 2024, osteoporosis bilateral hip, right knee replacement, who presented to the ER with a chief complaint of generalized weakness, decreased appetite and unintentional weight loss. Patient was diagnosed with lung carcinoma , underwent radiation, reports that lung cancer was in remission and then patient did not follow up with Dr. Grant for the past 6 months. Consequently he felt increasing weakness and weight loss of about 35-40 lb in the past 3-4 months. Patient has loss of appetite, but no dysphagia reported. Patient is a poor historian. On arrival to the ER, patient was vitally stable, H&H was 9.9/32, MCV 78. LFTs elevated. CT abdomen was completed which showed extensive metastatic disease with innumerable lesions in the liver and hypodense lesion in the spleen. Dilated common bile duct and cholelithiasis. MRCP recommended. 2.6 cm left lower lobe nodule and 4 by 4 infrahilar mass with small pericardial effusion. UA was suggestive of UTI. Past Medical History: lung carcinoma diagnosed in 2023 status post radiation for 35 days, history of peptic ulcer disease and GI bleeding 01/06, questionable meningioma, diastolic congestive heart failure, paroxysmal atrial fibrillation on Coumadin,osteoporosis Surgical history: status post pacemaker-last assessed July 2024, bilateral hip, bilateral knee replacement. Social history: Patient lives by himself in an apartment. The rest of his family this candidate. Patient mentioned that he has smoked 2-3 past for 40 years making a total of about 120 any need and on drinking any illicit drugs Medication: On Warfarin, Tamsuloin, Protonix, Sul, PN:02/19/2025 Patient is a 74 year old male with a know history lung carcinoma diagnosed in 2023 underwent radiation, reports that lung cancer was in remission and then patient did not follow up with Dr. Grant for the past 6 months. Consequently he felt increasing weakness and weight loss of about 35-40 lb in the past 3-4 months. Patient presented to the ED with the chief complaint of constipation, generalized weakness and unintentional weight lost, low appetite and his dysphagia reports his throat is closing whenever he swallows. Patient is poor historian and seems to have scarcity of words. Patient mentioned that he has lost a total of 270Ibs in over 5 years. Chest x-ray revealed extensive hepatic metastatic disease with innumerable lesions including left hepatic lobe lesion measuring up to 9.8 cm. Correlate with patient's oncological history.Dilated common bile duct, intrahepatic ducts. Recommend GI consultation MRCP to further evaluate.Cholelithiasis,Right middle lobe,Masslike lesion/ infrahilar lesion measuring 4.1 x 4.0 cm, possibly representing primary lung malignancy. Left lower lobe nodular lesion measuring 2.6 cm,Bilateral pulmonary airspace consolidation/ atelectasis as described.Cardiomegaly, small pericardial effusion.Large volume stool throughout the colon. Soft tissue edema/ anasarca. Mesenteric edema. Small amount of ascites fluid. PN 02/20/2025: Patient doing better. His INR is now subtherapeutic after Vitamin K. He had a bowel movement as well. Otherwise he has no complaints. Will start him on Lovenox therapeutic dose. Pending consultation from the oncologist and repeat blood for tomorrow PN: 02/21/2025 Patient seen and examined. He has not complaints. INR today is 1.48. He is currently on Lovenox therapeutic dose. We discussed plan of care with the patient going forward. He lives alone. The rest of his family lives in [place]. We discussed the option for comfort care vs pursing aggressive chemoradiation treatment with the patient. However, at the end of the day, he would need to make that decision. Patient said he has not though of comfort care and he needs time to process all the information presented to him. ppn: 02/22/2025: See Dr. Hurst's note PN 02/23/2025; Patient seen and examined today. He is actually looking more alive and communicating even though he seem to take time to process his thinking. Dr. Hurst spoke to him extensively about considering hospice. Patient hast thought about it mentioned to me that he would like to be discharge home with home hospice. INR 1.68. He goal is 2-3. Subjective Review of Systems Constitutional: Denies fever no chills, but feeling of malaise, loss of appetite HEENT: Denies headache, ear pain, ear discharges, conjunctivitis, nasal discharge throat pain Cardiovascular: Denies chest pain, palpitation, orthopnea, PND, or pedal edema Respiratory: Denies shortness of breath, cough cough, sputum production, hemoptysis, GI: Denies abdominal pain, nausea, vomiting, diarrhea, hematemesis, hematochezia; Constipation : Denies frequency, urgency, hematuria, Endocrine:unintentional weight loss (270), NO feeling of hot flashes, Dionisio: Denies easy bruising, bleeding disorders, epistaxis Musculoskeletal: Muscle weakness; Denies joint pains, muscle aches Psych: No evidence of depression, jaclyn, suicidal ideation Objective vital signs Vital Sign Date Time Temp Pulse Resp B/P (MAP) Pulse Ox O2 Delivery O2 Flow Rate FiO2 02/23/25 17:00 97.9 60 18 119/85 (96) 94 97.9 02/23/25 08:30 Room Air* 0 21 Total Intake and Output 02/22/25 02/22/25 02/23/25 15:00 23:00 07:00 Intake Total 290 ml 675 ml 105 ml Output Total 600 ml 450 ml Balance 290 ml 75 ml -345 ml medications Current Medications Medications Dose Ordered Sig/Yasir Route Start Time Stop Time Status Last Admin Dose Admin Acetaminophen 500 mg Q4HPRN PRN PO 02/19/25 01:30 02/22/25 22:49 500 MG Morphine Sulfate 1 mg Q4HPRN PRN IV 02/19/25 01:30 Acetaminophen/ Hydrocodone Bitart 1 tab Q4HPRN PRN PO 02/19/25 01:30 Sucralfate 1 gm QID@0600,1130,1700,2200 PO 02/19/25 06:00 02/23/25 17:37 1 GM Pantoprazole Sodium 40 mg DAILY@0600 PO 02/19/25 06:00 02/22/25 05:29 40 MG Ceftriaxone Sodium 50 ml @ 100 mls/hr DAILY@09 IV 02/20/25 09:00 02/23/25 08:34 100 MLS/HR Lactulose 30 ml BID PO 02/19/25 22:00 02/23/25 08:34 30 ML Sennosides 8.6 mg HS PO 02/19/25 22:00 02/22/25 21:56 8.6 MG Enoxaparin Sodium 70 mg Q12HR SC 02/20/25 22:00 02/23/25 08:35 70 MG Sodium Chloride 1,000 ml @ 125 mls/hr Q8H IV 02/20/25 15:15 02/23/25 17:36 125 MLS/HR Examination General Appearance: Alert, Oriented X3, Cooperative, Cachectic, afebrile, HEENT: Atraumatic, Pupils are isocoric and reactive, EOMI, Pale mucous membrane moist Respiratory: Bilateral basilar crackles and decreased breath sounds heard on auscultation. Cardiovascular: Regular rate, Normal S1, Normal S2, No murmurs, no chest wall tenderness Abdominal: Soft, left quadrant tenderness, nondistended, normoactive bowel sounds, no rebound tenderness; organomegaly, central masses palpated. Negative Ewing sign on examination Extremities: No clubbing, No cyanosis, No edema, Normal pulses, resolving Edema, 3+ bilateral pitting edema, Bilateral lower extremities chronic dermatitis changes Skin: No rashes, No breakdown, Skin discoloration likely stasis dermatitis ( bilateral lower extremities) Neuro: difficulty in elevating the right lower extremity, walks with a walker, Normal tone, Sensation intact, reduced Reflexes 2+ Psych/Mental Status: Mental status NL, Mood NL laboratory and microbiology Laboratory Tests 02/23/25 10:20 Test 02/23/25 10:20 Range/Units Serum Glucose 85 74-106 mg/dL Microbiology Date/Time Source Procedure Growth Status 02/18/25 18:00 Voided Urine Urine Culture - Final Complete Problem List/Assessment/Plan Problem List/Assessment/Plan Assessment Failure to thrive secondary to Metastatic lung carcinoma status post radiation Severe Protein calorie malnutrition --> Unintentional weight lost --> Ensure q.i.d. --> Diet consult Coagulopathy secondary to anticoagulant medication for AFIB --> On warfarin for AFIB --> INR: 1.48 on therapeutic Lovenox --> No signs for bleeding at this time, thus will give Vitamin K 10mg and repeat PT/INR IN 6hrs, Pending; if no improve, repeat Vitamin K 10MG --> Now on IV LOVENOX therapeutic dose Constipation --> CT abdomen: Large volume stool throughout the colon --> lactulose 30mg bid --> Senna glycoside --> if the method does not work, will try fleet enema ? Choledocholithiasis -->Transaminitis, Trend LFTs. --> Cholelithiasis, negative Ewing's --> CT abdomen showed dilated common bile duct. --> MRCP? he has a pace maker. Radiology will let me know in the morning. Likely Pneumonia -->Examination findings --> CT abdomen: Bilateral pulmonary airspace consolidation/ atelectasis as described --> Ceftriaxone Acute cystitis IV ceftriaxone ordered Urine bacterial culture ordered. 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 He lives a lone. no family member [place] Family lives in [place]. Patient said he will think about it. Goal of care discussed for 18 minutes: DNR/DNI, Case and plan discussed + Dr. rAis Beck discussed with: Patient My Orders My Orders Orders - PRASHANT MARQUEZ RESIDENT Procedure Category Date Status Time Apply Z-Guard ALEC 02/23/25 In Process 14:05 * Wound Consult CONS 02/23/25 Transmitted * Dietary Consult CONS 02/23/25 Transmitted 18:10 Dietary Evaluation Review Recommendations by RD: Increase Calorie Intake, Protein Supplementation Comments: 1) Advance to regular diet as medically feasible 2) Ensure Enlive 240ml QID 3) Megace 800mg/20ml daily 4) Continue current POC Expected Outcomes/Goals: Pt will meet >75% estimated needs FU 2-3 days Food and Nutrition Intake (Sev: <50% est energy req 5days Interpretation of weight loss: >7.5% in 3 months Muscle Mass (Severe): Mod to Severe Depletion Protein Calorie Malnutrition: Severe Is there a minimum of two crit: Yes Date of Service: Feb 23, 2025 Billing Provider: ASHLY HURST MD Common Visit Codes: [id number] INP/OBS CARE(HIGH) PRASHANT MARQUEZ RESIDENT Feb 23, 2025 19:04 ASHLY HURST MD Feb 25, 2025 22:19
[2025-02-24] VITALS (7 sets, daily range): BP systolic 101–114; BP diastolic 60–78; PULSE 59–61; RESP 14–18; TEMP 97.6–98.6; O2SAT 92–95
--- NOTE | 2025-02-24 07:57 | DVHPN2 ---
Progress Note - Dictate Date Seen: Feb 24, 2025 Has the PT tested + for MRSA If YES, has PT been informed?: No Medical Necessity Reason Pt with a Central, PICC or Fol: No vital signs Vital Sign Date Time Temp Pulse Resp B/P (MAP) Pulse Ox O2 Delivery O2 Flow Rate FiO2 02/24/25 01:00 98.3 61 16 114/78 (90) 92 98.3 02/23/25 20:00 Room Air* 0 21 Total Intake and Output 02/23/25 02/23/25 02/24/25 15:00 23:00 07:00 Intake Total 50 ml 938 ml 100 ml Output Total 600 ml 1375 ml Balance 50 ml 338 ml -1275 ml medications Current Medications Medications Dose Ordered Sig/Yasir Route Start Time Stop Time Status Last Admin Dose Admin Acetaminophen 500 mg Q4HPRN PRN PO 02/19/25 01:30 02/22/25 22:49 500 MG Morphine Sulfate 1 mg Q4HPRN PRN IV 02/19/25 01:30 Acetaminophen/ Hydrocodone Bitart 1 tab Q4HPRN PRN PO 02/19/25 01:30 Sucralfate 1 gm QID@0600,1130,1700,2200 PO 02/19/25 06:00 02/24/25 05:31 1 GM Pantoprazole Sodium 40 mg DAILY@0600 PO 02/19/25 06:00 02/24/25 05:31 40 MG Ceftriaxone Sodium 50 ml @ 100 mls/hr DAILY@09 IV 02/20/25 09:00 02/23/25 08:34 100 MLS/HR Lactulose 30 ml BID PO 02/19/25 22:00 02/23/25 20:34 30 ML Sennosides 8.6 mg HS PO 02/19/25 22:00 02/23/25 20:35 8.6 MG Enoxaparin Sodium 70 mg Q12HR SC 02/20/25 22:00 02/23/25 20:36 70 MG Sodium Chloride 1,000 ml @ 125 mls/hr Q8H IV 02/20/25 15:15 02/23/25 17:36 125 MLS/HR laboratory and microbiology Laboratory Tests 02/23/25 10:20 Test 02/23/25 10:20 Range/Units Serum Glucose 85 74-106 mg/dL Assessment/Plan Patient is a 74-year-old gentleman who presented to the hospital with generalized weakness/poor appetite and weight loss. There is report of dysphagia also. He has lost around 35-40 lb in the past few months. Since arrival, he is found to have metastatic disease in liver. Does have baseline history of atrial fibrillation and has had pacemaker before. Is on Coumadin. Cardiology is involved for cardiac aspects of care. Patient was actually seen in the office by my colleague just 2 days ago. Does have a pacemaker which was interrogated less than a week ago in the office. There is no report of chest pain/palpitation/loss of consciousness/shortness of breath. He looks depressed. Frail gentleman. Not in acute distress. Lying flat in bed. No JVD. Mucosa is wet. Not using accessory muscles of breathing. Lungs are clear to auscultation. Cardiac: Regular, no thrill. Systolic murmur 2/6 in the apex is heard. Abdomen is soft. Mild periumbilical tenderness is elicited. Bowel sounds positive. Extremities reveal 2+ edema bilaterally. Dorsalis pedis is 1+ bilateral Past medical history includes hypertension, hyperlipidemia, diastolic heart failure, valvular heart disease, history of mitral valve prolapse, pulmonary hypertension, atrial fibrillation/atrial flutter (on Coumadin as outpatient), status post atrial flutter ablation, status post pacemaker (Medtronic pacer, Derrick wires: The wires are not MRI compatible), DJD, s/p gastric bypass, anemia, GI bleeding, history of bilateral cataract surgery, questionable previous history of meningioma and hypothyroidism. As per patient, the patient was diagnosed with lung cancer less than a year ago for which has received radiation therapy. He was following with Dr. Grant for Oncology previously. Nuclear stress test of November 2019 (performed in the office) revealed scar but no ischemia. Ejection fraction was 58% at that point. Echocardiogram of December 23, 2024 revealed ejection fraction of 65%, moderate concentric left ventricular hypertrophy, moderate biatrial enlargement, mild mitral valve prolapse/MR/TR, aortic root of 4.4 cm. Ascending aorta of 4.3 cm. Moderate pericardial effusion. No evidence for cardiac tamponade. TSH: 2.77 BNP: 111.65 CT of the chest/abdomen/pelvis reported: FINDINGS: Trachea patent. No pneumothorax. Right middle lobe masslike lesion measuring 4.1 by 4.0 cm. Right lower lobe consolidation/atelectasis. Small right pleural effusion. Left upper lobe lingular segment atelectasis. Left lower lobe consolidation/atelectasis. Left lower lobe nodular lesion measuring 2.6 cm. Heart is enlarged. There is a small pericardial effusion. No supraclavicular /axillary lymphadenopathy. Adrenal glands poorly characterize. Splenic hypodense lesions up to 12 mm.. There are numerous hepatic lesions consistent with metastatic disease. These include a left hepatic lobe lesion measuring 9.8 cm, multiple right hepatic lobe lesions including lesions measuring 1.8 cm, 1.6 cm, 1.9 cm, 1.7 cm, 1.9 cm, 1.7 cm. Other left hepatic lobe lesions including lesions measuring 9 cm, 2.9 cm. Cholelithiasis. Dilated left intrahepatic duct measuring 10 mm. Dilated CBD measuring 19 mm. Bilateral kidneys demonstrate no hydronephrosis. Postsurgical changes stomach. Small bowel loops normal in caliber. Postsurgical changes of the bowel within the lower anterior abdomen. Large volume stool throughout the colon. Small amount of ascites fluid. Mesenteric edema. Abdominal aortic tortuosity and atherosclerotic disease. Bladder distended. Free pelvic fluid. Bilateral shoulder arthroplasty hardware. Severe thoracolumbar degenerative disc disease. Thoracolumbar s shaped curvature. Old posterior left 10th, 9th rib fractures. IMPRESSION: 1. Extensive hepatic metastatic disease with innumerable lesions including left hepatic lobe lesion measuring up to 9.8 cm. Correlate with patient's oncological history. 2. Dilated common bile duct, intrahepatic ducts. Recommend GI consultation MRCP to further evaluate. 3. CholelithiasisRight middle lobe 4. Masslike lesion/ infrahilar lesion measuring 4.1 x 4.0 cm, possibly representing primary lung malignancy. 5. Left lower lobe nodular lesion measuring 2.6 cm 6. Bilateral pulmonary airspace consolidation/ atelectasis as described. 7. Cardiomegaly, small pericardial effusion 8. Large volume stool throughout the colon. 9. Soft tissue edema/ anasarca. Mesenteric edema. Small amount of ascites fluid. 10. Other findings as described. EKG revealed paced ventricular rhythm Tele reveals paced rhythm Patient is a 74-year-old gentleman who presented with generalized weakness/weight loss/poor oral intake. He is found to have metastatic disease in liver. There was question about primary lung cancer. There is also question about dilated biliary duct/gallstones. Metastatic disease could have contributed to the clinical picture. Does have history of lung cancer for which received some treatment last year. It is of note that the patient does have history of pacemaker implantation and the pacemaker wires are not MRI compatible. Pacemaker itself has been interrogated recently and functions well. Presentation is not considered cardiac catheterization this point. Does take Coumadin for history of AFib. Is found to have supratherapeutic INR. Extensive Mets to liver Dilated bile ducts Metastatic disease Gallstone Lung mass rule out cancer Supratherapeutic INR Anemia Previous history of GI bleeding Atrial fibrillation, history of Status post pacemaker (Medtronic pacer with sore and wires) Diastolic heart failure Hypertension Hyperlipidemia Hypothyroidism Lung cancer, history of Poor appetite s/p Gastric bypass, history of History of anastomotic ulcer on jejunal side of gastrojejunostomy Cardiac suggestions for management: Manage on telemetry Follow up electrolytes and kidney function test and Correct abnormalities. Keep potassium above four and magnesium above two On Lovenox (therapeutic dose) for now: you can restart coumadin (if no need to repeat any biopsy / procedure) Cardiac lozano, stable Evaluation and management of metastatic disease as per primary team Consider obtaining tissue sample Request for GI/oncology evaluation You may want to consider Palliative consult It is of note that the patient's pacemaker has leads which are not MRI compatible. Further evaluation and management depends on the above and clinical course A total of 55 minutes was spent reviewing the patient record, examining the patient, making a diagnostic and therapeutic plan, discussing this plan with medical personnel, following up on diagnostic studies and following the patient for clinical stability excluding any and all procedures. At least 50% of this time was spent in direct, [id number] contact. Thank you for allowing me to participate in this patient's care. Further recommendations will depend on patient's clinical course. Please do not hesitate to contact me if you have any questions or concerns. This medical document was created using electronic medical record system with [employer] dictation system. Although this document has been carefully reviewed, there may still be some phonetic and typographical errors. These areas are purely typographical due to the imperfection of the software programs, and do not reflect any compromise in the patient's medical care. Dietary Evaluation Review Recommendations by RD: Increase Calorie Intake, Protein Supplementation Comments: 1) Advance to regular diet as medically feasible 2) Ensure Enlive 240ml QID 3) Megace 800mg/20ml daily 4) Continue current POC Expected Outcomes/Goals: Pt will meet >75% estimated needs FU 2-3 days Food and Nutrition Intake (Sev: <50% est energy req 5days Interpretation of weight loss: >7.5% in 3 months Muscle Mass (Severe): Mod to Severe Depletion Protein Calorie Malnutrition: Severe Is there a minimum of two crit: Yes Plan discussed with: Patient, Other (nurse) JADEN HERNÁNDEZ MD Feb 24, 2025 07:57
[2025-02-24 09:15] LABS: Chloride 101 mmol/L (98-107); Sodium 139 mmol/L (136-145)
[2025-02-24 09:16] LABS: Anion Gap 8 (5-15); Carbon Dioxide 30 mmol/L (20-31)
[2025-02-24 09:21] LABS: BUN/Creatinine Ratio 15.2 (10.0-20.0); Blood Urea Nitrogen 10 mg/dL (9-23); Glucose 89 mg/dL (74-106)
[2025-02-24 09:22] LABS: Basophils # (auto) 0 10 ^3/uL (0-0.2); Basophils % (auto) 0.2 % (0.0-2.0); Eosinophils # (auto) 0 10 ^3/uL (0-0.8); Eosinophils % (auto) 0.4 % (0.0-7.0); Hemoglobin 11.1 g/dL (13.5-17.5); Lymphocytes # (auto) 0.4 10 ^3/uL (0.4-5.4); Neutrophils # (auto) 6.9 10 ^3/uL (1.6-8.6)
[2025-02-24 09:25] LABS: Hematocrit 35.7 % (41.0-53.0); Lymphocytes % (auto) 4.8 % (10.0-50.0); Mean Corpuscular Hemoglobin 24.6 pg (28.0-32.0); Mean Corpuscular Volume 79.3 fL (80.0-100.0); Monocytes # (auto) 0.6 10 ^3/uL (0-1.3); Monocytes % (auto) 7.8 % (0.0-12.0); Neutrophils % (auto) 86.8 % (37.0-80.0); Platelet Count (auto) 275 10^3/uL (140-450); Red Cell Distribution Width 17.8 % (11.8-14.3); White Blood Cell 7.9 10^3/uL (4.4-10.8)
[2025-02-24 09:29] LABS: Calcium 12.5 mg/dL (8.7-10.4); Potassium 3.3 mmol/L (3.5-5.1)
[2025-02-24 14:59] LABS: INR 1.59 (0.9-1.15); Partial Thromboplastin Time 38.7 SEC (24.5-34.5); Prothrombin Time 16.1 sec (9.3-11.8)
--- NOTE | 2025-02-24 20:00 | DVHDSRES ---
Discharge Summary Date of Admission Resident Creating Document: PRASHANT MARQUEZ RESIDENT Feb 19, 2025 at 01:22 Date of Discharge: Feb 24, 2025 Admitting Diagnosis generalized weakness, decreased appetite and unintentional weight loss Labs/Diagnostic Data: PATIENT: NANCIE ROLDAN EACCT: [id number] UNIT: [id number] : 1950 LOC: ER ROOM / BED: / AGE / SEX: 74 / M ADM STATUS: REG ER SERVICE [id number] ORDERING PHYSICIAN: EMBER PAREDES MD PROCEDURE(s): CAPIV - CT CHEST/AB/PL W CON- IV ONLY REASON: pain ORDER NUMBER(s): [id number], ACCESSION NUMBER(s): [id number] Indication: pain Technique: CT axial images of the chest, abdomen and pelvis are obtained with intravenous contrast. Coronal and sagittal reformats were obtained. Radiation Dose Information: CTDI volume is 14 mGy. Dose-length product is 986 mGy*cm Comparison: 10/17/2024 FINDINGS: Trachea patent. No pneumothorax. Right middle lobe masslike lesion measuring 4.1 by 4.0 cm. Right lower lobe consolidation/atelectasis. Small right pleural effusion. Left upper lobe lingular segment atelectasis. Left lower lobe consolidation/atelectasis. Left lower lobe nodular lesion measuring 2.6 cm. Heart is enlarged. There is a small pericardial effusion. No supraclavicular /axillary lymphadenopathy. Adrenal glands poorly characterize. Splenic hypodense lesions up to 12 mm.. There are numerous hepatic lesions consistent with metastatic disease. These include a left hepatic lobe lesion measuring 9.8 cm, multiple right hepatic lobe lesions including lesions measuring 1.8 cm, 1.6 cm, 1.9 cm, 1.7 cm, 1.9 cm, 1.7 cm. Other left hepatic lobe lesions including lesions measuring 9 cm, 2.9 cm. Cholelithiasis. Dilated left intrahepatic duct measuring 10 mm. Dilated CBD measuring 19 mm. Bilateral kidneys demonstrate no hydronephrosis. Postsurgical changes stomach. Small bowel loops normal in caliber. Postsurgical changes of the bowel within the lower anterior abdomen. Large volume stool throughout the colon. Small amount of ascites fluid. Mesenteric edema. Abdominal aortic tortuosity and atherosclerotic disease. Bladder distended. Free pelvic fluid. Bilateral shoulder arthroplasty hardware. Severe thoracolumbar degenerative disc disease. Thoracolumbar s shaped curvature. Old posterior left 10th, 9th rib fractures. IMPRESSION: 1. Extensive hepatic metastatic disease with innumerable lesions including left hepatic lobe lesion measuring up to 9.8 cm. Correlate with patient's oncological history. 2. Dilated common bile duct, intrahepatic ducts. Recommend GI consultation MRCP to further evaluate. 3. Cholelithiasis Right middle lobe 4. Masslike lesion/ infrahilar lesion measuring 4.1 x 4.0 cm, possibly representing primary lung malignancy. 5. Left lower lobe nodular lesion measuring 2.6 cm 6. Bilateral pulmonary airspace consolidation/ atelectasis as described. 7. Cardiomegaly, small pericardial effusion 8. Large volume stool throughout the colon. 9. Soft tissue edema/ anasarca. Mesenteric edema. Small amount of ascites fluid. 10. Other findings as described. ATED BY: DANNY HERRERA MD DICTATED DATE/TIME: 02/18/252128 Laboratory Results Test 02/24/25 14:10 02/24/25 08:27 02/22/25 08:50 02/20/25 04:40 Prothrombin Time 16.1 sec (9.3-11.8) Prothrombin Time INR 1.59 (0.9-1.15) Activated Partial Thromboplast Time 38.7 SEC (24.5-34.5) White Blood Count 7.9 10^3/uL (4.4-10.8) Red Blood Count 4.50 10^6/uL (4.5-5.90) Hemoglobin 11.1 g/dL (13.5-17.5) Hematocrit 35.7 % (41.0-53.0) Mean Corpuscular Volume 79.3 fL (80.0-100.0) Mean Corpuscular Hemoglobin 24.6 pg (28.0-32.0) Mean Corpuscular Hemoglobin Concent 31.0 g/dL (32.0-36.0) Red Cell Distribution Width 17.8 % (11.8-14.3) Platelet Count 275 10^3/uL (140-450) Mean Platelet Volume 8.7 fL (6.9-10.8) Neutrophils (%) (Auto) 86.8 % (37.0-80.0) Lymphocytes (%) (Auto) 4.8 % (10.0-50.0) Monocytes (%) (Auto) 7.8 % (0.0-12.0) Eosinophils (%) (Auto) 0.4 % (0.0-7.0) Basophils (%) (Auto) 0.2 % (0.0-2.0) Neutrophils # (Auto) 6.9 10 ^3/uL (1.6-8.6) Lymphocytes # (Auto) 0.4 10 ^3/uL (0.4-5.4) Monocytes # (Auto) 0.6 10 ^3/uL (0-1.3) Eosinophils # (Auto) 0 10 ^3/uL (0-0.8) Basophils # (Auto) 0 10 ^3/uL (0-0.2) Nucleated Red Blood Cells 0.0 % Sodium Level 139 mmol/L (136-145) Potassium Level 3.3 mmol/L (3.5-5.1) Chloride Level 101 mmol/L (98-107) Carbon Dioxide Level 30 mmol/L (20-31) Anion Gap 8 (5-15) Blood Urea Nitrogen 10 mg/dL (9-23) Creatinine 0.66 mg/dL (0.700-1.30) Glomerular Filtration Rate Calc 100 mL/min (>90) BUN/Creatinine Ratio 15.2 (10.0-20.0) Serum Glucose 89 mg/dL (74-106) Calcium Level 12.5 mg/dL (8.7-10.4) Total Bilirubin 0.5 mg/dL (0.2-1.0) Aspartate Amino Transferase (AST) 42 U/L (13-40) Alanine Aminotransferase (ALT) 16 U/L (7-40) Alkaline Phosphatase 204 U/L (46-116) B-Type Natriuretic Peptide 111.65 pg/mL (0-100) Total Protein 5.7 g/dL (5.7-8.2) Albumin 3.2 g/dL (3.2-4.8) Magnesium Level 2.1 mg/dL (1.6-2.6) Parathyroid Hormone (Intact) 102.6 pg/mL (18.4-80.1) Test 02/19/25 04:08 02/18/25 19:55 02/18/25 18:00 Iron Level 16 ug/dL (65-175) Total Iron Binding Capacity 229 ug/dL (250-425) Percent Iron Saturation 7.0 % (20-55) Direct Bilirubin 0.5 mg/dL (<0.3) Vitamin B12 Level 1217 pg/mL (211-911) Vitamin D 25-Hydroxy 52.8 ng/mL (30.0-100) Thyroid Stimulating Hormone (TSH) 2.77 uIU/mL (0.55-4.78) POC Glucose 82 mg/dl (70-106) Urine Color Yellow (Yellow) Urine Clarity Turbid (Clear) Urine pH 6.0 (5.0-9.0) Urine Specific [place] 1.011 (1.001-1.035) Urine Protein Trace (Negative) Urine Ketones Negative (Negative) Urine Blood Negative /uL (Negative) Urine Nitrite Negative (Negative) Urine Bilirubin Negative (Negative) Urine Urobilinogen 6 mg/dL (Negative) Urine Leukocyte Esterase Trace /uL (Negative) Urine RBC 1 /hpf (0 - 3) Urine Microscopic WBC 12 /HPF (0-3) Urine Squamous Epithelial Cells Few /hpf (<5) Urine Calcium Oxalate Crystals Few (None Seen) Urine Amorphous Crystals Few /hpf (None Seen) Urine Bacteria Few /hpf (None Seen) Urine Glucose Normal mg/dL (Normal) Urine Opiates Screen Neg (NEGATIVE) Urine Fentanyl Screen Neg (NEGATIVE) Urine Barbiturates Screen Neg (NEGATIVE) Urine Phencyclidine Screen Neg (NEGATIVE) Urine Amphetamines Screen Neg (NEGATIVE) Urine Benzodiazepines Screen Neg (NEGATIVE) Urine Cocaine Screen Neg (NEGATIVE) Urine Cannabinoids Screen Neg (NEGATIVE) Other Laboratory Tests 02/24/25 08:27 Brief Hx & Hospital Course: Histor of Present illness Mr. Roldan is 74-year-old male patient with past medical history of lung carcinoma diagnosed in 2023 status post radiation for 35 days, followed Dr. Grant then lost to follow up, history of peptic ulcer disease and GI bleeding 01/06, questionable meningioma, diastolic congestive heart failure, paroxysmal atrial fibrillation on Coumadin, status post pacemaker-last assessed July 2024, osteoporosis bilateral hip, right knee replacement, who presented to the ER with a chief complaint of generalized weakness, decreased appetite and unintentional weight loss. Patient was diagnosed with lung carcinoma , underwent radiation, reports that lung cancer was in remission and then patient did not follow up with Dr. Grant for the past 6 months. Consequently he felt increasing weakness and weight loss of about 35-40 lb in the past 3-4 months. Patient has low appetite and does not enjoying eating. On arrival to the ER, patient was vitally stable, H&H was 9.9/32, MCV 78. LFTs elevated. CT abdomen was completed which showed extensive metastatic disease with innumerable lesions in the liver and hypodense lesion in the spleen. Dilated common bile duct and cholelithiasis. MRCP recommended. 2.6 cm left lower lobe nodule and 4 by 4 infrahilar mass with small pericardial effusion. UA was suggestive of UTI. Past Medical History: lung carcinoma diagnosed in 2023 status post radiation for 35 days, history of peptic ulcer disease and GI bleeding 01/06, questionable meningioma, diastolic congestive heart failure, paroxysmal atrial fibrillation on Coumadin,osteoporosis Surgical history: status post pacemaker-last assessed July 2024, bilateral hip, bilateral knee replacement. Social history: Patient lives by himself in an apartment. The rest of his family this candidate. Patient mentioned that he has smoked 2-3 past for 40 years making a total of about 120 any need and on drinking any illicit drugs Medication: On Warfarin, Tamsuloin, Protonix, Brief Hospital course Patient is poor historian and seems to have scarcity of words. Patient has a history of Afib for which he takes warfarin for many years. He also has pacemaker. He said he tried eliquis in the past, but he gets a reaction to it. Patient mentioned that he has lost a total of 270Ibs in over 5 years. Chest x- ray revealed extensive hepatic metastatic disease with innumerable lesions including left hepatic lobe lesion measuring up to 9.8 cm. Dilated common bile duct, intrahepatic ducts. Cholelithiasis, Right middle lobe, Mass-like lesion/ infrahilar lesion measuring 4.1 x 4.0 cm, possibly representing primary lung malignancy. Left lower lobe nodular lesion measuring 2.6 cm,Bilateral pulmonary airspace consolidation/ atelectasis as described.Cardiomegaly, small pericardial effusion.Large volume stool throughout the colon. Soft tissue edema/ anasarca. Mesenteric edema. Small amount of ascites fluid. Coagulation studies revealed supratherapeutic INR OF 6.4 without bleed Patient received antibiotics for the pneumonia, Vitamin K to correct the coagulopathy, ensure and nutritional consult and lactulose plus Senna for constipation. Patient does not have dysphagia but does not eat because of loss of appetite. Cardiology has been on board regarding his AFIB and the warfarin.On admission, after after receiving the vitamin, his INR became subtherapeutic. Thus, patient was started on therapeutic Lovenox. Patient had not bleeding issues and he has complaint. Since the patient is on Lovenox, we bridge it with warfarin to get his therapeutic level 2-3. Patient is doing better and ready for discharge. Prognosis is poor. Patient told me he would like to go home with home hospice. Per social work coordinator, Patient is accepted with [facility] for services. Patient is able to ambulate with a walker Examination General Appearance: Alert, Oriented X3, Cooperative, Cachectic, afebrile, HEENT: Atraumatic, Pupils are isocoric and reactive, EOMI, Pale mucous membrane moist Respiratory: Bilateral basilar crackles and decreased breath sounds heard on auscultation. Cardiovascular: Regular rate, Normal S1, Normal S2, No murmurs, no chest wall tenderness Abdominal: Soft, left quadrant tenderness, nondistended, normoactive bowel sounds, no rebound tenderness; organomegaly, central masses palpated. Negative Ewing sign on examination Extremities: No clubbing, No cyanosis, No edema, Normal pulses, resolving Edema, 3+ bilateral pitting edema, Bilateral lower extremities chronic dermatitis changes Skin: No rashes, No breakdown, Skin discoloration likely stasis dermatitis ( bilateral lower extremities) Neuro: difficulty in elevating the right lower extremity, walks with a walker, Normal tone, Sensation intact, reduced Reflexes 2+ Psych/Mental Status: Mental status NL, Mood NL Diagnoses Failure to thrive secondary to Metastatic lung carcinoma status post radiation Severe Protein calorie malnutrition Coagulopathy secondary to anticoagulant medication for AFIB, INR on admission w as 6.4 Subtherapeutic: 1.68 ( 02/24/2025) Paroxysmal atrial fibrillation Constipation--> Improved ? Choledocholithiasis Possible Pneumonia Acute cystitis Metastatic Lung cancer to the liver and spleen; meningioma her previous records Paroxysmal atrial fibrillation Status post Medtronic PCM-last device interrogation July Hypercalcemia due to malignancy Status post Medtronic PCM-last device interrogation July History of peptic ulcer disease 01/06 History of GI bleeding Status post gastric bypass surgery DISCHARGE PLAN Home with home hospice resume warfarin per protocol follow at the discharge clinic follow up at the warfarin clinic resume home medications Patient advised to come to the ED if he feels unwell. Case discharge plan discussed with Dr. Hurst Consults/Reason for consult atrial fibrillation and has had pacemaker before. Is on Coumadin. 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 Paroxysmal atrial fibrillation Status post Medtronic PCM-last device interrogation July History of peptic ulcer disease 01/06 History of GI bleeding Status post gastric bypass surgery Discharge Disposition: Hospice - Home Discharge Instruct/Medications Diet: Regular Diet comment: Cardiac diet ensure supplement Activity: No Restrictions, As Tolerated Follow Up/Referral: 7 days Medications: resume Warfarin Discharge Statement: "Patient was advised to return to the ER or call 911 if any headaches, dizziness, shortness of breath, chest pain, abdominal pain, bleeding, fevers, or worsening of medical condition. Patient was counseled about treatment plan, medications, possible side effects, patientverbalized understanding. All questions were answered to the best of my ability. This discharge took greater then 30 minutes in planning, reviewing documentation, counseling the patient, and discussing with other team members." ASSESSMENT ASSESSMENT Assessment Failure to thrive secondary to Metastatic lung carcinoma status post radiation Severe Protein calorie malnutrition Coagulopathy secondary to anticoagulant medication for AFIB Constipation ? 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
[2025-02-24] MEDS: WARFARIN SODIUM 1 MG TAB PO ONE (21:57)
[2025-02-25] VITALS (8 sets, daily range): BP systolic 95–146; BP diastolic 53–79; PULSE 60–100; RESP 16–20; TEMP 97.8–98.8; O2SAT 93–99
--- NOTE | 2025-02-25 06:37 | DVHPN2 ---
Progress Note - Dictate Date Seen: Feb 25, 2025 Has the PT tested + for MRSA If YES, has PT been informed?: No Medical Necessity Reason Pt with a Central, PICC or Fol: No vital signs Vital Sign Date Time Temp Pulse Resp B/P (MAP) Pulse Ox O2 Delivery O2 Flow Rate FiO2 02/25/25 05:00 98.8 96 20 107/65 (79) 94 98.8 02/24/25 20:00 Room Air* 0 21 Total Intake and Output 02/24/25 02/24/25 02/25/25 15:00 23:00 07:00 Intake Total 50 ml 430 ml 100 ml Output Total 650 ml 500 ml Balance 50 ml -220 ml -400 ml medications Current Medications Medications Dose Ordered Sig/Yasir Route Start Time Stop Time Status Last Admin Dose Admin Acetaminophen 500 mg Q4HPRN PRN PO 02/19/25 01:30 02/22/25 22:49 500 MG Morphine Sulfate 1 mg Q4HPRN PRN IV 02/19/25 01:30 Acetaminophen/ Hydrocodone Bitart 1 tab Q4HPRN PRN PO 02/19/25 01:30 Sucralfate 1 gm QID@0600,1130,1700,2200 PO 02/19/25 06:00 02/25/25 06:04 1 GM Pantoprazole Sodium 40 mg DAILY@0600 PO 02/19/25 06:00 02/25/25 06:04 40 MG Ceftriaxone Sodium 50 ml @ 100 mls/hr DAILY@09 IV 02/20/25 09:00 02/24/25 09:12 100 MLS/HR Lactulose 30 ml BID PO 02/19/25 22:00 02/24/25 21:57 30 ML Sennosides 8.6 mg HS PO 02/19/25 22:00 02/24/25 21:58 8.6 MG Enoxaparin Sodium 70 mg Q12HR SC 02/20/25 22:00 02/24/25 21:58 70 MG Sodium Chloride 1,000 ml @ 125 mls/hr Q8H IV 02/20/25 15:15 02/25/25 02:55 125 MLS/HR Warfarin Sodium RX PROTOCOL PER PHARMACY PO 02/24/25 19:30 laboratory and microbiology Laboratory Tests 02/24/25 08:27 Test 02/24/25 08:27 Range/Units Serum Glucose 89 74-106 mg/dL Assessment/Plan Patient is a 74-year-old gentleman who presented to the hospital with generalized weakness/poor appetite and weight loss. There is report of dysphagia also. He has lost around 35-40 lb in the past few months. Since arrival, he is found to have metastatic disease in liver. Does have baseline history of atrial fibrillation and has had pacemaker before. Is on Coumadin. Cardiology is involved for cardiac aspects of care. Patient was actually seen in the office by my colleague just 2 days ago. Does have a pacemaker which was interrogated less than a week ago in the office. There is no report of chest pain/palpitation/loss of consciousness/shortness of breath. He looks depressed. Frail gentleman. Not in acute distress. Lying flat in bed. No JVD. Mucosa is wet. Not using accessory muscles of breathing. Lungs are clear to auscultation. Cardiac: Regular, no thrill. Systolic murmur 2/6 in the apex is heard. Abdomen is soft. Mild periumbilical tenderness is elicited. Bowel sounds positive. Extremities reveal 2+ edema bilaterally. Dorsalis pedis is 1+ bilateral Past medical history includes hypertension, hyperlipidemia, diastolic heart failure, valvular heart disease, history of mitral valve prolapse, pulmonary hypertension, atrial fibrillation/atrial flutter (on Coumadin as outpatient), status post atrial flutter ablation, status post pacemaker (Medtronic pacer, Derrick wires: The wires are not MRI compatible), DJD, s/p gastric bypass, anemia, GI bleeding, history of bilateral cataract surgery, questionable previous history of meningioma and hypothyroidism. As per patient, the patient was diagnosed with lung cancer less than a year ago for which has received radiation therapy. He was following with Dr. Grant for Oncology previously. Nuclear stress test of November 2019 (performed in the office) revealed scar but no ischemia. Ejection fraction was 58% at that point. Echocardiogram of December 23, 2024 revealed ejection fraction of 65%, moderate concentric left ventricular hypertrophy, moderate biatrial enlargement, mild mitral valve prolapse/MR/TR, aortic root of 4.4 cm. Ascending aorta of 4.3 cm. Moderate pericardial effusion. No evidence for cardiac tamponade. TSH: 2.77 BNP: 111.65 CT of the chest/abdomen/pelvis reported: FINDINGS: Trachea patent. No pneumothorax. Right middle lobe masslike lesion measuring 4.1 by 4.0 cm. Right lower lobe consolidation/atelectasis. Small right pleural effusion. Left upper lobe lingular segment atelectasis. Left lower lobe consolidation/atelectasis. Left lower lobe nodular lesion measuring 2.6 cm. Heart is enlarged. There is a small pericardial effusion. No supraclavicular /axillary lymphadenopathy. Adrenal glands poorly characterize. Splenic hypodense lesions up to 12 mm.. There are numerous hepatic lesions consistent with metastatic disease. These include a left hepatic lobe lesion measuring 9.8 cm, multiple right hepatic lobe lesions including lesions measuring 1.8 cm, 1.6 cm, 1.9 cm, 1.7 cm, 1.9 cm, 1.7 cm. Other left hepatic lobe lesions including lesions measuring 9 cm, 2.9 cm. Cholelithiasis. Dilated left intrahepatic duct measuring 10 mm. Dilated CBD measuring 19 mm. Bilateral kidneys demonstrate no hydronephrosis. Postsurgical changes stomach. Small bowel loops normal in caliber. Postsurgical changes of the bowel within the lower anterior abdomen. Large volume stool throughout the colon. Small amount of ascites fluid. Mesenteric edema. Abdominal aortic tortuosity and atherosclerotic disease. Bladder distended. Free pelvic fluid. Bilateral shoulder arthroplasty hardware. Severe thoracolumbar degenerative disc disease. Thoracolumbar s shaped curvature. Old posterior left 10th, 9th rib fractures. IMPRESSION: 1. Extensive hepatic metastatic disease with innumerable lesions including left hepatic lobe lesion measuring up to 9.8 cm. Correlate with patient's oncological history. 2. Dilated common bile duct, intrahepatic ducts. Recommend GI consultation MRCP to further evaluate. 3. CholelithiasisRight middle lobe 4. Masslike lesion/ infrahilar lesion measuring 4.1 x 4.0 cm, possibly representing primary lung malignancy. 5. Left lower lobe nodular lesion measuring 2.6 cm 6. Bilateral pulmonary airspace consolidation/ atelectasis as described. 7. Cardiomegaly, small pericardial effusion 8. Large volume stool throughout the colon. 9. Soft tissue edema/ anasarca. Mesenteric edema. Small amount of ascites fluid. 10. Other findings as described. EKG revealed paced ventricular rhythm Tele reveals paced rhythm Patient is a 74-year-old gentleman who presented with generalized weakness/weight loss/poor oral intake. He is found to have metastatic disease in liver. There was question about primary lung cancer. There is also question about dilated biliary duct/gallstones. Metastatic disease could have contributed to the clinical picture. Does have history of lung cancer for which received some treatment last year. It is of note that the patient does have history of pacemaker implantation and the pacemaker wires are not MRI compatible. Pacemaker itself has been interrogated recently and functions well. Presentation is not considered cardiac catheterization this point. Does take Coumadin for history of AFib. Is found to have supratherapeutic INR. Extensive Mets to liver Dilated bile ducts Metastatic disease Gallstone Lung mass rule out cancer Supratherapeutic INR Anemia Previous history of GI bleeding Atrial fibrillation, history of Status post pacemaker (Medtronic pacer with sore and wires) Diastolic heart failure Hypertension Hyperlipidemia Hypothyroidism Lung cancer, history of Poor appetite s/p Gastric bypass, history of History of anastomotic ulcer on jejunal side of gastrojejunostomy Cardiac suggestions for management: Manage on telemetry Follow up electrolytes and kidney function test and Correct abnormalities. Keep potassium above four and magnesium above two On Lovenox (therapeutic dose) for now: you can restart coumadin (if no need to repeat any biopsy / procedure) Cardiac lozano, stable Evaluation and management of metastatic disease as per primary team Consider obtaining tissue sample Request for GI/oncology evaluation You may want to consider Palliative consult It is of note that the patient's pacemaker has leads which are not MRI compatible. Further evaluation and management depends on the above and clinical course A total of 55 minutes was spent reviewing the patient record, examining the patient, making a diagnostic and therapeutic plan, discussing this plan with medical personnel, following up on diagnostic studies and following the patient for clinical stability excluding any and all procedures. At least 50% of this time was spent in direct, [id number] contact. Thank you for allowing me to participate in this patient's care. Further recommendations will depend on patient's clinical course. Please do not hesitate to contact me if you have any questions or concerns. This medical document was created using electronic medical record system with [employer] dictation system. Although this document has been carefully reviewed, there may still be some phonetic and typographical errors. These areas are purely typographical due to the imperfection of the software programs, and do not reflect any compromise in the patient's medical care. Dietary Evaluation Review Recommendations by RD: Increase Calorie Intake, Protein Supplementation Comments: 1) Advance to regular diet as medically feasible 2) Ensure Enlive 240ml QID 3) Megace 800mg/20ml daily 4) Continue current POC Expected Outcomes/Goals: Pt will meet >75% estimated needs FU 2-3 days Food and Nutrition Intake (Sev: <50% est energy req 5days Interpretation of weight loss: >7.5% in 3 months Muscle Mass (Severe): Mod to Severe Depletion Protein Calorie Malnutrition: Severe Is there a minimum of two crit: Yes Plan discussed with: Patient, Other (nurse) JADEN HERNÁNDEZ MD Feb 25, 2025 06:37
[2025-02-25 07:35] LABS: INR 1.48 (0.9-1.15); Partial Thromboplastin Time 38.2 SEC (24.5-34.5); Prothrombin Time 15.1 sec (9.3-11.8)
[2025-02-25] MEDS: SODIUM CHLORIDE 0.9% 1,000 ML IV SCH (10:53)
--- NOTE | 2025-02-25 16:03 | DVHPNRES ---
Progress Note Date Seen: Feb 25, 2025 Resident Creating Document: PRASHANT MARQUEZ RESIDENT Has the PT tested + for MRSA If YES, has PT been informed?: No Medical Necessity Reason Pt with a Central, PICC or Fol: No Subjective Review of Systems Mr. Vela is 74-year-old male patient with past medical history of lung carcinoma diagnosed in 2023 status post radiation for 35 days, followed Dr. Grant then lost to follow up, history of peptic ulcer disease and GI bleeding 01/06, questionable meningioma, diastolic congestive heart failure, paroxysmal atrial fibrillation on Coumadin, status post pacemaker-last assessed July 2024, osteoporosis bilateral hip, right knee replacement, who presented to the ER with a chief complaint of generalized weakness, decreased appetite and unintentional weight loss. Patient was diagnosed with lung carcinoma , underwent radiation, reports that lung cancer was in remission and then patient did not follow up with Dr. Grant for the past 6 months. Consequently he felt increasing weakness and weight loss of about 35-40 lb in the past 3-4 months. Patient has low appetite and his dysphagia reports his throat is closing whenever he swallows. Patient is a poor historian. On arrival to the ER, patient was vitally stable, H&H was 9.9/32, MCV 78. LFTs elevated. CT abdomen was completed which showed extensive metastatic disease with innumerable lesions in the liver and hypodense lesion in the spleen. Dilated common bile duct and cholelithiasis. MRCP recommended. 2.6 cm left lower lobe nodule and 4 by 4 infrahilar mass with small pericardial effusion. UA was suggestive of UTI. Past Medical History: lung carcinoma diagnosed in 2023 status post radiation for 35 days, history of peptic ulcer disease and GI bleeding 01/06, questionable meningioma, diastolic congestive heart failure, paroxysmal atrial fibrillation on Coumadin,osteoporosis Surgical history: status post pacemaker-last assessed July 2024, bilateral hip, bilateral knee replacement. Social history: Patient lives by himself in an apartment. The rest of his family this candidate. Patient mentioned that he has smoked 2-3 past for 40 years making a total of about 120 any need and on drinking any illicit drugs Medication: On Warfarin, Tamsuloin, Protonix, Sul, PN:02/19/2025 Patient is a 74 year old male with a know history lung carcinoma diagnosed in 2023 underwent radiation, reports that lung cancer was in remission and then patient did not follow up with Dr. Grant for the past 6 months. Consequently he felt increasing weakness and weight loss of about 35-40 lb in the past 3-4 months. Patient presented to the ED with the chief complaint of constipation, generalized weakness and unintentional weight lost, low appetite and his dysphagia reports his throat is closing whenever he swallows. Patient is poor historian and seems to have scarcity of words. Patient mentioned that he has lost a total of 270Ibs in over 5 years. Chest x-ray revealed extensive hepatic metastatic disease with innumerable lesions including left hepatic lobe lesion measuring up to 9.8 cm. Correlate with patient's oncological history.Dilated common bile duct, intrahepatic ducts. Recommend GI consultation MRCP to further evaluate.Cholelithiasis,Right middle lobe,Masslike lesion/ infrahilar lesion measuring 4.1 x 4.0 cm, possibly representing primary lung malignancy. Left lower lobe nodular lesion measuring 2.6 cm,Bilateral pulmonary airspace consolidation/ atelectasis as described.Cardiomegaly, small pericardial effusion.Large volume stool throughout the colon. Soft tissue edema/ anasarca. Mesenteric edema. Small amount of ascites fluid. PN 02/20/2025: Patient doing better. His INR is now subtherapeutic after Vitamin K. He had a bowel movement as well. Otherwise he has no complaints. Will start him on Lovenox therapeutic dose. Pending consultation from the oncologist and repeat blood for tomorrow PN: 02/21/2025 Patient seen and examined. He has not complaints. INR today is 1.48. He is currently on Lovenox therapeutic dose. We discussed plan of care with the patient going forward. He lives alone. The rest of his family lives in [place] We discussed the option for comfort care vs pursing aggressive chemoradiation treatment with the patient. However, at the end of the day, he would need to make that decision. Patient said he has not though of comfort care and he needs time to process all the information presented to him. ppn: 02/22/2025: See Dr. Hurst's note PN 02/23/2025; Patient seen and examined today. He is actually looking more alive and communicating even though he seem to take time to process his thinking. Dr. Hurst spoke to him extensively about considering hospice. Patient hast thought about it mentioned to me that he would like to be discharge home with home hospice. INR 1.68. He goal is 2-3. Discharge note 02/24/2025: Patient did not go home yesterday because we started bridging the Lovenox with warfarin. Patient's original plan was to go home with home hospice. However, the patient's sister called today from [place].She advised patient to go to a hospice facility where he can be watched over him. Patient agreed to go to a hospice. Order has been put in for high risk case manager to arrange for a hospice facility. Check the INR tomorrow Objective vital signs Vital Sign Date Time Temp Pulse Resp B/P (MAP) Pulse Ox O2 Delivery O2 Flow Rate FiO2 02/25/25 08:00 60 18 95 Room Air* 0 21 02/25/25 05:00 98.8 107/65 (79) 98.8 Total Intake and Output 02/24/25 02/24/25 02/25/25 15:00 23:00 07:00 Intake Total 50 ml 430 ml 100 ml Output Total 650 ml 500 ml Balance 50 ml -220 ml -400 ml medications Current Medications Medications Dose Ordered Sig/Yasir Route Start Time Stop Time Status Last Admin Dose Admin Acetaminophen 500 mg Q4HPRN PRN PO 02/19/25 01:30 02/22/25 22:49 500 MG Morphine Sulfate 1 mg Q4HPRN PRN IV 02/19/25 01:30 Acetaminophen/ Hydrocodone Bitart 1 tab Q4HPRN PRN PO 02/19/25 01:30 Sucralfate 1 gm QID@0600,1130,1700,2200 PO 02/19/25 06:00 02/25/25 11:11 1 GM Pantoprazole Sodium 40 mg DAILY@0600 PO 02/19/25 06:00 02/25/25 06:04 40 MG Ceftriaxone Sodium 50 ml @ 100 mls/hr DAILY@09 IV 02/20/25 09:00 02/25/25 09:48 100 MLS/HR Lactulose 30 ml BID PO 02/19/25 22:00 02/25/25 09:47 30 ML Sennosides 8.6 mg HS PO 02/19/25 22:00 02/24/25 21:58 8.6 MG Enoxaparin Sodium 70 mg Q12HR SC 02/20/25 22:00 02/25/25 09:48 70 MG Warfarin Sodium RX PROTOCOL PER PHARMACY PO 02/24/25 19:30 Sodium Chloride 1,000 ml @ 70 mls/hr [id number] IV 02/25/25 07:15 02/25/25 10:53 70 MLS/HR Examination General Appearance: Alert, Oriented X3, Cooperative, Cachectic, afebrile, HEENT: Atraumatic, Pupils are isocoric and reactive, EOMI, Pale mucous membrane moist Respiratory: Bilateral basilar crackles and decreased breath sounds heard on auscultation. Cardiovascular: Regular rate, Normal S1, Normal S2, No murmurs, no chest wall tenderness Abdominal: Soft, left quadrant tenderness, nondistended, normoactive bowel sounds, no rebound tenderness; organomegaly, central masses palpated. Negative Ewing sign on examination Extremities: No clubbing, No cyanosis, No edema, Normal pulses, resolving Edema, 3+ bilateral pitting edema, Bilateral lower extremities chronic dermatitis changes Skin: No rashes, No breakdown, Skin discoloration likely stasis dermatitis ( bilateral lower extremities) Neuro: difficulty in elevating the right lower extremity, walks with a walker, Normal tone, Sensation intact, reduced Reflexes 2+ Psych/Mental Status: Mental status NL, Mood NL, Sometimes take time to process information before responding laboratory and microbiology Laboratory Tests 02/24/25 08:27 Test 02/24/25 08:27 Range/Units Serum Glucose 89 74-106 mg/dL Microbiology Date/Time Source Procedure Growth Status 02/18/25 18:00 Voided Urine Urine Culture - Final Complete Problem List/Assessment/Plan Problem List/Assessment/Plan Assessment Failure to thrive secondary to Metastatic lung carcinoma status post radiation Severe Protein calorie malnutrition --> Unintentional weight lost --> Ensure q.i.d. --> Diet consult Coagulopathy secondary to anticoagulant medication for AFIB --> On warfarin for AFIB --> INR: 1.48 on therapeutic Lovenox --> No signs for bleeding at this time, thus will give Vitamin K 10mg and repeat PT/INR IN 6hrs, Pending; if no improve, repeat Vitamin K 10MG --> Now on IV LOVENOX therapeutic dose Constipation --> CT abdomen: Large volume stool throughout the colon --> lactulose 30mg bid --> Senna glycoside --> if the method does not work, will try fleet enema ? Choledocholithiasis -->Transaminitis, Trend LFTs. --> Cholelithiasis, negative Ewing's --> CT abdomen showed dilated common bile duct. --> MRCP? he has a pace maker. Radiology will let me know in the morning. Likely Pneumonia -->Examination findings --> CT abdomen: Bilateral pulmonary airspace consolidation/ atelectasis as described --> Ceftriaxone Acute cystitis IV ceftriaxone ordered Urine bacterial culture ordered. 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 He lives a lone. no family [place] Family lives in [place]. Patient said he will think about it. Goal of care discussed for 18 minutes: DNR/DNI, Case and plan discussed + Dr. Hurst Plan discussed with: Patient My Orders My Orders Orders - PRASHANT MARQUEZ RESIDENT Procedure Category Date Status Time Warfarin Per Rx PHA 02/24/25 In Process Protocol (Coumadin 19:30 Coumadin Per Pharmacy ALEC 02/24/25 In Process Protcol 20:56 Warfarin Sodium PHA 02/25/25 In Process (Coumadin) 17:00 Complete Blood Count LAB 02/26/25 Verified 04:00 PTPTT LAB 02/26/25 Verified 04:00 Creatinine LAB 02/26/25 Verified 04:00 * Wood Getter CONS 02/25/25 Transmitted Consult Potassium Effervesent PHA 02/25/25 Logged Tab (Klor-Con/Ef) 16:00 Dietary Evaluation Review Recommendations by RD: Increase Calorie Intake, Protein Supplementation Comments: 1) Advance to regular diet as medically feasible 2) Ensure Enlive 240ml QID 3) Megace 800mg/20ml daily 4) Continue current POC Expected Outcomes/Goals: Pt will meet >75% estimated needs FU 2-3 days Food and Nutrition Intake (Sev: <50% est energy req 5days Interpretation of weight loss: >7.5% in 3 months Muscle Mass (Severe): Mod to Severe Depletion Protein Calorie Malnutrition: Severe Is there a minimum of two crit: Yes Date of Service: Feb 25, 2025 Billing Provider: ASHLY HURST MD Common Visit Codes: [id number] INP/OBS CARE(MOD) PRASHANT MARQUEZ RESIDENT Feb 25, 2025 16:03 ASHLY HURST MD Feb 25, 2025 22:34
[2025-02-25] MEDS: POTASSIUM EFFERVESENT TAB 25 MEQ GT ONE (17:38)
[2025-02-25] MEDS: WARFARIN SODIUM 1 MG TAB PO ONE (17:39)
[2025-02-26 05:00] VITALS: BP 106/64; PULSE 60; RESP 19; TEMP 98.6; O2SAT 95
--- NOTE | 2025-02-26 06:40 | DVHPN2 ---
Progress Note - Dictate Date Seen: Feb 26, 2025 Has the PT tested + for MRSA If YES, has PT been informed?: No Medical Necessity Reason Pt with a Central, PICC or Fol: No vital signs Vital Sign Date Time Temp Pulse Resp B/P (MAP) Pulse Ox O2 Delivery O2 Flow Rate FiO2 02/26/25 05:00 98.6 60 19 106/64 (78) 95 98.6 02/25/25 20:16 Room Air* 0 21 Total Intake and Output 02/25/25 02/25/25 02/26/25 15:00 23:00 07:00 Intake Total 50 ml 340 ml 350 ml Output Total 400 ml Balance 50 ml 340 ml -50 ml medications Current Medications Medications Dose Ordered Sig/Yasir Route Start Time Stop Time Status Last Admin Dose Admin Acetaminophen 500 mg Q4HPRN PRN PO 02/19/25 01:30 02/22/25 22:49 500 MG Morphine Sulfate 1 mg Q4HPRN PRN IV 02/19/25 01:30 Acetaminophen/ Hydrocodone Bitart 1 tab Q4HPRN PRN PO 02/19/25 01:30 Sucralfate 1 gm QID@0600,1130,1700,2200 PO 02/19/25 06:00 02/26/25 05:35 1 GM Pantoprazole Sodium 40 mg DAILY@0600 PO 02/19/25 06:00 02/26/25 05:35 40 MG Ceftriaxone Sodium 50 ml @ 100 mls/hr DAILY@09 IV 02/20/25 09:00 02/25/25 09:48 100 MLS/HR Lactulose 30 ml BID PO 02/19/25 22:00 02/25/25 21:34 30 ML Sennosides 8.6 mg HS PO 02/19/25 22:00 02/25/25 21:34 8.6 MG Enoxaparin Sodium 70 mg Q12HR SC 02/20/25 22:00 02/25/25 21:34 70 MG Warfarin Sodium RX PROTOCOL PER PHARMACY PO 02/24/25 19:30 Sodium Chloride 1,000 ml @ 70 mls/hr [id number] IV 02/25/25 07:15 02/25/25 21:34 70 MLS/HR laboratory and microbiology Laboratory Tests 02/24/25 08:27 Test 02/24/25 08:27 Range/Units Serum Glucose 89 74-106 mg/dL Assessment/Plan Patient is a 74-year-old gentleman who presented to the hospital with generalized weakness/poor appetite and weight loss. There is report of dysphagia also. He has lost around 35-40 lb in the past few months. Since arrival, he is found to have metastatic disease in liver. Does have baseline history of atrial fibrillation and has had pacemaker before. Is on Coumadin. Cardiology is involved for cardiac aspects of care. Patient was actually seen in the office by my colleague just 2 days ago. Does have a pacemaker which was interrogated less than a week ago in the office. There is no report of chest pain/palpitation/loss of consciousness/shortness of breath. He looks depressed. Frail gentleman. Not in acute distress. Lying flat in bed. No JVD. Mucosa is wet. Not using accessory muscles of breathing. Lungs are clear to auscultation. Cardiac: Regular, no thrill. Systolic murmur 2/6 in the apex is heard. Abdomen is soft. Mild periumbilical tenderness is elicited. Bowel sounds positive. Extremities reveal 2+ edema bilaterally. Dorsalis pedis is 1+ bilateral Past medical history includes hypertension, hyperlipidemia, diastolic heart failure, valvular heart disease, history of mitral valve prolapse, pulmonary hypertension, atrial fibrillation/atrial flutter (on Coumadin as outpatient), status post atrial flutter ablation, status post pacemaker (Medtronic pacer, Derrick wires: The wires are not MRI compatible), DJD, s/p gastric bypass, anemia, GI bleeding, history of bilateral cataract surgery, questionable previous history of meningioma and hypothyroidism. As per patient, the patient was diagnosed with lung cancer less than a year ago for which has received radiation therapy. He was following with Dr. Grant for Oncology previously. Nuclear stress test of November 2019 (performed in the office) revealed scar but no ischemia. Ejection fraction was 58% at that point. Echocardiogram of December 23, 2024 revealed ejection fraction of 65%, moderate concentric left ventricular hypertrophy, moderate biatrial enlargement, mild mitral valve prolapse/MR/TR, aortic root of 4.4 cm. Ascending aorta of 4.3 cm. Moderate pericardial effusion. No evidence for cardiac tamponade. TSH: 2.77 BNP: 111.65 CT of the chest/abdomen/pelvis reported: FINDINGS: Trachea patent. No pneumothorax. Right middle lobe masslike lesion measuring 4.1 by 4.0 cm. Right lower lobe consolidation/atelectasis. Small right pleural effusion. Left upper lobe lingular segment atelectasis. Left lower lobe consolidation/atelectasis. Left lower lobe nodular lesion measuring 2.6 cm. Heart is enlarged. There is a small pericardial effusion. No supraclavicular /axillary lymphadenopathy. Adrenal glands poorly characterize. Splenic hypodense lesions up to 12 mm.. There are numerous hepatic lesions consistent with metastatic disease. These include a left hepatic lobe lesion measuring 9.8 cm, multiple right hepatic lobe lesions including lesions measuring 1.8 cm, 1.6 cm, 1.9 cm, 1.7 cm, 1.9 cm, 1.7 cm. Other left hepatic lobe lesions including lesions measuring 9 cm, 2.9 cm. Cholelithiasis. Dilated left intrahepatic duct measuring 10 mm. Dilated CBD measuring 19 mm. Bilateral kidneys demonstrate no hydronephrosis. Postsurgical changes stomach. Small bowel loops normal in caliber. Postsurgical changes of the bowel within the lower anterior abdomen. Large volume stool throughout the colon. Small amount of ascites fluid. Mesenteric edema. Abdominal aortic tortuosity and atherosclerotic disease. Bladder distended. Free pelvic fluid. Bilateral shoulder arthroplasty hardware. Severe thoracolumbar degenerative disc disease. Thoracolumbar s shaped curvature. Old posterior left 10th, 9th rib fractures. IMPRESSION: 1. Extensive hepatic metastatic disease with innumerable lesions including left hepatic lobe lesion measuring up to 9.8 cm. Correlate with patient's oncological history. 2. Dilated common bile duct, intrahepatic ducts. Recommend GI consultation MRCP to further evaluate. 3. CholelithiasisRight middle lobe 4. Masslike lesion/ infrahilar lesion measuring 4.1 x 4.0 cm, possibly representing primary lung malignancy. 5. Left lower lobe nodular lesion measuring 2.6 cm 6. Bilateral pulmonary airspace consolidation/ atelectasis as described. 7. Cardiomegaly, small pericardial effusion 8. Large volume stool throughout the colon. 9. Soft tissue edema/ anasarca. Mesenteric edema. Small amount of ascites fluid. 10. Other findings as described. EKG revealed paced ventricular rhythm Tele reveals paced rhythm Patient is a 74-year-old gentleman who presented with generalized weakness/weight loss/poor oral intake. He is found to have metastatic disease in liver. There was question about primary lung cancer. There is also question about dilated biliary duct/gallstones. Metastatic disease could have contributed to the clinical picture. Does have history of lung cancer for which received some treatment last year. It is of note that the patient does have history of pacemaker implantation and the pacemaker wires are not MRI compatible. Pacemaker itself has been interrogated recently and functions well. Presentation is not considered cardiac catheterization this point. Does take Coumadin for history of AFib. Is found to have supratherapeutic INR. Extensive Mets to liver Dilated bile ducts Metastatic disease Gallstone Lung mass rule out cancer Supratherapeutic INR Anemia Previous history of GI bleeding Atrial fibrillation, history of Status post pacemaker (Medtronic pacer with sore and wires) Diastolic heart failure Hypertension Hyperlipidemia Hypothyroidism Lung cancer, history of Poor appetite s/p Gastric bypass, history of History of anastomotic ulcer on jejunal side of gastrojejunostomy Cardiac suggestions for management: Manage on telemetry Follow up electrolytes and kidney function test and Correct abnormalities. Keep potassium above four and magnesium above two On Lovenox (therapeutic dose) for now: you can restart coumadin (if no need to repeat any biopsy / procedure) Cardiac lozano, stable Evaluation and management of metastatic disease as per primary team Consider obtaining tissue sample Request for GI/oncology evaluation You may want to consider Palliative consult It is of note that the patient's pacemaker has leads which are not MRI compatible. Further evaluation and management depends on the above and clinical course A total of 55 minutes was spent reviewing the patient record, examining the patient, making a diagnostic and therapeutic plan, discussing this plan with medical personnel, following up on diagnostic studies and following the patient for clinical stability excluding any and all procedures. At least 50% of this time was spent in direct, [id number] contact. Thank you for allowing me to participate in this patient's care. Further recommendations will depend on patient's clinical course. Please do not hesitate to contact me if you have any questions or concerns. This medical document was created using electronic medical record system with Fastr dictation system. Although this document has been carefully reviewed, there may still be some phonetic and typographical errors. These areas are purely typographical due to the imperfection of the software programs, and do not reflect any compromise in the patient's medical care. Dietary Evaluation Review Recommendations by RD: Increase Calorie Intake, Protein Supplementation Comments: 1) Advance to regular diet as medically feasible 2) Ensure Enlive 240ml QID 3) Megace 800mg/20ml daily 4) Continue current POC Expected Outcomes/Goals: Pt will meet >75% estimated needs FU 2-3 days Food and Nutrition Intake (Sev: <50% est energy req 5days Interpretation of weight loss: >7.5% in 3 months Muscle Mass (Severe): Mod to Severe Depletion Protein Calorie Malnutrition: Severe Is there a minimum of two crit: Yes Plan discussed with: Patient, Other (nurse) JADEN HERNÁNDEZ MD Feb 26, 2025 06:40
[2025-02-26 07:57] LABS: Basophils # (auto) 0 10 ^3/uL (0-0.2); Eosinophils # (auto) 0 10 ^3/uL (0-0.8); Eosinophils % (auto) 0.5 % (0.0-7.0); Hemoglobin 10.1 g/dL (13.5-17.5); Lymphocytes # (auto) 0.3 10 ^3/uL (0.4-5.4); Monocytes # (auto) 0.6 10 ^3/uL (0-1.3); White Blood Cell 6.9 10^3/uL (4.4-10.8)
[2025-02-26 08:00] VITALS: PULSE 65; RESP 17; O2SAT 95
[2025-02-26 08:03] LABS: Basophils % (auto) 0.2 % (0.0-2.0); Hematocrit 33.7 % (41.0-53.0); Lymphocytes % (auto) 4.6 % (10.0-50.0); Mean Corpuscular Hgb Conc. 29.9 g/dL (32.0-36.0); Monocytes % (auto) 9.1 % (0.0-12.0); Neutrophils # (auto) 5.9 10 ^3/uL (1.6-8.6); Neutrophils % (auto) 85.6 % (37.0-80.0); Platelet Count (auto) 261 10^3/uL (140-450); Red Blood Cells 4.21 10^6/uL (4.5-5.90); Red Cell Distribution Width 18.1 % (11.8-14.3)
[2025-02-26 08:04] LABS: INR 1.52 (0.9-1.15); Partial Thromboplastin Time 37.8 SEC (24.5-34.5); Prothrombin Time 15.5 sec (9.3-11.8)
[2025-02-26 08:10] LABS: Chloride 104 mmol/L (98-107); Sodium 139 mmol/L (136-145)
[2025-02-26 08:11] LABS: Anion Gap 4 (5-15); Carbon Dioxide 31 mmol/L (20-31)
[2025-02-26 08:13] LABS: Calcium 12.1 mg/dL (8.7-10.4); Potassium 3.3 mmol/L (3.5-5.1)
[2025-02-26 08:16] LABS: BUN/Creatinine Ratio 19.7 (10.0-20.0); Blood Urea Nitrogen 12 mg/dL (9-23); Glucose 86 mg/dL (74-106)
[2025-02-26 08:30] VITALS: BP 121/70; PULSE 63; RESP 14; TEMP 98.4; O2SAT 93
[2025-02-26] MEDS: FLEET ENEMA(ADULT) 135 ML PR ONE (09:50)
[2025-02-26 12:30] VITALS: BP 93/56; PULSE 92; RESP 14; TEMP 98.2; O2SAT 98
[2025-02-26] MEDS ORDERED: WARF-111 PO (13:36)
[2025-02-26] MEDS ORDERED: PANT40T PO (13:36)
[2025-02-26] MEDS ORDERED: SENN-105 PO (13:36)
[2025-02-26] MEDS ORDERED: SUCR1TAB31 OR (13:37)
[2025-02-26 16:30] VITALS: BP 99/59; PULSE 65; RESP 16; TEMP 98.5; O2SAT 91
[2025-02-26] MEDS: SENNA 8.6 MG TAB PO ONE (17:13)
[2025-02-26] MEDS: WARFARIN SODIUM 2 MG TAB PO ONE (17:13)
[2025-02-26] MEDS: POLYETHYLENE GLYCOL 17 GM PWDR PO ONE (17:13)
--- NOTE | 2025-02-26 17:13 | DVHPNRES ---
Progress Note Date Seen: Feb 26, 2025 Resident Creating Document: PRASHANT MARQUEZ RESIDENT Has the PT tested + for MRSA If YES, has PT been informed?: No Medical Necessity Reason Pt with a Central, PICC or Fol: No Medical Necessity Reason Review of Systems Mr. Vela is 74-year-old male patient with past medical history of lung carcinoma diagnosed in 2023 status post radiation for 35 days, followed Dr. Grant then lost to follow up, history of peptic ulcer disease and GI bleeding 01/06, questionable meningioma, diastolic congestive heart failure, paroxysmal atrial fibrillation on Coumadin, status post pacemaker-last assessed July 2024, osteoporosis bilateral hip, right knee replacement, who presented to the ER with a chief complaint of generalized weakness, decreased appetite and unintentional weight loss. Patient was diagnosed with lung carcinoma , underwent radiation, reports that lung cancer was in remission and then patient did not follow up with Dr. Grant for the past 6 months. Consequently he felt increasing weakness and weight loss of about 35-40 lb in the past 3-4 months. Patient has low appetite and his dysphagia reports his throat is closing whenever he swallows. Patient is a poor historian. On arrival to the ER, patient was vitally stable, H&H was 9.9/32, MCV 78. LFTs elevated. CT abdomen was completed which showed extensive metastatic disease with innumerable lesions in the liver and hypodense lesion in the spleen. Dilated common bile duct and cholelithiasis. MRCP recommended. 2.6 cm left lower lobe nodule and 4 by 4 infrahilar mass with small pericardial effusion. UA was suggestive of UTI. Past Medical History: lung carcinoma diagnosed in 2023 status post radiation for 35 days, history of peptic ulcer disease and GI bleeding 01/06, questionable meningioma, diastolic congestive heart failure, paroxysmal atrial fibrillation on Coumadin,osteoporosis Surgical history: status post pacemaker-last assessed July 2024, bilateral hip, bilateral knee replacement. Social history: Patient lives by himself in an apartment. The rest of his family this candidate. Patient mentioned that he has smoked 2-3 past for 40 years making a total of about 120 any need and on drinking any illicit drugs Medication: On Warfarin, Tamsuloin, Protonix, Sul, PN:02/19/2025 Patient is a 74 year old male with a know history lung carcinoma diagnosed in 2023 underwent radiation, reports that lung cancer was in remission and then patient did not follow up with Dr. Grant for the past 6 months. Consequently he felt increasing weakness and weight loss of about 35-40 lb in the past 3-4 months. Patient presented to the ED with the chief complaint of constipation, generalized weakness and unintentional weight lost, low appetite and his dysphagia reports his throat is closing whenever he swallows. Patient is poor historian and seems to have scarcity of words. Patient mentioned that he has lost a total of 270Ibs in over 5 years. Chest x-ray revealed extensive hepatic metastatic disease with innumerable lesions including left hepatic lobe lesion measuring up to 9.8 cm. Correlate with patient's oncological history.Dilated common bile duct, intrahepatic ducts. Recommend GI consultation MRCP to further evaluate.Cholelithiasis,Right middle lobe,Masslike lesion/ infrahilar lesion measuring 4.1 x 4.0 cm, possibly representing primary lung malignancy. Left lower lobe nodular lesion measuring 2.6 cm,Bilateral pulmonary airspace consolidation/ atelectasis as described.Cardiomegaly, small pericardial effusion.Large volume stool throughout the colon. Soft tissue edema/ anasarca. Mesenteric edema. Small amount of ascites fluid. PN 02/20/2025: Patient doing better. His INR is now subtherapeutic after Vitamin K. He had a bowel movement as well. Otherwise he has no complaints. Will start him on Lovenox therapeutic dose. Pending consultation from the oncologist and repeat blood for tomorrow PN: 02/21/2025 Patient seen and examined. He has not complaints. INR today is 1.48. He is currently on Lovenox therapeutic dose. We discussed plan of care with the patient going forward. He lives alone. The rest of his family lives in [place]. We discussed the option for comfort care vs pursing aggressive chemoradiation treatment with the patient. However, at the end of the day, he would need to make that decision. Patient said he has not though of comfort care and he needs time to process all the information presented to him. ppn: 02/22/2025: See Dr. Hurst's note PN 02/23/2025; Patient seen and examined today. He is actually looking more alive and communicating even though he seem to take time to process his thinking. Dr. Hurst spoke to him extensively about considering hospice. Patient hast thought about it mentioned to me that he would like to be discharge home with home hospice. INR 1.68. He goal is 2-3. Discharge note 02/24/2025: Patient did not go home yesterday because we started bridging the Lovenox with warfarin. PN: 02/25/2025: Patient's original plan was to go home with home hospice. However, the patient's sister called today from [place].She advised patient to go to a hospice facility where he can be watched over him. Patient agreed to go to a hospice. Order has been put in for behavioral health case manager to arrange for a hospice facility. Check the INR tomorrow PN02/26/2025: Pt going to [facility]. Continue all his meds and WARFARIN 3mg daily. Coumadin clinic on sunday Subjective Review of Systems Constitutional: Denies fever no chills, but feeling of malaise, loss of appetite HEENT: Denies headache, ear pain, ear discharges, conjunctivitis, nasal discharge throat pain Cardiovascular: Denies chest pain, palpitation, orthopnea, PND, or pedal edema Respiratory: Denies shortness of breath, cough cough, sputum production, hemoptysis, GI: Denies abdominal pain, nausea, vomiting, diarrhea, hematemesis, hematochezia; Constipation : Denies frequency, urgency, hematuria, Endocrine:unintentional weight loss (270), NO feeling of hot flashes, Dionisio: Denies easy bruising, bleeding disorders, epistaxis Musculoskeletal: Muscle weakness; Denies joint pains, muscle aches Psych: No evidence of depression, jaclyn, suicidal ideation Objective vital signs Vital Sign Date Time Temp Pulse Resp B/P (MAP) Pulse Ox O2 Delivery O2 Flow Rate FiO2 02/26/25 16:30 98.5 65 16 99/59 (72) 91 98.5 02/26/25 08:00 Room Air* 0 21 Total Intake and Output 02/25/25 02/25/25 02/26/25 15:00 23:00 07:00 Intake Total 50 ml 340 ml 350 ml Output Total 400 ml Balance 50 ml 340 ml -50 ml medications Current Medications Medications Dose Ordered Sig/Yasir Route Start Time Stop Time Status Last Admin Dose Admin Acetaminophen 500 mg Q4HPRN PRN PO 02/19/25 01:30 02/22/25 22:49 500 MG Morphine Sulfate 1 mg Q4HPRN PRN IV 02/19/25 01:30 Acetaminophen/ Hydrocodone Bitart 1 tab Q4HPRN PRN PO 02/19/25 01:30 Sucralfate 1 gm QID@0600,1130,1700,2200 PO 02/19/25 06:00 02/26/25 11:23 1 GM Pantoprazole Sodium 40 mg DAILY@0600 PO 02/19/25 06:00 02/26/25 05:35 40 MG Ceftriaxone Sodium 50 ml @ 100 mls/hr DAILY@09 IV 02/20/25 09:00 02/26/25 10:01 100 MLS/HR Lactulose 30 ml BID PO 02/19/25 22:00 02/26/25 09:50 30 ML Sennosides 8.6 mg HS PO 02/19/25 22:00 02/25/25 21:34 8.6 MG Enoxaparin Sodium 70 mg Q12HR SC 02/20/25 22:00 02/25/25 21:34 70 MG Warfarin Sodium RX PROTOCOL PER PHARMACY PO 02/24/25 19:30 Sodium Chloride 1,000 ml @ 70 mls/hr [id number] IV 02/25/25 07:15 02/25/25 21:34 70 MLS/HR Sennosides 8.6 mg HS PO 02/26/25 22:00 UNV Examination Examination General Appearance: Alert, Oriented X3, Cooperative, Cachectic, afebrile, HEENT: Atraumatic, Pupils are isocoric and reactive, EOMI, Pale mucous membrane moist Respiratory: Bilateral basilar crackles and decreased breath sounds heard on auscultation. Cardiovascular: Regular rate, Normal S1, Normal S2, No murmurs, no chest wall tenderness Abdominal: Soft, left quadrant tenderness, nondistended, normoactive bowel sounds, no rebound tenderness; organomegaly, central masses palpated. Negative Ewing sign on examination Extremities: No clubbing, No cyanosis, No edema, Normal pulses, resolving Edema, 3+ bilateral pitting edema, Bilateral lower extremities chronic dermatitis changes Skin: No rashes, No breakdown, Skin discoloration likely stasis dermatitis ( bilateral lower extremities) Neuro: difficulty in elevating the right lower extremity, walks with a walker, Normal tone, Sensation intact, reduced Reflexes 2+ Psych/Mental Status: Mental status NL, Mood NL, Sometimes take time to process information before responding laboratory and microbiology Laboratory Tests 02/26/25 07:18 Test 02/26/25 07:18 Range/Units Serum Glucose 86 74-106 mg/dL Microbiology Date/Time Source Procedure Growth Status 02/18/25 18:00 Voided Urine Urine Culture - Final Complete Problem List/Assessment/Plan Problem List/Assessment/Plan Assessment Failure to thrive secondary to Metastatic lung carcinoma status post radiation Severe Protein calorie malnutrition --> Unintentional weight lost --> Ensure q.i.d. --> Diet consult Coagulopathy secondary to anticoagulant medication for AFIB --> On warfarin for AFIB --> INR: 1.48 on therapeutic Lovenox --> No signs for bleeding at this time, thus will give Vitamin K 10mg and repeat PT/INR IN 6hrs, Pending; if no improve, repeat Vitamin K 10MG --> Now on IV LOVENOX therapeutic dose Constipation --> CT abdomen: Large volume stool throughout the colon --> lactulose 30mg bid --> Senna glycoside --> if the method does not work, will try fleet enema ? Choledocholithiasis -->Transaminitis, Trend LFTs. --> Cholelithiasis, negative Ewing's --> CT abdomen showed dilated common bile duct. --> MRCP? he has a pace maker. Radiology will let me know in the morning. Likely Pneumonia -->Examination findings --> CT abdomen: Bilateral pulmonary airspace consolidation/ atelectasis as described --> Ceftriaxone Acute cystitis IV ceftriaxone ordered Urine bacterial culture ordered. 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 He lives a lone. [place] family [place] Family lives in [place]. Patient said he will think about it. Goal of care discussed for 18 minutes: DNR/DNI, Case and plan discussed + Dr. Hurst Plan discussed with: Patient, Other (Nurse) My Orders My Orders Orders - PRASHANT MARQUEZ Procedure Category Date Status Time Discharge DISCHARGE 02/26/25 Transmitted 12:48 Coumadin Per Pharmacy [facility] 02/26/25 In Process Protcol 17:00 PTPTT LAB 02/27/25 Verified 05:00 Dietary Evaluation Review Recommendations by RD: Increase Calorie Intake, Protein Supplementation Comments: 1) Advance to regular diet as medically feasible 2) Ensure Enlive 240ml QID 3) Megace 800mg/20ml daily 4) Continue current POC Expected Outcomes/Goals: Pt will meet >75% estimated needs FU 2-3 days Food and Nutrition Intake (Sev: <50% est energy req 5days Interpretation of weight loss: >7.5% in 3 months Muscle Mass (Severe): Mod to Severe Depletion Protein Calorie Malnutrition: Severe Is there a minimum of two crit: Yes Date of Service: Feb 26, 2025 Billing Provider: ASHLY HURST MD Common Visit Codes: [id number] INP/OBS CARE(HIGH) PRASHANT MARQUEZ Feb 26, 2025 17:13 ASHLY HURST MD Feb 27, 2025 22:09
[2025-02-26] MEDS ORDERED: SENNA 8.6 MG TAB PO SCH (22:00)
== END 2025-02-26 20:40 | disposition hospice, home (50) | DRG 177 ==
LOC: ER 17:03 → EDBD 17:03 → EDUNIT# 17:03 → OVERFLOW 02-19 01:22 → TELE-WESTW 02-19 04:59
PROVIDERS: ADMIT Student in an Organized Health Care Education/Training Program; ATTEND Student in an Organized Health Care Education/Training Program
DX: J15.69 Pneumonia due to other Gram-negative bacteria (principal); E43 Unspecified severe protein-calorie malnutrition; N30.00 Acute cystitis without hematuria; I50.32 Chronic diastolic (congestive) heart failure; D68.8 Other specified coagulation defects; R62.7 Adult failure to thrive; J15.9 Unspecified bacterial pneumonia; E78.5 Hyperlipidemia, unspecified; Z66 Do not resuscitate; Z51.5 Encounter for palliative care; I48.0 Paroxysmal atrial fibrillation; D64.9 Anemia, unspecified; K59.00 Constipation, unspecified; J43.9 Emphysema, unspecified; E87.6 Hypokalemia; R74.01 Elevation of levels of liver transaminase levels; T45.515A Adverse effect of anticoagulants, initial encounter; E03.9 Hypothyroidism, unspecified; I11.0 Hypertensive heart disease with heart failure; M81.0 Age-related osteoporosis without current pathological fracture; D32.9 Benign neoplasm of meninges, unspecified; R13.10 Dysphagia, unspecified; K80.70 Calculus of gallbladder and bile duct without cholecystitis without obstruction; E83.52 Hypercalcemia; Z79.01 Long term (current) use of anticoagulants; Z96.611 Presence of right artificial shoulder joint; Z96.612 Presence of left artificial shoulder joint; Z68.25 Body mass index [BMI] 25.0-25.9, adult; Z98.84 Bariatric surgery status; Z87.11 Personal history of peptic ulcer disease; Z92.3 Personal history of irradiation; Z85.118 Personal history of other malignant neoplasm of bronchus and lung; Z95.0 Presence of cardiac pacemaker; Z96.651 Presence of right artificial knee joint; Y92.89 Other specified places as the place of occurrence of the external cause
CPT/HCPCS: 36415; 71260; 74177; 80048; 80053; 80076; 80307; 81001; 82306; 82607; 82962; 83540; 83550; 83735; 83880; 83970; 84443; 85025; 85610; 85730; 86850; 86900; 86901; 87086; 93005; 96365; 97110; 97116; 97163; 97530; G0378; J2003; J2470; J3430